=== PATIENT | female | born 1970 | race African-American/Black ===

== ENCOUNTER 2016-10-12 21:03 | Observation (INO) | payer SELFPAY ==
[~2016-10-12] VITALS: Ht 154.9 cm; Wt 118.0 kg
[2016-10-12 21:05] VITALS: BP 144/73; PULSE 96; RESP 16; TEMP 99; O2SAT 100
[2016-10-12 23:00] VITALS: BP 133/63; PULSE 81; RESP 16; TEMP 98.5; O2SAT 99
[2016-10-12] MEDS ORDERED: diphenhydrAMINE HCL 50 MG/ML VIAL IV PUSH ONE (23:15)
[2016-10-12] MEDS ORDERED: PROCHLORPERAZINE INJ 10 MG/2 ML VIAL IV PUSH ONE (23:15)
--- NOTE | 2016-10-12 23:22 | PD ---
HPI Chief Complaint: Headache Time Seen by Provider: 23:02 Travel History International Travel<30 days: No Contact w/Intl Traveler<30days: No Traveled to known affect area: No History of Present Illness HPI 45yo F with PMH of uterine fibroids, iron deficiency anemia, migraine headache presents to the ED with c/o headache for 2-3 days. States it feels like her usual migraine headache. It is bilateral, frontal and radiates to the entire head. Some photophobia. Some nausea. States she has had similar headaches for 2-3 years and was told that her low iron is the cause by her PMD. However, pt has stopped taking iron supplements for 2 weeks because it makes her constipated. Denies any fever, trauma, cough, neck stiffness, chest pain, sob, vomiting, abdominal pain, focal weakness or numbness. +Generalized weakness. Pt has been here multiple times before for symptomatic anemia as well as similar headache. She is on her menstrual period. PFSH Past Medical History Asthma: Yes (SINCE CHILDHOOD) Blood Disorders: No Anxiety: Yes Cancer: No Cardiovascular Problems: No Chemotherapy: No Diabetes: No Diminished Hearing: No Endocrine: No Gastrointestinal Disorders: Yes (GB DSE ) Genitourinary: Yes (UTERINE FIBROIDS) Headaches: Yes Immune Disorder: No Inguinal Hernia: Yes Implanted Vascular Access Dvce: No Musculoskeletal: No Neurologic: No Psychiatric: No Respiratory: Yes (ASTHMA) Immunizations Current: No Migraines: Yes Radiation Therapy: No Thyroid Disease: No Ulcer: Yes ?: Not LMP: 10/10/16 Menopausal: No : 3 Para: 3 Tubal Ligation: Yes Past Surgical History Abdominal Surgery: Yes (HERNIA REPAIR) Section: Yes (X3) Cholecystectomy: Yes Gynecologic Surgery: Yes ( X 3) Other Surgery: Yes (3 c-sections, HERNIA REPAIR, GALLBLADDER REMOVAL) Social History Alcohol Use: Yes (OCC) Tobacco Use: No Substance Use: No Allergies-Medications (Allergen,Severity, Reaction): Coded Allergies: Darvocet-N 100 (Verified Allergy, Mild, VOMITING, 10/12/16) Naproxen (Verified Allergy, Mild, VOMITING, 10/12/16) Tramadol (Verified Allergy, Mild, VOMITING, 10/12/16) Reported Meds & Prescriptions Reported Meds & Active Scripts Active No Active Prescriptions or Reported Medications Review of Systems Except as stated in HPI: all other systems reviewed are Neg Physical Exam Narrative GENERAL: 45yo F in mild distress. SKIN: Focused skin assessment warm/dry. HEAD: Atraumatic. Normocephalic. EYES: Pupils equal and round at 2mm bilaterally. EOMI. No scleral icterus. No injection or drainage. ENT: No nasal bleeding or discharge. Mucous membranes pink and moist. NECK: Trachea midline. No JVD. CARDIOVASCULAR: Regular rate and rhythm. No murmur appreciated. RESPIRATORY: No accessory muscle use. Clear to auscultation. Breath sounds equal bilaterally. GASTROINTESTINAL: Abdomen soft, non-tender, nondistended. No rebound tenderness or guarding. MUSCULOSKELETAL: No obvious deformities. No clubbing. No cyanosis. No edema. NEUROLOGICAL: Awake and alert. No obvious cranial nerve deficits. Motor grossly within normal limits. Sensation intact bilaterally. Normal speech. PSYCHIATRIC: Appropriate mood and affect; insight and judgment normal. Data Data Last Documented VS Vital Signs Date Time Temp Pulse Resp B/P Pulse Ox O2 Delivery O2 Flow Rate FiO2 10/12/16 23:38 16 99 Room Air 10/12/16 21:05 99.0 96 144/73 Orders Complete Blood Count With Diff (10/12/16 23:14) Basic Metabolic Panel (Bmp) (10/12/16 23:14) Prochlorperazine Inj (Compazine Inj) (10/12/16 23:15) Diphenhydramine Inj (Benadryl Inj) (10/12/16 23:15) Type And Screen (10/12/16 23:22) Red Blood Cells (Rbc) (10/12/16 23:54) Blood Product Administration .UPON TRANSFUSION (10/12/16 23:54) Sodium Chlor 0.9% 250 Ml Inj (Ns 250 Ml (10/13/16 00:00) Prochlorperazine Inj (Compazine Inj) (10/13/16 00:15) Diphenhydramine Inj (Benadryl Inj) (10/13/16 00:15) Place In Observation (10/13/16 ) Vital Signs (Adult) Q4H (10/13/16 00:10) Activity Oob Ad Lucrecia (10/13/16 00:10) Diet Regular Basic (10/13/16 Breakfast) Sodium Chloride 0.9% Flush (Ns Flush) (10/13/16 00:15) Sodium Chloride 0.9% Flush (Ns Flush) (10/13/16 09:00) Ondansetron Inj (Zofran Inj) (10/13/16 00:15) Comprehensive Metabolic Panel (10/14/16 06:00) Complete Blood Count With Diff (10/14/16 06:00) Scd Bilateral/Knee High JORGE.BID (10/13/16 00:10) Pedro Bilateral/Knee High JORGE.QSHIFT (10/13/16 00:10) Acetaminophen (Tylenol) (10/13/16 00:15) Acetamin-Hydrocod 325-5 Mg ([place] 5-325 (10/13/16 00:15) Morphine Inj (Morphine Inj) (10/13/16 00:15) Docusate Sodium-Senna (Simin-Colace) (10/13/16 09:00) Magnesium Hydroxide Liq (Milk Of Magnesi (10/13/16 00:15) Sennosides (Senokot) (10/13/16 00:15) Bisacodyl Supp (Dulcolax Supp) (10/13/16 00:15) Lactulose Liq (Lactulose Liq) (10/13/16 00:15) Hgb & Hct (10/13/16 00:10) Admit Order (Ed Use Only) (10/13/16 00:17) Labs Laboratory Tests Test 10/12/16 23:20 White Blood Count 10.1 TH/MM3 Red Blood Count 3.53 MIL/MM3 Hemoglobin 5.2 GM/DL Hematocrit 19.2 % Mean Corpuscular Volume 54.3 FL Mean Corpuscular Hemoglobin 14.6 PG Mean Corpuscular Hemoglobin 27.0 % Concent Red Cell Distribution Width 23.6 % Platelet Count 642 TH/MM3 Mean Platelet Volume 8.3 FL Neutrophils (%) (Auto) 63.4 % Lymphocytes (%) (Auto) 26.7 % Monocytes (%) (Auto) 7.0 % Eosinophils (%) (Auto) 2.1 % Basophils (%) (Auto) 0.8 % Neutrophils # (Auto) 6.4 TH/MM3 Lymphocytes # (Auto) 2.7 TH/MM3 Monocytes # (Auto) 0.7 TH/MM3 Eosinophils # (Auto) 0.2 TH/MM3 Basophils # (Auto) 0.1 TH/MM3 CBC Comment DIFF FINAL Differential Comment Sodium Level 143 MEQ/L Potassium Level 3.9 MEQ/L Chloride Level 108 MEQ/L Carbon Dioxide Level 26.9 MEQ/L Anion Gap 8 MEQ/L Blood Urea Nitrogen 13 MG/DL Creatinine 0.61 MG/DL Estimat Glomerular Filtration 129 ML/MIN Rate Random Glucose 100 MG/DL Calcium Level 8.4 MG/DL [facility] Medical Decision Making Medical Screen Exam Complete: Yes Emergency Medical Condition: Yes Differential Diagnosis Migraine headache vs. Sinus headache vs. Tension headache vs. symptomatic anemia Narrative Course 45yo F with history of migraine headache, iron deficiency anemia here with generalized weakness and migraine like headache. No red flags with the headache , feels like her usual migraine. Will give compazine and benadryl. Pt is on her menstrual period and has heavy menstruation. Labs reviewed, no leukocytosis. H/H is 5.2/19.2 which she has had before. Will transfuse 2 units and admit for symptomatic anemia. BMP unremarkable. Pt reevaluated at bedside and states headache has resolved. Discussed with Dr. Zabala and accepted to her service for symptomatic anemia. Diagnosis Primary Impression: Symptomatic anemia Admitting Information Admitting Physician Requests: Observation Scripts No Active Prescriptions or Reported Meds Yelena Singh DO Oct 12, 2016 23:22
[2016-10-12 23:43] LABS: AUTOMATED NEUTROPHIL # 6.4 TH/MM3 (1.8-7.7); BASOPHIL # 0.1 TH/MM3 (0-0.2); BASOPHIL % 0.8 % (0.0-2.0); EOSINOPHIL # 0.2 TH/MM3 (0-0.4); EOSINOPHIL % 2.1 % (0.0-4.0); LYMPH % 26.7 % (9.0-44.0); LYMPHOCYTE # 2.7 TH/MM3 (1.0-4.8); MEAN CELL VOLUME 54.3 FL (80.0-100.0); MEAN CORPUSCULAR HEMOGLOBIN 14.6 PG (27.0-34.0); NEUT % 63.4 % (16.0-70.0); PLATELET COUNT 642 TH/MM3 (150-450); RED BLOOD COUNT 3.53 MIL/MM3 (4.00-5.30); RED CELL DISTRIBUTION WIDTH 23.6 % (11.6-17.2); WHITE BLOOD COUNT 10.1 TH/MM3 (4.0-11.0)
[2016-10-12 23:52] LABS: HEMO FLAGS DIFF FINAL
[2016-10-12 23:54] LABS: HEMATOCRIT 19.2 % (35.0-46.0)
[2016-10-12 23:57] LABS: BICARBONATE 26.9 MEQ/L (21.0-32.0); POTASSIUM 3.9 MEQ/L (3.5-5.1)
[2016-10-13] VITALS (12 sets, daily range): BP systolic 128–160; BP diastolic 59–74; PULSE 76–103; RESP 15–20; TEMP 97.1–98.7; O2SAT 95–100
[2016-10-13] MEDS ORDERED: ONDANSETRON HCL 4 MG/2 ML VIAL IVP PRN (00:15)
[2016-10-13] MEDS ORDERED: SENNOSIDES 8.6 MG TAB PO PRN (00:15)
[2016-10-13] MEDS ORDERED: SODIUM CHLORIDE 0.9% FLUSH 10 ML FLUSH IV FLUSH PRN (00:15)
[2016-10-13] MEDS ORDERED: diphenhydrAMINE HCL 50 MG/ML VIAL IV PUSH PRN (00:15)
[2016-10-13] MEDS ORDERED: PROCHLORPERAZINE INJ 10 MG/2 ML VIAL IV PUSH PRN (00:15)
[2016-10-13] MEDS ORDERED: MAGNESIUM HYDROXIDE SUSP 30 ML CUP PO PRN (00:15)
[2016-10-13] MEDS ORDERED: ACETAMINOPHEN 325 MG TAB PO PRN (00:15)
[2016-10-13] MEDS ORDERED: BISACODYL 10 MG SUPP RECTAL PRN (00:15)
[2016-10-13] MEDS ORDERED: MORPHINE SULFATE 4 MG/ML INJ IV PRN (00:15)
[2016-10-13] MEDS ORDERED: ACETAMINOPHEN/HYDROcodone 325 MG/5 MG TAB PO PRN (00:15)
[2016-10-13] MEDS ORDERED: LACTULOSE SYRUP 20 GM/30 ML CUP PO PRN (00:15)
--- NOTE | 2016-10-13 02:06 | HHI.HP ---
HPI Service [facility] Primary Care Physician Unknown Admission Diagnosis Symptomatic anemia Diagnoses: (1) Symptomatic anemia Diagnosis: Principal (2) Migraine Diagnosis: Principal (3) Uterine fibroid Diagnosis: Principal Travel History International Travel<30 Days: No Contact w/Intl Traveler <30 Da: No Traveled to Known Affected Are: No History of Present Illness This is a 45-year-old female with a PMH of Anxiety, Anemia, Uterine Fibroids and Migraine Headaches who presented to the ER with complaints of severe migraine x2-3 days. States symptoms typical of her migraine headaches, + photophobia, nausea but no vomiting. Denies fever, chills or sick contacts. On arrival, BP 144/73, HR 96, O2 sat 100% on RA, Afebrile. WBC normal. Hemoglobin 5.2. Chemistry essentially unremarkable. Reports h/o Anemia for which she was given Iron, however not taking them due to constipation. Heavy menstrual flow, currently menstruating at this time. 2u pRBC ordered in ER, pending transfusion. S/p Compazine/Benadryl in ER w/ some relief in migraine. Review of Systems Except as stated in HPI: all other systems reviewed are Neg ROS: 14 point review of systems otherwise negative. Past Family Social History Past Medical History PMH: Anxiety, Anemia, Uterine Fibroids and Migraine Headaches Past Surgical History PAST SURGICAL HISTORY: Hernia Repair, , Cholecystectomy Allergies: Coded Allergies: Darvocet-N 100 (Verified Allergy, Mild, VOMITING, 10/12/16) Naproxen (Verified Allergy, Mild, VOMITING, 10/12/16) Tramadol (Verified Allergy, Mild, VOMITING, 10/12/16) Family History PAST FAMILY HISTORY: Reviewed. No h/o DM or CAD Social History PAST SOCIAL HISTORY: Occasional alcohol. Negative for tobacco or drugs. Physical Exam Vital Signs Vital Signs Date Time Temp Pulse Resp B/P Pulse Ox O2 Delivery O2 Flow Rate FiO2 10/12/16 23:38 16 99 Room Air 10/12/16 23:00 98.5 81 16 133/63 99 Room Air 10/12/16 21:05 99.0 96 16 144/73 100 Physical Exam PE: GENERAL: Middle-aged female in no acute distress. HEENT: PERRLA, EOMI. No scleral icterus or conjunctival pallor. No lid lag or facial droop. CARDIOVASCULAR: Regular rate and rhythm. No obvious murmurs to auscultation. No chest tenderness to palpation. RESPIRATORY: No obvious rhonchi or wheezing. Clear to auscultation. Breath sounds equal bilaterally. GASTROINTESTINAL: Abdomen soft, non-tender, nondistended. BS normal. MUSCULOSKELETAL: Extremities without clubbing, cyanosis, or edema. No obvious deformities. NEUROLOGICAL: Awake, alert and oriented x4. No focal neurologic deficits. Moving both upper and lower extremities spontaneously. Laboratory Laboratory Tests Test 10/12/16 10/12/16 10/12/16 23:20 23:30 23:54 White Blood Count 10.1 Red Blood Count 3.53 Hemoglobin 5.2 Hematocrit 19.2 Mean Corpuscular Volume 54.3 Mean Corpuscular Hemoglobin 14.6 Mean Corpuscular Hemoglobin 27.0 Concent Red Cell Distribution Width 23.6 Platelet Count 642 Mean Platelet Volume 8.3 Neutrophils (%) (Auto) 63.4 Lymphocytes (%) (Auto) 26.7 Monocytes (%) (Auto) 7.0 Eosinophils (%) (Auto) 2.1 Basophils (%) (Auto) 0.8 Neutrophils # (Auto) 6.4 Lymphocytes # (Auto) 2.7 Monocytes # (Auto) 0.7 Eosinophils # (Auto) 0.2 Basophils # (Auto) 0.1 CBC Comment DIFF FINAL Differential Comment Sodium Level 143 Potassium Level 3.9 Chloride Level 108 Carbon Dioxide Level 26.9 Anion Gap 8 Blood Urea Nitrogen 13 Creatinine 0.61 Estimat Glomerular Filtration 129 Rate Random Glucose 100 Calcium Level 8.4 Blood Type A POSITIVE Antibody Screen NEGATIVE Crossmatch Leukocyte-Reduced Red Blood Cells Blood Bank Comment Result Diagram: 10/12/16231910/12/162319 Assessment and Plan Problem List: (1) Migraine ICD Code: G43.909 Status: Acute (2) Symptomatic anemia ICD Code: D64.9 Status: Acute (3) Uterine fibroid ICD Code: D25.9 Status: Chronic Assessment and Plan A/P: 1. Migraine: h/o Migraine w/ Acute Exacerbation, symptoms typical of her migraine headaches, +photophobia. S/p Compazine/Benadryl in ER w/ some improvement. Will continue w/ Compazine/Benadryl, analgesics as needed. 2. Symptomatic Anemia: Hgb 5.2, h/o Anemia, off Iron due to constipation. S/ p 2u pRBC in ER, pending transfusion, check repeat Hgb/Hct following transfusion. 3. Uterine Fibroids: h/o fibroids w/ heavy menstrual bleeding, pt instructed to follow up w/ Sausage Stuffer as outpatient. 4. DVT Prophylaxis: SCD/Teds. 5. Social work for d/c planning as needed. 6. Case discussed w/ ER physician at length. Breanne Zabala MD Oct 13, 2016 02:06
[2016-10-13] MEDS: SODIUM CHLORIDE 0.9% FLUSH 10 ML FLUSH IV FLUSH SCH ×2 (09:00→20:59)
[2016-10-13] MEDS: DOCUSATE SODIUM 50 MG/SENNA 8.6 MG TAB PO SCH ×2 (09:00→20:10)
[2016-10-13 09:31] LABS: MEAN CORPUSCULAR HGB CONC 29.3 % (32.0-36.0)
[2016-10-13 10:43] LABS: AUTOMATED NEUTROPHIL # 5.5 TH/MM3 (1.8-7.7); BASOPHIL # 0.1 TH/MM3 (0-0.2); BASOPHIL % 1.6 % (0.0-2.0); EOSINOPHIL # 0.2 TH/MM3 (0-0.4); EOSINOPHIL % 2.2 % (0.0-4.0); HEMATOCRIT 24.6 % (35.0-46.0); MEAN CELL VOLUME 61.8 FL (80.0-100.0); MEAN CORPUSCULAR HEMOGLOBIN 18.1 PG (27.0-34.0); MONO % 6.1 % (0.0-8.0); NEUT % 66.1 % (16.0-70.0); PLATELET COUNT 564 TH/MM3 (150-450); RED BLOOD COUNT 3.98 MIL/MM3 (4.00-5.30); RED CELL DISTRIBUTION WIDTH 33.4 % (11.6-17.2); WHITE BLOOD COUNT 8.3 TH/MM3 (4.0-11.0)
[2016-10-13 10:49] LABS: HEMO FLAGS AUTO DIFF
--- NOTE | 2016-10-13 10:59 | HHI.PR ---
Subjective Remarks Follow up for migraine, anemia. The patient reports feeling mildly better today. Still has diffuse frontal throbbing 5/10 headache with photophobia; improved from an 8/10 upon arrival. Denies any nausea/vomiting. She is hungry and wants to eat breakfast. She denies any lightheadedness or dizziness. She reports she has had very heavy menstrual flow during this cycle which she believes has started to subside today. She understands she needs to follow up with industrial methods consultant for further evaluation of uterine fibroids. The last time she had to be transfused for anemia was 2 years ago. Also discussed importance of taking iron supplements, and can also take Colace to help prevent constipation. Objective Vitals Vital Signs Date Time Temp Pulse Resp B/P Pulse Ox O2 Delivery O2 Flow Rate FiO2 10/13/16 09:00 97.8 79 15 145/63 100 10/13/16 05:00 97.6 78 18 134/62 99 10/13/16 03:47 97.9 78 17 131/61 98 10/13/16 02:30 97.5 85 20 133/63 98 10/13/16 02:15 97.1 103 19 139/63 100 10/13/16 01:49 81 16 131/62 97 10/12/16 23:38 16 99 Room Air 10/12/16 23:00 98.5 81 16 133/63 99 Room Air 10/12/16 21:05 99.0 96 16 144/73 100 I/O 10/12/16 10/12/16 10/12/16 10/13/16 10/13/16 10/13/16 07:00 15:00 23:00 07:00 15:00 23:00 Intake Total 500 ml Balance 500 ml Intake Packed Cells 500 ml # Voids 2 Result Diagram: 10/12/16 2320 10/12/16 2320 Objective Remarks GENERAL: Well-nourished, well-developed middle aged female patient in [facility]. SKIN: Warm and dry. No rash. HEENT: Normocephalic. Atraumatic. Pupils equal and round. Mucous membranes pink and moist. NECK: Supple. Trachea midline. CARDIOVASCULAR: Regular rate and rhythm. S1, S2 noted. No murmur appreciated. RESPIRATORY: No accessory muscle use. Clear to auscultation. Breath sounds equal bilaterally. GASTROINTESTINAL: Abdomen soft, non-tender, nondistended. Normoactive bowel sounds x4. MUSCULOSKELETAL: No obvious deformities. Extremities without clubbing, cyanosis , or edema. NEUROLOGICAL: Awake and alert. No obvious cranial nerve deficits. Motor grossly within normal limits. Normal speech. PSYCHIATRIC: Appropriate mood and affect; insight and judgment normal. Medications and IVs Current Medications Medications (Trade) Dose Ordered Sig/Marisol Route Start Time Stop Time Status Last Admin (NS 250 ml Inj) 250 ml @ 15 mls/hr ONCE ONCE IV 10/13/16 00:00 10/13/16 16:39 10/13/16 02:21 (Compazine Inj) 10 mg Q6H PRN IV PUSH 10/13/16 00:15 10/13/16 10:12 (Benadryl Inj) 25 mg Q6H PRN IV PUSH 10/13/16 00:15 10/13/16 10:12 (NS Flush) 2 ml UNSCH PRN IV FLUSH 10/13/16 00:15 (NS Flush) 2 ml BID IV FLUSH 10/13/16 09:00 (Zofran Inj) 4 mg Q6H PRN IVP 10/13/16 00:15 (Tylenol) 650 mg Q6H PRN PO 10/13/16 00:15 ([place] 5-325 Mg) 1 tab Q4H PRN PO 10/13/16 00:15 (Morphine Inj) 2 mg Q3H PRN IV 10/13/16 00:15 (Simin-Colace) 1 tab BID PO 10/13/16 09:00 (Milk Of Magnesia Liq) 30 ml Q12H PRN PO 10/13/16 00:15 (Senokot) 17.2 mg Q12H PRN PO 10/13/16 00:15 (Dulcolax Supp) 10 mg DAILY PRN RECTAL 10/13/16 00:15 (Lactulose Liq) 30 ml DAILY PRN PO 10/13/16 00:15 A/P Problem List: (1) Migraine ICD Code: G43.909 Status: Acute (2) Symptomatic anemia ICD Code: D64.9 Status: Acute (3) Uterine fibroid ICD Code: D25.9 Status: Chronic Assessment and Plan 45-year-old female with a PMH of Anxiety, Anemia, Uterine Fibroids and Migraine Headaches who presented to the ER with complaints of severe migraine x2-3 days. Migraine: h/o Migraines w/ Acute Exacerbation, symptoms typical of her migraine headaches, +photophobia. S/p Compazine/Benadryl in ER w/ some improvement. Continue w/ Compazine/Benadryl, analgesics as needed. Symptoms improving. Symptomatic Anemia: Hgb 5.2, h/o Anemia, off Iron due to constipation. S/p 2u pRBC tranfusion however repeat Hgb 7.2, patient still with menstrual bleeding, will give additional 1u pRBC transfusion. Repeat H&H this afternoon. Uterine Fibroids: h/o fibroids w/ heavy menstrual bleeding, pt instructed to follow up w/ [employer] as outpatient. DVT Prophylaxis: SCD/Teds. Discharge Planning 1045hrs: Likely discharge this afternoon if Hgb > 8.0 and migraine continues to improve. 1450hrs: Transfusion completed. Ordered H&H for 4:30pm. Ok to discharge today if repeat Hemoglobin > 8.0. Discharge patient to home Condition on discharge: Improved Regular Diet as tolerated Ad Lucrecia activity Rx written: ferrous sulfate 325mg bid, simin-colace 1 tab po bid Follow-up with primary care physician and gynecology Attending Statement The exam, history, and the medical decision-making described in the above note were completed with the assistance of the mid-level provider. I reviewed and agree with the findings presented. I attest that I had a [id number] encounter with the patient on the same day, and personally performed and documented my assessment and findings in the medical record. Discussed in her bedroom in the presence of relative, she states could not get an Ob-Senior Housekeeper physician to perform her Hysterectomy she has no Insurance. will be discharge if Hemoglobin over 8 gr/dl Lisa Hubbrad PA-C Oct 13, 2016 10:59 Papa Ramos MD Oct 13, 2016 18:02
[2016-10-13] MEDS ORDERED: SODIUM CHLOR 0.9% 250 ML INJ 250 ML IV ONE ×2 (11:00)
[2016-10-13 11:42] LABS: OVALOCYTES 1+ (NORMAL); PLATELET ESTIMATE SMEAR HIGH (NORMAL); PLATELET MORPHOLOGY NORMAL (NORMAL); SCAN/DIFF AUTO DIFF CONFIRMED; TARGET CELLS 1+ (NORMAL)
[2016-10-13] MEDS ORDERED: SENN1TAB PO (12:28)
[2016-10-13] MEDS ORDERED: FERR325T20 PO (12:28)
--- NOTE | 2016-10-13 12:28 | HHI.DCPOC ---
Discharge Care Plan Diagnosis: (1) Symptomatic anemia (2) Migraine (3) Uterine fibroid Goals to Promote Your Health * To prevent worsening of your condition and complications * To maintain your health at the optimal level Directions to Meet Your Goals Take your medications as prescribed Follow your dietary instruction Follow activity as directed Keep your appointments as scheduled Take your immunizations and boosters as scheduled If your symptoms worsen call your PCP, if no PCP go to Urgent Care Center or Emergency Room Smoking is Dangerous to Your Health. Avoid second hand smoke Call the 24-hour hour crisis hotline for domestic abuse at Lisa Hubbard PA-C Oct 13, 2016 12:28
[2016-10-13] MEDS: FERROUS SULFATE 325 MG (65 MG ELEMENTAL IRON) TAB PO SCH ×2 (13:06→18:30)
[2016-10-13 19:13] LABS: REVIEW FLAG FINAL
== END 2016-10-13 21:59 | disposition home or self-care (01) ==
LOC: NEPD 21:03 → NEDA 10-13 00:18 → NEPHCDU 10-13 02:06
PROVIDERS: ADMIT Internal Medicine; ATTEND Internal Medicine
DX: D64.9 Anemia, unspecified (principal); G43.909 Migraine, unspecified, not intractable, without status migrainosus; D25.9 Leiomyoma of uterus, unspecified; J45.909 Unspecified asthma, uncomplicated; F41.9 Anxiety disorder, unspecified
CPT/HCPCS: 36430; 80048; 85014; 85018; 85025; 86850; 86900; 86901; 86920; 86922; 96374; 96375; 99285; G0378; J0780; J1200; J7050; P9016

== ENCOUNTER 2017-03-27 10:52 | Observation (INO) | payer SELFPAY ==
[2017-03-27] VITALS (8 sets, daily range): BP systolic 139–185; BP diastolic 60–109; PULSE 86–106; RESP 17–20; TEMP 99.4–101; O2SAT 95–100
[~2017-03-27] VITALS: Ht 154.9 cm; Wt 122.0 kg
[~2017-03-27 10:52] MED LIST: FERR325T20 PO; SENN1TAB PO
[2017-03-27] MEDS ORDERED: SODIUM CHLOR 0.9% 1000 ML INJ 1,000 ML IV ONE (11:30)
[2017-03-27] MEDS ORDERED: ACETAMINOPHEN 325 MG TAB PO ONE ×2 (11:30→13:00)
--- NOTE | 2017-03-27 11:53 | PD ---
HPI . Cold/flu symptoms Chief Complaint: Cold / Flu Symptoms Time Seen by Provider: 11:08 Travel History International Travel<30 days: No Contact w/Intl Traveler<30days: No Traveled to known affect area: No History of Present Illness HPI 46 yo female presents to ED with complaints of "everything hurts". She reports a dry cough for the last two weeks however over the last two days the cough has become productive and symptoms have worsened. She reports emesis x2 last night. She complains of shortness of breath, band-like headache, fever and chills and chest pain. The chest pain is 8/10 midsternal up to her right shoulder. She denies any diaphoresis, radiation to neck or arm. She has not tried anything for the symptoms. She reports to aggravating or relieving factors. [facility] Past Medical History Narrative Medical History of prior hospitalizations due to anemia Asthma: Yes (SINCE CHILDHOOD) Blood Disorders: No Anxiety: Yes Cancer: No Cardiovascular Problems: No Chemotherapy: No Diabetes: No Diminished Hearing: No Endocrine: No Gastrointestinal Disorders: Yes (GALLBLADDER DISEASE AND REMOVAL) Genitourinary: No Headaches: Yes Immune Disorder: No Inguinal Hernia: Yes Implanted Vascular Access Dvce: Yes Musculoskeletal: No Neurologic: Yes (CHRONIC MIGRAINES) Psychiatric: Yes Reproductive: Yes (HX OF UTERINE FIBROIDS) Respiratory: Yes Immunizations Current: No Migraines: Yes Radiation Therapy: No Thyroid Disease: No Ulcer: Yes Influenza Vaccination: No ?: Not Menopausal: No : 3 Para: 3 Tubal Ligation: Yes Past Surgical History Abdominal Surgery: Yes (HERNIA REPAIR) Body Medical Devices: HERNIA REPAIR, PT THINKS POSSIBLE MESH? Section: Yes (X3) Cholecystectomy: Yes Gynecologic Surgery: Yes ( X 3) Other Surgery: Yes (C SECTIONS, HERNIA REPAIR, GALLBLADDER REMOVAL) Social History Alcohol Use: Yes (OCC) Tobacco Use: No (quit 4 yrs) Substance Use: No Allergies-Medications (Allergen,Severity, Reaction): Coded Allergies: acetaminophen (Unverified Allergy, Mild, VOMITING, 03/27/17) naproxen (Unverified Allergy, Mild, VOMITING, 03/27/17) propoxyphene (Unverified Allergy, Mild, VOMITING, 03/27/17) tramadol (Unverified Allergy, Mild, VOMITING, 03/27/17) Reported Meds & Prescriptions Reported Meds & Active Scripts Active Senna Plus 8.6-50 mg (Sennosides-Docusate Sodium) 1 Tab Tab 1 Tab PO BID Ferosul (Ferrous Sulfate) 325 Mg Tablet 325 Mg PO BID@12,17 Review of Systems Except as stated in HPI: all other systems reviewed are Neg General / Constitutional: Positive: Fever, Chills HENT: Positive: Headaches Cardiovascular: Positive: Chest Pain or Discomfort, No: Diaphoresis Respiratory: Positive: Cough, Shortness of Breath Gastrointestinal: Positive: Vomiting Physical Exam Narrative General: middle aged female laying in bed, complaining of pain, slow in movement HEENT: SADIE, Tympanic membranes intact with no signs of effusion. Nasal passages patent with no discharge noted. Throat non-erythematous. Cardiac: regular rate and rhythm. No rubs, murmurs or gallops Pulmonary: clear to auscultation bilaterally. No wheezes, rales, rhonchi Skin: Non-diaphoretic Abdomen: BS all 4 quadrants. No tenderness to palpation. Musculoskeletal: able to move all extremities Neuro: A & O X 3. CN grossly intact. No obvious focal abnormalities. Psych: Normal mood and affect. Data Data Last Documented VS Vital Signs Date Time Temp Pulse Resp B/P (MAP) Pulse Ox O2 Delivery O2 Flow Rate FiO2 03/27/17 11:11 99 18 139/60 (86) 98 03/27/17 10:53 101.0 Room Air Orders Orders Sepsis Workup Initiated (03/27/17 ) Complete Blood Count With Diff (03/27/17 11:25) Comprehensive Metabolic Panel (03/27/17 11:25) Lactic Acid Sepsis Protocol (03/27/17 11:25) Influenzae A/B Antigen (03/27/17 11:25) Blood Culture (03/27/17 11:25) Chest, Single Ap (03/27/17 11:25) Ecg Monitoring (03/27/17 11:25) Iv Access Insert/Monitor (03/27/17 11:25) Oximetry (03/27/17 11:25) Acetaminophen (Tylenol) (03/27/17 11:30) Sodium Chlor 0.9% 1000 Ml Inj (Ns 1000 M (03/27/17 11:30) Red Blood Cells (Rbc) (03/27/17 12:56) Blood Product Administration (03/27/17 12:56) Sodium Chlor 0.9% 250 Ml Inj (Ns 250 Ml (03/27/17 13:00) Diphenhydramine (Benadryl) (03/27/17 13:00) Acetaminophen (Tylenol) (03/27/17 13:00) Type And Screen (03/27/17 12:56) Promethazine/Codeine Liq (Phenergan-Code (03/27/17 14:30) Admit Order (Ed Use Only) (03/27/17 14:25) Labs Laboratory Tests Test 03/27/17 12:07 White Blood Count 7.4 TH/MM3 Red Blood Count 3.72 MIL/MM3 Hemoglobin 5.7 GM/DL Hematocrit 20.1 % Mean Corpuscular Volume 54.0 FL Mean Corpuscular Hemoglobin 15.2 PG Mean Corpuscular Hemoglobin Concent 28.2 % Red Cell Distribution Width 22.7 % Platelet Count 431 TH/MM3 Mean Platelet Volume 8.3 FL Neutrophils (%) (Auto) 76.0 % Lymphocytes (%) (Auto) 13.1 % Monocytes (%) (Auto) 8.3 % Eosinophils (%) (Auto) 1.3 % Basophils (%) (Auto) 1.3 % Neutrophils # (Auto) 5.6 TH/MM3 Lymphocytes # (Auto) 1.0 TH/MM3 Monocytes # (Auto) 0.6 TH/MM3 Eosinophils # (Auto) 0.1 TH/MM3 Basophils # (Auto) 0.1 TH/MM3 CBC Comment DIFF FINAL Differential Comment Blood Urea Nitrogen 10 MG/DL Creatinine 0.59 MG/DL Random Glucose 80 MG/DL Total Protein 8.0 GM/DL Albumin 3.2 GM/DL Calcium Level 8.7 MG/DL Alkaline Phosphatase 92 U/L Aspartate Amino Transf (AST/SGOT) 48 U/L Alanine Aminotransferase (ALT/SGPT) 13 U/L Total Bilirubin 0.3 MG/DL Sodium Level 136 MEQ/L Potassium Level 4.7 MEQ/L Chloride Level 103 MEQ/L Carbon Dioxide Level 26.7 MEQ/L Anion Gap 6 MEQ/L Estimat Glomerular Filtration Rate 133 ML/MIN Lactic Acid Level 1.2 mmol/L MDM Medical Decision Making Medical Screen Exam Complete: Yes Emergency Medical Condition: Yes Differential Diagnosis sepsis, flu, strep throat, costochondritis, pneumonia Narrative Course Patient presented to ED with cc of "everything hurts" and signs/symptoms of cold /flu in addition to a temperature of 101.0 F. Sepsis workup was initiated. Chest x ray demonstrated mild pulmonary vascular congestion and mild cardiomegaly. Blood cultures are pending. Negative for influenza. She was found to have a hemoglobin of 5.7. Two units of blood were ordered. Last Impressions Chest X-Ray 03/27/17 1125 Signed Impressions: Service Date/Time: Monday, March 27, 2017 11:36 - CONCLUSION: 1. Mild central pulmonary vascular congestion. 2. Mild cardiomegaly. Aubrey Bryan MD CBC & BMP Diagram 03/27/17 12:07 Total Protein 8.0, Albumin 3.2 L, Calcium Level 8.7, Alkaline Phosphatase 92, Aspartate Amino Transf (AST/SGOT) 48 H, Alanine Aminotransferase (ALT/SGPT) 13, Total Bilirubin 0.3 2 units of blood have subsequently been ordered. Please screen was negative. Lactic acid level is normal. Physician Communication Physician Communication Dr. Mohr. The patient will be admitted to the residents' service. Diagnosis Primary Impression: Viral syndrome Additional Impression: Anemia Qualified Codes: D50.0 - Iron deficiency anemia secondary to blood loss ( chronic) Admitting Information Admitting Physician Requests: Observation Referrals: [facility] Patient Instructions: General Instructions Additional Instructions: Condition: Stable Blessing Zimmer MD Mar 27, 2017 11:53
--- NOTE | 2017-03-27 11:57 | RADRPT ---
EXAM DATE/TIME: 03/27/2017 11:36 [facility] COMPARISON: CHEST SINGLE AP, August 29, 2014, 16:44. INDICATIONS : Cough. Upper abdomen pain. MEDICAL HISTORY : None. SURGICAL HISTORY : None. ENCOUNTER: Initial ACUITY: 2 days PAIN SCORE: 4/10 LOCATION: Bilateral upper quadrant abdomen FINDINGS: The heart is enlarged. Mild central pulmonary vascular congestion is noted. The lungs are otherwise c lear. CONCLUSION: 1. Mild central pulmonary vascular congestion. 2. Mild cardiomegaly. Aubrey Bryan MD on March 27, 2017 at 11:54 Board Certified Radiologist. This report was verified electronically.
[2017-03-27 12:27] LABS: AUTOMATED NEUTROPHIL # 5.6 TH/MM3 (1.8-7.7); BASOPHIL # 0.1 TH/MM3 (0-0.2); BASOPHIL % 1.3 % (0.0-2.0); EOSINOPHIL # 0.1 TH/MM3 (0-0.4); EOSINOPHIL % 1.3 % (0.0-4.0); LYMPH % 13.1 % (9.0-44.0); MEAN CORPUSCULAR HEMOGLOBIN 15.2 PG (27.0-34.0); MEAN PLATELET VOLUME 8.3 FL (7.0-11.0); MONO % 8.3 % (0.0-8.0); MONOCYTE # 0.6 TH/MM3 (0-0.9); PLATELET COUNT 431 TH/MM3 (150-450); RED BLOOD COUNT 3.72 MIL/MM3 (4.00-5.30); RED CELL DISTRIBUTION WIDTH 22.7 % (11.6-17.2); WHITE BLOOD COUNT 7.4 TH/MM3 (4.0-11.0)
[2017-03-27 12:30] LABS: MEAN CORPUSCULAR HGB CONC 28.2 % (32.0-36.0)
[2017-03-27 12:36] LABS: HEMATOCRIT 20.1 % (35.0-46.0); HEMOGLOBIN 5.7 GM/DL (11.6-15.3)
[2017-03-27 12:51] LABS: ALKALINE PHOSPHATASE 92 U/L (45-117); TOTAL BILIRUBIN ADULT 0.3 MG/DL (0.2-1.0)
[2017-03-27 12:52] LABS: ALBUMIN 3.2 GM/DL (3.4-5.0); ALT (GPT) 13 U/L (10-53); BICARBONATE 26.7 MEQ/L (21.0-32.0); BLOOD UREA NITROGEN 10 MG/DL (7-18); CALCIUM 8.7 MG/DL (8.5-10.1); CHLORIDE 103 MEQ/L (98-107); CREATININE 0.59 MG/DL (0.50-1.00); GLOMERULAR FILTRATION RATE 133 ML/MIN (>89); GLUCOSE,RANDOM 80 MG/DL (74-106); SODIUM (NA) 136 MEQ/L (136-145)
[2017-03-27 12:53] LABS: AST (GOT) 48 U/L (15-37)
[2017-03-27] MEDS ORDERED: SODIUM CHLOR 0.9% 250 ML INJ 250 ML IV ONE (13:00)
[2017-03-27] MEDS ORDERED: diphenhydrAMINE HCL 25 MG CAP PO ONE (13:00)
[2017-03-27] MEDS: PROMETHAZINE/CODEINE 6.25 MG/10 MG/5 ML CUP PO PRN (14:30)
--- NOTE | 2017-03-27 15:06 | HHI.HP ---
HPI Service Family Medicine Primary Care Physician No Primary Care Physician Admission Diagnosis anemia Diagnoses: International Travel<30 Days: No Contact w/Intl Traveler<30days: No Known Affected Area: No History of Present Illness Mrs. Thao is a 46 yo F with PMH uterine fibroids, anemia, mood disorder, and headaches who presents with cough and headache. Patient reports symptoms of cough and headache which have been present 1.5 weeks. Patient's symptoms were initially improving on cough syrup and Theraflu until they began to again worsen 3-4 days ago. 3-4 days ago, patient began having coughing which was difficult to control; Patient has also had chest burning, abdominal pain, and worsening headache over the past several days. Patient attributes her chest pain and abdominal pain to her cough; no exertional chest pain, edema, or diaphoresis. Patient's cough was initially productive of mucus but it is now dry. Patient has not had confirmed fever but felt feverish last night. Patient has also had sore throat. Patient's headaches have been off/on for ~3 days; Tylenol and Motrin have helped somewhat but headaches have recurred; they can last >24 hrs at a time. Patient also has chronic headaches; these headaches are worse than usual. Patient also reports general weakness. Patient had vomitus x1 episode last night; she has also been experiencing nausea. Urination and bowel movements have been normal. Patient has sick contact of her friend who was recently sick. Patient also has occasional visual blurriness. In addition to the prior symptoms for the past ~1 week, patient has felt shortness of breath for ~1mo. Patient is unable to walk prolonged distances due to her shortness of breath. patient has to stop multiple times.Patient has had some dizziness; she has not had recent syncope. Patient attributes prior syncopal episodes to low iron. Patient has been prescribed iron previously but has only been able to tolerate occasionally taking a multivitamin with iron due to nausea. Patient has been having monthly periods, lasting 4-8 days. Periods have always been heavy. Patient's last period was 03/11. Regarding screening for SURGICAL CONSULTANT malignancies, patient's last PAP smear was 2 yrs ago; her last mammogram was a few years ago. Patient has not had a PCP or other physician for ~ 1 year due to lack of insurance. Patient also has not had a OBGYN despite prior attempts at referral. (Lobo Solares MD, R3) Review of Systems Constitutional: COMPLAINS OF: Fever (subjective), DENIES: Chills Endocrine: COMPLAINS OF: Abnorml menstrual pattern (menorrhagia), DENIES: Polyuria Eyes: DENIES: Blurred vision, Eye pain Ears, nose, mouth, throat: COMPLAINS OF: Throat pain, DENIES: Running Nose Respiratory: COMPLAINS OF: Cough, Shortness of breath Cardiovascular: DENIES: Chest pain, Lower Extremity Edema Gastrointestinal: COMPLAINS OF: Abdominal pain, DENIES: Diarrhea Genitourinary: DENIES: Urgency, Dysuria Musculoskeletal: DENIES: Joint pain, Muscle aches Hematologic/lymphatic: DENIES: Bruising, Lymphadenopathy Neurologic: COMPLAINS OF: Headache, DENIES: Abnormal gait Psychiatric: COMPLAINS OF: Anxiety, Depression (Lobo Solares MD, R3) Past Family Social History Past Medical History Per Patient ?Depression Anemia Fibroids Past Surgical History CS x3 Cholecystectomy hernia repair Reported Medications occasional Tylenol and Motrin occasional vitamin with iron ~3x/week (Lobo Solares MD, R3) Allergies: Coded Allergies: naproxen (Unverified Allergy, Mild, VOMITING, 03/27/17) propoxyphene (Unverified Allergy, Mild, VOMITING, 03/27/17) tramadol (Unverified Allergy, Mild, VOMITING, 03/27/17) Family History Mom- T2DM, renal failure, HTN Sister- HTN, T2DM Social History Alcohol- occasional Tobacco- none Youth- Distant youth- marijuana, cocaine. No IV drugs Applying for disability. Stable finances at home; takes care of grandchildren (Lobo Solares MD, R3) Physical Exam Vital Signs Vital Signs Date Time Temp Pulse Resp B/P (MAP) Pulse Ox O2 Delivery O2 Flow Rate FiO2 03/27/17 11:11 99 18 139/60 (86) 98 03/27/17 10:53 101.0 106 20 181/109 (133) 100 Room Air Physical Exam GENERAL: Patient appears comfortable, in no acute distress. SKIN: Warm and dry, no rashes appreciated EYES: No scleral icterus, injection, or drainage. HENT: Head: Normocephalic. Mouth: No lesions appreciated. Pharynx: Benign exam without erythema or exudate. NECK: No appreciated lymphadenopathy or thyromegaly CARDIOVASCULAR: Regular rate and rhythm without murmurs. Normal peripheral perfusion in lower extremities. RESPIRATORY: Normal respiratory rate. Lungs clear to auscultation bilaterally. GASTROINTESTINAL: Abdomen soft, nondistended, not significantly tender. Abdominal firmness to palpation in areas suspicious for fibroids vs subcutaneous connective tissue hypertrophy secondary to surgery MUSCULOSKELETAL: No lower extremity swelling. No appreciated calf asymmetry. NEURO/PSYCH: Awake, alert, and oriented. Cranial nerves grossly normal. Grossly normal motor and sensory function. Laboratory Laboratory Tests Test 03/27/17 12:07 White Blood Count 7.4 Red Blood Count 3.72 Hemoglobin 5.7 Hematocrit 20.1 Mean Corpuscular Volume 54.0 Mean Corpuscular Hemoglobin 15.2 Mean Corpuscular Hemoglobin Concent 28.2 Red Cell Distribution Width 22.7 Platelet Count 431 Mean Platelet Volume 8.3 Neutrophils (%) (Auto) 76.0 Lymphocytes (%) (Auto) 13.1 Monocytes (%) (Auto) 8.3 Eosinophils (%) (Auto) 1.3 Basophils (%) (Auto) 1.3 Neutrophils # (Auto) 5.6 Lymphocytes # (Auto) 1.0 Monocytes # (Auto) 0.6 Eosinophils # (Auto) 0.1 Basophils # (Auto) 0.1 CBC Comment DIFF FINAL Differential Comment Blood Urea Nitrogen 10 Creatinine 0.59 Random Glucose 80 Total Protein 8.0 Albumin 3.2 Calcium Level 8.7 Alkaline Phosphatase 92 Aspartate Amino Transf (AST/SGOT) 48 Alanine Aminotransferase (ALT/SGPT) 13 Total Bilirubin 0.3 Sodium Level 136 Potassium Level 4.7 Chloride Level 103 Carbon Dioxide Level 26.7 Anion Gap 6 Estimat Glomerular Filtration Rate 133 Lactic Acid Level 1.2 Date/Time Source Procedure Growth Status 03/27/17 12:10 Blood Peripheral Aerobic Blood Culture Pending Received 03/27/17 12:10 Blood Peripheral Anaerobic Blood Culture Pending Received 03/27/17 12:07 Nasal Washing Influenza Types A,B Antigen (ILANA) - Final NEGATIVE FOR FLU A AND B ANTIGEN.... Complete (Lobo Solares MD, R3) Result Diagram: 03/27/17 1207 03/27/17 1207 Imaging Last Impressions Chest X-Ray 03/27/17 1125 Signed Impressions: Service Date/Time: Monday, March 27, 2017 11:36 - CONCLUSION: 1. Mild central pulmonary vascular congestion. 2. Mild cardiomegaly. Aubrey Bryan MD (Lobo Solares MD, R3) Caprini VTE Risk Assessment Caprini VTE Risk Assessment: Mod/High Risk (score >= 2) Caprini Risk Assessment Model Point Value = 1 Point Value = 2 Point Value = 3 Point Value = 5 Age 41-60 Minor surgery BMI > 25 kg/m2 Swollen legs Varicose veins or History of unexplained or recurrent spontaneous Oral contraceptives or hormone replacement Sepsis (< 1 month) Serious lung disease, including pneumonia (< 1 month) Abnormal pulmonary function Acute myocardial infarction Congestive heart failure (< 1 month) History of inflammatory bowel disease Medical patient at bed rest Age 61-74 Arthroscopic surgery Major open surgery (> 45 min) Laparoscopic surgery (> 45 min) Malignancy Confined to bed (> 72 hours) Immobilizing plaster cast Central venous access Age >= 75 History of VTE Family history of VTE Factor V Leiden Prothrombin [id number] Lupus anticoagulant Anticardiolipin antibodies Elevated serum homocysteine Heparin-induced thrombocytopenia Other congenital or acquired thrombophilia Stroke (< 1 month) Elective arthroplasty Hip, pelvis, or leg fracture Acute spinal cord injury (< 1 month) Prophylaxis Regimen Total Risk Factor Score Risk Level Prophylaxis Regimen 0-1 Low Early ambulation 2 Moderate Order ONE of the following: *Sequential Compression Device (SCD) *Heparin 5000 units SQ BID 3-4 Higher Order ONE of the following medications: *Heparin 5000 units SQ TID *Enoxaparin/Lovenox 40 mg SQ daily (WT < 150 kg, CrCl > 30 mL/min) *Enoxaparin/Lovenox 30 mg SQ daily (WT < 150 kg, CrCl > 10-29 mL/min) *Enoxaparin/Lovenox 30 mg SQ BID (WT < 150 kg, CrCl > 30 mL/min) AND/OR *Sequential Compression Device (SCD) 5 or more Highest Order ONE of the following medications: *Heparin 5000 units SQ TID (Preferred with Epidurals) *Enoxaparin/Lovenox 40 mg SQ daily (WT < 150 kg, CrCl > 30 mL/min) *Enoxaparin/Lovenox 30 mg SQ daily (WT < 150 kg, CrCl > 10-29 mL/min) *Enoxaparin/Lovenox 30 mg SQ BID (WT < 150 kg, CrCl > 30 mL/min) AND *Sequential Compression Device (SCD) (Lobo Solares MD, R3) Assessment and Plan Assessment and Plan Mrs. Thao is a 46 yo F with: Code Status Full code (Lobo Solares MD, R3) Problem List: (1) Anemia ICD Codes: D64.9 - Anemia Status: Acute Plan: -Will transfuse 2 U pRBC per ED -Will check iron studies -Will start liquid iron supplementation since patient cannot tolerate tablet supplementation -Will trend CBC Impression: Patient with PMH anemia with history of transfusion. Labs on admission: Hgb 5.7, Hct 20.1, MCV 54. PLT and WBC counts wnl. Suspect severe iron deficiency anemia (2) Uterine fibroid ICD Codes: D25.9 - Uterine fibroid Status: Chronic Plan: Impression: History of uterine fibroids; presumed etiology of menorrhagia -US abdomen and pelvis ordered since abdominal firm nodules seemed high to palpation above presumed area of uterus -SURGICAL CONSULTANT consulted -Will attempt to arrange outpatient SURGICAL CONSULTANT follow-up (3) Cough ICD Codes: R05 - Cough Status: Acute Plan: Impression: Cough x 1.5 weeks, worsening. Cough in association with mild central pulmonary vascular congestion; BNP normal. T 101 on admission. While viral URI high possibility; congestion on CXR in association with fever and cough possibly suggestive of bacterial etiology -Will give empiric antibiotics -Rocephin 1gm daily -Azithromycin 500mg daily -Will check sputum culture -Will check strep pneumonia urinary antigen (4) Headache ICD Codes: R51 - Headache Status: Chronic Plan: Impression: Nonspecific; suspect chronic tension headache. No neurologic deficits -PRN Ibuprofen and Tylenol for headaches (5) Fluids, Electrolytes, and Nutrition Status: Acute Plan: Fluids: None at this time; regular diet Electrolytes on admission: WNL Nutrition: Regular diet (6) DVT PPX Status: Acute Plan: -Bilateral SCD's (7) HTN (hypertension) ICD Codes: I10 - Essential (primary) hypertension Plan: Impression: BP elevated today while in hospital; frequently hypertensive per EMR review. Systolic murmur on exam -Will check Echo -Continue to monitor VS -Will plan to start antihypertensive while hospitalized -Will try Amlodipine 5mg daily (Lobo Solares MD, R3) Problem List: (1) Anemia ICD Codes: D64.9 - Anemia Status: Acute Plan: -Will transfuse 2 U pRBC per ED -Will check iron studies -Will start liquid iron supplementation since patient cannot tolerate tablet supplementation -Will trend CBC Impression: Patient with PMH anemia with history of transfusion. Labs on admission: Hgb 5.7, Hct 20.1, MCV 54. PLT and WBC counts wnl. Suspect severe iron deficiency anemia (2) Uterine fibroid ICD Codes: D25.9 - Uterine fibroid Status: Chronic Plan: Impression: History of uterine fibroids; presumed etiology of menorrhagia -US abdomen and pelvis ordered since abdominal firm nodules seemed high to palpation above presumed area of uterus -SURGICAL CONSULTANT consulted -Will attempt to arrange outpatient SURGICAL CONSULTANT follow-up (3) Cough ICD Codes: R05 - Cough Status: Acute Plan: Impression: Cough x 1.5 weeks, worsening. Cough in association with mild central pulmonary vascular congestion; BNP normal. T 101 on admission. While viral URI high possibility; congestion on CXR in association with fever and cough possibly suggestive of bacterial etiology -Will give empiric antibiotics -Rocephin 1gm daily -Azithromycin 500mg daily -Will check sputum culture -Will check strep pneumonia urinary antigen (4) Headache ICD Codes: R51 - Headache Status: Chronic Plan: Impression: Nonspecific; suspect chronic tension headache. No neurologic deficits -PRN Ibuprofen and Tylenol for headaches (5) Fluids, Electrolytes, and Nutrition Status: Acute Plan: Fluids: None at this time; regular diet Electrolytes on admission: WNL Nutrition: Regular diet (6) DVT PPX Status: Acute Plan: -Bilateral SCD's (7) HTN (hypertension) ICD Codes: I10 - Essential (primary) hypertension Plan: Impression: BP elevated today while in hospital; frequently hypertensive per EMR review. Systolic murmur on exam -Will check Echo -Continue to monitor VS -Will plan to start antihypertensive while hospitalized -Will try Amlodipine 5mg daily See the residents documentation for details. I saw and evaluated the patient regarding the campa portions of this evaluation and agree with the residents findings and plans as written. I have reviewed the patients past medical/surgical and social histories and updated as appropriate. Parts of this note were created using [employer] voice recognition software program. While efforts were made to correct any mistakes made by this software, some mistakes, errors, and omissions may remain in the final note that were not caught when the note was originally created. Plan of care was discussed and agreed upon with the patient as specifically documented in the above note. An opportunity to ask questions with explanation was provided. Patient voiced understanding on all information reviewed and discussed. (Arnold Whitaker MD) Physician Certification 2 Midnight Certification Type: Admission for Inpatient Services Order for Inpatient Services The services are ordered in accordance with Medicare regulations or non- Medicare payer requirements, as applicable. In the case of services not specified as inpatient-only, they are appropriately provided as inpatient services in accordance with the 2-midnight benchmark. Estimated LOS (days): 3 days is the estimated time the patient will need to remain in the hospital, assuming treatment plan goals are met and no additional complications. Post-Hospital Plan: Home (Lobo Solares MD, R3) Problem Qualifiers (1) Anemia: Qualified Codes: D50.0 - Iron deficiency anemia secondary to blood loss ( chronic) (2) Uterine fibroid: Qualified Codes: D25.9 - Leiomyoma of uterus, unspecified (3) HTN (hypertension): Qualified Codes: I10 - Essential (primary) hypertension Lobo Solares MD, R3 Mar 27, 2017 15:06 Arnold Whitaker MD Mar 28, 2017 15:21
[2017-03-27] MEDS ORDERED: SODIUM CHLORIDE 0.9% FLUSH 10 ML FLUSH IV FLUSH PRN (15:15)
[2017-03-27] MEDS ORDERED: NALOXONE HCL 0.4 MG/ML AMP IV PUSH PRN ×2 (15:15→16:00)
[2017-03-27] MEDS ORDERED: ONDANSETRON HCL 4 MG/2 ML VIAL IVP PRN (16:00)
[2017-03-27] MEDS ORDERED: ACETAMINOPHEN 325 MG TAB PO PRN (16:00)
[2017-03-27] MEDS: IBUPROFEN 600 MG TAB PO PRN (17:57)
[2017-03-27] MEDS: SODIUM CHLORIDE 0.9% FLUSH 10 ML FLUSH IV FLUSH SCH (21:00)
[2017-03-27] MEDS: DOCUSATE SODIUM 50 MG/SENNA 8.6 MG TAB PO SCH (21:00)
[2017-03-27 21:23] LABS: FERRITIN 3 NG/ML (8-252)
[2017-03-27 21:28] LABS: % SATURATION IRON PROFILE 5.1 % (20-50); IRON (FE) 21 MCG/DL (50-170); LIPASE 104 U/L (73-393); TOTAL IRON BINDING CAPACITY 414 MCG/DL (250-450)
[2017-03-27 21:47] LABS: TROPONIN I LESS THAN 0.02 NG/ML (0.02-0.05)
[2017-03-28] VITALS (15 sets, daily range): BP systolic 124–174; BP diastolic 55–99; PULSE 72–80; RESP 16–22; TEMP 96.6–99.4; O2SAT 73–100
--- NOTE | 2017-03-28 00:11 | RADRPT ---
EXAM DATE/TIME: 03/27/2017 23:30 [facility] COMPARISON: US PELVIS - COMPLETE (METER SUPERVISOR,NON-PREG), August 29, 2014, 20:11. INDICATIONS : Pelvic pain. MEDICAL HISTORY : Chronic migraines. Asthma. Ulcer. Uterine fibroids. Inguinal hernia. Anxiety. SURGICAL HISTORY : Cholecystectomy. section. Tubal ligation. Hernia repair. ENCOUNTER: Subsequent ACUITY: 1 day PAIN SCORE: 3/10 LOCATION: Bilateral pelvis MEASUREMENTS: UTERUS: 17.1 x 11.3 x 9.9 cm ENDOMETRIAL STRIPE: 5 mm RIGHT OVARY: Non visualized LEFT OVARY: Non visualized FINDINGS: Patient refused transvaginal imaging. UTERUS: The myometrium is diffusely heterogeneous. The uterus is enlarged and lobulated. Multiple mural fibro ids are seen. The majority have increased in size from the prior study. For example a posterior midli ne uterine body mass measures 6.4 x 6.0 x 4.2 cm where previously measured 5.8 x 5.2 x 4.7 cm. RIGHT OVARY: The ovary is not visualized. No adnexal mass or fluid collection is seen. LEFT OVARY: The ovary is not visualized. No adnexal mass or fluid collection is seen. MISCELLANEOUS: No free fluid. CONCLUSION: 1. Multiple uterine fibroids. These have increased slightly in size from the prior exam. 2. Lack of visualization of the ovaries bilaterally. Jonas Swain Jr., MD on March 28, 2017 at 0:04 Board Certified Radiologist. This report was verified electronically.
--- NOTE | 2017-03-28 00:14 | RADRPT ---
EXAM DATE/TIME: 03/27/2017 23:08 This report includes an Addendum and supersedes previous reports for this exam. [facility] COMPARISON: US PELVIS - COMPLETE (PAIRER SUBSTANDARD,NON-PREG), March 27, 2017, 23:30. INDICATIONS : Abdominal pain. MEDICAL HISTORY : Chronic migraines. Asthma. Ulcer. Uterine fibroids. Inguinal hernia. Anxiety. SURGICAL HISTORY : Tubal ligation. Cholecystectomy. section. Hernia repair. ENCOUNTER: Initial ACUITY: 1 day PAIN SCORE: 3/10 LOCATION: Abdomen. MEASUREMENTS: LIVER: 19.3 cm length COMMON DUCT: 6 mm RIGHT KIDNEY: 12.1 x 5.1 x 4.6 cm LEFT KIDNEY: 10.7 x 4.6 x 5.0 cm SPLEEN: 9.4 cm length AORTA: 2.4cm maximal FINDINGS: LIVER: Liver is diffusely echogenic. No mass or ductal dilatation. Hepatopedal flow within the portal vein. COMMON DUCT: No intraluminal mass or stone visualized. GALLBLADDER: Contains no stones, demonstrates no wall thickening or pericholecystic fluid. PANCREAS: The visualized portions are within normal limits. RIGHT KIDNEY: No hydronephrosis, stone or mass. LEFT KIDNEY: No hydronephrosis, stone or mass. SPLEEN: No focal lesion. AORTA: Non aneurysmal. IVC: Within normal limits. A fibroid uterus is observed extending into the lower abdomen. See the ultrasound of the pelvis repor mushtaq separately. CONCLUSION: 1. No acute abnormality. 2. Hepatic steatosis. Jonas Swain Jr., MD on March 28, 2017 at 0:10 Board Certified Radiologist. This report was verified electronically. ADDENDUM: The gallbladder is surgically absent. Jonas Swain Jr., MD on March 28, 2017 at 0:41 Board Certified Radiologist. This report was verified electronically.
[2017-03-28] MEDS: PROMETHAZINE/CODEINE 6.25 MG/10 MG/5 ML CUP PO PRN ×2 (00:18→22:27)
[2017-03-28] MEDS: FERROUS SULFATE 300 MG /5ML UDC PO SCH ×2 (00:18→08:39)
[2017-03-28] MEDS: AZITHROMYCIN INJ 500 MG in SODIUM CHLOR 0.9% 250 ML INJ 250 ML IV SCH ×2 (00:20→22:26)
[2017-03-28] MEDS: cefTRIAXone INJ 1,000 MG in SODIUM CHLORIDE 0.9% INJ 100 ML IV SCH (00:20)
[2017-03-28 02:11] LABS: HEMATOCRIT 24.5 % (35.0-46.0); HEMOGLOBIN 7.4 GM/DL (11.6-15.3)
[2017-03-28 07:20] LABS: BASOPHIL # 0.1 TH/MM3 (0-0.2); BASOPHIL % 1.1 % (0.0-2.0); EOSINOPHIL # 0.1 TH/MM3 (0-0.4); EOSINOPHIL % 2.5 % (0.0-4.0); HEMOGLOBIN 7.6 GM/DL (11.6-15.3); LYMPH % 27.6 % (9.0-44.0); LYMPHOCYTE # 1.4 TH/MM3 (1.0-4.8); MEAN CELL VOLUME 61.7 FL (80.0-100.0); MEAN CORPUSCULAR HEMOGLOBIN 18.7 PG (27.0-34.0); MEAN CORPUSCULAR HGB CONC 30.3 % (32.0-36.0); MEAN PLATELET VOLUME 8.4 FL (7.0-11.0); MONO % 12.1 % (0.0-8.0); MONOCYTE # 0.6 TH/MM3 (0-0.9); NEUT % 56.7 % (16.0-70.0); PLATELET COUNT 338 TH/MM3 (150-450); RED BLOOD COUNT 4.05 MIL/MM3 (4.00-5.30); RED CELL DISTRIBUTION WIDTH 31.3 % (11.6-17.2); WHITE BLOOD COUNT 5.2 TH/MM3 (4.0-11.0)
[2017-03-28 07:55] LABS: ALBUMIN 2.8 GM/DL (3.4-5.0); ALKALINE PHOSPHATASE 81 U/L (45-117); ALT (GPT) 11 U/L (10-53); AST (GOT) 13 U/L (15-37); BLOOD UREA NITROGEN 9 MG/DL (7-18); CALCIUM 8.3 MG/DL (8.5-10.1); CHLORIDE 105 MEQ/L (98-107); CREATININE 0.59 MG/DL (0.50-1.00); GLOMERULAR FILTRATION RATE 133 ML/MIN (>89); GLUCOSE,RANDOM 85 MG/DL (74-106); SODIUM (NA) 142 MEQ/L (136-145); TOTAL BILIRUBIN ADULT 0.3 MG/DL (0.2-1.0); TOTAL PROTEIN 7.4 GM/DL (6.4-8.2)
[2017-03-28] MEDS: amLODIPine BESYLATE 5 MG TAB PO SCH (08:39)
[2017-03-28] MEDS: SODIUM CHLORIDE 0.9% FLUSH 10 ML FLUSH IV FLUSH SCH ×2 (08:42→21:00)
[2017-03-28] MEDS: IBUPROFEN 600 MG TAB PO PRN ×3 (08:42→22:27)
[2017-03-28] MEDS: DOCUSATE SODIUM 50 MG/SENNA 8.6 MG TAB PO SCH ×2 (08:42→21:00)
--- NOTE | 2017-03-28 09:12 | HHI.HP ---
HPI Chief Complaint Cough shortness of breath headache Date Seen: Mar 28, 2017 Time Seen: 09:07 Travel History International Travel<30 Days: No Contact w/Intl Traveler<30Days: No Known Affected Area: No History of Present Illness HPI 46-year-old presents to the emergency room complaining of cough, headache, and generalized malaise. Patient was seen for the above but was also noted to have anemia with a history of uterine fibroids. Patient states that she is known she 's had uterine fibroids for greater than 10 years and that she's had a long history of anemia. She does have some heavy menstrual cycles that last anywhere from 5-8 days at a time associated with some cramping. Patient has had ultrasounds in the past but no endometrial biopsies and no Pap smear for the past 5 years. She states that she's had a pelvic examination but does not think that she's had a Pap smear, this pelvic examination occurred in an emergency room or urgent care center at some point. History Past Medical History Narrative Medical Anemia Uterine fibroids Past Surgical History Narrative Surgical section 3 Cholecystectomy Hernia repair Social History Alcohol Use: No Tobacco Use: No Substance Abuse: No Allergies-Medications (Allergen,Severity, Reaction): Coded Allergies: naproxen (Unverified Allergy, Mild, VOMITING, 03/27/17) propoxyphene (Unverified Allergy, Mild, VOMITING, 03/27/17) tramadol (Unverified Allergy, Mild, VOMITING, 03/27/17) Home Meds Active Scripts Sennosides-Docusate Sodium (Senna Plus 8.6-50 mg) 1 Tab Tab, 1 TAB PO BID for Prevent Constipation, #60 TAB Prov:Lisa Hubbard PA-C 10/13/16 Ferrous Sulfate (Ferosul) 325 Mg Tablet, 325 MG PO BID@,17 for iron deficient anemia, #60 TAB Prov:Lisa Hubbard PA-C 10/13/16 Review of Systems Except as stated in HPI: all other systems reviewed are Neg Physical Exam Vital Signs Date Time Temp Pulse Resp B/P (MAP) Pulse Ox O2 Delivery O2 Flow Rate FiO2 03/28/17 07:56 98 21 03/28/17 07:33 98.2 78 18 132/60 (84) 98 03/28/17 03:48 98.7 79 18 127/55 (79) 96 03/27/17 21:44 99.4 86 18 142/66 96 03/27/17 21:06 99.9 92 17 148/70 99 03/27/17 19:50 92 18 141/65 (90) 95 03/27/17 17:05 100.0 98 18 185/75 95 03/27/17 17:03 100.0 98 18 185/75 (111) 95 03/27/17 16:30 03/27/17 16:10 99.6 100 19 175/72 (106) 100 Room Air 03/27/17 11:11 99 18 139/60 (86) 98 03/27/17 10:53 101.0 106 20 181/109 (133) 100 Room Air Narrative GENERAL: Well-nourished, well-developed patient. SKIN: Warm and dry. HEAD: Normocephalic and atraumatic. EYES: No scleral icterus. No injection or drainage. ENT: No nasal drainage noted. Mucous membranes pink. Airway patent. NECK: Supple, trachea midline. No JVD. CARDIOVASCULAR: Regular rate and rhythm without murmurs, gallops, or rubs. RESPIRATORY: Breath sounds equal bilaterally. No accessory muscle use. ABDOMEN/GI: Abdomen soft, non-tender, bowel sounds present, no rebound, no guarding no palpable uterine fibroids noted on examination at this time. GENITOURINARY: No vaginal bleeding noted presently uterus is enlarged but difficult to palpate adnexa or inadequate examination due to the patient's habitus EXTREMITIES: No cyanosis or edema. BACK: Nontender without obvious deformity. No CVA tenderness. NEUROLOGICAL: Awake and alert. Motor and sensory grossly within normal limits. Five out of 5 muscle strength in all muscle groups. Normal speech. Caprini VTE Risk Assessment Caprini VTE Risk Assessment: Mod/High Risk (score >= 2) Caprini Risk Assessment Model Point Value = 1 Point Value = 2 Point Value = 3 Point Value = 5 Age 41-60 Minor surgery BMI > 25 kg/m2 Swollen legs Varicose veins or History of unexplained or recurrent spontaneous Oral contraceptives or hormone replacement Sepsis (< 1 month) Serious lung disease, including pneumonia (< 1 month) Abnormal pulmonary function Acute myocardial infarction Congestive heart failure (< 1 month) History of inflammatory bowel disease Medical patient at bed rest Age 61-74 Arthroscopic surgery Major open surgery (> 45 min) Laparoscopic surgery (> 45 min) Malignancy Confined to bed (> 72 hours) Immobilizing plaster cast Central venous access Age >= 75 History of VTE Family history of VTE Factor V Leiden Prothrombin [id number] Lupus anticoagulant Anticardiolipin antibodies Elevated serum homocysteine Heparin-induced thrombocytopenia Other congenital or acquired thrombophilia Stroke (< 1 month) Elective arthroplasty Hip, pelvis, or leg fracture Acute spinal cord injury (< 1 month) Prophylaxis Regimen Total Risk Factor Score Risk Level Prophylaxis Regimen 0-1 Low Early ambulation 2 Moderate Order ONE of the following: *Sequential Compression Device (SCD) *Heparin 5000 units SQ BID 3-4 Higher Order ONE of the following medications: *Heparin 5000 units SQ TID *Enoxaparin/Lovenox 40 mg SQ daily (WT < 150 kg, CrCl > 30 mL/min) *Enoxaparin/Lovenox 30 mg SQ daily (WT < 150 kg, CrCl > 10-29 mL/min) *Enoxaparin/Lovenox 30 mg SQ BID (WT < 150 kg, CrCl > 30 mL/min) AND/OR *Sequential Compression Device (SCD) 5 or more Highest Order ONE of the following medications: *Heparin 5000 units SQ TID (Preferred with Epidurals) *Enoxaparin/Lovenox 40 mg SQ daily (WT < 150 kg, CrCl > 30 mL/min) *Enoxaparin/Lovenox 30 mg SQ daily (WT < 150 kg, CrCl > 10-29 mL/min) *Enoxaparin/Lovenox 30 mg SQ BID (WT < 150 kg, CrCl > 30 mL/min) AND *Sequential Compression Device (SCD) Data Data Vital Signs Reviewed: Yes Orders Orders Sepsis Workup Initiated (03/27/17 ) Complete Blood Count With Diff (03/27/17 11:25) Comprehensive Metabolic Panel (03/27/17 11:25) Lactic Acid Sepsis Protocol (03/27/17 11:25) Influenzae A/B Antigen (03/27/17 11:25) Blood Culture (03/27/17 11:25) Chest, Single Ap (03/27/17 11:25) Ecg Monitoring (03/27/17 11:25) Iv Access Insert/Monitor (03/27/17 11:25) Oximetry (03/27/17 11:25) Acetaminophen (Tylenol) (03/27/17 11:30) Sodium Chlor 0.9% 1000 Ml Inj (Ns 1000 M (03/27/17 11:30) Red Blood Cells (Rbc) (03/27/17 12:56) Blood Product Administration (03/27/17 12:56) Sodium Chlor 0.9% 250 Ml Inj (Ns 250 Ml (03/27/17 13:00) Diphenhydramine (Benadryl) (03/27/17 13:00) Acetaminophen (Tylenol) (03/27/17 13:00) Type And Screen (03/27/17 12:56) Promethazine/Codeine Liq (Phenergan-Code (03/27/17 14:30) Admit Order (Ed Use Only) (03/27/17 14:25) Place In Observation (03/27/17 ) Vital Signs (Adult) Q4H (03/27/17 15:07) Activity Oob With Assistance (03/27/17 15:07) Sodium Chloride 0.9% Flush (Ns Flush) (03/27/17 15:15) Sodium Chloride 0.9% Flush (Ns Flush) (03/27/17 21:00) Naloxone Inj (Narcan Inj) (03/27/17 15:15) Code Status (03/27/17 15:50) Intake + Output JORGE.QSHIFT (03/27/17 15:50) Acetaminophen (Tylenol) (03/27/17 16:00) Ondansetron Inj (Zofran Inj) (03/27/17 16:00) Comprehensive Metabolic Panel (03/28/17 06:00) Complete Blood Count With Diff (03/28/17 06:00) Lipase (03/27/17 15:50) Electrocardiogram (03/27/17 15:50) Resp Oxygen Ezekiel C Titrat 1-4 L (03/27/17 ) Pt Request For Service (03/27/17 15:50) Case Management Consult (03/27/17 15:50) Scd Bilateral/Knee High JORGE.BID (03/27/17 15:50) Naloxone Inj (Narcan Inj) (03/27/17 16:00) Docusate Sodium-Senna (Simin-Colace) (03/27/17 21:00) Troponin I (03/27/17 15:50) B-Type Natriuretic Peptide (03/27/17 15:50) Iron/Tibc Profile (03/27/17 15:50) Ferritin (03/27/17 15:50) Ibuprofen (Motrin) (03/27/17 16:00) Ferrous Sulfate Liq (Ferrous Sulfate Liq (03/27/17 21:00) Us Abdomen Complete (03/27/17 16:06) Us Pelvis Comp Metal Forger'S Assistant/Non-Preg (03/27/17 ) Diet Npo Except Meds (03/27/17 Dinner) Consult Gynecology (03/27/17 ) (Hub Use Only)Inp Phy Cons/Ref (03/27/17 ) Specimen To Be Collected PRN (03/27/17 21:28) Ceftriaxone Inj (Rocephin Inj) (03/27/17 23:00) Azithromycin Inj (Zithromax Inj) (03/27/17 22:00) Hgb & Hct (03/28/17 00:35) Amlodipine (Norvasc) (03/28/17 09:00) Sputum Culture And Gram Stain (03/28/17 02:07) Pneumococcal Urinary Antigen (03/28/17 02:07) Legionella Urinary Antigen (03/28/17 02:07) Urinalysis - C+S If Indicated (03/28/17 02:07) Specimen To Be Collected PRN (03/28/17 02:07) Echo 2d Comp With Doppler (03/28/17 ) Labs Last 48 hours Impressions Abdomen Ultrasound 03/27/17 1606 Signed Impressions: Service Date/Time: Monday, March 27, 2017 23:08 - CONCLUSION: 1. No acute abnormality. 2. Hepatic steatosis. Jonas Swain Jr., MD ADDENDUM: The gallbladder is surgically absent. Jonas Sawin Jr., MD Chest X-Ray 03/27/17 1125 Signed Impressions: Service Date/Time: Monday, March 27, 2017 11:36 - CONCLUSION: 1. Mild central pulmonary vascular congestion. 2. Mild cardiomegaly. Aubrey Bryan MD Pelvis Ultrasound 03/27/17 0000 Signed Impressions: Service Date/Time: Monday, March 27, 2017 23:30 - CONCLUSION: 1. Multiple uterine fibroids. These have increased slightly in size from the prior exam. 2. Lack of visualization of the ovaries bilaterally. Jonas Swain Jr., MD Last 24 hours Impressions Abdomen Ultrasound 03/27/17 1606 Signed Impressions: Service Date/Time: Monday, March 27, 2017 23:08 - CONCLUSION: 1. No acute abnormality. 2. Hepatic steatosis. Jonas Swain Jr., MD ADDENDUM: The gallbladder is surgically absent. Jonas Swain Jr., MD Chest X-Ray 03/27/17 1125 Signed Impressions: Service Date/Time: Monday, March 27, 2017 11:36 - CONCLUSION: 1. Mild central pulmonary vascular congestion. 2. Mild cardiomegaly. Aubrey Bryan MD Laboratory Tests Test 03/27/17 12:07 03/28/17 01:40 03/28/17 06:40 White Blood Count 7.4 5.2 Red Blood Count 3.72 4.05 Hemoglobin 5.7 7.4 7.6 Hematocrit 20.1 24.5 25.0 Mean Corpuscular Volume 54.0 61.7 Mean Corpuscular Hemoglobin 15.2 18.7 Mean Corpuscular Hemoglobin Concent 28.2 30.3 Red Cell Distribution Width 22.7 31.3 Platelet Count 431 338 Mean Platelet Volume 8.3 8.4 Neutrophils (%) (Auto) 76.0 56.7 Lymphocytes (%) (Auto) 13.1 27.6 Monocytes (%) (Auto) 8.3 12.1 Eosinophils (%) (Auto) 1.3 2.5 Basophils (%) (Auto) 1.3 1.1 Neutrophils # (Auto) 5.6 3.0 Lymphocytes # (Auto) 1.0 1.4 Monocytes # (Auto) 0.6 0.6 Eosinophils # (Auto) 0.1 0.1 Basophils # (Auto) 0.1 0.1 CBC Comment DIFF FINAL AUTO DIFF Differential Comment AUTO DIFF CONFIRMED Blood Urea Nitrogen 10 9 Creatinine 0.59 0.59 Random Glucose 80 85 Total Protein 8.0 7.4 Albumin 3.2 2.8 Calcium Level 8.7 8.3 Alkaline Phosphatase 92 81 Aspartate Amino Transf (AST/SGOT) 48 13 Alanine Aminotransferase (ALT/SGPT) 13 11 Total Bilirubin 0.3 0.3 Sodium Level 136 142 Potassium Level 4.7 3.9 Chloride Level 103 105 Carbon Dioxide Level 26.7 27.0 Anion Gap 6 10 Estimat Glomerular Filtration Rate 133 133 Lactic Acid Level 1.2 Iron Level 21 Total Iron Binding Capacity 414 Percent Iron Saturation 5.1 Ferritin 3 Troponin I LESS THAN 0.02 B-Type Natriuretic Peptide 35 Lipase 104 Date/Time Source Procedure Growth Status 03/27/17 12:10 Blood Peripheral Aerobic Blood Culture Pending Received 03/27/17 12:10 Blood Peripheral Anaerobic Blood Culture Pending Received 03/27/17 12:07 Nasal Washing Influenza Types A,B Antigen (ILANA) - Final NEGATIVE FOR FLU A AND B ANTIGEN.... Complete Assessment/Plan Assessment and Plan 46-year-old female with known uterine fibroids, she has not bleeding at present time History of anemia and has been put on iron replacement therapy Recommendations for therapy include Mirena IUD, control pills orally, or Lysteda 650 mg 2 pills 3 times a day for up to 5 days per month for bleeding Patient will need full DATABASE PROGRAMMER evaluation, Dr. Ramone Villar is on DATABASE PROGRAMMER called today for outpatient follow-up Hanny Currie MD Mar 28, 2017 09:12
[2017-03-28] MEDS ORDERED: SODIUM CHLOR 0.9% 250 ML INJ 250 ML IV ONE (11:45)
--- NOTE | 2017-03-28 14:29 | HHI.HP ---
[facility] Service Family Medicine Primary Care Physician No Primary Care Physician Admission Diagnosis anemia Diagnoses: (1) Anemia (2) Uterine fibroid (3) Cough (4) Headache (5) Fluids, Electrolytes, and Nutrition (6) DVT PPX (7) HTN (hypertension) International Travel<30 Days: No Contact w/Intl Traveler<30days: No Known Affected Area: No History of Present Illness Patient was seen and examined at bedside today. She was resting comfortably in bed. Denied any subsequent bleeding. Overall states feeling significant better. Patient underwent transfusion. No complaints today. Does state having similar symptoms in the past, but was unable to see gynecology in outpatient setting due to issues with insurance. States attending to see a non licensed nuclear equipment operator at the health department, but no non licensed nuclear equipment operator exists at the health department. Denies any complaints of lightheadedness, chest pain, abdominal discomfort, or subsequent bleeding. Denied any side effects with her current medication. Review of Systems Constitutional: DENIES: Fever, Weight gain, Weight loss, Chills, Dizziness, Change in appetite, Night Sweats Cardiovascular: DENIES: Chest pain, Palpitations Other REVIEW OF SYSTEMS: General: Denies fever or other problems. Skin: Denies rash. HEENT: No diplopia. No epistaxis. No headache. Head: Denies head injury. Respiratory: No cough. Denies shortness of breath. Cardiovascular: No chest pain. No reduced exercise tolerance. Gastrointestinal: No abdominal pain. No constipation or diarrhea. No hematemesis and rectal bleeding. Genitourinary: No abnormal urination. Hematologic: No easy bruisability. Psychiatric: Denies problems. Past Family Social History Past Medical History Per Patient ?Depression Anemia Fibroids Past Surgical History CS x3 Cholecystectomy hernia repair Allergies: Coded Allergies: naproxen (Unverified Allergy, Mild, VOMITING, 03/27/17) propoxyphene (Unverified Allergy, Mild, VOMITING, 03/27/17) tramadol (Unverified Allergy, Mild, VOMITING, 03/27/17) Family History Mom- T2DM, renal failure, HTN Sister- HTN, T2DM Social History Alcohol- occasional Tobacco- none Youth- Distant youth- marijuana, cocaine. No IV drugs Applying for disability. Stable finances at home; takes care of grandchildren Physical Exam Vital Signs Vital Signs Date Time Temp Pulse Resp B/P (MAP) Pulse Ox O2 Delivery O2 Flow Rate FiO2 03/28/17 14:00 98.7 72 16 150/66 98 03/28/17 11:39 98.0 80 22 135/62 (86) 100 03/28/17 07:56 98 21 03/28/17 07:33 98.2 78 18 132/60 (84) 98 03/28/17 03:48 98.7 79 18 127/55 (79) 96 03/27/17 21:44 99.4 86 18 142/66 96 03/27/17 21:06 99.9 92 17 148/70 99 03/27/17 19:50 92 18 141/65 (90) 95 03/27/17 17:05 100.0 98 18 185/75 95 03/27/17 17:03 100.0 98 18 185/75 (111) 95 03/27/17 16:30 03/27/17 16:10 99.6 100 19 175/72 (106) 100 Room Air Physical Exam GENERAL: This is a well-nourished, well-developed patient, in no apparent distress. SKIN: No rashes, ecchymoses or lesions. Cool and dry. HEAD: Atraumatic. Normocephalic. No temporal or scalp tenderness. EYES: Pupils equal round and reactive. Extraocular motions intact. No scleral icterus. No injection or drainage. ENT: Nose without bleeding, purulent drainage or septal hematoma. Throat without erythema, tonsillar hypertrophy or exudate. Uvula midline. Airway patent. NECK: Trachea midline. No JVD or lymphadenopathy. Supple, nontender, no meningeal signs. CARDIOVASCULAR: Regular rate and rhythm without murmurs, gallops, or rubs. RESPIRATORY: Clear to auscultation. Breath sounds equal bilaterally. No wheezes , rales, or rhonchi. GASTROINTESTINAL: Abdomen soft, non-tender, nondistended. Obese. No hepato- splenomegaly, or palpable masses. No guarding. MUSCULOSKELETAL: Extremities without clubbing, cyanosis, or edema. No joint tenderness, effusion, or edema noted. No calf tenderness. Negative Homans sign bilaterally. NEUROLOGICAL: Awake and alert. Cranial nerves II through XII intact. Motor and sensory grossly within normal limits. Five out of 5 muscle strength in all muscle groups. Normal speech. Laboratory Laboratory Tests Test 03/28/17 01:40 03/28/17 06:40 Hemoglobin 7.4 7.6 Hematocrit 24.5 25.0 White Blood Count 5.2 Red Blood Count 4.05 Mean Corpuscular Volume 61.7 Mean Corpuscular Hemoglobin 18.7 Mean Corpuscular Hemoglobin Concent 30.3 Red Cell Distribution Width 31.3 Platelet Count 338 Mean Platelet Volume 8.4 Neutrophils (%) (Auto) 56.7 Lymphocytes (%) (Auto) 27.6 Monocytes (%) (Auto) 12.1 Eosinophils (%) (Auto) 2.5 Basophils (%) (Auto) 1.1 Neutrophils # (Auto) 3.0 Lymphocytes # (Auto) 1.4 Monocytes # (Auto) 0.6 Eosinophils # (Auto) 0.1 Basophils # (Auto) 0.1 CBC Comment AUTO DIFF Differential Comment AUTO DIFF CONFIRMED Blood Urea Nitrogen 9 Creatinine 0.59 Random Glucose 85 Total Protein 7.4 Albumin 2.8 Calcium Level 8.3 Alkaline Phosphatase 81 Aspartate Amino Transf (AST/SGOT) 13 Alanine Aminotransferase (ALT/SGPT) 11 Total Bilirubin 0.3 Sodium Level 142 Potassium Level 3.9 Chloride Level 105 Carbon Dioxide Level 27.0 Anion Gap 10 Estimat Glomerular Filtration Rate 133 Date/Time Source Procedure Growth Status 03/27/17 12:10 Blood Peripheral Aerobic Blood Culture - Preliminary NO GROWTH IN 1 DAY Resulted 03/27/17 12:10 Blood Peripheral Anaerobic Blood Culture - Preliminary NO GROWTH IN 1 DAY Resulted 03/27/17 12:07 Nasal Washing Influenza Types A,B Antigen (ILANA) - Final NEGATIVE FOR FLU A AND B ANTIGEN.... Complete Result Diagram: 03/28/17 0640 03/28/17 0640 Imaging Last Impressions Chest X-Ray 03/27/17 1125 Signed Impressions: Service Date/Time: Monday, March 27, 2017 11:36 - CONCLUSION: 1. Mild central pulmonary vascular congestion. 2. Mild cardiomegaly. MD Vahid Lesliei VTE Risk Assessment Caprini VTE Risk Assessment: Mod/High Risk (score >= 2) Caprini Risk Assessment Model Point Value = 1 Point Value = 2 Point Value = 3 Point Value = 5 Age 41-60 Minor surgery BMI > 25 kg/m2 Swollen legs Varicose veins or History of unexplained or recurrent spontaneous Oral contraceptives or hormone replacement Sepsis (< 1 month) Serious lung disease, including pneumonia (< 1 month) Abnormal pulmonary function Acute myocardial infarction Congestive heart failure (< 1 month) History of inflammatory bowel disease Medical patient at bed rest Age 61-74 Arthroscopic surgery Major open surgery (> 45 min) Laparoscopic surgery (> 45 min) Malignancy Confined to bed (> 72 hours) Immobilizing plaster cast Central venous access Age >= 75 History of VTE Family history of VTE Factor V Leiden Prothrombin [id number] Lupus anticoagulant Anticardiolipin antibodies Elevated serum homocysteine Heparin-induced thrombocytopenia Other congenital or acquired thrombophilia Stroke (< 1 month) Elective arthroplasty Hip, pelvis, or leg fracture Acute spinal cord injury (< 1 month) Prophylaxis Regimen Total Risk Factor Score Risk Level Prophylaxis Regimen 0-1 Low Early ambulation 2 Moderate Order ONE of the following: *Sequential Compression Device (SCD) *Heparin 5000 units SQ BID 3-4 Higher Order ONE of the following medications: *Heparin 5000 units SQ TID *Enoxaparin/Lovenox 40 mg SQ daily (WT < 150 kg, CrCl > 30 mL/min) *Enoxaparin/Lovenox 30 mg SQ daily (WT < 150 kg, CrCl > 10-29 mL/min) *Enoxaparin/Lovenox 30 mg SQ BID (WT < 150 kg, CrCl > 30 mL/min) AND/OR *Sequential Compression Device (SCD) 5 or more Highest Order ONE of the following medications: *Heparin 5000 units SQ TID (Preferred with Epidurals) *Enoxaparin/Lovenox 40 mg SQ daily (WT < 150 kg, CrCl > 30 mL/min) *Enoxaparin/Lovenox 30 mg SQ daily (WT < 150 kg, CrCl > 10-29 mL/min) *Enoxaparin/Lovenox 30 mg SQ BID (WT < 150 kg, CrCl > 30 mL/min) AND *Sequential Compression Device (SCD) Assessment and Plan Assessment and Plan Mrs. Thao is a 46 yo F with: Problem List: (1) Anemia ICD Codes: D64.9 - Anemia Status: Acute Plan: Patient did well with liquid iron yesterday. She had a transfusion. No side effects. Looks that her anemia is improving after transfusion. Had a discussion today about subsequent transfusion, decided to transfuse more units. No symptoms today. Does seem to be a chronic issue with her. Concerning due to lack of medical insurance, and unable to see outpatient physicians. We'll talk with case management today. Overall significantly better. Reviewed patient's iron studies. (2) Uterine fibroid ICD Codes: D25.9 - Uterine fibroid Status: Chronic Plan: Reviewed ultrasound findings with the patient. Consistent with fibroids. Appreciate consultation from gynecology. Reviewed gynecology notes. They recommended she be seen in outpatient setting. Discussed results with the patient. (3) Cough ICD Codes: R05 - Cough Status: Acute Plan: Following up culture at this time. Cough is been improving. Continue on antibiotics. (4) Headache ICD Codes: R51 - Headache Status: Chronic Plan: Headache resolved. Continue Tylenol as needed. (5) Fluids, Electrolytes, and Nutrition Status: Acute Plan: Fluids: None at this time; regular diet Electrolytes on admission: WNL Nutrition: Regular diet Parts of this note were created using [employer] recognition software program. While efforts were made to correct any mistakes made by this software, some mistakes, errors, and omissions may remain in the final note that were not caught when the note was originally created. Plan of care was discussed and agreed upon with the patient as specifically documented in the above note. An opportunity to ask questions with explanation was provided. Patient voiced understanding on all information reviewed and discussed. (6) DVT PPX Status: Acute Plan: -Bilateral SCD's (7) HTN (hypertension) ICD Codes: I10 - Essential (primary) hypertension Plan: Elevated blood pressure during hospital visits. Some elevated readings at this time. Has been placed on medication. We'll follow-up echo results. Physician Certification 2 Midnight Certification Type: Admission for Inpatient Services Order for Inpatient Services The services are ordered in accordance with Medicare regulations or non- Medicare payer requirements, as applicable. In the case of services not specified as inpatient-only, they are appropriately provided as inpatient services in accordance with the 2-midnight benchmark. Estimated LOS (days): 2 days is the estimated time the patient will need to remain in the hospital, assuming treatment plan goals are met and no additional complications. Post-Hospital Plan: Home Problem Qualifiers (1) Anemia: Qualified Codes: D50.0 - Iron deficiency anemia secondary to blood loss ( chronic) (2) Uterine fibroid: Qualified Codes: D25.9 - Leiomyoma of uterus, unspecified (3) HTN (hypertension): Qualified Codes: I10 - Essential (primary) hypertension Arnold Whitaker MD Mar 28, 2017 14:29
--- NOTE | 2017-03-28 18:57 | ECHRPT ---
Indication: MURMUR CONCLUSIONS Normal left ventricular size. Mild or borderline concentric left ventricular hypertrophy. The left atrial size is upper limits of normal. There is mild tricuspid valve regurgitation. The estimated pulmonary arterial pressure is 54.6 mmHg. There is estimated bmbj-kb-lxstwact pulmonar y hypertension present (range 50-60 mmHg). Trivial pulmonary valve regurgitation. BP: 127 / 55 HR: 79 Rhythm: Sinus MEASUREMENTS (Male / Female) Normal Values Technical Quality:Fair 2D ECHO LV Diastolic Diameter PLAX 4.6 cm 4.2 - 5.9 / 3.9 - 5.3 cm LV Systolic Diameter PLAX 3.3 cm IVS Diastolic Thickness 1.0 cm 0.6 - 1.0 / 0.6 - 0.9 cm LVPW Diastolic Thickness 1.0 cm 0.6 - 1.0 / 0.6 - 0.9 cm LV Relative Wall Thickness 0.4 RV Internal Dim ED PLAX 3.6 cm LVOT Diameter 1.9 cm Aortic Root Diameter 2.6 cm LA Systolic Diameter LX 3.9 cm 3.0 - 4.0 / 2.7 - 3.8 cm M-MODE AV Cusp Separation MM 1.8 cm DOPPLER AV Peak Velocity 125.0 cm/s AV Peak Gradient 6.3 mmHg AV Mean Gradient 4.0 mmHg AV Velocity Time Integral 25.8 cm LVOT Peak Velocity 99.3 cm/s LVOT Peak Gradient 3.9 mmHg LVOT Velocity Time Integral 20.2 cm LVOT Cardiac Index 1910.8 cm/minm AV Area Cont Eq vti 2.2 cm AV Area Cont Eq pk 2.3 cm Mitral E Point Velocity 114.0 cm/s Mitral A Point Velocity 62.2 cm/s Mitral E to A Ratio 1.8 LV E' Lateral Velocity 7.5 cm/s Mitral E to LV E' Lateral Ratio 15.2 LV E' Septal Velocity 9.1 cm/s Mitral E to LV E' Septal Ratio 12.6 TR Peak Velocity 334.0 cm/s TR Peak Gradient 44.6 mmHg Right Atrial Pressure 10.0 mmHg Pulmonary Artery Systolic Pressu 54.6 mmHg Right Ventricular Systolic Press 54.6 mmHg PV Peak Velocity 86.5 cm/s PV Peak Gradient 3.0 mmHg FINDINGS LEFT VENTRICLE Normal left ventricular size. Mild or borderline concentric left ventricular hypertrophy. The left ventricular systolic function is normal with an estimated ejection fraction in the range of 60-65%. RIGHT VENTRICLE Normal right ventricular size and systolic function. LEFT ATRIUM The left atrial size is upper limits of normal. RIGHT ATRIUM The right atrial size is normal. ATRIAL SEPTUM Normal atrial septal thickness without atrial level shunting by limited color doppler interrogation. AORTA The aortic root and proximal ascending aorta are normal in size on limited imaging. MITRAL VALVE Structurally normal mitral valve. AORTIC VALVE Trileaflet aortic valve. No aortic valve stenosis or regurgitation. TRICUSPID VALVE There is mild tricuspid valve regurgitation. The estimated pulmonary arterial pressure is 54.6 mmHg. There is estimated hljw-hw-nawscfng pulmonar y hypertension present (range 50-60 mmHg). PULMONARY VALVE Trivial pulmonary valve regurgitation. VESSELS The inferior vena cava is normal in size. PERICARDIUM No pericardial effusion. Ed Subramanian MD (Electronically Signed) Final Date:28 March 2017 18:56
[2017-03-29] MEDS: cefTRIAXone INJ 1,000 MG in SODIUM CHLORIDE 0.9% INJ 100 ML IV SCH (01:03)
[2017-03-29 01:06] VITALS: BP 147/66; PULSE 78; RESP 18; TEMP 98.6; O2SAT 96
[2017-03-29 04:28] VITALS: BP 136/63; PULSE 74; RESP 20; TEMP 98.3; O2SAT 100
[2017-03-29] MEDS: PROMETHAZINE/CODEINE 6.25 MG/10 MG/5 ML CUP PO PRN (05:21)
[2017-03-29 06:57] LABS: HEMATOCRIT 31.1 % (35.0-46.0); HEMOGLOBIN 9.9 GM/DL (11.6-15.3); MEAN CELL VOLUME 66.3 FL (80.0-100.0); MEAN CORPUSCULAR HGB CONC 31.7 % (32.0-36.0); MEAN PLATELET VOLUME 8.5 FL (7.0-11.0); PLATELET COUNT 327 TH/MM3 (150-450); RED CELL DISTRIBUTION WIDTH 32.9 % (11.6-17.2); WHITE BLOOD COUNT 7.2 TH/MM3 (4.0-11.0)
[2017-03-29 07:11] VITALS: BP 187/100; PULSE 71; RESP 18; TEMP 96.1; O2SAT 99
[2017-03-29 07:20] LABS: BICARBONATE 26.8 MEQ/L (21.0-32.0); CALCIUM 8.4 MG/DL (8.5-10.1); CREATININE 0.52 MG/DL (0.50-1.00)
[2017-03-29] MEDS ORDERED: BENZONATATE 100 MG CAP PO PRN (09:00)
[2017-03-29] MEDS ORDERED: RESP: ALBUTEROL 2.5 MG/IPRATROPIUM 0.5 MG NEB (SCH) NEB (09:00)
[2017-03-29] MEDS: DOCUSATE SODIUM 50 MG/SENNA 8.6 MG TAB PO SCH (09:00)
[2017-03-29] MEDS: SODIUM CHLORIDE 0.9% FLUSH 10 ML FLUSH IV FLUSH SCH (09:35)
--- NOTE | 2017-03-29 09:42 | RADRPT ---
EXAM DATE/TIME: 03/29/2017 09:09 [facility] COMPARISON: CHEST SINGLE AP, March 27, 2017, 11:36. INDICATIONS : Cough, anemia, chest and upper abdomen discomfort MEDICAL HISTORY : asthma, anemia SURGICAL HISTORY : None. ENCOUNTER: Subsequent ACUITY: 3 days PAIN SCORE: 4/10 LOCATION: Bilateral chest FINDINGS: The heart is mildly prominent. Mild central pulmonary congestion is noted. No focal alveolar consolid ation is noted. CONCLUSION: Mild cardiomegaly and central pulmonary vascular congestion. Aubrey Bryan MD on March 29, 2017 at 9:39 Board Certified Radiologist. This report was verified electronically.
[2017-03-29] MEDS: amLODIPine BESYLATE 5 MG TAB PO SCH (10:07)
[2017-03-29] MEDS: FERROUS SULFATE 300 MG /5ML UDC PO SCH (10:08)
[2017-03-29 10:33] VITALS: O2SAT 96
[2017-03-29 11:29] VITALS: BP 192/79; PULSE 78; RESP 20; TEMP 96.5; O2SAT 98
--- NOTE | 2017-03-29 12:56 | HHI.DCPOC ---
Discharge Care Plan Diagnosis: (1) Anemia (2) Uterine fibroid (3) HTN (hypertension) (4) Metrorrhagia Goals to Promote Your Health * To prevent worsening of your condition and complications * To maintain your health at the optimal level Directions to Meet Your Goals Take your medications as prescribed Follow your dietary instruction Follow activity as directed Keep your appointments as scheduled Take your immunizations and boosters as scheduled Follow up with outpatient [facility] If your symptoms worsen call your PCP, if no PCP go to Urgent Care Center or Emergency Room Smoking is Dangerous to Your Health. Avoid second hand smoke Call the 24-hour hour crisis hotline for domestic abuse at Terrance Mohr MD, R2 Mar 29, 2017 12:56 Arnold Whitaker MD Mar 30, 2017 10:03
[2017-03-29] MEDS ORDERED: FERR300S PO (12:57)
[2017-03-29] MEDS ORDERED: AMLO5 PO (12:57)
[2017-03-29] MEDS ORDERED: BENZ100 PO (12:57)
[2017-03-29] MEDS ORDERED: ZITHTAB PO (12:57)
[2017-03-29] MEDS ORDERED: SPRI28TA PO (12:59)
--- NOTE | 2017-03-29 13:02 | HHI.FPPN ---
Subjective Remarks Patient seen and examined this morning. She reports chest tightness early this morning. The chain this was present for around one hour, patient is unsure of what made it better or worse, and believes it went away on its own. No nausea, vomiting, pain in jaw or arm, sweating, lightheadedness, dizziness, chest pain, shortness of breath, abdominal pain, change in bowel or bladder habits. No other complaints today. (Godfrey Salas MD R1) Objective Vitals Vital Signs Date Time Temp Pulse Resp B/P (MAP) Pulse Ox O2 Delivery O2 Flow Rate FiO2 03/29/17 11:29 96.5 78 20 192/79 (116) 98 03/29/17 10:33 96 21 03/29/17 07:11 96.1 71 18 187/100 (129) 99 03/29/17 04:28 98.3 74 20 136/63 (87) 100 03/29/17 01:06 98.6 78 18 147/66 (93) 96 03/29/17 00:25 18 03/28/17 21:12 98.1 79 21 146/67 (93) 96 03/28/17 19:42 97.0 79 16 174/71 98 03/28/17 19:20 96.6 80 16 141/79 80 03/28/17 19:08 76 16 136/99 95 03/28/17 18:35 97.8 72 16 138/69 100 03/28/17 17:03 98.8 76 16 138/71 03/28/17 16:39 99.4 73 16 147/69 73 03/28/17 15:42 97.7 72 16 136/68 100 03/28/17 15:05 97.7 74 16 124/65 74 03/28/17 14:25 97.7 77 16 135/69 98 03/28/17 14:00 98.7 72 16 150/66 98 I/O 03/28/17 03/28/17 03/28/17 03/29/17 03/29/17 03/29/17 07:00 15:00 23:00 07:00 15:00 23:00 Intake Total 400 ml 600 ml 450 ml 500 ml Balance 400 ml 600 ml 450 ml 500 ml Intake Oral 500 ml Packed Cells 400 ml 600 ml 400 ml Blood Product IV Normal Saline Flush 50 ml # Voids 4 6 (Godfrey Salas MD R1) Result Diagram: 03/29/17 0618 03/29/17 0618 Imaging Last 24 hours Impressions Chest X-Ray 03/29/17 0000 Signed Impressions: Service Date/Time: Saturday, March 29, 2017 09:09 - CONCLUSION: Mild cardiomegaly and central pulmonary vascular congestion. Aubrey Bryan MD Objective Remarks GENERAL: Patient appears comfortable, in no acute distress. SKIN: Warm and dry, no rashes appreciated EYES: No scleral icterus, injection, or drainage. HENT: Head: Normocephalic. Mouth: No lesions appreciated. Pharynx: Benign exam without erythema or exudate. NECK: No appreciated lymphadenopathy or thyromegaly CARDIOVASCULAR: Regular rate and rhythm without murmurs. Normal peripheral perfusion in lower extremities. RESPIRATORY: Normal respiratory rate. Lungs clear to auscultation bilaterally. GASTROINTESTINAL: Abdomen soft, nondistended, not significantly tender. Abdominal firmness to palpation in areas suspicious for fibroids vs subcutaneous connective tissue hypertrophy secondary to surgery MUSCULOSKELETAL: No lower extremity swelling. No appreciated calf asymmetry. NEURO/PSYCH: Awake, alert, and oriented. Cranial nerves grossly normal. Grossly normal motor and sensory function. (Godfrey Salas MD R1) A/P Assessment and Plan Mrs. Thao is a 46 yo F with: Discharge Planning Likely discharged today following ACS rule out (Godfrey Salas MD R1) Problem List: (1) Chest pain ICD Codes: R07.9 - Chest pain, unspecified Status: Acute Plan: Reported a chest tightness earlier this morning 03/29/17. Last approximately one hour, no other symptoms of ACS at this time. -CXR mild cardiomegaly and central pulmonary vascular congestion -Troponin less than 0.02 -EKG without acute ST elevations (2) Anemia ICD Codes: D64.9 - Anemia Status: Acute Plan: Admitted with hemoglobin of 5.7. S/P 4 units of PRBC at this point. Hemoglobin 9.9 currently -Iron studies with low iron, low ferritin -liquid iron supplementation since patient cannot tolerate tablet supplementation -Will trend CBC -See fibroid plan below Impression: Patient with PMH anemia with history of transfusion. Labs on admission: Hgb 5.7, Hct 20.1, MCV 54. PLT and WBC counts wnl. Suspect severe iron deficiency anemia (3) Uterine fibroid ICD Codes: D25.9 - Uterine fibroid Status: Chronic Plan: Impression: History of uterine fibroids; presumed etiology of menorrhagia -US abdomen and pelvis ordered since abdominal firm nodules seemed high to palpation above presumed area of uterus -[employer] consulted * Recommend Mirena versus control pills versus Lysteda 650 mg 2 pills 3 times a day for up to 5 days per month * Follow-up with [employer] Dr. Ramone Villar outpatient (4) Cough ICD Codes: R05 - Cough Status: Acute Plan: Impression: Cough x 1.5 weeks, worsening. Cough in association with mild central pulmonary vascular congestion; BNP normal. T 101 on admission. While viral URI high possibility; congestion on CXR in association with fever and cough possibly suggestive of bacterial etiology. CXR 03/29/17 mild cardiomegaly and central pulmonary vascular congestion. -Will give empiric antibiotics -Rocephin 1gm daily -Azithromycin 500mg daily -Blood culture no growth to date -Flu negative (5) Headache ICD Codes: R51 - Headache Status: Chronic Plan: Impression: Nonspecific; suspect chronic tension headache. No neurologic deficits -PRN Ibuprofen and Tylenol for headaches (6) HTN (hypertension) ICD Codes: I10 - Essential (primary) hypertension Plan: Impression: BP elevated while in hospital; frequently hypertensive per EMR review. Systolic murmur on exam -Echo EF 60-65%, mild or borderline concentric left ventricular hypertrophy, mild tricuspid regurgitation, fiyq-fz-egrujbkr pulmonary hypertension, pulmonary arterial pressure 54.6, trivial pulmonary valve regurgitation -Continue to monitor VS -Amlodipine 5 mg daily See the residents documentation for details. I saw and evaluated the patient regarding the campa portions of this evaluation and agree with the residents findings and plans as written. I have reviewed the patients past medical/surgical and social histories and updated as appropriate. Parts of this note were created using [employer] voice recognition software program. While efforts were made to correct any mistakes made by this software, some mistakes, errors, and omissions may remain in the final note that were not caught when the note was originally created. Plan of care was discussed and agreed upon with the patient as specifically documented in the above note. An opportunity to ask questions with explanation was provided. Patient voiced understanding on all information reviewed and discussed. (7) Fluids, Electrolytes, and Nutrition Status: Acute Plan: Fluids: None at this time; regular diet Electrolytes on admission: WNL Nutrition: Regular diet (8) DVT PPX Status: Acute Plan: -Bilateral SCD's (Godfrey Salas MD R1) Problem List: (1) Chest pain ICD Codes: R07.9 - Chest pain, unspecified Status: Acute Plan: Reported a chest tightness earlier this morning 03/29/17. Last approximately one hour, no other symptoms of ACS at this time. Chest discomfort was also associated with a cough. Upon further investigation stated having discomfort for about a week, associated with coughing. -CXR mild cardiomegaly and central pulmonary vascular congestion -Troponin less than 0.02 -EKG without acute ST elevations (2) Anemia ICD Codes: D64.9 - Anemia Status: Acute Plan: Admitted with hemoglobin of 5.7. S/P 4 units of PRBC at this point. Hemoglobin 9.9 currently -Iron studies with low iron, low ferritin -liquid iron supplementation since patient cannot tolerate tablet supplementation -Will trend CBC -See fibroid plan below Impression: Patient with PMH anemia with history of transfusion. Labs on admission: Hgb 5.7, Hct 20.1, MCV 54. PLT and WBC counts wnl. Suspect severe iron deficiency anemia (3) Uterine fibroid ICD Codes: D25.9 - Uterine fibroid Status: Chronic Plan: Impression: History of uterine fibroids; presumed etiology of menorrhagia -US abdomen and pelvis ordered since abdominal firm nodules seemed high to palpation above presumed area of uterus -[employer] consulted * Recommend Mirena versus control pills versus Lysteda 650 mg 2 pills 3 times a day for up to 5 days per month * Follow-up with [facility] Dr. Ramone Villar outpatient (4) Cough ICD Codes: R05 - Cough Status: Acute Plan: Impression: Cough x 1.5 weeks, worsening. Cough in association with mild central pulmonary vascular congestion; BNP normal. T 101 on admission. While viral URI high possibility; congestion on CXR in association with fever and cough possibly suggestive of bacterial etiology. CXR 03/29/17 mild cardiomegaly and central pulmonary vascular congestion. -Will give empiric antibiotics -Rocephin 1gm daily -Azithromycin 500mg daily -Blood culture no growth to date -Flu negative (5) Headache ICD Codes: R51 - Headache Status: Chronic Plan: Impression: Nonspecific; suspect chronic tension headache. No neurologic deficits -PRN Ibuprofen and Tylenol for headaches (6) HTN (hypertension) ICD Codes: I10 - Essential (primary) hypertension Plan: Impression: BP elevated while in hospital; frequently hypertensive per EMR review. Systolic murmur on exam -Echo EF 60-65%, mild or borderline concentric left ventricular hypertrophy, mild tricuspid regurgitation, [id number]-vs-sakzruht pulmonary hypertension, pulmonary arterial pressure 54.6, trivial pulmonary valve regurgitation -Continue to monitor VS -Amlodipine 5 mg daily See the residents documentation for details. I saw and evaluated the patient regarding the campa portions of this evaluation and agree with the residents findings and plans as written. I have reviewed the patients past medical/surgical and social histories and updated as appropriate. Parts of this note were created using [employer] voice recognition software program. While efforts were made to correct any mistakes made by this software, some mistakes, errors, and omissions may remain in the final note that were not caught when the note was originally created. Plan of care was discussed and agreed upon with the patient as specifically documented in the above note. An opportunity to ask questions with explanation was provided. Patient voiced understanding on all information reviewed and discussed. (7) Fluids, Electrolytes, and Nutrition Status: Acute Plan: Fluids: None at this time; regular diet Electrolytes on admission: WNL Nutrition: Regular diet (8) DVT PPX Status: Acute Plan: -Bilateral SCD's See the residents documentation for details. I saw and evaluated the patient regarding the campa portions of this evaluation and agree with the residents findings and plans as written. Spoke to the patient at length about her current medical condition, and the importance of outpatient follow-up. Also discussed her condition with her daughter, we can understanding that she'll need to follow-up with primary care, cardiology, and [facility] an outpatient. Parts of this note were created using [employer] voice recognition software program. While efforts were made to correct any mistakes made by this software, some mistakes, errors, and omissions may remain in the final note that were not caught when the note was originally created. Plan of care was discussed and agreed upon with the patient as specifically documented in the above note. An opportunity to ask questions with explanation was provided. Patient voiced understanding on all information reviewed and discussed. (Arnold Whitaker MD) Problem Qualifiers (1) Anemia: Qualified Codes: D50.0 - Iron deficiency anemia secondary to blood loss ( chronic) (2) Uterine fibroid: Qualified Codes: D25.9 - Leiomyoma of uterus, unspecified (3) HTN (hypertension): Qualified Codes: I10 - Essential (primary) hypertension Godfrey Salas MD R1 Mar 29, 2017 13:02 Arnold Whitaker MD Mar 30, 2017 10:05
--- NOTE | 2017-03-29 13:07 | HHI.DS ---
Discharge Summary Admission Date Mar 27, 2017 at 14:26 Discharge Date: Mar 29, 2017 Admitting Diagnosis anemia (1) Chest pain Diagnosis: Secondary Plan: Reported a chest tightness earlier this morning 03/29/17. Last approximately one hour, no other symptoms of ACS at this time. -CXR mild cardiomegaly and central pulmonary vascular congestion -Troponin less than 0.02 -EKG without acute ST elevations ICD Codes: R07.9 - Chest pain, unspecified Status: Acute (2) Anemia Diagnosis: Principal Plan: Admitted with hemoglobin of 5.7. S/P 4 units of PRBC at this point. Hemoglobin 9.9 currently -Iron studies with low iron, low ferritin -liquid iron supplementation since patient cannot tolerate tablet supplementation -Will trend CBC -See fibroid plan below Impression: Patient with PMH anemia with history of transfusion. Labs on admission: Hgb 5.7, Hct 20.1, MCV 54. PLT and WBC counts wnl. Suspect severe iron deficiency anemia ICD Codes: D64.9 - Anemia Status: Acute (3) Uterine fibroid Diagnosis: Principal Plan: Impression: History of uterine fibroids; presumed etiology of menorrhagia -US abdomen and pelvis ordered since abdominal firm nodules seemed high to palpation above presumed area of uterus -[facility] consulted * Recommend Mirena versus control pills versus Lysteda 650 mg 2 pills 3 times a day for up to 5 days per month * Follow-up with [facility] B[facility] Dr. Ramone Villar outpatient ICD Codes: D25.9 - Uterine fibroid Status: Chronic (4) Cough Diagnosis: Secondary Plan: Impression: Cough x 1.5 weeks, worsening. Cough in association with mild central pulmonary vascular congestion; BNP normal. T 101 on admission. While viral URI high possibility; congestion on CXR in association with fever and cough possibly suggestive of bacterial etiology. CXR 03/29/17 mild cardiomegaly and central pulmonary vascular congestion. -Will give empiric antibiotics -Rocephin 1gm daily -Azithromycin 500mg daily -Blood culture no growth to date -Flu negative ICD Codes: R05 - Cough Status: Acute (5) Headache Diagnosis: Secondary Plan: Impression: Nonspecific; suspect chronic tension headache. No neurologic deficits -PRN Ibuprofen and Tylenol for headaches ICD Codes: R51 - Headache Status: Chronic (6) HTN (hypertension) Diagnosis: Secondary Plan: Impression: BP elevated while in hospital; frequently hypertensive per EMR review. Systolic murmur on exam -Echo EF 60-65%, mild or borderline concentric left ventricular hypertrophy, mild tricuspid regurgitation, [id number] pulmonary hypertension, pulmonary arterial pressure 54.6, trivial pulmonary valve regurgitation -Continue to monitor VS -Amlodipine 5 mg daily See the residents documentation for details. I saw and evaluated the patient regarding the campa portions of this evaluation and agree with the residents findings and plans as written. I have reviewed the patients past medical/surgical and social histories and updated as appropriate. Parts of this note were created using [employer] voice recognition software program. While efforts were made to correct any mistakes made by this software, some mistakes, errors, and omissions may remain in the final note that were not caught when the note was originally created. Plan of care was discussed and agreed upon with the patient as specifically documented in the above note. An opportunity to ask questions with explanation was provided. Patient voiced understanding on all information reviewed and discussed. ICD Codes: I10 - Essential (primary) hypertension (7) Fluids, Electrolytes, and Nutrition Diagnosis: Secondary Plan: Fluids: None at this time; regular diet Electrolytes on admission: WNL Nutrition: Regular diet Status: Acute (8) DVT PPX Diagnosis: Secondary Plan: -Bilateral SCD's Status: Acute Consultants [facility] Brief History Patient was seen and examined at bedside today. She was resting comfortably in bed. Denied any subsequent bleeding. Overall states feeling significant better. Patient underwent transfusion. No complaints today. Does state having similar symptoms in the past, but was unable to see gynecology in outpatient setting due to issues with insurance. States attending to see a cupola man at the health department, but no cupola man exists at the health department. Denies any complaints of lightheadedness, chest pain, abdominal discomfort, or subsequent bleeding. Denied any side effects with her current medication. CBC/BMP: 03/29/17 0618 03/29/17 0618 Significant Findings Laboratory Tests Test 03/27/17 12:07 03/28/17 01:40 03/28/17 06:40 03/29/17 06:18 Red Blood Count 3.72 MIL/MM3 (4.00-5.30) Hemoglobin 5.7 GM/DL (11.6-15.3) 7.4 GM/DL (11.6-15.3) 7.6 GM/DL (11.6-15.3) 9.9 GM/DL (11.6-15.3) Hematocrit 20.1 % (35.0-46.0) 24.5 % (35.0-46.0) 25.0 % (35.0-46.0) 31.1 % (35.0-46.0) Mean Corpuscular Volume 54.0 FL (80.0-100.0) 61.7 FL (80.0-100.0) 66.3 FL (80.0-100.0) Mean Corpuscular Hemoglobin 15.2 PG (27.0-34.0) 18.7 PG (27.0-34.0) 21.0 PG (27.0-34.0) Mean Corpuscular Hemoglobin Concent 28.2 % (32.0-36.0) 30.3 % (32.0-36.0) 31.7 % (32.0-36.0) Red Cell Distribution Width 22.7 % (11.6-17.2) 31.3 % (11.6-17.2) 32.9 % (11.6-17.2) Neutrophils (%) (Auto) 76.0 % (16.0-70.0) Monocytes (%) (Auto) 8.3 % (0.0-8.0) 12.1 % (0.0-8.0) Albumin 3.2 GM/DL (3.4-5.0) 2.8 GM/DL (3.4-5.0) Aspartate Amino Transf (AST/SGOT) 48 U/L (15-37) 13 U/L (15-37) Iron Level 21 MCG/DL (50-170) Percent Iron Saturation 5.1 % (20-50) Ferritin 3 NG/ML (8-252) Troponin I LESS THAN 0.02 NG/ML Calcium Level 8.3 MG/DL (8.5-10.1) 8.4 MG/DL (8.5-10.1) Test 03/29/17 11:00 Troponin I LESS THAN 0.02 NG/ML Imaging Last Impressions Chest X-Ray 03/29/17 0000 Signed Impressions: Service Date/Time: Wednesday, March 29, 2017 09:09 - CONCLUSION: Mild cardiomegaly and central pulmonary vascular congestion. Aubrey Bryan MD Abdomen Ultrasound 03/27/17 1606 Signed Impressions: Service Date/Time: Monday, March 27, 2017 23:08 - CONCLUSION: 1. No acute abnormality. 2. Hepatic steatosis. Jonas Swain Jr., MD ADDENDUM: The gallbladder is surgically absent. Jonas Swain Jr., MD Pelvis Ultrasound 03/27/17 0000 Signed Impressions: Service Date/Time: Monday, March 27, 2017 23:30 - CONCLUSION: 1. Multiple uterine fibroids. These have increased slightly in size from the prior exam. 2. Lack of visualization of the ovaries bilaterally. Jonas Swain Jr., MD PE at Discharge GENERAL: Patient appears comfortable, in no acute distress. SKIN: Warm and dry, no rashes appreciated EYES: No scleral icterus, injection, or drainage. HENT: Head: Normocephalic. Mouth: No lesions appreciated. Pharynx: Benign exam without erythema or exudate. NECK: No appreciated lymphadenopathy or thyromegaly CARDIOVASCULAR: Regular rate and rhythm without murmurs. Normal peripheral perfusion in lower extremities. RESPIRATORY: Normal respiratory rate. Lungs clear to auscultation bilaterally. GASTROINTESTINAL: Abdomen soft, nondistended, not significantly tender. Abdominal firmness to palpation in areas suspicious for fibroids vs subcutaneous connective tissue hypertrophy secondary to surgery MUSCULOSKELETAL: No lower extremity swelling. No appreciated calf asymmetry. NEURO/PSYCH: Awake, alert, and oriented. Cranial nerves grossly normal. Grossly normal motor and sensory function. Hospital Course 46-year-old female with history of anemia presented with shortness of breath and malaise. Patient was found to have anemia of 5.7. Patient transfused 2 units of blood. Patient has history of uterine fibroids and [facility] was consulted. Patient has had poor follow-up in the past. Patient was also started on empiric antibiotics Rocephin and azithromycin for cough and congestion on the chest x-ray. Patient remained stable throughout hospitalization, Andrae recommended outpatient treatment, possible hysterectomy and medical management until then. Last admission, patient had some chest pressure. Troponins and EKG were negative for ACS. Chest x-ray remained unchanged. Discharged in stable condition after improvement of hemoglobin after several transfusions. Patient was sent home on a Z-Eliezer, control pills, liquid iron, and amlodipine for blood pressure. Encouraged to follow-up with a PCP and gynecology. Pt Condition on Discharge: Stable Discharge Disposition: Discharge Home Discharge Instructions DIET: Follow Instructions for: As Tolerated, No Restrictions Activities you can perform: Regular-No Restrictions Follow up Referrals: [facility] - 1 Week PCP Follow-up - 1 Week New Medications: Azithromycin (Zithromax Z-Eliezer) 250 Mg Dspk 250 MG PO DIRECTED for Infection, #1 DSPK 0 Refills 500 MG (2 tabs) day 1, then 1 tab days 2-5. Benzonatate (Tessalon Perles) 100 Mg Cap 100 MG PO TID PRN for COUGH, #30 CAP 0 Refills Norgestimate-Ethinyl Estradiol (Sprintec 28) 0.25-35 mg-Mcg Tab 1 TAB PO DAILY for Control, #1 PACK 0 Refills Amlodipine (Norvasc) 5 Mg Tab 5 MG PO DAILY, #30 TAB Ferrous Sulfate Liq (Ferrous Sulfate Liq) 300 Mg/5 Ml Soln 300 MG PO DAILY, #150 ML Continued Medications: Sennosides-Docusate Sodium (Senna Plus 8.6-50 mg) 1 Tab Tab 1 TAB PO BID for Prevent Constipation, #60 TAB Discontinued Medications: Ferrous Sulfate (Ferosul) 325 Mg Tablet 325 MG PO BID@12,17 for iron deficient anemia, #60 TAB Terrance Mohr MD, R2 Mar 29, 2017 13:07
--- NOTE | 2017-03-30 00:07 | EKG ---
Date Performed: 03/27/2017 Time Performed: 11:13:02 PTAGE: 46 years EKG: SINUS TACHYCARDIA NONSPECIFIC ST & T-WAVE ABNORMALITY ABNORMAL RHYTHM ECG PREVIOUS TRACING : 09/16/2015 22.07 DOCTOR: Chanda Wade Interpretating Date/Time 03/30/2017 00:07:03
--- NOTE | 2017-03-30 12:52 | EKG ---
Date Performed: 03/29/2017 Time Performed: 11:59:37 PTAGE: 46 years EKG: Sinus rhythm MODERATE VOLTAGE CRITERIA FOR LVH, CONSIDER NORMAL VARIANT BORDERLINE ECG PREVIOUS TRACING 03/27/17 Since previous tracing, axis is more vertical. QRS voltage no longer present for LVH. DOCTOR: Gareth Butcher Interpretating Date/Time 03/30/2017 12:51:45
== END 2017-03-29 14:16 | disposition home or self-care (01) ==
LOC: NEPD 10:52 → NEDA 14:26 → NEPFCDU 16:34
PROVIDERS: ADMIT Family Medicine; ATTEND Family Medicine
DX: R07.9 Chest pain, unspecified (principal); D50.0 Iron deficiency anemia secondary to blood loss (chronic); D25.9 Leiomyoma of uterus, unspecified; N92.1 Excessive and frequent menstruation with irregular cycle; R05 Cough; R51 Headache; I10 Essential (primary) hypertension; I07.1 Rheumatic tricuspid insufficiency; K76.0 Fatty (change of) liver, not elsewhere classified; F39 Unspecified mood [affective] disorder; J45.909 Unspecified asthma, uncomplicated; Z90.49 Acquired absence of other specified parts of digestive tract
CPT/HCPCS: 36430; 71045; 76700; 76856; 80048; 80053; 82728; 83540; 83550; 83605; 83690; 83880; 84484; 85014; 85018; 85025; 85027; 86850; 86900; 86901; 86920; 86922; 87040; 87804; 93005; 93306; 94664; 96361; 96365; 96366; 96368; 96375; 97161; 99285; G0378; G8987; G8988; G8989; J0456; J0696; J2405; J7030; J7050; P9016

== ENCOUNTER 2017-09-02 20:49 | Inpatient (IN) | payer BC ==
[~2017-09-02] VITALS: Ht 157.5 cm; Wt 127.0 kg
[~2017-09-02 20:49] MED LIST changes: +AMLO5 PO; +BENZ100 PO; +FERR300S PO; -FERR325T20 PO; +SPRI28TA PO; +ZITHTAB PO
[2017-09-02 21:21] VITALS: BP 154/106; PULSE 116; RESP 20; TEMP 98.8; O2SAT 97
[2017-09-03] VITALS (17 sets, daily range): BP systolic 121–165; BP diastolic 58–73; PULSE 69–88; RESP 16–22; TEMP 97.2–99.4; O2SAT 95–100
[2017-09-03] MEDS ORDERED: SODIUM CHLOR 0.9% 1000 ML INJ 1,000 ML IV ONE (01:27)
[2017-09-03] MEDS ORDERED: SODIUM CHLORIDE 0.9% FLUSH 10 ML FLUSH IVF PRN (01:30)
[2017-09-03] MEDS ORDERED: diphenhydrAMINE HCL 50 MG/ML VIAL IVP ONE (01:30)
[2017-09-03] MEDS ORDERED: LABETALOL HCL 100 MG/20 ML VIAL IV PUSH ONE (01:30)
[2017-09-03] MEDS ORDERED: PROCHLORPERAZINE INJ 10 MG/2 ML VIAL IVP ONE (01:30)
[2017-09-03] MEDS ORDERED: METOCLOPRAMIDE HCL 10 MG/2 ML VIAL IVP ONE (01:30)
[2017-09-03 02:15] LABS: AUTOMATED NEUTROPHIL # 9.1 TH/MM3 (1.8-7.7); BASOPHIL # 0.1 TH/MM3 (0-0.2); BASOPHIL % 0.8 % (0.0-2.0); EOSINOPHIL # 0.1 TH/MM3 (0-0.4); EOSINOPHIL % 0.9 % (0.0-4.0); LYMPH % 18.2 % (9.0-44.0); LYMPHOCYTE # 2.3 TH/MM3 (1.0-4.8); MEAN CELL VOLUME 55.6 FL (80.0-100.0); MEAN CORPUSCULAR HEMOGLOBIN 15.8 PG (27.0-34.0); MEAN PLATELET VOLUME 8.6 FL (7.0-11.0); MONO % 7.3 % (0.0-8.0); MONOCYTE # 0.9 TH/MM3 (0-0.9); NEUT % 72.8 % (16.0-70.0); PLATELET COUNT 459 TH/MM3 (150-450); RED CELL DISTRIBUTION WIDTH 22.8 % (11.6-17.2); WHITE BLOOD COUNT 12.5 TH/MM3 (4.0-11.0)
[2017-09-03 02:16] LABS: MEAN CORPUSCULAR HGB CONC 28.4 % (32.0-36.0)
[2017-09-03 02:19] LABS: HEMATOCRIT 20.6 % (35.0-46.0); HEMOGLOBIN 5.8 GM/DL (11.6-15.3); PROTHROMBIN TIME - PATIENT 10.4 SEC (9.8-11.6)
[2017-09-03 02:25] LABS: ALBUMIN 3.1 GM/DL (3.4-5.0); ALT (GPT) 12 U/L (10-53); AST (GOT) 5 U/L (15-37); BICARBONATE 26.5 MEQ/L (21.0-32.0); BLOOD UREA NITROGEN 10 MG/DL (7-18); CALCIUM 8.5 MG/DL (8.5-10.1); CHLORIDE 107 MEQ/L (98-107); CREATININE 0.64 MG/DL (0.50-1.00); GLOMERULAR FILTRATION RATE 121 ML/MIN (>89); GLUCOSE,RANDOM 81 MG/DL (74-106); SODIUM (NA) 141 MEQ/L (136-145)
[2017-09-03 02:28] LABS: ALKALINE PHOSPHATASE 87 U/L (45-117); TOTAL BILIRUBIN ADULT 0.2 MG/DL (0.2-1.0); TOTAL PROTEIN 7.8 GM/DL (6.4-8.2); TROPONIN I LESS THAN 0.02 NG/ML (0.02-0.05)
[2017-09-03] MEDS ORDERED: SODIUM CHLOR 0.9% 250 ML INJ 250 ML IV ONE (02:30)
[2017-09-03 02:49] LABS: OVALOCYTES 1+ (NORMAL)
--- NOTE | 2017-09-03 02:59 | RADRPT ---
EXAM DATE: 09/03/2017 2:44 AM EDT AGE/SEX: 46 years / Female INDICATIONS: Cephalgia. CLINICAL DATA: This is the patient's initial encounter. Patient reports that signs and symptoms have been present for 2 days and indicates a pain score of 8/10. MEDICAL/SURGICAL HISTORY: Asthma. Cholecystectomy. Tubal ligation. RADIATION DOSE: 66.34 CTDI (mGy) COMPARISON: [facility] [place] 05/19/2012. . TECHNIQUE: CT of the head without contrast. Using automated exposure control and adjustment of the mA and/or kV according to patient size, radiation dose was kept as low as reasonably achievable to ob tain optimal diagnostic quality images. FINDINGS: Cerebrum: Mild frontal lobe atrophy. The ventricles are normal for age. No evidence of midline shif t, mass lesion, hemorrhage or acute infarction. No extraaxial fluid collections are seen. Posterior Fossa: The cerebellum and brainstem are intact. The 4th ventricle is midline. The cerebe llopontine angle is unremarkable. Extracranial: The visualized portion of the orbits is intact. Skull: The calvaria is intact. No evidence of skull fracture. CONCLUSION: 1. No acute intracranial findings. 2. Mild bilateral frontal lobe atrophy best seen at the vertex. Electronically signed by: Chet Rdz MD 09/03/2017 2:58 AM EDT
--- NOTE | 2017-09-03 03:06 | PD ---
HPI Chief Complaint: Headache Time Seen by Provider: 01:20 Travel History International Travel<30 days: No Contact w/Intl Traveler<30days: No Traveled to known affect area: No History of Present Illness HPI Patient is a 46-year-old female who presents the emergency room with multiple complaints. Patient reports that for the past 2 days, she has had a migraine headache as well as chest pain. Patient reports that she initially started with a headache, reports that she has pains that go from the back of her head to the front of her head. Patient reports that she does have history of migraines, reports that symptoms feel similar to her migraines in the past. Patient reports that she does have history of hypertension, she has not taking any of her amlodipine 5 mg for 3 weeks as she has run out of blood pressure medications. As per her migraines, patient reports that she has photophobia with nausea with no vomiting with her symptoms. Reports that she intermittently gets blurry vision with her migraine headaches. Patient denies any fever or chills with the symptoms. Patient also reports that the same time , she has been having chest pain for the past 2 days. Patient reports that chest pain is substernal in nature, reports that is nonradiating, reports that she just feels a pressure to her chest. Patient with no history of [place], coronary disease, coronary artery stents in the past. Patient does not have a sales and marketing executive that he follows with [facility] [place] Past Medical History Asthma: Yes (SINCE CHILDHOOD) Blood Disorders: No Anxiety: Yes Cancer: No Cardiovascular Problems: No Chemotherapy: No Diabetes: No Diminished Hearing: No Endocrine: No Gastrointestinal Disorders: Yes (GALLBLADDER DISEASE AND REMOVAL) Genitourinary: No Headaches: Yes Immune Disorder: No Inguinal Hernia: Yes Implanted Vascular Access Dvce: Yes Musculoskeletal: No Neurologic: Yes (CHRONIC MIGRAINES) Psychiatric: Yes Reproductive: Yes (HX OF UTERINE FIBROIDS) Respiratory: Yes Immunizations Current: No Migraines: Yes Radiation Therapy: No Thyroid Disease: No Ulcer: Yes Tetanus Vaccination: Unknown Influenza Vaccination: No ?: Not Menopausal: No : 3 Para: 3 Tubal Ligation: Yes Past Surgical History Abdominal Surgery: Yes (HERNIA REPAIR) Body Medical Devices: HERNIA REPAIR, PT THINKS POSSIBLE MESH? Section: Yes (X3) Cholecystectomy: Yes Gynecologic Surgery: Yes ( X 3) Other Surgery: Yes (C SECTIONS, HERNIA REPAIR, GALLBLADDER REMOVAL) Social History Alcohol Use: No Tobacco Use: No Substance Use: No Allergies-Medications (Allergen,Severity, Reaction): Coded Allergies: naproxen (Unverified Allergy, Mild, VOMITING, 09/02/17) propoxyphene (Unverified Allergy, Mild, VOMITING, 09/02/17) tramadol (Unverified Allergy, Mild, VOMITING, 09/02/17) Reported Meds & Prescriptions Reported Meds & Active Scripts Active Sprintec 28 (Norgestimate-Ethinyl Estradiol) 0.25-35 mg-Mcg Tab 1 Tab PO DAILY Zithromax Z-Eliezer (Azithromycin) 250 Mg Dspk 250 Mg PO DIRECTED 500 MG (2 tabs) day 1, then 1 tab days 2-5. Tessalon Perles (Benzonatate) 100 Mg Cap 100 Mg PO TID PRN Norvasc (Amlodipine Besylate) 5 Mg Tab 5 Mg PO DAILY Ferrous Sulfate Liq (Ferrous Sulfate) 300 Mg/5 Ml Soln 300 Mg PO DAILY Senna Plus 8.6-50 mg (Sennosides-Docusate Sodium) 1 Tab Tab 1 Tab PO BID Review of Systems General / Constitutional: No: Fever Eyes: No: Visual changes HENT: Positive: Headaches Cardiovascular: Positive: Chest Pain or Discomfort, No: Palpitations, Diaphoresis Respiratory: No: Shortness of Breath Gastrointestinal: Positive: Nausea, Vomiting, No: Abdominal Pain Genitourinary: No: Dysuria Musculoskeletal: No: Pain Skin: No Rash Neurologic: No: Weakness Psychiatric: No: Depression Endocrine: No: Polydipsia Hematologic/Lymphatic: No: Easy Bruising Physical Exam Narrative GENERAL: Moderate distress SKIN: Focused skin assessment warm/dry. HEAD: Atraumatic. Normocephalic. EYES: Pupils equal and round. No scleral icterus. No injection or drainage. ENT: No nasal bleeding or discharge. Mucous membranes pink and moist. NECK: Trachea midline. No JVD. CARDIOVASCULAR: Regular rate and rhythm. No murmur appreciated. RESPIRATORY: No accessory muscle use. Clear to auscultation. Breath sounds equal bilaterally. GASTROINTESTINAL: Abdomen soft, non-tender, nondistended. Hepatic and splenic margins not palpable. MUSCULOSKELETAL: No obvious deformities. No clubbing. No cyanosis. No edema. NEUROLOGICAL: Awake and alert. No obvious cranial nerve deficits. Motor grossly within normal limits. Normal speech. CN 2-12 grossly intact with no neurological deficits PSYCHIATRIC: Appropriate mood and affect; insight and judgment normal. Data Data Last Documented VS Vital Signs Date Time Temp Pulse Resp B/P (MAP) Pulse Ox O2 Delivery O2 Flow Rate FiO2 09/03/17 01:59 16 98 Room Air 09/02/17 21:21 98.8 116 154/106 (122) Orders Orders Complete Blood Count With Diff (09/03/17:) Comprehensive Metabolic Panel (09/03/17) Prothrombin Time / Inr (Pt) (09/03/17) Act Partial Throm Time (Ptt) (09/03/17) Ct Brain W/O Iv Contrast(Rout) (09/03/17) Ecg Monitoring (09/03/17:) Iv Access Insert/Monitor (09/03/17:) Oximetry (09/03/17:) Sodium Chloride 0.9% Flush (Ns Flush) (09/03/17:30) Prochlorperazine Inj (Compazine Inj) (09/03/17:30) Diphenhydramine Inj (Benadryl Inj) (09/03/17:30) Metoclopramide Inj (Reglan Inj) (09/03/17:30) Sodium Chlor 0.9% 1000 Ml Inj (Ns 1000 M (09/03/17:27) B-Type Natriuretic Peptide (09/03/17:27) Ckmb (Isoenzyme) Profile (09/03/17:27) Troponin I (09/03/17:27) Ed Urine Pregnancytest Poc (09/03/17:27) Labetalol Inj (Trandate Inj) (09/03/17:30) Type And Screen (09/03/17 02:21) Red Blood Cells (Rbc) (09/03/17 02:21) Blood Product Administration (09/03/17 02:21) Sodium Chlor 0.9% 250 Ml Inj (Ns 250 Ml (09/03/17 02:30) Labs Laboratory Tests Test 09/03/17 01:40 White Blood Count 12.5 TH/MM3 Red Blood Count 3.70 MIL/MM3 Hemoglobin 5.8 GM/DL Hematocrit 20.6 % Mean Corpuscular Volume 55.6 FL Mean Corpuscular Hemoglobin 15.8 PG Mean Corpuscular Hemoglobin Concent 28.4 % Red Cell Distribution Width 22.8 % Platelet Count 459 TH/MM3 Mean Platelet Volume 8.6 FL Neutrophils (%) (Auto) 72.8 % Lymphocytes (%) (Auto) 18.2 % Monocytes (%) (Auto) 7.3 % Eosinophils (%) (Auto) 0.9 % Basophils (%) (Auto) 0.8 % Neutrophils # (Auto) 9.1 TH/MM3 Lymphocytes # (Auto) 2.3 TH/MM3 Monocytes # (Auto) 0.9 TH/MM3 Eosinophils # (Auto) 0.1 TH/MM3 Basophils # (Auto) 0.1 TH/MM3 CBC Comment AUTO DIFF Differential Comment AUTO DIFF CONFIRMED Platelet Estimate HIGH Platelet Morphology Comment NORMAL Basophilic Stippling FAINT Ovalocytes 1+ Prothrombin Time 10.4 SEC Prothromb Time International Ratio 1.0 RATIO Activated Partial Thromboplast Time 23.3 SEC Blood Urea Nitrogen 10 MG/DL Creatinine 0.64 MG/DL Random Glucose 81 MG/DL Total Protein 7.8 GM/DL Albumin 3.1 GM/DL Calcium Level 8.5 MG/DL Alkaline Phosphatase 87 U/L Aspartate Amino Transf (AST/SGOT) 5 U/L Alanine Aminotransferase (ALT/SGPT) 12 U/L Total Bilirubin 0.2 MG/DL Sodium Level 141 MEQ/L Potassium Level 3.8 MEQ/L Chloride Level 107 MEQ/L Carbon Dioxide Level 26.5 MEQ/L Anion Gap 8 MEQ/L Estimat Glomerular Filtration Rate 121 ML/MIN Total Creatine Kinase 20 U/L Troponin I LESS THAN 0.02 NG/ML B-Type Natriuretic Peptide 23 PG/ML MDM Medical Decision Making Medical Screen Exam Complete: Yes Emergency Medical Condition: Yes Medical Record Reviewed: Yes Interpretation(s) EKG at 0055: Normal sinus rhythm at 91 bpm, QT/QTc 329/378, she does have moderate ST segment depressions in leads II, 3, aVF Vital Signs Date Time Temp Pulse Resp B/P (MAP) Pulse Ox O2 Delivery O2 Flow Rate FiO2 09/03/17 01:59 16 98 Room Air 09/02/17 21:21 98.8 116 20 154/106 (122) 97 Differential Diagnosis Cephalgia, migraine headache, ACS, arrhythmia, electrolyte abnormality, PE Narrative Course During the course of the patients emergency department visit, the patients history, examination, and differential diagnosis were reviewed with the patient. The patient was placed on a cutter operator asbestos shingle with oximetry and frequent blood pressure monitoring. The patient had an IV access obtained and blood work sent for analysis. The patient was initially provided migraine cocktail, she was initially hypertensive but after retaking her blood pressure, she was normotensive, labetalol was not given. The patients laboratory studies were reviewed and remarkable for CBC & BMP Diagram 09/03/17 01:40 Total Protein 7.8, Albumin 3.1 L, Calcium Level 8.5, Alkaline Phosphatase 87, Aspartate Amino Transf (AST/SGOT) 5 L, Alanine Aminotransferase (ALT/SGPT) 12, Total Bilirubin 0.2 Patient's hemoglobin is 5.8, patient reports that she has history of iron deficiency anemia, reports that she has required blood transfusions in the past , last blood transfusion was in March. Given her EKG changes and chest pain, symptoms are most likely due to anemia. 2 units of blood was ordered Patient consents to blood transfusion, she will require admission. case reviewed with dr. casey who accepts pt to service Diagnosis Primary Impression: Symptomatic anemia Additional Impressions: Chest pain Qualified Codes: R07.9 - Chest pain, unspecified Migraine Qualified Codes: G43.909 - Migraine, unspecified, not intractable, without status migrainosus Admitting Information Admitting Physician Requests: Yumiko Clifton DO Sep 03, 2017 03:06
[2017-09-03] MEDS ORDERED: ONDANSETRON ODT 4 MG TAB PO PRN (03:30)
[2017-09-03] MEDS ORDERED: SODIUM CHLORIDE 0.9% FLUSH 10 ML FLUSH IV FLUSH PRN (03:30)
[2017-09-03] MEDS ORDERED: MAGNESIUM HYDROXIDE SUSP 30 ML CUP PO PRN (03:30)
[2017-09-03] MEDS ORDERED: ACETAMINOPHEN 325 MG TAB PO PRN (03:30)
[2017-09-03] MEDS ORDERED: BISACODYL 10 MG SUPP RECTAL PRN (03:30)
[2017-09-03] MEDS ORDERED: SENNOSIDES 8.6 MG TAB PO PRN (03:30)
[2017-09-03] MEDS ORDERED: NALOXONE HCL 0.4 MG/ML AMP IV PUSH PRN (03:30)
[2017-09-03] MEDS ORDERED: LACTULOSE SYRUP 20 GM/30 ML CUP PO PRN (03:30)
[2017-09-03 09:00] LABS: TROPONIN I LESS THAN 0.02 NG/ML (0.02-0.05)
[2017-09-03] MEDS: DOCUSATE SODIUM 50 MG/SENNA 8.6 MG TAB PO SCH ×2 (09:00→20:10)
[2017-09-03] MEDS: SODIUM CHLORIDE 0.9% FLUSH 10 ML FLUSH IV FLUSH SCH ×2 (09:10→20:10)
--- NOTE | 2017-09-03 12:19 | RADRPT ---
EXAM DATE: 09/03/2017 11:53 AM EDT AGE/SEX: 46 years / Female INDICATIONS: Fibroids. Heavy bleeding. CLINICAL DATA: This is the patient's subsequent encounter. Patient reports that signs and symptoms h ave been present for 4 - 6 months and indicates a pain score of 6/10. MEDICAL/SURGICAL HISTORY: . Hypertension. Asthma. Ulcer. Fibroids. Inguinal hernia. . Tuba l ligation. Cholecystectomy. section. Hernia repair. COMPARISON: No prior exams available for comparison. MEASUREMENTS: Uterus:__16.2 x 15.6 x 9.3 cm Endometrial Stripe:__14 mm Right Ovary:__ 2.6 x 2.6 x 1.7 cm Left Ovary:__ not seen FINDINGS: Uterus: Multiple large uterine masses are seen the largest measures almost 6.8 cm in size. Right Ovary: Measures Left Ovary: Not visualized Other: No free fluid. CONCLUSION: 1. Enlarged uterus filled with multiple huge fibroids. Electronically signed by: Daniela Davis MD 09/03/2017 12:17 PM EDT
[2017-09-03] MEDS: ACETAMIN 325 MG/BUTALBITAL 50 MG/CAFFEINE 40 MG TAB PO PRN ×3 (12:36→23:34)
--- NOTE | 2017-09-03 14:20 | EKG ---
Date Performed: 09/03/2017 Time Performed: 00:55:10 PTAGE: 46 years EKG: Sinus rhythm Nonspecific ST changes ABNORMAL ECG Compared to prior electrocardiogram, [place] has rotated rightward. PREVIOUS TRACING : 03/29/2017 11.59 DOCTOR: Jung Veloz Interpretating Date/Time 09/03/2017 14:19:53
[2017-09-03 15:39] LABS: HEMATOCRIT 25.4 % (35.0-46.0); HEMOGLOBIN 7.6 GM/DL (11.6-15.3)
--- NOTE | 2017-09-03 16:21 | HHI.HP ---
[facility] Primary Care Physician No Primary Care Physician Admission Diagnosis Symptomatic anemia, chest pain, migraine Diagnoses: (1) Anemia (2) Uterine fibroid (3) Metrorrhagia (4) Migraine Travel History International Travel<30 Days: No Contact w/Intl Traveler <30 Da: No Traveled to Known Affected Are: No History of Present Illness 46-year-old female with history of uterine fibroids, menometrorrhagia, heavy menses presents to the ER with anemia. She also complains of migraine versus tension headache. She states that she was diagnosed with fibroids 2 years ago. Currently her periods last 7 days, 4 of those days she describes as heavy bleeding including passage of clots. Ultrasound of uterus shows multiple fibroids described as "huge". Her hemoglobin was 5.8 and she is being transfused 2 units currently. She has no other complaints at this time. Review of Systems Constitutional: DENIES: Diaphoretic episodes, Fatigue, Fever, Weight gain, Weight loss Endocrine: COMPLAINS OF: Abnorml menstrual pattern, DENIES: Polydipsia, Polyuria, Polyphagia Eyes: DENIES: Blurred vision, Diplopia, Eye inflammation, Eye pain, Vision loss Ears, nose, mouth, throat: DENIES: Tinnitus, Hearing loss, Vertigo, Nasal discharge, Oral lesions, Running Nose, Epistaxis, Sinus Pain Respiratory: DENIES: Apneas, Cough, Snoring, Wheezing, Hemoptysis, Sputum production Cardiovascular: DENIES: Chest pain, Palpitations, Syncope, Dyspnea on Exertion Gastrointestinal: DENIES: Abdominal pain, Black stools, Bloody stools, Constipation, Diarrhea, Nausea, Vomiting Genitourinary: COMPLAINS OF: Abnormal vaginal bleeding, Dysmenorrhea, DENIES: Urinary frequency, Urinary incontinence, Urgency, Hematuria, Dysuria, Nocturia, Vaginal discharge Integumentary: DENIES: Abnormal pigmentation, Pruritus, Rash Hematologic/lymphatic: DENIES: Bruising, Lymphadenopathy Immunologic/allergic: DENIES: Eczema, Urticaria Neurologic: DENIES: Abnormal gait, Headache, Localized weakness, Paresthesias, Seizures Psychiatric: DENIES: Anxiety, Confusion, Mood changes, Depression, Hallucinations Past Family Social History Past Medical History Hypertension, uterine fibroids, A3 Past Surgical History Hernia repair, cholecystectomy Allergies: Coded Allergies: naproxen (Unverified Allergy, Mild, VOMITING, 09/02/17) propoxyphene (Unverified Allergy, Mild, VOMITING, 09/02/17) tramadol (Unverified Allergy, Mild, VOMITING, 09/02/17) Family History Type 2 diabetes, hypertension Social History Denies tobacco or alcohol use Physical Exam Vital Signs Vital Signs Date Time Temp Pulse Resp B/P (MAP) Pulse Ox O2 Delivery O2 Flow Rate FiO2 09/03/17 15:52 99.4 82 16 145/67 (93) 95 09/03/17 12:00 98.3 86 18 145/65 100 09/03/17 11:16 98.9 77 16 125/60 (81) 97 09/03/17 09:24 98.9 80 18 126/58 100 09/03/17 09:00 98.3 88 18 134/64 99 09/03/17 07:21 97.2 82 20 153/68 (96) 98 09/03/17 06:09 98.2 83 17 129/60 (83) 99 09/03/17 05:34 97.6 82 18 138/65 100 09/03/17 05:12 98.3 81 18 132/62 100 09/03/17 04:51 97.2 83 18 126/59 100 09/03/17 04:37 98.4 81 16 121/64 99 09/03/17 01:59 16 98 Room Air 09/02/17 21:21 98.8 116 20 154/106 (122) 97 Physical Exam GENERAL: This is a well-nourished, well-developed patient, morbidly obese SKIN: No rashes, ecchymoses or lesions. Cool and dry. HEAD: Atraumatic. Normocephalic. No temporal or scalp tenderness. EYES: Pupils equal round and reactive. Extraocular motions intact. No scleral icterus. No injection or drainage. ENT: Nose without bleeding, purulent drainage or septal hematoma. Throat without erythema, tonsillar hypertrophy or exudate. Uvula midline. Airway patent. NECK: Trachea midline. No JVD or lymphadenopathy. Supple, nontender, no meningeal signs. CARDIOVASCULAR: Regular rate and rhythm without murmurs, gallops, or rubs. RESPIRATORY: Clear to auscultation. Breath sounds equal bilaterally. No wheezes , rales, or rhonchi. GASTROINTESTINAL: Abdomen soft, non-tender, nondistended. No hepato-splenomegaly , or palpable masses. No guarding. MUSCULOSKELETAL: Extremities without clubbing, cyanosis, or edema. No joint tenderness, effusion, or edema noted. No calf tenderness. Negative Homans sign bilaterally. NEUROLOGICAL: Awake and alert. Cranial nerves II through XII intact. Motor and sensory grossly within normal limits. Five out of 5 muscle strength in all muscle groups. Normal speech. Laboratory Laboratory Tests Test 09/03/17 01:40 09/03/17 08:14 09/03/17 14:05 09/03/17 15:26 White Blood Count 12.5 Red Blood Count 3.70 Hemoglobin 5.8 7.6 Hematocrit 20.6 25.4 Mean Corpuscular Volume 55.6 Mean Corpuscular Hemoglobin 15.8 Mean Corpuscular Hemoglobin Concent 28.4 Red Cell Distribution Width 22.8 Platelet Count 459 Mean Platelet Volume 8.6 Neutrophils (%) (Auto) 72.8 Lymphocytes (%) (Auto) 18.2 Monocytes (%) (Auto) 7.3 Eosinophils (%) (Auto) 0.9 Basophils (%) (Auto) 0.8 Neutrophils # (Auto) 9.1 Lymphocytes # (Auto) 2.3 Monocytes # (Auto) 0.9 Eosinophils # (Auto) 0.1 Basophils # (Auto) 0.1 CBC Comment AUTO DIFF Differential Comment AUTO DIFF CONFIRMED Platelet Estimate HIGH Platelet Morphology Comment NORMAL Basophilic Stippling FAINT Ovalocytes 1+ Prothrombin Time 10.4 Prothromb Time International Ratio 1.0 Activated Partial Thromboplast Time 23.3 Blood Urea Nitrogen 10 Creatinine 0.64 Random Glucose 81 Total Protein 7.8 Albumin 3.1 Calcium Level 8.5 Alkaline Phosphatase 87 Aspartate Amino Transf (AST/SGOT) 5 Alanine Aminotransferase (ALT/SGPT) 12 Total Bilirubin 0.2 Sodium Level 141 Potassium Level 3.8 Chloride Level 107 Carbon Dioxide Level 26.5 Anion Gap 8 Estimat Glomerular Filtration Rate 121 Total Creatine Kinase 20 20 Troponin I LESS THAN 0.02 LESS THAN 0.02 LESS THAN 0.02 B-Type Natriuretic Peptide 23 Result Diagram: 09/03/17 1526 09/03/17 0140 Caprini VTE Risk Assessment Caprini VTE Risk Assessment: Mod/High Risk (score >= 2) Caprini Risk Assessment Model Point Value = 1 Point Value = 2 Point Value = 3 Point Value = 5 Age 41-60 Minor surgery BMI > 25 kg/m2 Swollen legs Varicose veins or History of unexplained or recurrent spontaneous Oral contraceptives or hormone replacement Sepsis (< 1 month) Serious lung disease, including pneumonia (< 1 month) Abnormal pulmonary function Acute myocardial infarction Congestive heart failure (< 1 month) History of inflammatory bowel disease Medical patient at bed rest Age 61-74 Arthroscopic surgery Major open surgery (> 45 min) Laparoscopic surgery (> 45 min) Malignancy Confined to bed (> 72 hours) Immobilizing plaster cast Central venous access Age >= 75 History of VTE Family history of VTE Factor V Leiden Prothrombin [id number] Lupus anticoagulant Anticardiolipin antibodies Elevated serum homocysteine Heparin-induced thrombocytopenia Other congenital or acquired thrombophilia Stroke (< 1 month) Elective arthroplasty Hip, pelvis, or leg fracture Acute spinal cord injury (< 1 month) Prophylaxis Regimen Total Risk Factor Score Risk Level Prophylaxis Regimen 0-1 Low Early ambulation 2 Moderate Order ONE of the following: *Sequential Compression Device (SCD) *Heparin 5000 units SQ BID 3-4 Higher Order ONE of the following medications: *Heparin 5000 units SQ TID *Enoxaparin/Lovenox 40 mg SQ daily (WT < 150 kg, CrCl > 30 mL/min) *Enoxaparin/Lovenox 30 mg SQ daily (WT < 150 kg, CrCl > 10-29 mL/min) *Enoxaparin/Lovenox 30 mg SQ BID (WT < 150 kg, CrCl > 30 mL/min) AND/OR *Sequential Compression Device (SCD) 5 or more Highest Order ONE of the following medications: *Heparin 5000 units SQ TID (Preferred with Epidurals) *Enoxaparin/Lovenox 40 mg SQ daily (WT < 150 kg, CrCl > 30 mL/min) *Enoxaparin/Lovenox 30 mg SQ daily (WT < 150 kg, CrCl > 10-29 mL/min) *Enoxaparin/Lovenox 30 mg SQ BID (WT < 150 kg, CrCl > 30 mL/min) AND *Sequential Compression Device (SCD) Assessment and Plan Problem List: (1) Anemia ICD Code: D64.9 - Anemia Status: Acute (2) Uterine fibroid ICD Code: D25.9 - Uterine fibroid Status: Chronic (3) Metrorrhagia ICD Code: N92.1 - Excessive and frequent menstruation with irregular cycle Status: Acute Assessment and Plan Severe anemia secondary to uterine fibroids Patient has menses lasting 7 days, for those days are heavy flow Ultrasound of uterus shows multiple "huge" fibroid masses Patient will likely need a hysterectomy for resolution of these fibroids Gynecology consulted to assist with outpatient follow-up Finish blood transfusion and recheck H&H in the a.m. Tension headache Headache begins in the neck and move forward onto forehead Fioricet as needed DVT prophylaxis SCDs Patient currently very anemic following blood loss so chemical anticoagulants avoided at this time Physician Certification 2 Midnight Certification Type: Admission for Inpatient Services Order for Inpatient Services The services are ordered in accordance with Medicare regulations or non- Medicare payer requirements, as applicable. In the case of services not specified as inpatient-only, they are appropriately provided as inpatient services in accordance with the 2-midnight benchmark. Estimated LOS (days): 2 days is the estimated time the patient will need to remain in the hospital, assuming treatment plan goals are met and no additional complications. Post-Hospital Plan: Home Problem Qualifiers (1) Migraine: Qualified Codes: G43.909 - Migraine, unspecified, not intractable, without status migrainosus Rakan Durham MD Sep 03, 2017 16:21
--- NOTE | 2017-09-03 20:26 | EKG ---
Date Performed: 09/03/2017 Time Performed: 18:12:09 PTAGE: 46 years EKG: Sinus rhythm NORMAL ECG PREVIOUS TRACING : 09/03/2017 00.55 DOCTOR: Yvon Romeo Interpretating Date/Time 09/03/2017 20:25:47
[2017-09-03] MEDS ORDERED: LORazepam 0.5 MG TAB PO ONE (22:45)
--- NOTE | 2017-09-03 22:48 | PD.CONS ---
HPI Chief Complaint Menorrhagia and anemia known history of fibroids Date Seen: Sep 03, 2017 Time Seen: 21:30 Travel History International Travel<30 Days: No Contact w/Intl Traveler<30Days: No Known Affected Area: No History of Present Illness HPI 46-year-old black female para 3 previous 3 and tubal ligation, who has at least a year known history of uterine fibroids and states that she has been unable to find anybody that would help her take care of this problem. That problem is mainly because of her insurance being of poor quality. Her menses are regular but very heavy lasting 7 days and this is resulted in anemia she presented with a hemoglobin of 5 and she is received 2 units of blood hemoglobin is now gone up to 7 Pelvic ultrasound tonight is shown uterus with multiple leiomyomata largest one being 6-7 cm. Patient states she is not bleeding at this time and has not had any hormonal therapy or surgical therapy for this problem in the past Para: 3 : 3 History Past Medical History Narrative Medical Obesity Obstetric History Obstetric History 3 C-sections Past Surgical History Narrative Surgical 3 C-sections and tubal ligation Abdominal hernia repair Social History Alcohol Use: No Tobacco Use: No Substance Abuse: No Allergies-Medications (Allergen,Severity, Reaction): Coded Allergies: naproxen (Unverified Allergy, Mild, VOMITING, 09/02/17) propoxyphene (Unverified Allergy, Mild, VOMITING, 09/02/17) tramadol (Unverified Allergy, Mild, VOMITING, 09/02/17) Home Meds Active Scripts Amlodipine (Norvasc) 5 Mg Tab, 5 MG PO DAILY, #30 TAB Prov:Terrance Mohr MD R2 03/29/17 Ferrous Sulfate Liq (Ferrous Sulfate Liq) 300 Mg/5 Ml Soln, 300 MG PO DAILY, # 150 ML Prov:Terrance Mohr MD R2 03/29/17 Discontinued Scripts Norgestimate-Ethinyl Estradiol (Sprintec 28) 0.25-35 mg-Mcg Tab, 1 TAB PO DAILY for Control, #1 PACK 0 Refills Prov:Terrance Mohr MD R2 03/29/17 Azithromycin (Zithromax Z-Eliezer) 250 Mg Dspk, 250 MG PO DIRECTED for Infection , #1 DSPK 0 Refills 500 MG (2 tabs) day 1, then 1 tab days 2-5. Prov:Terrance Mohr MD R2 03/29/17 Benzonatate (Tessalon Perles) 100 Mg Cap, 100 MG PO TID Y for COUGH, #30 CAP 0 Refills Prov:Terrance Mohr MD R2 03/29/17 Sennosides-Docusate Sodium (Senna Plus 8.6-50 mg) 1 Tab Tab, 1 TAB PO BID for Prevent Constipation, #60 TAB Prov:Lisa Hubbard PA-C 10/13/16 Review of Systems General / Constitutional: No: Fever, Weight Gain, Chills, Other Eyes: No: Diploplia, Blurred Vision, Visual changes, Pain, Photophobia HENT: Headaches, No: Vertigo, Lightheadedness Cardiovascular: No: Irregular Rhythm, Chest Pain or Discomfort, Palpitations, Tachycardia, Syncope, Varicosities, Edema, Cyanosis Respiratory: No: Cough, Short of Breath, Other Gastrointestinal: No: Nausea, Vomiting, Diarrhea Genitourinary: Vaginal Bleeding, No: Decreased Urinary Output, Oliguria Musculoskeletal: No: Limited ROM, Weakness, Cramping, Edema, Pain Skin: No Rash, No Itching, No Dryness, No Lumps, No Change in Pigmentation, No Change in Nails, No Alopecia, No Lesions Neurologic: No: Weakness, Dizziness, Syncope, Focal Abnormalities, Coordination Problem, Headache, Slurred Speech, Seizures Psychiatric: No: Depression, Suicidal Ideations, Homicidal Ideation Endocrine: No: Heat Intolerance, Cold Intolerance, Polydipsia, Polyuria, Other Physical Exam Vital Signs Date Time Temp Pulse Resp B/P (MAP) Pulse Ox O2 Delivery O2 Flow Rate FiO2 09/03/17 22:30 Nasal Cannula 2.00 09/03/17 22:28 72 22 141/65 (90) 100 09/03/17 22:28 Room Air 09/03/17 20:00 97.5 69 18 134/67 (89) 100 09/03/17 17:00 98.6 82 17 165/73 (103) 100 09/03/17 15:52 99.4 82 16 145/67 (93) 95 09/03/17 12:00 98.3 86 18 145/65 100 09/03/17 11:16 98.9 77 16 125/60 (81) 97 09/03/17 09:24 98.9 80 18 126/58 100 09/03/17 09:00 98.3 88 18 134/64 99 09/03/17 07:21 97.2 82 20 153/68 (96) 98 09/03/17 06:09 98.2 83 17 129/60 (83) 99 09/03/17 05:34 97.6 82 18 138/65 100 09/03/17 05:12 98.3 81 18 132/62 100 09/03/17 04:51 97.2 83 18 126/59 100 09/03/17 04:37 98.4 81 16 121/64 99 09/03/17 01:59 16 98 Room Air Narrative GENERAL: Well-nourished, obese patient. SKIN: Warm and dry. HEAD: Normocephalic and atraumatic. EYES: No scleral icterus. No injection or drainage. ENT: No nasal drainage noted. Mucous membranes pink. Airway patent. NECK: Supple, trachea midline. No JVD. CARDIOVASCULAR: Regular rate and rhythm without murmurs, gallops, or rubs. RESPIRATORY: Breath sounds equal bilaterally. No accessory muscle use. BREASTS: Bilateral exam showed no masses , no retractions, no nipple discharge. ABDOMEN/GI: Abdomen soft, non-tender, large pannus noted , large vertical scar below the umbilicus from umbilical or abdominal hernia repair ,bowel sounds present, no rebound, no guarding Fundal Height uterus is not palpable due to her obesity GENITOURINARY: External Genitalia: intact and normal in appearance BUS glands: [-] Cervix: [Closed-] On bimanual exam the uterus and adnexa cannot be palpated due to her obesity EXTREMITIES: No cyanosis or edema. BACK: Nontender without obvious deformity. No CVA tenderness. NEUROLOGICAL: Awake and alert. Motor and sensory grossly within normal limits. Five out of 5 muscle strength in all muscle groups. Normal speech. Data Data Orders Orders Complete Blood Count With Diff (09/03/17 01:27) Comprehensive Metabolic Panel (09/03/17:27) Prothrombin Time / Inr (Pt) (09/03/17:27) Act Partial Throm Time (Ptt) (09/03/17:27) Ct Brain W/O Iv Contrast(Rout) (6/12/18 01:27) Ecg Monitoring (09/03/17 01:27) Iv Access Insert/Monitor (09/03/17:27) Oximetry (09/03/17:27) Sodium Chloride 0.9% Flush (Ns Flush) (09/03/17 01:30) Prochlorperazine Inj (Compazine Inj) (09/03/17 01:30) Diphenhydramine Inj (Benadryl Inj) (09/03/17 01:30) Metoclopramide Inj (Reglan Inj) (09/03/17 01:30) Sodium Chlor 0.9% 1000 Ml Inj (Ns 1000 M (09/03/17 01:27) B-Type Natriuretic Peptide (09/03/17:27) Ckmb (Isoenzyme) Profile (09/03/17:27) Troponin I (09/03/17:27) Ed Urine Pregnancytest Poc (09/03/17 01:27) Labetalol Inj (Trandate Inj) (09/03/17 01:30) Type And Screen (09/03/17 02:21) Red Blood Cells (Rbc) (09/03/17 02:21) Sodium Chlor 0.9% 250 Ml Inj (Ns 250 Ml (09/03/17 02:30) Admit To Inpatient (09/03/17 ) Vital Signs (Adult) Q4H (09/03/17 03:19) Activity Oob With Assistance (09/03/17 03:19) Diet Clear Liquid (09/03/17 Breakfast) Sodium Chloride 0.9% Flush (Ns Flush) (09/03/17 03:30) Sodium Chloride 0.9% Flush (Ns Flush) (09/03/17 09:00) Acetaminophen (Tylenol) (09/03/17 03:30) Basic Metabolic Panel (Bmp) (09/04/17 06:00) Complete Blood Count With Diff (09/04/17 06:00) Naloxone Inj (Narcan Inj) (09/03/17 03:30) Docusate Sodium-Senna (Simin-Colace) (09/03/17 09:00) Magnesium Hydroxide Liq (Milk Of Magnesi (09/03/17 03:30) Sennosides (Senokot) (09/03/17 03:30) Bisacodyl Supp (Dulcolax Supp) (09/03/17 03:30) Lactulose Liq (Lactulose Liq) (09/03/17 03:30) Inpatient Certification (09/03/17 ) Creatine Kinase (Cpk) (09/03/17 07:40) Troponin I (09/03/17 07:40) Troponin I (09/03/17 13:40) Electrocardiogram (09/03/17 13:40) Admit Order (Ed Use Only) (09/03/17 03:25) Ondansetron Odt (Zofran Odt) (09/03/17 03:30) Patient Transfer (09/03/17 ) Pneumococcal-23 Polyvalent Inj (Pneumova (09/04/17 10:00) Influenza (Quad) Vaccine Inj (Flu (Quadr (09/04/17 10:00) Blood Product Administration (09/03/17 05:32) Physician Name Changes (09/03/17 ) Electrocardiogram (09/03/17 00:55) Diet Regular Basic (09/03/17 Lunch) Mcup-Dcflt-Ynuv 325-50-40 Mg (Fioricet 3 (09/03/17 11:15) Case Management Consult (09/03/17 ) Us Pelvis Comp Career Advisor/Non-Preg (09/03/17 ) Hgb & Hct (09/03/17 14:45) Thyroid Stimulating Hormone (09/04/17 06:00) Consult Gynecology (09/03/17 ) (Hub Use Only)Inp Phy Cons/Ref (09/03/17 ) Labs Laboratory Tests Test 09/03/17 01:40 09/03/17 08:14 09/03/17 14:05 09/03/17 15:26 White Blood Count 12.5 Red Blood Count 3.70 Hemoglobin 5.8 7.6 Hematocrit 20.6 25.4 Mean Corpuscular Volume 55.6 Mean Corpuscular Hemoglobin 15.8 Mean Corpuscular Hemoglobin Concent 28.4 Red Cell Distribution Width 22.8 Platelet Count 459 Mean Platelet Volume 8.6 Neutrophils (%) (Auto) 72.8 Lymphocytes (%) (Auto) 18.2 Monocytes (%) (Auto) 7.3 Eosinophils (%) (Auto) 0.9 Basophils (%) (Auto) 0.8 Neutrophils # (Auto) 9.1 Lymphocytes # (Auto) 2.3 Monocytes # (Auto) 0.9 Eosinophils # (Auto) 0.1 Basophils # (Auto) 0.1 CBC Comment AUTO DIFF Differential Comment AUTO DIFF CONFIRMED Platelet Estimate HIGH Platelet Morphology Comment NORMAL Basophilic Stippling FAINT Ovalocytes 1+ Prothrombin Time 10.4 Prothromb Time International Ratio 1.0 Activated Partial Thromboplast Time 23.3 Blood Urea Nitrogen 10 Creatinine 0.64 Random Glucose 81 Total Protein 7.8 Albumin 3.1 Calcium Level 8.5 Alkaline Phosphatase 87 Aspartate Amino Transf (AST/SGOT) 5 Alanine Aminotransferase (ALT/SGPT) 12 Total Bilirubin 0.2 Sodium Level 141 Potassium Level 3.8 Chloride Level 107 Carbon Dioxide Level 26.5 Anion Gap 8 Estimat Glomerular Filtration Rate 121 Total Creatine Kinase 20 20 Troponin I LESS THAN 0.02 LESS THAN 0.02 LESS THAN 0.02 B-Type Natriuretic Peptide 23 MDM Interpretation(s) 46-year-old white female para 3 with a known history of uterine fibroids, hypermenorrhea menorrhagia resulting in anemia with hemoglobin of 5 now having received 2 units of blood and hemoglobin of 7 now Pelvic ultrasound shows enlarged uterus with multiple leiomyomata with the largest one being 6-7 cm in size Plan Plan a CT of the abdomen and pelvis to get a better delineation of the fibroid anatomy as well as rule out hydroureter or ureteral obstruction which can occur with enlarging fibroids laterally, her creatinine is within normal limits Patient is has a dilemma and that she has poor insurance and cannot get anyone to do a hysterectomy or to treat her conservatively even, at this point. I would recommend referring her to the [facility] clinic she is familiar with because she has taken her daughter's therefore obstetrics and possibly they can either arrange for her to try outpatient Depo-Provera to achieve an amenorrheic state possibly even an IUD that would also promote amenorrhea in a levonorgestrel containing system. Patient could also potentially be a candidate for hydro-ablation of the uterus and endometrium to decrease or stop menstrual flow. With her obesity and history of surgery she is not a great surgical candidate and it would be very difficult to convince someone to take her to the operating from that procedure. Even though that would be curative and definitive for her. Her next period is supposed to start at the end of this week and possibly can receive a shot of Depo-Provera at that time and would recommend a higher dose 300 mg at least shot of Depo,. She does need to enter into treatment outpatient for this with the transition teacher willing to explore different treatment options Admitting diagnosis: Symptomatic anemia, chest pain, migraine Diagnosis: Uterine fibroids, anemia Jose Alcala II, MD Sep 03, 2017 22:48
[2017-09-04] VITALS (13 sets, daily range): BP systolic 130–166; BP diastolic 60–77; PULSE 68–84; RESP 15–20; TEMP 97.8–99; O2SAT 98–100
[2017-09-04 00:19] LABS: HEMATOCRIT 26.4 % (35.0-46.0); HEMOGLOBIN 8.1 GM/DL (11.6-15.3)
[2017-09-04 00:50] LABS: TROPONIN I LESS THAN 0.02 NG/ML (0.02-0.05)
[2017-09-04 06:58] LABS: BICARBONATE 25.2 MEQ/L (21.0-32.0); CALCIUM 8.5 MG/DL (8.5-10.1); CREATININE 0.56 MG/DL (0.50-1.00)
[2017-09-04 07:27] LABS: HEMATOCRIT 25.3 % (35.0-46.0); HEMOGLOBIN 7.5 GM/DL (11.6-15.3); MEAN CELL VOLUME 60.6 FL (80.0-100.0); MEAN PLATELET VOLUME 8.4 FL (7.0-11.0); PLATELET COUNT 415 TH/MM3 (150-450); RED BLOOD COUNT 4.18 MIL/MM3 (4.00-5.30); RED CELL DISTRIBUTION WIDTH 27.3 % (11.6-17.2); WHITE BLOOD COUNT 8.5 TH/MM3 (4.0-11.0)
[2017-09-04 07:30] LABS: MEAN CORPUSCULAR HGB CONC 29.8 % (32.0-36.0)
[2017-09-04] MEDS: DOCUSATE SODIUM 50 MG/SENNA 8.6 MG TAB PO SCH ×2 (08:34→21:00)
[2017-09-04] MEDS: SODIUM CHLORIDE 0.9% FLUSH 10 ML FLUSH IV FLUSH SCH ×2 (08:34→21:00)
[2017-09-04 08:51] LABS: LYMPHOCYTES 22 % (9-44); MONOCYTES 10 % (0-8); NEUTROPHIL # MANUAL DIFF 5.6 TH/MM3 (1.8-7.7); POLYS (SEG NEUTROPHILS) 66 % (16-70)
[2017-09-04 08:52] LABS: OVALOCYTES 1+ (NORMAL)
[2017-09-04] MEDS ORDERED: CALCIUM CARBONATE 500 MG CHEWABLE TAB CHEW ONE (09:00)
--- NOTE | 2017-09-04 09:05 | EKG ---
Date Performed: 09/03/2017 Time Performed: 23:11:30 PTAGE: 46 years EKG: Sinus rhythm with PAC(s) Borderline ECG PREVIOUS TRACING : 09/03/2017 18.12 DOCTOR: Yvon Romeo Interpretating Date/Time 09/04/2017 09:04:32
[2017-09-04] MEDS ORDERED: IOHEXOL 350 MG/ML 10 ML VIAL (for RAD DIAG) IVCONTRAST ONE (09:46)
[2017-09-04] MEDS ORDERED: PNEUMOCOCCAL POLYVALENT INJ 25 MCG/0.5 ML SYR IM ONE (10:00)
[2017-09-04] MEDS ORDERED: INFLUENZA VIRUS VACCINE (QUADRIVALENT) 0.5 ML SYR IM ONE (10:00)
--- NOTE | 2017-09-04 10:02 | RADRPT ---
EXAM DATE: 09/04/2017 9:45 AM EDT AGE/SEX: 46 years / Female INDICATIONS: Generalized abdominal pain. CLINICAL DATA: This is the patient's initial encounter. Patient reports that signs and symptoms have been present for 1 day and indicates a pain score of 4/10. MEDICAL/SURGICAL HISTORY: . Fibroids. None. ORAL CONTRAST: No oral contrast ingested. RADIATION DOSE: 32.61 CTDI (mGy) ; Patient body habitus COMPARISON: No prior exams available for comparison. TECHNIQUE: Multiple contiguous axial images were obtained through the abdomen and pelvis following b olus infusion of 97 ml Omnipaque 350 (iohexol) nonionic water-soluble contrast as a single exam dos e. No oral contrast ingested. Using automated exposure control and adjustment of the mA and/or kV ac cording to patient size, the radiation dose was kept as low as reasonably achievable to obtain optima l diagnostic quality images. FINDINGS: The lower lungs are clear. Large helical hernia The liver is free of focal defects. Surgical clips are seen in the gallbladder fossa. Pancreas and spleen are unremarkable Adrenal glands appear normal Symmetrical renal function Large midline abdominal hernia containing loops of small bowel without obvious incarceration Large fibroid uterus extending up to the umbilicus There are no inflammatory changes evident in the abdomen. Pelvis the large fibroid uterus occupies mo st of the pelvis, measuring 14 to 15 cm in the vertical direction. There is no free fluid There is no adnexal mass Review of bone windows reveals degenerative changes about the lumbar spine and both SI joints. Mild d egenerative changes seen about both hips. There is mild induration of subcutaneous tissues of the abdominal wall, nonspecific. . CONCLUSION: 1. Large midline abdominal hernia containing small bowel without obvious evidence for incarceration 2. A very large fibroid uterus 3. No inflammatory changes evident. 4. I don't see an etiology of patient's generalized abdominal pain Electronically signed by: Jose Casey MD 09/04/2017 10:01 AM EDT
[2017-09-04] MEDS ORDERED: SODIUM CHLOR 0.9% 250 ML INJ 250 ML IV ONE (11:30)
--- NOTE | 2017-09-04 13:43 | HHI.PR ---
Subjective Remarks PORTRAIT CONSULTANT Progress Note Patient is doing okay in general but complains of mild chest pain and 5-6/10 lower abdominal pain. She states that she generally starts having lower abdominal pain close to when her. Begin switch she is expecting in the next 5 days. The pain will increase in intensity as she gets closer to her periods. Patient states that her periods are very heavy, last 7 days, and require overnight pads. She rarely bleeds in between her periods. She also reports having a large central abdominal hernia that was confirmed on her recent CT scan. She has not spoken been evaluated by a general surgeon for repair of a hernia. She did have a lower abdominal hernia that was repaired 18 years ago. Objective - Vital Signs Date Time Temp Pulse Resp B/P (MAP) Pulse Ox O2 Delivery O2 Flow Rate FiO2 09/04/17 12:31 77 09/04/17 12:08 97.8 20 147/67 (93) 98 09/04/17 08:00 Room Air 09/03/17 22:30 2.00 Result Diagram: 09/04/17 0445 09/04/17 0445 Other Results Last Impressions Abdomen/Pelvis CT 09/04/17 0000 Signed Impressions: . CONCLUSION: 1. Large midline abdominal hernia containing small bowel without obvious evide nce for incarceration 2. A very large fibroid uterus 3. No inflammatory changes evident. 4. I don't see an etiology of patient's generalized abdominal pain Head CT 09/03/17 0127 Signed Impressions: CONCLUSION: 1. No acute intracranial findings. 2. Mild bilateral frontal lobe atrophy best seen at the vertex. Pelvis Ultrasound 09/03/17 0000 Signed Impressions: CONCLUSION: 1. Enlarged uterus filled with multiple huge fibroids. Objective Remarks GENERAL: Well-nourished, well-developed obese patient. No acute distress. SKIN: Warm and dry. HEENT: Normocephalic, atraumatic. No obvious meningeal signs. No scleral icterus. Trachea midline. CARDIOVASCULAR: Warm and well perfused. RESPIRATORY: No increased work of breathing. No accessory muscle use. GASTROINTESTINAL: Abdomen soft, non-tender, large pannus noted, large central area above the umbilicus consistent with an abdominal hernia, large vertical scar below the umbilicus from umbilical or abdominal hernia repair, laparoscopic scars present on her abdomen from cholecystectomy, tender to palpation of her mid and lower central abdomen, no rebound, no guarding MUSCULOSKELETAL: No cyanosis or edema of extremities. S NEURO: No obvious focal neurologic deficits. Moves all extremities well. PSYCH: Afocal. Awake, alert, and oriented x3, normal mood and affect. Good eye contact. Normal speech. A/P Assessment and Plan 46-year-old with a known history of uterine fibroids and menorrhagia who presented with anemia with hemoglobin of 5 s/p 2 units of PRBCs. Hemoglobin improved to 7.6 and she is scheduled to receive another two units of PRBCs today. CT abdomen/Pelvis with IV contrast shows a large fibroid uterus measuring 14-15 cm in the vertical direction that occupies most of the uterus as well as a large abdominal hernia containing loops of small bowel without obvious incarceration. Plan -General surgery consult to evaluate patient for abdominal hernia repair -Recommend hysterectomy as definitive management for uterine fibroids * We will discuss with electrical technology instructor on-call physician about abdominal hysterectomy and the possibility of coordinating surgery, if possible, with general surgery -In the meantime, patient needs to have an endometrial biopsy to rule out uterine cancer and medical management of fibroids pending surgery * Recommend the family medicine gynecology clinic for EMB and electrical technology instructor management - information provided to patient * Patient also given information for the [facility] in [place] -Further recommendations for possible outpatient surgery pending general surgery evaluation SDW Dr. Madrid (PGY-1) and Dr. Chand (OBGYN Attending) Discharge Planning Per primary hospital team Prudence Barba MD R2 Sep 04, 2017 13:43
--- NOTE | 2017-09-04 16:15 | MB ---
cc: Abundio Flores MD DATE: 09/04/2017 REASON FOR CONSULTATION: Chest pain. HISTORY OF PRESENT ILLNESS: The patient is a 46-year-old female with a history of migraine headaches, peptic ulcer disease, chronic iron deficiency anemia, hypertension, who presented to the emergency room with mainly complaints of chest pain and headache. The patient states she has a history of migraine headaches and over the last 2-3 weeks, she has had a moderate headache for which she takes Tylenol or Aleve. She did run out of her amlodipine 3 weeks ago. In the last 48 hours, she has had a constant, waxing and waning, substernal chest pressure without associated shortness of breath, nausea or diaphoresis. Lying down seems to exacerbate the chest discomfort. The patient denies pleurisy, hemoptysis, change in chronic intermittent dependent edema, paroxysmal nocturnal dyspnea, palpitations, syncope and near syncope. Infrequently she has lightheadedness upon standing, never lasting more than a few seconds. PAST MEDICAL HISTORY: 1. Migraine headaches. 2. Peptic ulcer disease. 3. Childhood asthma. 4. Chronic iron deficiency anemia with history of heavy menstrual periods. 5. Uterine fibroids. 6. Hypertension. PAST SURGICAL HISTORY: 1. Laparoscopic cholecystectomy. 2. Three sections. 3. Hernia repair. CARDIAC MEDICATIONS AT HOME: Norvasc 5 mg daily. ALLERGIES: DARVOCET. NAPROXEN. TRAMADOL. FAMILY HISTORY: The patient's mother may have sustained a myocardial infarction in her 50s. SOCIAL HISTORY: The patient denies any history of alcohol or tobacco abuse. REVIEW OF SYSTEMS: As in the History Of Present Illness, otherwise negative or noncontributory. She also denies abdominal pain, melena, dyspepsia, bright red blood per rectum, flu symptoms. PHYSICAL EXAMINATION: VITAL SIGNS: Her blood pressure 147/67 with a pulse of 77, respirations 20. GENERAL: She is a well-developed, well-nourished female in no acute distress. HEENT/NECK: Jugular venous pressure is hard to assess. Carotid pulses are 2+ bilaterally and without bruits. CHEST: Reveals clear lungs sams. CARDIAC: She has a regular rhythm and rate with a grade 2/6 systolic ejection murmur heard at the base of the heart. The S2 heart sound is normal. No gallop is audible. ABDOMEN: She has a soft, obese, nontender abdomen. Bowel sounds are present. There is no definite hepatosplenomegaly. EXTREMITIES: Reveals no clubbing or cyanosis. There is trace to 1+ pretibial edema bilaterally. LABORATORY DATA: EKG shows normal sinus rhythm, normal EKG. LABORATORY DATA: Includes WBC 12.5, hemoglobin 5.8, platelets 459. Potassium 4.1, BUN 9, creatinine 0.56. Negative cardiac enzymes. IMPRESSION: Noncardiac chest pain in this 46-year-old female with a history of migraine headaches, chronic iron deficiency anemia, hypertension, childhood asthma. Despite constant chest discomfort for at least the last 48 hours, cardiac enzymes are negative for myocardial infarction. EKG is normal. Echocardiogram about 4 months ago did show normal left ventricular function. Clinical suspicion for pulmonary embolism or aortic dissection is extremely low. RECOMMENDATIONS: 1. No additional cardiac workup at this time. 2. She is cleared for any surgical procedures necessary from a cardiac standpoint. MD CRISTIAN Andrade/SABINA , 02:38 PM , 02:59 PM ANTHONY
--- NOTE | 2017-09-04 17:18 | HHI.PR ---
Subjective Remarks Patient complained of chest pain this morning. Her blood work shows persisting anemia, further transfusions ordered. Objective Vitals Vital Signs Date Time Temp Pulse Resp B/P (MAP) Pulse Ox O2 Delivery O2 Flow Rate FiO2 09/04/17 16:58 98.2 77 16 160/67 99 09/04/17 16:34 98.4 72 15 156/67 99 09/04/17 16:32 98.4 73 15 156/67 (96) 99 09/04/17 14:50 98.1 70 18 136/64 99 09/04/17 14:27 99.0 81 18 166/77 100 09/04/17 12:31 77 09/04/17 12:08 97.8 76 20 147/67 (93) 98 09/04/17 08:08 98.0 75 20 150/64 (92) 100 09/04/17 08:00 Room Air 09/04/17 04:01 68 09/04/17 04:00 Room Air 09/04/17 04:00 98.0 84 18 130/60 (83) 100 09/04/17 00:00 98.5 72 18 156/67 (96) 100 09/04/17 00:00 Room Air 09/03/17 23:40 75 09/03/17 22:30 Nasal Cannula 2.00 09/03/17 22:28 72 22 141/65 (90) 100 09/03/17 22:28 Room Air 09/03/17 20:00 Room Air 09/03/17 20:00 97.5 69 18 134/67 (89) 100 09/03/17 19:45 79 I/O 09/03/17 09/03/17 09/03/17 09/04/17 09/04/17 09/04/17 07:00 15:00 23:00 07:00 15:00 23:00 Intake Total 830 ml 1190 ml 10 ml 420 ml Balance 830 ml 1190 ml 10 ml 420 ml Intake Oral 1190 ml Packed Cells 800 ml 400 ml Blood Product IV Normal Saline Flush 30 ml 10 ml 20 ml # Voids 4 # Bowel Movements 2 Result Diagram: 09/04/17 0445 09/04/17 0445 Objective Remarks GENERAL: Morbidly obese SKIN: Warm and dry. HEAD: Normocephalic. EYES: No scleral icterus. No injection or drainage. NECK: Supple, trachea midline. No JVD or lymphadenopathy. CARDIOVASCULAR: Regular rate and rhythm without murmurs, gallops, or rubs. RESPIRATORY: Breath sounds equal bilaterally. No accessory muscle use. GASTROINTESTINAL: Abdomen soft, non-tender, nondistended. EXTREMITIES: No cyanosis, or edema. NEUROLOGICAL: Awake, alert, and oriented x 3. Non-focal. A/P Problem List: (1) Anemia ICD Code: D64.9 - Anemia Status: Acute (2) Uterine fibroid ICD Code: D25.9 - Uterine fibroid Status: Chronic (3) Metrorrhagia ICD Code: N92.1 - Excessive and frequent menstruation with irregular cycle Status: Acute Assessment and Plan Uterine fibroids Patient has menses lasting 7 days, 4 of those days are heavy flow Ultrasound of uterus shows multiple "huge" fibroid masses Gynecology recommends nonsurgical approach due to patient's morbidly obese habitus and surgical risk Family medicine residency team was consulted for follow-up at their care center Treatment plan will consist of initially Depo-Provera shots to achieve an amenorrheic state, and possibly ablation versus interventional radiology Appreciate gynecology consult Appreciate family medicine residency consult Anemia Patient had hemoglobin of 5.8 on admission, following 2 units of blood she went to 7.5 She will receive an additional 2 units of packed red blood cells today On blood counts appear satisfactory she may be discharged home to follow-up as outpatient She will need to seek treatment for her fibroids to reduce risk of recurrence Chest pain Dr. Farias reviewed past echocardiogram which was within normal limits Troponin levels are within normal limits, EKGs were reviewed Cardiology determined that this was noncardiac chest pain She has been cleared for procedures and surgeries from a cardiac standpoint Appreciate cardiology consult Tension headache Headache begins in the neck and move forward onto forehead Fioricet as needed DVT prophylaxis SCDs Patient currently very anemic following blood loss so chemical anticoagulants avoided at this time Rakan Durham MD Sep 04, 2017 17:18
--- NOTE | 2017-09-04 17:32 | PD.CONS ---
HPI Service General surgery Consult Requested By IT PROJECT MANAGER Reason for Consult Abdominal hernia Primary Care Physician No Primary Care Physician History of Present Illness This patient is a very pleasant 46-year-old -[place] woman who presented to the emergency department due to migraine headaches and chest pain. He was incidentally discovered to be anemic and to have a history of significant heavy menses and on CT scan to have an enlarged uterus. Pelvic ultrasound demonstrated multiple large uterine fibroids. She is presently receiving packed red blood cells for her anemia. She has had previous C- section 3, laparoscopic cholecystectomy, repair of the lower midline hernia, and now has a supraumbilical midline ventral incisional hernia. She denies any problems eating or drinking, has no nausea or vomiting, and has normal bowel and bladder function. She occasionally gets discomfort associated with the hernia but when she lays down it reduces the hernia that discomfort goes away. The patient indicates the IT PROJECT MANAGER doctor that saw her today discuss with her the possibility of doing hysterectomy at the time of her hernia repair. Review of Systems Endocrine: COMPLAINS OF: Abnorml menstrual pattern Cardiovascular: COMPLAINS OF: Chest pain Gastrointestinal: COMPLAINS OF: Abdominal pain Genitourinary: COMPLAINS OF: Abnormal vaginal bleeding Other Migraine headaches Past Family Social History Past Medical History Patient has a history of hypertension. She indicates she ran out of her antihypertensive medication 3 weeks ago. She denies diabetes, strokes, seizures , heart attacks, asthma, bronchitis, pneumonia, no history of liver or kidney disease, no history of use of blood thinning medications. Past Surgical History Patient has had 3 C-sections, lower midline incisional hernia repair, and laparoscopic cholecystectomy. Reported Medications Her antihypertensive medication which she discontinued 3 weeks ago due to running out of the medication. Allergies: Coded Allergies: naproxen (Unverified Allergy, Mild, VOMITING, 09/02/17) propoxyphene (Unverified Allergy, Mild, VOMITING, 09/02/17) tramadol (Unverified Allergy, Mild, VOMITING, 09/02/17) Active Ordered Medications Current Medications Medications (Trade) Dose Ordered Sig/Marisol Route Start Time Stop Time Status Last Admin (NS Flush) 2 ml UNSCH PRN IV FLUSH 09/03/17 03:30 (NS Flush) 2 ml BID IV FLUSH 09/03/17 09:00 09/04/17 08:34 (Tylenol) 650 mg Q4H PRN PO 09/03/17 03:30 (Zofran Odt) 4 mg Q6H PRN PO 09/03/17 03:30 (Narcan Inj) 0.4 mg UNSCH PRN IV PUSH 09/03/17 03:30 (Simin-Colace) 1 tab BID PO 09/03/17 09:00 (Milk Of Magnesia Liq) 30 ml Q12H PRN PO 09/03/17 03:30 (Senokot) 17.2 mg Q12H PRN PO 09/03/17 03:30 (Dulcolax Supp) 10 mg DAILY PRN RECTAL 09/03/17 03:30 (Lactulose Liq) 30 ml DAILY PRN PO 09/03/17 03:30 (Fioricet 325-50-40) 1 tab Q6H PRN PO 09/03/17 11:15 09/03/17 23:34 Sodium Chloride 250 ml @ 15 mls/hr ONCE ONCE IV 09/04/17 11:30 09/05/17 04:09 09/04/17 11:30 Family History Her mother and sister had end-stage renal disease, dialysis dependent and her mother was a diabetic. Social History She denies tobacco or alcohol abuse. She denies HIV or hepatitis risk factors. She is looking for a job in [employer]. She lives at home with her 24-year- old daughter. She has 2 other children ages 22 and 19. Physical Exam Vital Signs Vital Signs Date Time Temp Pulse Resp B/P (MAP) Pulse Ox O2 Delivery O2 Flow Rate FiO2 09/04/17 16:58 98.2 77 16 160/67 99 09/04/17 16:34 98.4 72 15 156/67 99 09/04/17 16:32 98.4 73 15 156/67 (96) 99 09/04/17 14:50 98.1 70 18 136/64 99 09/04/17 14:27 99.0 81 18 166/77 100 09/04/17 12:31 77 09/04/17 12:08 97.8 76 20 147/67 (93) 98 09/04/17 08:08 98.0 75 20 150/64 (92) 100 09/04/17 08:00 Room Air 09/04/17 04:01 68 09/04/17 04:00 Room Air 09/04/17 04:00 98.0 84 18 130/60 (83) 100 09/04/17 00:00 98.5 72 18 156/67 (96) 100 09/04/17 00:00 Room Air 09/03/17 23:40 75 09/03/17 22:30 Nasal Cannula 2.00 09/03/17 22:28 72 22 141/65 (90) 100 09/03/17 22:28 Room Air 09/03/17 20:00 Room Air 09/03/17 20:00 97.5 69 18 134/67 (89) 100 09/03/17 19:45 79 Physical Exam HEENT she is normocephalic atraumatic. Her pupils are 1-2 round and sluggishly reactive to light. Her sclera are anicteric. Her oropharynx is clear. She has multiple missing teeth and poor dentition. Her mucosal membranes are moist. Her neck is supple without adenopathy. She has a midline trachea. She has no jugular venous distention. Her lung sounds are clear and equal anteriorly bilaterally. Her heart sounds are regular without murmur rub or gallop. Breasts genital and rectal exams were not repeated. Her abdomen is morbidly obese and is soft. She is a palpable mass in the supraumbilical/ midepigastric position. It is partially reducible. She is a little discomfort at attempts at reduction. There is no obvious overlying incision. She has a healed indented midline infraumbilical incision and a large panniculus. There is not an obvious hernia in the infraumbilical midline. Her extremities are obese. She has no obvious cyanosis clubbing or edema. She is equal radial and dorsalis pedis pulses. Neurologically she is awake and alert and oriented. She is equal bilateral manufacturer representative strength and no gross motor or sensory deficits. He exhibits no signs of depression or anxiety. Laboratory Laboratory Tests Test 09/03/17 23:41 09/04/17 04:45 Hemoglobin 8.1 7.5 Hematocrit 26.4 25.3 Total Creatine Kinase 74 Troponin I LESS THAN 0.02 White Blood Count 8.5 Red Blood Count 4.18 Mean Corpuscular Volume 60.6 Mean Corpuscular Hemoglobin 18.0 Mean Corpuscular Hemoglobin Concent 29.8 Red Cell Distribution Width 27.3 Platelet Count 415 Mean Platelet Volume 8.4 CBC Comment AUTO DIFF Differential Total Cells Counted 100 Neutrophils % (Manual) 66 Lymphocytes % 22 Monocytes % 10 Eosinophils % 2 Neutrophils # (Manual) 5.6 Differential Comment FINAL DIFF MANUAL Platelet Estimate HIGH Platelet Morphology Comment NORMAL Ovalocytes 1+ Blood Urea Nitrogen 9 Creatinine 0.56 Random Glucose 78 Calcium Level 8.5 Sodium Level 139 Potassium Level 4.1 Chloride Level 105 Carbon Dioxide Level 25.2 Anion Gap 9 Estimat Glomerular Filtration Rate 142 Thyroid Stimulating Hormone 3rd Gen 0.813 Result Diagram: 09/04/1744409/04/17[address] Imaging CT of the abdomen and pelvis reviewed. Pelvic ultrasound noted. From a general surgical standpoint she has a supraumbilical midline hernia which is nonobstructing. Course Patient was prepped presently receiving packed red blood cell transfusion. Assessment and Plan Assessment and Plan This is a 46-year-old morbidly obese -[place] woman with mission for workup of chest pain and migraine headache who was found to be anemic and admits to significant bleeding associated with her menstrual cycles. Workup on pelvic ultrasound and CT scan demonstrates large uterus with multiple uterine fibroids. She has been evaluated by the IT PROJECT MANAGER team and I have talked with Dr. Chand who agrees she needs further workup including an endometrial biopsy. She then would be a candidate to consider hysterectomy and ideally could do this in conjunction with hernia repair. I discussed with the patient the option for an open hernia repair with component separation retrorectus mesh and reviewed the procedure in detail and expectations for recovery including risks of bleeding infection injury to intra-abdominal contents recurrence of the hernia dictation's for hospitalization, DVT pulmonary embolus. Patient has been evaluated by cardiology who indicates she is cleared for any surgical intervention as indicated without significant cardiac risk. I recommended the patient either follow-up with me or Dr. Kelley in 2-3 weeks and we can follow-up on the IT PROJECT MANAGER clinic endometrial biopsy coordinate care with the mri supervisor who is willing to perform her hysterectomy. Thank you for the opportunity to participate in this pleasant young lady's care. Discussed Condition With Dr. Chand. Sabino Reeves MD Sep 04, 2017 17:32
[2017-09-04] MEDS: ACETAMIN 325 MG/BUTALBITAL 50 MG/CAFFEINE 40 MG TAB PO PRN (18:30)
[2017-09-05] VITALS (7 sets, daily range): BP systolic 122–166; BP diastolic 58–76; PULSE 64–75; RESP 17–20; TEMP 97.5–98.5; O2SAT 98–100
[2017-09-05] MEDS: ACETAMIN 325 MG/BUTALBITAL 50 MG/CAFFEINE 40 MG TAB PO PRN (05:21)
[2017-09-05 05:54] LABS: CALCIUM 8.6 MG/DL (8.5-10.1); CREATININE 0.56 MG/DL (0.50-1.00)
[2017-09-05] MEDS: DOCUSATE SODIUM 50 MG/SENNA 8.6 MG TAB PO SCH (08:48)
[2017-09-05] MEDS: SODIUM CHLORIDE 0.9% FLUSH 10 ML FLUSH IV FLUSH SCH (08:49)
--- NOTE | 2017-09-05 09:46 | PD.CONS ---
History & Physical H&P RISK CONTROL REPRESENTATIVE consult note 46-year-old with significant vaginal bleeding on admission. CT abdomen showed large fibroids as well as a midline abdominal hernia. General surgery was consulted and recommending possible surgical intervention for the hernia in 2-3 weeks after a endometrial biopsy is performed. -RISK CONTROL REPRESENTATIVE will sign off at this point -Patient should be scheduled to have endometrial biopsy done in the family medicine clinic. Will need to coordinate with SHAVING MACHINE OPERATOR specialist to arrange for hysterectomy to be done at the same time as the hernia repair. Brayan Madrid MD R1 Sep 05, 2017 09:46
[2017-09-05 11:35] LABS: AUTOMATED NEUTROPHIL # 6.8 TH/MM3 (1.8-7.7); BASOPHIL # 0.1 TH/MM3 (0-0.2); BASOPHIL % 1.3 % (0.0-2.0); EOSINOPHIL # 0.2 TH/MM3 (0-0.4); EOSINOPHIL % 1.9 % (0.0-4.0); HEMOGLOBIN 10.4 GM/DL (11.6-15.3); LYMPH % 17.6 % (9.0-44.0); LYMPHOCYTE # 1.6 TH/MM3 (1.0-4.8); MEAN CORPUSCULAR HEMOGLOBIN 19.6 PG (27.0-34.0); MEAN PLATELET VOLUME 8.6 FL (7.0-11.0); MONO % 4.8 % (0.0-8.0); MONOCYTE # 0.4 TH/MM3 (0-0.9); NEUT % 74.4 % (16.0-70.0); PLATELET COUNT 424 TH/MM3 (150-450); RED CELL DISTRIBUTION WIDTH 30.6 % (11.6-17.2); WHITE BLOOD COUNT 9.1 TH/MM3 (4.0-11.0)
[2017-09-05 11:38] LABS: MEAN CORPUSCULAR HGB CONC 29.7 % (32.0-36.0)
[2017-09-05 12:14] LABS: OVALOCYTES 1+ (NORMAL)
--- NOTE | 2017-09-05 14:28 | HHI.PR ---
Subjective Remarks headche- improved- no vaginal active bleeeidng now per patient heavy cycles no melena ofhematochezia Objective Vitals Vital Signs Date Time Temp Pulse Resp B/P (MAP) Pulse Ox O2 Delivery O2 Flow Rate FiO2 09/05/17 12:28 98.0 64 17 122/58 (79) 100 09/05/17 08:09 97.9 68 17 163/67 (99) 99 09/05/17 08:00 Room Air 09/05/17 08:00 71 09/05/17 05:23 97.5 68 18 166/76 (106) 99 09/05/17 03:54 69 09/05/17 00:09 98.5 75 20 146/64 (91) 98 09/04/17 20:18 98.2 74 20 130/60 (83) 100 09/04/17 20:00 Room Air 09/04/17 16:58 98.2 77 16 160/67 99 09/04/17 16:34 98.4 72 15 156/67 99 09/04/17 16:32 98.4 73 15 156/67 (96) 99 09/04/17 16:00 78 09/04/17 14:50 98.1 70 18 136/64 99 09/04/17 14:27 99.0 81 18 166/77 100 I/O 09/04/17 09/04/17 09/04/17 09/05/17 09/05/17 09/05/17 07:00 15:00 23:00 07:00 15:00 23:00 Intake Total 1190 ml 10 ml 1210 ml 480 ml Output Total 2600 ml Balance 1190 ml 10 ml -1390 ml 480 ml Intake Oral 1190 ml 380 ml 480 ml Packed Cells 800 ml Blood Product IV Normal Saline Flush 10 ml 30 ml Output Urine Total 2600 ml # Voids 4 7 5 # Bowel Movements 2 2 2 Result Diagram: 09/05/17 1056 09/05/17 0504 Imaging Last Impressions Abdomen/Pelvis CT 09/04/17 0000 Signed Impressions: . CONCLUSION: 1. Large midline abdominal hernia containing small bowel without obvious evide nce for incarceration 2. A very large fibroid uterus 3. No inflammatory changes evident. 4. I don't see an etiology of patient's generalized abdominal pain Head CT 09/03/17 0127 Signed Impressions: CONCLUSION: 1. No acute intracranial findings. 2. Mild bilateral frontal lobe atrophy best seen at the vertex. Pelvis Ultrasound 09/03/17 0000 Signed Impressions: CONCLUSION: 1. Enlarged uterus filled with multiple huge fibroids. Objective Remarks awake and alet, anicteric lungs- no rales regular rhythm abdomen- flabby soft, snall ventral hernia, goodb weol sounds exrmities no edema neuro exam- non focal A/P Problem List: (1) Anemia ICD Code: D64.9 - Anemia Status: Acute (2) Uterine fibroid ICD Code: D25.9 - Uterine fibroid Status: Chronic (3) Metrorrhagia ICD Code: N92.1 - Excessive and frequent menstruation with irregular cycle Status: Acute Assessment and Plan 46 years old Uterine fibroids Patient has menses lasting 7 days, 4 of those days are heavy flow Ultrasound of uterus shows multiple "huge" fibroid masses Gynecology recommends nonsurgical approach due to patient's morbidly obese habitus and surgical risk Family medicine residency team was consulted for follow-up at their care center Treatment plan will consist of initially Depo-Provera shots to achieve an amenorrheic state, and possibly ablation versus interventional radiology Appreciate gynecology consult- Appreciate family medicine residency consult- OP ff up Iron deficiency Anemia secondary to Menorrhagia Patient had hemoglobin of 5.8 on admission, following 2 units of blood she went to 7.5 She will receive an additional 2 units of packed red blood cells today On blood counts appear satisfactory she may be discharged home to follow-up as outpatient She will need to seek treatment for her fibroids to reduce risk of recurrence start gerrous sulfate 325 mg po bid Chest pain- resolved Dr. Farias reviewed past echocardiogram which was within normal limits Troponin levels are within normal limits, EKGs were reviewed Cardiology determined that this was noncardiac chest pain She has been cleared for procedures and surgeries from a cardiac standpoint Appreciate cardiology consult Tension headache -i porved. d/w her normal head VT, anemia can be contributing factor Fioricet as needed DC home today OP ff up with a PCP and gyne clinic Bhakti Snow MD Sep 05, 2017 14:28
[2017-09-05] MEDS ORDERED: FERR325T20 PO (14:31)
[2017-09-05] MEDS ORDERED: Acet-Butal-Caff 325-50-40 Mg PO (14:35)
[2017-09-05] MEDS ORDERED: FERROUS SULFATE 325 MG (65 MG ELEMENTAL IRON) TAB PO SCH (17:00)
== END 2017-09-05 15:56 | disposition home or self-care (01) | DRG 760 ==
LOC: NEPC 20:49 → NEDA 09-03 03:24 → UNDOADMOB 09-03 03:26 → NEDA 09-03 03:26 → NEPGCP 09-03 04:21 → N04B 09-03 16:57
PROVIDERS: ADMIT Internal Medicine; ATTEND Internal Medicine
PROC: 30233N1 Transfusion of Nonautologous Red Blood Cells into Peripheral Vein, Percutaneous Approach (ICD-10-PCS; principal; 2017-09-03)
DX: D25.9 Leiomyoma of uterus, unspecified (principal); Z68.43 Body mass index [BMI] 50.0-59.9, adult; K27.9 Peptic ulcer, site unspecified, unspecified as acute or chronic, without hemorrhage or perforation; E66.01 Morbid (severe) obesity due to excess calories; I10 Essential (primary) hypertension; D50.0 Iron deficiency anemia secondary to blood loss (chronic); N92.1 Excessive and frequent menstruation with irregular cycle; G43.909 Migraine, unspecified, not intractable, without status migrainosus; G44.209 Tension-type headache, unspecified, not intractable
CPT/HCPCS: 36430; 70450; 74177; 76856; 80048; 80053; 82550; 83880; 84443; 84484; 84703; 85007; 85014; 85018; 85025; 85027; 85610; 85730; 86850; 86900; 86901; 86920; 86922; 93005; 96361; 96374; 96375; J0780; J1200; J2765; J7030; J7050; P9016; Q9967

== ENCOUNTER 2017-09-15 03:52 | Emergency (ER) | payer BC ==
[~2017-09-15] VITALS: Ht 157.5 cm; Wt 130.0 kg
[~2017-09-15 03:52] MED LIST changes: +Acet-Butal-Caff 325-50-40 Mg PO; -BENZ100 PO; +FERR325T20 PO; -SENN1TAB PO; -SPRI28TA PO; -ZITHTAB PO
[2017-09-15 03:55] VITALS: BP 226/102; PULSE 73; RESP 16; TEMP 97.7; O2SAT 100
[2017-09-15 04:19] VITALS: BP 146/79; PULSE 71
[2017-09-15 04:43] LABS: AUTOMATED NEUTROPHIL # 6.8 TH/MM3 (1.8-7.7); BASOPHIL # 0.1 TH/MM3 (0-0.2); BASOPHIL % 1.2 % (0.0-2.0); EOSINOPHIL # 0.2 TH/MM3 (0-0.4); EOSINOPHIL % 2.4 % (0.0-4.0); HEMATOCRIT 29.5 % (35.0-46.0); HEMOGLOBIN 8.9 GM/DL (11.6-15.3); LYMPHOCYTE # 2.1 TH/MM3 (1.0-4.8); MEAN CELL VOLUME 67.4 FL (80.0-100.0); MEAN CORPUSCULAR HEMOGLOBIN 20.4 PG (27.0-34.0); MEAN CORPUSCULAR HGB CONC 30.3 % (32.0-36.0); MEAN PLATELET VOLUME 8.6 FL (7.0-11.0); MONO % 6.3 % (0.0-8.0); MONOCYTE # 0.6 TH/MM3 (0-0.9); NEUT % 69.1 % (16.0-70.0); PLATELET COUNT 449 TH/MM3 (150-450); RED BLOOD COUNT 4.38 MIL/MM3 (4.00-5.30); RED CELL DISTRIBUTION WIDTH 31.9 % (11.6-17.2); WHITE BLOOD COUNT 9.9 TH/MM3 (4.0-11.0)
[2017-09-15 05:11] LABS: AST (GOT) 10 U/L (15-37); BICARBONATE 24.8 MEQ/L (21.0-32.0); BLOOD UREA NITROGEN 9 MG/DL (7-18); CALCIUM 8.6 MG/DL (8.5-10.1); CHLORIDE 107 MEQ/L (98-107); CREATININE 0.66 MG/DL (0.50-1.00); GLOMERULAR FILTRATION RATE 117 ML/MIN (>89); GLUCOSE,RANDOM 90 MG/DL (74-106); SODIUM (NA) 142 MEQ/L (136-145)
--- NOTE | 2017-09-15 05:13 | PD ---
HPI Chief Complaint: Headache Time Seen by Provider: 04:11 Travel History International Travel<30 days: No Contact w/Intl Traveler<30days: No Traveled to known affect area: No History of Present Illness HPI This is a 46-year-old female who has a history of fibroids who presents to the emergency department with a "migraine headache" that has been going on ever since she was discharged from the hospital 1 week ago, constant, worse in the left side of her head associated with some nausea. She also reports chest discomfort in the center of her chest that feels like a pulling sensation, nonradiating associated with some shortness of breath. The patient struggles with symptomatic anemia and was admitted a little over a week ago and received a blood transfusion. PFSH Past Medical History Asthma: Yes (SINCE CHILDHOOD) Blood Disorders: No Anxiety: Yes Depression: No Heart Rhythm Problems: No Cancer: No Cardiovascular Problems: Yes High Cholesterol: No Chemotherapy: No Chest Pain: Yes Congestive Heart Failure: No Diabetes: No Diminished Hearing: No Endocrine: No Gastrointestinal Disorders: Yes (GALLBLADDER DISEASE AND REMOVAL) Genitourinary: No Headaches: Yes Hypertension: Yes Immune Disorder: No Inguinal Hernia: Yes Implanted Vascular Access Dvce: Yes Musculoskeletal: No Neurologic: Yes (CHRONIC MIGRAINES) Psychiatric: Yes Reproductive: Yes (HX OF UTERINE FIBROIDS) Respiratory: Yes Immunizations Current: No Migraines: Yes Radiation Therapy: No Thyroid Disease: No Ulcer: No ?: Not Menopausal: No : 3 Para: 3 Tubal Ligation: Yes Past Surgical History Abdominal Surgery: Yes (HERNIA REPAIR) Body Medical Devices: HERNIA REPAIR, PT THINKS POSSIBLE MESH? Section: Yes (X3) Cholecystectomy: Yes Gynecologic Surgery: Yes ( X 3) Other Surgery: Yes (C SECTIONS, HERNIA REPAIR, GALLBLADDER REMOVAL) Social History Alcohol Use: No Tobacco Use: No Substance Use: No Allergies-Medications (Allergen,Severity, Reaction): Coded Allergies: naproxen (Unverified Allergy, Mild, VOMITING, 09/02/17) propoxyphene (Unverified Allergy, Mild, VOMITING, 09/02/17) tramadol (Unverified Allergy, Mild, VOMITING, 09/02/17) Reported Meds & Prescriptions Reported Meds & Active Scripts Active [Aubg-Makjf-Mnvq 325-50-40 Mg] 1 TAB Tab 1 Tab PO Q8HR PRN Ferosul (Ferrous Sulfate) 325 Mg (65 Mg Iron) Tablet 325 Mg PO BID@12,17 30 Days Norvasc (Amlodipine Besylate) 5 Mg Tab 5 Mg PO DAILY Ferrous Sulfate Liq (Ferrous Sulfate) 300 Mg/5 Ml Soln 300 Mg PO DAILY Review of Systems Except as stated in HPI: all other systems reviewed are Neg Physical Exam Narrative GENERAL:Well appearing, no acute distress SKIN: Focused skin assessment warm and dry. HEAD: Atraumatic. Normocephalic. EYES: Pupils equal and round. No injection or drainage. ENT: Moist mucous membranes NECK: Trachea midline. CARDIOVASCULAR: Regular rate and rhythm. No murmur appreciated. RESPIRATORY: Clear to auscultation. Breath sounds equal bilaterally. GASTROINTESTINAL: Abdomen soft, non-tender, nondistended. MUSCULOSKELETAL: No obvious deformities. NEUROLOGICAL: Awake and alert. No obvious cranial nerve deficits. Moving all extremities. PSYCHIATRIC: Appropriate mood and affect; insight and judgment normal. Data Data Last Documented VS Vital Signs Date Time Temp Pulse Resp B/P (MAP) Pulse Ox O2 Delivery O2 Flow Rate FiO2 09/15/17 04:19 71 146/79 (101) 09/15/17 03:55 97.7 16 100 Orders Orders Complete Blood Count With Diff (09/15/17 04:17) Comprehensive Metabolic Panel (09/15/17 04:17) Troponin I (09/15/17 04:17) Electrocardiogram (09/15/17 ) ^ Insert Iv (09/15/17 04:17) Sodium Chlor 0.9% 1000 Ml Inj (Ns 1000 M (09/15/17 05:45) Labs Laboratory Tests Test 09/15/17 04:30 White Blood Count 9.9 TH/MM3 Red Blood Count 4.38 MIL/MM3 Hemoglobin 8.9 GM/DL Hematocrit 29.5 % Mean Corpuscular Volume 67.4 FL Mean Corpuscular Hemoglobin 20.4 PG Mean Corpuscular Hemoglobin Concent 30.3 % Red Cell Distribution Width 31.9 % Platelet Count 449 TH/MM3 Mean Platelet Volume 8.6 FL Neutrophils (%) (Auto) 69.1 % Lymphocytes (%) (Auto) 21.0 % Monocytes (%) (Auto) 6.3 % Eosinophils (%) (Auto) 2.4 % Basophils (%) (Auto) 1.2 % Neutrophils # (Auto) 6.8 TH/MM3 Lymphocytes # (Auto) 2.1 TH/MM3 Monocytes # (Auto) 0.6 TH/MM3 Eosinophils # (Auto) 0.2 TH/MM3 Basophils # (Auto) 0.1 TH/MM3 CBC Comment AUTO DIFF Differential Total Cells Counted 100 Neutrophils % (Manual) 76 % Band Neutrophils % 1 % Lymphocytes % 19 % Monocytes % 1 % Eosinophils % 3 % Neutrophils # (Manual) 7.6 TH/MM3 Differential Comment FINAL DIFF MANUAL Platelet Estimate HIGH Platelet Morphology Comment NORMAL Spherocytes Ovalocytes 1+ Blood Urea Nitrogen 9 MG/DL Creatinine 0.66 MG/DL Random Glucose 90 MG/DL Total Protein 7.4 GM/DL Albumin 3.0 GM/DL Calcium Level 8.6 MG/DL Alkaline Phosphatase 99 U/L Aspartate Amino Transf (AST/SGOT) 10 U/L Alanine Aminotransferase (ALT/SGPT) 15 U/L Total Bilirubin 0.2 MG/DL Sodium Level 142 MEQ/L Potassium Level 3.5 MEQ/L Chloride Level 107 MEQ/L Carbon Dioxide Level 24.8 MEQ/L Anion Gap 10 MEQ/L Estimat Glomerular Filtration Rate 117 ML/MIN Troponin I LESS THAN 0.02 NG/ML MDM Medical Decision Making Medical Screen Exam Complete: Yes Emergency Medical Condition: Yes Interpretation(s) Microcytic anemia Electrolytes are reassuring Troponin is normal EKG is unchanged from prior Differential Diagnosis Anemia, hypertensive urgency, hypertensive emergency Narrative Course This is a 46-year-old female with a history uterine fibroids and iron deficiency anemia who presents to the emergency department with chest pain and migraine headaches that have persisted ever since she was discharged from the hospital. She says her symptoms are the same and unchanged. She was placed on a monitor and an IV was established. Initial triage blood pressure was quite high but dropped significantly after observation in the emergency department. Labs demonstrate a microcytic anemia with a hemoglobin which is lower than discharge but not low enough for blood transfusion. I think her chest pain and her headaches are related to iron deficiency anemia. Ultimately she needs an outpatient workup for likely hysterectomy. I do not think this is cardiac as her EKG is reassuring and her troponin is normal. She was seen by cardiology during her last hospital stay who thought her chest pain was atypical and did not think she merited any additional risk stratification. I think the patient can safely be discharged home. Diagnosis Primary Impression: Symptomatic anemia Patient Instructions: General Instructions Additional Instructions: If you develop severe chest pain, shortness of breath, sweating, lightheadedness , dizziness or difficulty breathing return to the emergency department immediately. Followup with your primary care physician in 2-3 days if your symptoms are not resolved. Med/Other Pt SpecificInfo: No Change to Meds Disposition: 01 DISCHARGE HOME Condition: Stable Nereida Olivas MD Sep 15, 2017 05:13
[2017-09-15 05:16] LABS: ALKALINE PHOSPHATASE 99 U/L (45-117); ALT (GPT) 15 U/L (10-53); TOTAL BILIRUBIN ADULT 0.2 MG/DL (0.2-1.0); TOTAL PROTEIN 7.4 GM/DL (6.4-8.2); TROPONIN I LESS THAN 0.02 NG/ML (0.02-0.05)
[2017-09-15 05:27] LABS: BANDS 1 % (0-6); LYMPHOCYTES 19 % (9-44); MONOCYTES 1 % (0-8); NEUTROPHIL # MANUAL DIFF 7.6 TH/MM3 (1.8-7.7); POLYS (SEG NEUTROPHILS) 76 % (16-70)
[2017-09-15 05:29] LABS: OVALOCYTES 1+ (NORMAL)
[2017-09-15] MEDS ORDERED: SODIUM CHLOR 0.9% 1000 ML INJ 1,000 ML IV SCH (05:45)
--- NOTE | 2017-09-15 13:43 | EKG ---
Date Performed: 09/15/2017 Time Performed: 04:09:10 PTAGE: 46 years EKG: Sinus rhythm NORMAL ECG Since PREVIOUS TRACING , no significant change noted PREVIOUS TRACIN09/03/2017 23.11 DOCTOR: Ed Subramanian Interpretating Date/Time 09/15/2017 13:42:00
== END 2017-09-15 06:33 | disposition home or self-care (01) ==
LOC: NEPE 03:52
DX: D64.9 Anemia, unspecified (principal); R11.0 Nausea; R06.02 Shortness of breath; R07.89 Other chest pain; J45.909 Unspecified asthma, uncomplicated; F41.9 Anxiety disorder, unspecified; I10 Essential (primary) hypertension
CPT/HCPCS: 80053; 84484; 85007; 85027; 93005; 99284; J7030

== ENCOUNTER 2017-12-13 05:22 | Inpatient (IN) ==
[2017-12-13] MEDS ORDERED: Sodium Chlor 0.9% Inj 500 ML IV.CONT ONE (05:45)
[2017-12-13] MEDS ORDERED: Metoprolol Tartrate 25 MG Tablet PO ONE (05:45)
[2017-12-13] MEDS ORDERED: Chlorhexidine Gluconate 2% 1 Pack (2 Cloths) TOPICAL ONE (05:45)
[2017-12-13] MEDS ORDERED: Gabapentin 300 MG Capsule PO SCH (06:00)
[2017-12-13] MEDS ORDERED: ceFAZolin Inj 3,000 MG in Sodium Chlor 0.9% Inj 100 ML IV.SIG SCH (06:00)
[2017-12-13] MEDS ORDERED: Bupivacaine Liposomal PF 1.3% Inj 20 ML Vial ONE ×2 (07:00→07:08)
[2017-12-13] MEDS ORDERED: Bupivacaine PF 0.25% Inj 30 ML Vial ONE (07:02)
[2017-12-13] MEDS ORDERED: Lidocaine 1%/Epinephrine 1:100,000 Inj 20 ML Vial ONE (07:07)
[2017-12-13] MEDS ORDERED: Bupivacaine/Epinephrine Inj 0.25% 50 ML Vial ONE (07:07)
[2017-12-13] MEDS ORDERED: Labetalol HCl Inj 100 MG/20 ML Vial IV.CONT ONE (07:40)
[2017-12-13] MEDS ORDERED: Lidocaine PF 1% Inj 5 ML Syringe OTHER ONE (07:40)
--- NOTE | 2017-12-13 07:57 | P.OP ---
Date of procedure: 12/13/17 Surgeon: Hamilton Aragon MD Operation and Findings: My portion of the case took 2 hours, the below measurements were what was noted at the end of my portion. Preoperative diagnosis: 1. Heavy menstrual bleeding 2. Fibroid uterus 3. Anemia 4. Ventral hernia Postop diagnosis 1. same as above s/p hysterectomy and abdominal wall reconstruction Procedure 1. Abdominal supracervical hysterectomy and bilateral salpingo-oophorectomy. 2. Diagnostic cystoscopy Surgeon Dr. Hamilton Aragon Commissions Manager: Dr. Snow was present and scrubbed throughout the case. Findings: 1. Enlarged fibroid uterus normal-appearing left ovary and fallopian tube, right fallopian tube normal-appearing, 2-3 cm simple cyst on the right ovary. 2. Pelvis relatively free of adhesions 3. Normal cystoscopy, bilateral ureteral reflux and noted Anesthesia: GETA, TAP block at the beginning of the case Specimen: Uterus, portion of cervix, bilateral ovaries and fallopian tubes to pathology together, routine Estimated blood loss: 1000 cc Fluid replacement: 1400 cc lactated Ringer's during my portion Blood products: One unit during my portion of the case, started on her second unit Urine output: 150 cc clear but pink tinged urine DVT prophylaxis: SCDs throughout the case Antibiotics: 3g Ancef pre op Pre operative medications: 600mg PO gabapentin and 1g IV tylenol Counts: correct x2 Time out done: yes Disposition: stable to PACU Indications: Patient is a 46-year-old seen in outpatient setting for the above diagnoses, we discussed options and she desired and I agreed that what was felt would be best would be to proceed with a hysterectomy, the case was coordinated with general surgeon Dr. Kelley for repair of her hernia, please see H&P for further details and consent. Description of procedure: Prior to my portion of the case the patient was taken to the OR and positioned in lithotomy in rosanne stirrups, abdominal access via vertical midline was achieved by Dr. Kelley, see his documentation for relevant details after this I presented and began the hysterectomy with the assistance of Dr. Snow. An Bebeto retractor was placed, uterus was elevated out of the pelvis, the utero-ovarian ligaments were clamped transected and ligated with 0 Vicryl bilaterally the same was done for the round ligaments. The bladder flap was developed with ease and the uterine arteries were skeletonized bilaterally. The uterine arteries were clamped transected and ligated with 0 Vicryl. The uterus was amputated from the cervix and removed from the field. Both IP ligaments were clamped transected and doubly ligated with a free tie and then a transfixion suture of 0 Vicryl. The cervix was elevated with Cocher clamps. The lower portions of the cardinal ligaments were clamped transected and tied with 0 Vicryl down to the lower third of the cervix. Due to poor visualization due to patient's body habitus, concerns for prolonged exposure to anesthesia and potential increased risk of infection with new abdominal mesh being placed the plan was made to proceed with a supracervical hysterectomy. The lower third of the cervix remained and the upper cervix was amputated with Alicia's. Thecervical stump was imbricated at the peritoneum with 0 Vicryl. The pelvis is irrigated and found to be hemostatic. Due to poor visualization and inability to identify the ureters bilaterally through the peritoneum and cystoscopy was performed. A 70 cystoscope was inserted the bladder was filled with approximately 200 cc of normal saline and bilateral reflux was appreciated. There is some petechiae at the dome of the bladder but no injury or suture present after 360 survey was done. At this time Dr. Kelley took over for the remainder of the case, please see his operative report for details..
[2017-12-13 08:20] LABS: Baso % (Auto) 0.4 % (0.0-2.0); Eos # (Auto) 0.2 th/mm3 (0.0-0.4); Eos % (Auto) 1.8 % (0.0-4.0); Hematocrit 25.9 % (35.0-46.0); Lymph # (Auto) 1.6 th/mm3 (1.0-4.8); Lymph % (Auto) 18.1 % (9.0-44.0); Mean Corpuscular Hemoglobin 20.9 pg (27.0-34.0); Mean Corpuscular Volume 67.9 fL (80.0-100.0); Mean Platelet Volume 6.9 fL (7.0-11.0); Mono # (Auto) 0.6 th/mm3 (0.0-0.9); Mono % (Auto) 7.1 % (0.0-8.0); Neut # (Auto) 6.5 th/mm3 (1.8-7.7); Neut % (Auto) 72.6 % (16.0-70.0); Platelet Count 450 th/mm3 (150-450); Red Blood Count 3.82 mil/mm3 (4.00-5.30); Red Cell Distribution Width 29.1 % (11.6-17.2); White Blood Count 8.9 th/mm3 (4.0-11.0)
[2017-12-13 08:21] LABS: Mean Corpuscular HGB Conc 30.7 % (32.0-36.0)
[2017-12-13 08:57] LABS: Ovalocytes 1+
[2017-12-13] MEDS ORDERED: Docusate Sodium 100 MG Capsule PO PRN (10:28)
[2017-12-13] MEDS ORDERED: Naloxone Inj 0.4 MG/ML Vial IV.PUSH PRN (10:28)
[2017-12-13] MEDS ORDERED: Morphine Inj 4 MG/ML Vial IV.SIG ONE (10:28)
[2017-12-13] MEDS ORDERED: Ketorolac Inj 30 MG/ML (IVP) Vial IV.PUSH ONE (11:00)
[2017-12-13] MEDS ORDERED: Sugammadex Inj 200 MG/2 ML Vial IV.PUSH ONE (11:28)
[2017-12-13] MEDS ORDERED: Estradiol 0.05 MG/24 HR Patch T-DERMAL SCH (12:00)
[2017-12-13] MEDS ORDERED: fentaNYL Citrate Inj 100 MCG/2 ML Ampul ONE (13:00)
[2017-12-13] MEDS ORDERED: *Labetalol HCl Inj 100 MG/20 ML Vial PERIprocedural Use ONLY IV.PUSH ONE (13:01)
[2017-12-13] MEDS ORDERED: *morphine SULFATE 4 MG/ML PERIprocedure ONLY ONE (13:31)
[2017-12-13] MEDS: KCL 20 mEq/D5W/NaCl 0.45% Inj 1,000 ML IV.CONT SCH ×2 (13:35→20:10)
[2017-12-13] MEDS: Morphine Inj 30 MG/30 ML PCA.VIAL PCA PRN (13:37)
[2017-12-13] MEDS: Gabapentin 100 MG Capsule PO SCH ×2 (14:29→18:01)
--- NOTE | 2017-12-13 14:45 | P.OP ---
- Preoperative Diagnosis (1) Incisional hernia (2) Ventral hernia (3) Fibroid uterus - Postoperative Diagnosis (1) Fibroid uterus (2) Incisional hernia (3) Ventral hernia (4) Intra-abdominal adhesions Date of procedure: 12/17/17 Procedure: Exploratory laparotomy Lysis of adhesion exposure of the uterus in preparation for hysterectomy Retrorectus incisional hernia repair with mesh 13 x 30 cm defect Modified abdominoplasty with removal of 13 x 34" of redundant skin subcutaneous tissue adipose tissue for closure Implants: Farrell mesh 13 x 30 cm Anesthesia: LISA Surgeon: Handy Kelley MD Angle Bender: Sabino Reeves Angle Bender: Dr. Sabino Reeves was present from beginning to the end of the case assisting in all portions of the procedure. It was necessary to have this individual in the room to assist in the above surgical procedure. The surgical procedure was assisted by Dr. Sabino Reeves. The Dr. Sabino Reeves presence was necessary throughout the case for appropriate retraction, dissection, visualization, and resection of the important anatomical structures during the surgical procedure and was assisting throughout the entirety of the operation. Dr. Reeves skill set is medically and surgically necessary to safely complete the surgical procedure. During the surgical case the operating room surgical dental assistant was working instrument table and passing instruments to the attending surgeon and Dr. Reeves. Dr. Reeves was directly assisting the operating surgeon and involved in the technical aspects of the surgical case. Pathology: other (Hernia sac and excise redundant tissue) Operation and Findings: Patient has been taken to the operating room Placed and the operating room table in stirrups and placed under general anesthesia. The window glazier helper placed a Leon catheter Abdomen is prepped with Betadine and draped. Timeout is done Preoperative antibiotics were given We make an incision from just above the umbilicus down to the pubis to expose a significant size ventral hernia and a recurrent incisional hernia down low in the midline with previous Dinosaur-Luhco mesh. With this I am able to lyse fair amount of adhesions along the anterior abdominal wall removing small bowel from adhesive bands. Once all the small bowel was freed up we dissected more adhesions along the anterior abdominal wall. This provides adequate exposure for the window glazier helper to proceed with a planned hysterectomy of a rather significant sized uterus. At the end of this portion of the procedure Dr. Gwendolyn Carson proceeded with a hysterectomy see their operative note for blood loss at operative technique and doing the hysterectomy I returned to the operating room once they were completed the gynecologic surgery I then began preparation for abdominal reconstruction of the significant sized hernia on this morbidly obese patient. Elected to proceed with a rectal rectus repair freeing up the fascia peritoneum underneath the rectus to the right into the left. This was all done with sharp dissection and electrocautery dissection preserving the blood supply to the rectus muscle and the fascia. After we had freed up the rectal rectus fascia this is able to be reapproximated in the midline with a 0 Vicryl suture. Once the midline rectal rectus fascia was reapproximated in the midline with able to free up the fascia along the anterior abdominal wall circumferentially. We dissected the subcutaneous tissue off the anterior abdominal fascia circumferentially preserving the blood supply. Once we mobilized this tissue we are able to bring the fascia in the midline to accommodate closure. After the fascia was dissected free we able to place a piece of Farrell mesh securing it to the pubic tubercle with the tacking device and get good purchase on the fascia and the pubic tubercle. The mesh measures 13 x 30 cm this completely covers the retrorectus repair with about 7 cm overlap from the midline. The mesh is secured to the rectal rectus fascia using #1 PDS this is done in interrupted fashion. Once the mesh is secured to the rectal rectus fascia circumferentially were able to pull together the anterior abdominal fascia using a running #1 PDS suture. After reapproximating the anterior abdominal fascia there was a fair amount of redundant skin subcutaneous tissue adipose tissue on either side for this reason we elected to proceed with a abdominoplasty removing skin and subcutaneous tissue measuring 13 x 34 cm to properly close the midline abdominal wound this is done in a vertical fashion. Were able to tie down the subcutaneous tissue to the anterior abdominal wall using interrupted 3-0 Vicryl sutures to plicate the subcutaneous tissue to the anterior abdominal fascia to prevent a space and seroma formation. We then reapproximated the subcutaneous tissue in the midline with a 3-0 Vicryl and the skin is reapproximated the skin stapling device. We then placed a cori dressing on the abdominal wound. Abdominal binders applied. The patient is extubated return to the recovery room with no immediate postop complications
[2017-12-13 19:17] LABS: Hematocrit 33.3 % (35.0-46.0); Hemoglobin 10.5 gm/dL (11.6-15.3); Mean Corpuscular HGB Conc 31.6 % (32.0-36.0); Mean Corpuscular Hemoglobin 22.8 pg (27.0-34.0); Mean Corpuscular Volume 72.2 fL (80.0-100.0); Mean Platelet Volume 7.5 fL (7.0-11.0); Platelet Count 345 th/mm3 (150-450); Red Blood Count 4.61 mil/mm3 (4.00-5.30); White Blood Count 20.1 th/mm3 (4.0-11.0)
[2017-12-13 19:28] LABS: Anion Gap 8 meq/L (5-15); Blood Urea Nitrogen 5 mg/dL (7-18); Calcium 7.6 mg/dL (8.5-10.1); Carbon Dioxide 23.6 meq/L (21.0-32.0); Chloride 107 meq/L (98-107); Glomerular Filtration Rate Greater Than 89 mL/min (>89); Glucose,Random 133 mg/dL (74-106); Potassium 4.3 meq/L (3.5-5.1); Sodium 139 meq/L (136-145)
[2017-12-13] MEDS: Ketorolac Inj 30 MG/ML (IVP) Vial IV.PUSH SCH (20:09)
[2017-12-14] MEDS: Ketorolac Inj 30 MG/ML (IVP) Vial IV.PUSH SCH ×2 (01:53→09:20)
[2017-12-14 04:17] LABS: Hematocrit 29.8 % (35.0-46.0); Hemoglobin 10.1 gm/dL (11.6-15.3); Mean Corpuscular HGB Conc 33.9 % (32.0-36.0); Mean Corpuscular Hemoglobin 24.4 pg (27.0-34.0); Mean Platelet Volume 8.6 fL (7.0-11.0); Platelet Count 325 th/mm3 (150-450); Red Blood Count 4.15 mil/mm3 (4.00-5.30); White Blood Count 14.7 th/mm3 (4.0-11.0)
[2017-12-14] MEDS: KCL 20 mEq/D5W/NaCl 0.45% Inj 1,000 ML IV.CONT SCH ×3 (04:27→20:16)
[2017-12-14] MEDS: Morphine Inj 30 MG/30 ML PCA.VIAL PCA PRN ×2 (06:43→06:46)
[2017-12-14] MEDS: Gabapentin 100 MG Capsule PO SCH ×3 (09:21→17:30)
--- NOTE | 2017-12-14 12:33 | P.PNOB ---
Assessment and Plan (1) S/P abdominal supracervical subtotal hysterectomy Status: Acute - Postoperative Procedures Operation Date: 12/13/17 07:30 Actual Procedures Side Surgeon p OPEN INCISIONAL-VENTRAL HERNIA REPAIR, MESH, MODIFIED COMPONENT SEPARATION, ABDOMINAL WALL RECONSTRUCTION Not Applicable Handy Kelley MD s SUPRACERVICAL HYSTERECTOMY BILATERAL SALPINGO-OOPHORECTOMY Not Applicable Hamilton Aragon MD Postoperative day: 1 Postoperative status: doing well Postoperative plan: routine post-op care, other (see general surgery recommendations as they are primary team) - Time Spent With Patient Total time spent is greater than 50% in coordination of care (as documented) at patient's floor/unit and/or counseling patient: 25 - 35 minutes Subjective Interval history: POD#1 s/p ex-lap, supracervical abdominal hysterectomy, bilateral salpingo- oophorectomy with Dr. Araogn, assisted by Dr. Snow for menorrhagia, enlarged uterus, anemia. Pain currently well controlled on INTERNATIONAL EDITORIAL PRODUCER, using about twice an hour. General Surgery team is primary as they performed additional procedures prior to and after hysterectomy portion of the procedure. Dr. Kelley assisted by Dr. Reeves. Pt denies nausea, fever, shortness of breath. Leon in place with good output. Subjective: patient reports feeling better, pain is well controlled (on INTERNATIONAL EDITORIAL PRODUCER) Physical Exam Vital signs: Temp Pulse Resp BP Pulse Ox 98.7 F 88 16 132/58 L 97 12/14/17 08:00 12/14/17 08:00 12/14/17 08:00 12/14/17 08:00 12/14/17 08:00 - Constitutional no acute distress Comments: super morbid obese - Routine Chest/Breast/Axilla Exam Chest wall: Absent: tenderness, mass - Routine Respiratory Exam Present: CTA bilaterally. 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; decision to remove to be based on primary team/General Surgeon) Insertion date: 12/13/17 Insertion time: 08:23 Results - Labs CBC & Chem 7: 12/14/17 03:50 12/13/17 18:48 Labs: Laboratory Results - last 24 hr 12/13/17 12/13/17 12/14/17 18:48 18:48 03:50 WBC 20.1 H D 14.7 H RBC 4.61 4.15 Hgb 10.5 L D 10.1 L Hct 33.3 L 29.8 L MCV 72.2 L D 72.0 L MCH 22.8 L 24.4 L MCHC 31.6 L 33.9 RDW 28.0 H 29.0 H Plt Count 345 325 MPV 7.5 8.6 Sodium 139 Potassium 4.3 Chloride 107 Carbon Dioxide 23.6 Anion Gap 8 BUN 5 L Creatinine 0.63 Estimated GFR Greater than 89 Random Glucose 133 H Calcium 7.6 L Magnesium 2.0
[2017-12-14] MEDS: Iron Sucrose Inj 200 MG in Sodium Chlor 0.9% Inj 100 ML IV.SIG ONE ×2 (13:32→13:39)
--- NOTE | 2017-12-14 15:06 | P.PNGS ---
Subjective Patient reports: feels better Physical Exam Vital signs: Vital Signs 12/13/17 16:00 12/13/17 17:53 12/13/17 20:14 Temperature 98.3 F 98.3 F Pulse Rate 70 72 Respiratory Rate 18 16 16 Blood Pressure 188/86 H 161/70 H Pulse Oximetry 96 97 12/13/17 22:10 12/14/17 00:05 12/14/17 04:42 Temperature 98.2 F 99.1 F Pulse Rate 87 95 H Respiratory Rate 18 18 18 Blood Pressure 143/65 H 101/58 L Pulse Oximetry 96 96 12/14/17 08:00 12/14/17 12:00 Temperature 98.7 F 100.2 F H Pulse Rate 88 85 Respiratory Rate 16 17 Blood Pressure 132/58 L 160/70 H Pulse Oximetry 97 97 Intake & Output 12/13/17 12/14/17 12/14/17 18:59 06:59 18:59 Intake Total 4130 / 4130 2380 / 2380 1000 / 1000 Output Total 4200 / 4200 1000 / 1000 Balance -70 / -70 1380 / 1380 1000 / 1000 Weight 120.7 kg 120.7 kg Intake: IV 1230 / 1230 1999 / 1999 1000 / 1000 D5W/1/2NS + KCL 20 mEq Inj , 1999 / 1999 1000 / 1000 000 ML @ 125 mls/hr IV.CONT . Q8H FELIPE Rx#:[id number] LR 1000 mL Inj 1,000 ML @ 30 1000 / 1000 mls/hr IV.CONT .Q24H ONE Rx#: [id number] Ofirmev Inj 1,000 mg In 100 ml 100 / 100 @ 400 mls/hr IV.SIG ONCE FELIPE Rx #:[id number] Ancef Inj 3,000 MG In NS Inj 130 / 130 100 ML @ 260 mls/hr IV.SIG ONCE FELIPE Rx#:[id number] Oral 380 / 380 Anesthesia Amount 2900 / 2900 Intake (Blood Product) Amt 0 / 0 Rbc As-3 Leukoreduced Unit 0 / 0 [id number] Rbc As-3 Leukoreduced Unit 0 / 0 [id number] Output: Estimated Blood Loss 2099 Urine Amount (Catheter) 2099 1000 / 1000 Indwelling Urethral Catheter 2099 1000 / 1000 Other: Date of Last Bowel Movement 12/13/17 - Constitutional no acute distress - Routine Respiratory Exam Present: accessory muscle use, CTA bilaterally - Routine Cardiovascular Exam Present: RRR - Routine Abdominal Exam Present: soft Comments: binder on, dressing c/d/i - Routine Psychiatric Exam Present: normal affect - Urinary Catheter Management Indwelling Urethral Catheter Cath placed during this visit: yes Urethral indwelling: Yes Reason for continuing: Other continuation reason (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; decision to remove to be based on primary team/General Surgeon) Insertion date: 12/13/17 Insertion time: 08:23 Results - Labs 12/14/17 03:50 12/13/17 18:48 Laboratory Results - last 24 hr 12/13/17 12/13/17 12/14/17 18:48 18:48 03:50 WBC 20.1 H D 14.7 H RBC 4.61 4.15 Hgb 10.5 L D 10.1 L Hct 33.3 L 29.8 L MCV 72.2 L D 72.0 L MCH 22.8 L 24.4 L MCHC 31.6 L 33.9 RDW 28.0 H 29.0 H Plt Count 345 325 MPV 7.5 8.6 Sodium 139 Potassium 4.3 Chloride 107 Carbon Dioxide 23.6 Anion Gap 8 BUN 5 L Creatinine 0.63 Estimated GFR Greater than 89 Random Glucose 133 H Calcium 7.6 L Magnesium 2.0 Assessment and Plan - Assessment (1) Incisional hernia Code(s): K43.2 - Incisional hernia without obstruction or gangrene Status: Chronic (2) Ventral hernia Code(s): K43.9 - Ventral hernia without obstruction or gangrene Status: Chronic - Plan 46yo female s/p VHR, hysterectomy, stable POD#1. pain controlled OOB tolerating some PO
[2017-12-15] MEDS: Morphine Sulfate Inj 8 MG/ML Vial IV.PUSH PRN ×2 (03:31→20:29)
[2017-12-15] MEDS: KCL 20 mEq/D5W/NaCl 0.45% Inj 1,000 ML IV.CONT SCH ×3 (04:42→18:45)
[2017-12-15] MEDS: Gabapentin 100 MG Capsule PO SCH ×3 (08:11→18:46)
--- NOTE | 2017-12-15 10:54 | P.PNGS ---
Subjective Patient reports: feels better Interval history: DAILY PROGRESS NOTE FOR SURGICAL ATTENDING, DR. JW QUINTANA Doing well sitting up in chair Physical Exam Vital signs: Vital Signs 12/14/17 12:00 12/14/17 16:00 12/14/17 20:00 Temperature 100.2 F H 97.5 F L 101.2 F H Pulse Rate 85 79 102 H Respiratory Rate 17 16 19 Blood Pressure 160/70 H 135/62 140/63 Pulse Oximetry 97 96 93 L 12/15/17 00:00 12/15/17 04:00 12/15/17 04:42 Temperature 102.8 F H 100.5 F H Pulse Rate 117 H 101 H Respiratory Rate 20 20 19 Blood Pressure 148/58 H 132/59 L Pulse Oximetry 96 99 12/15/17 08:00 Temperature 100.9 F H Pulse Rate 160 H Respiratory Rate 17 Blood Pressure 148/69 H Pulse Oximetry 94 L Intake & Output 12/14/17 12/15/17 12/15/17 18:59 06:59 18:59 Intake Total 1110 / 1110 1999 / 1999 Output Total 1300 / 1300 Balance 1110 / 1110 700 / 700 Weight 124.6 kg Intake: IV 1110 / 1110 1999 / 1999 D5W/1/2NS + KCL 20 mEq Inj 1, 1000 / 1000 1999 / 1999 000 ML @ 125 mls/hr IV.CONT . Q8H [facility] Rx#:[id number] Venofer Inj 200 MG In NS Inj 110 / 110 100 ML @ 110 mls/hr IV.SIG ONCE ONE Rx#:[id number] Output: Urine 1300 / 1300 Narrative: Sitting up in chair comfortable Tolerating full liquids positive flatus Brea dressing intact Leon in place - Urinary Catheter Management Indwelling Urethral Catheter Cath placed during this visit: yes Urethral indwelling: Yes Reason for continuing: Hourly intake/output Insertion date: 12/13/17 Insertion time: 08:23 Results - Labs 12/14/17 03:50 12/13/17 18:48 Laboratory Last Values WBC 14.7 th/mm3 (4.0-11.0) H 12/14/17 03:50 RBC 4.15 mil/mm3 (4.00-5.30) 12/14/17 03:50 Hgb 10.1 gm/dL (11.6-15.3) L 12/14/17 03:50 Hct 29.8 % (35.0-46.0) L 12/14/17 03:50 MCV 72.0 fL (80.0-100.0) L 12/14/17 03:50 MCH 24.4 pg (27.0-34.0) L 12/14/17 03:50 MCHC 33.9 % (32.0-36.0) 12/14/17 03:50 RDW 29.0 % (11.6-17.2) H 12/14/17 03:50 Plt Count 325 th/mm3 (150-450) 12/14/17 03:50 MPV 8.6 fL (7.0-11.0) 12/14/17 03:50 Prelim Diff (Auto) Slide review pending 12/13/17 08:07 Neut % (Auto) 72.6 % (16.0-70.0) H 12/13/17 08:07 Lymph % (Auto) 18.1 % (9.0-44.0) 12/13/17 08:07 [place] % (Auto) 7.1 % (0.0-8.0) 12/13/17 08:07 Eos % (Auto) 1.8 % (0.0-4.0) 12/13/17 08:07 Baso % (Auto) 0.4 % (0.0-2.0) 12/13/17 08:07 Neut # (Auto) 6.5 th/mm3 (1.8-7.7) 12/13/17 08:07 Lymph # (Auto) 1.6 th/mm3 (1.0-4.8) 12/13/17 08:07 [place] # (Auto) 0.6 th/mm3 (0.0-0.9) 12/13/17 08:07 Eos # (Auto) 0.2 th/mm3 (0.0-0.4) 12/13/17 08:07 Baso # (Auto) 0.0 th/mm3 (0.0-0.2) 12/13/17 08:07 WBC Differential . 12/13/17 08:07 Diff Scan Auto diff confirmed 12/13/17 08:07 Differential Comment . 12/13/17 08:07 Ovalocytes 1+ (None) H 12/13/17 08:07 Sodium 139 meq/L (136-145) 12/13/17 18:48 Potassium 4.3 meq/L (3.5-5.1) 12/13/17 18:48 Chloride 107 meq/L (98-107) 12/13/17 18:48 Carbon Dioxide 23.6 meq/L (21.0-32.0) 12/13/17 18:48 Anion Gap 8 meq/L (5-15) 12/13/17 18:48 BUN 5 mg/dL (7-18) L 12/13/17 18:48 Creatinine 0.63 mg/dL (0.50-1.00) 12/13/17 18:48 Estimated GFR Greater than 89 mL/min (>89) 12/13/17 18:48 Random Glucose 133 mg/dL (74-106) H 12/13/17 18:48 Calcium 7.6 mg/dL (8.5-10.1) L 12/13/17 18:48 Magnesium 2.0 mg/dL (1.5-2.5) 12/13/17 18:48 Blood Type A Positive 09/21/18 06:37 Antibody Screen Negative 12/13/17 06:37 MTS Gel Crossmatch See Detail 12/13/17 06:37 Assessment and Plan - Assessment (1) Incisional hernia Code(s): K43.2 - Incisional hernia without obstruction or gangrene Status: Chronic (2) Ventral hernia Code(s): K43.9 - Ventral hernia without obstruction or gangrene Status: Chronic - Plan Postop repair of large incisional ventral hernia Doing well Advance diet Incentive spirometer Ambulate WAYNE Leon 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 JW QUINTANA I attest that I had a [id number] encounter with the patient on the same day, and personally performed and documented my assessment and findings in the medical record. The following services were provided during this hospital visit: Chart data review, vital sign assessments/reviewing monitor data Review of consultations notes if present. Medication orders/review and/or management Ordering and/or reviewing lab tests Ordering and/or interpreting/reviewing x-rays and/or diagnostic studies Care of the patient and discussion of the patient with the care team Documentation time To help prompt me to consider important information that might be impacting today's encounter and assessment, Information from prior notes written by myself or my colleagues may have been "brought forward/copy and pasted" into today's note.
--- NOTE | 2017-12-15 11:45 | P.PNOB ---
Assessment and Plan (1) S/P abdominal supracervical subtotal hysterectomy Status: Acute - Postoperative Procedures Operation Date: 12/13/17 07:30 Actual Procedures Side Surgeon p OPEN INCISIONAL-VENTRAL HERNIA REPAIR, MESH, MODIFIED COMPONENT SEPARATION, ABDOMINAL WALL RECONSTRUCTION Not Applicable Handy Kelley MD s SUPRACERVICAL HYSTERECTOMY BILATERAL SALPINGO-OOPHORECTOMY Not Applicable Hamilton Aragon MD Postoperative status: doing well Postoperative plan: routine post-op care, see orders, ambulate, advance diet - Time Spent With Patient Total time spent is greater than 50% in coordination of care (as documented) at patient's floor/unit and/or counseling patient: 25 - 35 minutes Subjective Interval history: POD#2 s/p ex-lap, supracervical abdominal hysterectomy, bilateral salpingo- oophorectomy with Dr. Aragon, assisted by Dr. Snow for menorrhagia, enlarged uterus, anemia. Pain currently well controlled on DIRECT MAIL MANAGER. General Surgery team is primary as they performed additional procedures prior to and after hysterectomy portion of the procedure. Dr. Kelley assisted by Dr. Reeves. Pt denies nausea, shortness of breath. Leon in place with good output. Desires to advance diet, states hungry. Subjective: patient reports feeling better, patient is tolerating oral intake Physical Exam Vital signs: Temp Pulse Resp BP Pulse Ox 100.9 F H 160 H 17 148/69 H 94 L 12/15/17 08:00 12/15/17 08:00 12/15/17 08:00 12/15/17 08:00 12/15/17 08:00 - Constitutional no acute distress - Routine Chest/Breast/Axilla Exam Chest wall: Absent: tenderness, mass - Routine Respiratory Exam Absent: respiratory distress, crackles - Routine Abdominal Exam Present: soft Comments: LEAH dressing intact, no drainage - Detailed Neurological Exam: Coma Scale Eye Opening: Spontaneous Verbal Response: Oriented Motor Response: Obey commands [place] Coma Scale Total: 15 - Urinary Catheter Management Indwelling Urethral Catheter Cath placed during this visit: yes Urethral indwelling: Yes Reason for Continuing: Decision to DC catheter Insertion date: 12/13/17 Insertion time: 08:23 Results - Labs CBC & Chem 7: 12/14/17 03:50 12/13/17 18:48
[2017-12-15] MEDS: Morphine Inj 30 MG/30 ML PCA.VIAL PCA PRN (12:19)
[2017-12-15 12:20] LABS: Baso # (Auto) 0.1 th/mm3 (0.0-0.2); Baso % (Auto) 0.2 % (0.0-2.0); Eos # (Auto) 0.1 th/mm3 (0.0-0.4); Eos % (Auto) 0.6 % (0.0-4.0); Hemoglobin 9.3 gm/dL (11.6-15.3); Lymph # (Auto) 1.3 th/mm3 (1.0-4.8); Lymph % (Auto) 6.2 % (9.0-44.0); Mean Corpuscular Hemoglobin 22.6 pg (27.0-34.0); Mean Corpuscular Volume 73.3 fL (80.0-100.0); Mean Platelet Volume 7.9 fL (7.0-11.0); Mono # (Auto) 1.5 th/mm3 (0.0-0.9); Neut # (Auto) 18.6 th/mm3 (1.8-7.7); Platelet Count 310 th/mm3 (150-450); Red Blood Count 4.09 mil/mm3 (4.00-5.30); Red Cell Distribution Width 29.2 % (11.6-17.2); White Blood Count 21.7 th/mm3 (4.0-11.0)
[2017-12-15 12:22] LABS: Mean Corpuscular HGB Conc 30.9 % (32.0-36.0)
[2017-12-15 12:48] LABS: Albumin 2.6 g/dL (3.4-5.0); Anion Gap 8 meq/L (5-15); Aspartate Aminotransferase 10 U/L (15-37); Blood Urea Nitrogen 5 mg/dL (7-18); Calcium 8.2 mg/dL (8.5-10.1); Carbon Dioxide 26.4 meq/L (21.0-32.0); Chloride 105 meq/L (98-107); Glomerular Filtration Rate Greater Than 89 mL/min (>89); Glucose,Random 75 mg/dL (74-106); Magnesium 2.1 mg/dL (1.5-2.5); Potassium 3.9 meq/L (3.5-5.1); Sodium 139 meq/L (136-145)
[2017-12-15 12:50] LABS: Alanine Aminotransferase 13 U/L (10-53)
[2017-12-15 12:52] LABS: Alkaline Phosphatase 102 U/L (45-117)
[2017-12-15 13:00] LABS: Dimorphic RBC Present
[2017-12-15 13:01] LABS: Platelet Estimate Normal (Normal); Platelet Morphology Normal (Normal)
[2017-12-15] MEDS: Enoxaparin Inj 40 MG/0.4 ML Syringe SQ SCH (21:19)
[2017-12-15 21:50] LABS: Bilirubin,Urine Negative (Negative); Clarity,Urine Cloudy (Clear); Color,Urine Yellow (Yellw/Straw); Glucose,Urine (UA) Negative (Negative); Leukocyte Esterase,Urine Moderate (Negative); Nitrite,Urine Negative (Negative); Specific Gravity,Urine 1.013 (1.002-1.035); Urobilinogen,Urine 4 or Greater mg/dL (Less than 2)
[2017-12-15] MEDS: Acetaminophen 325 MG Tablet PO PRN (22:32)
[2017-12-16] MEDS: KCL 20 mEq/D5W/NaCl 0.45% Inj 1,000 ML IV.CONT SCH ×3 (04:46→18:12)
[2017-12-16] MEDS: Morphine Inj 30 MG/30 ML PCA.VIAL PCA PRN (04:46)
--- NOTE | 2017-12-16 08:31 | P.PN ---
Subjective Interval history: doing well, pain controlled, ambulating around halls, no nausea or vomiting, tolerating diet, voiding, + flatus no BM, no vaginal bleeding, denies dyspnea or cough, + slight headache, no changes in vision or neck pain Physical Exam Vital signs: Vital Signs 12/15/17 11:56 12/15/17 15:20 12/15/17 16:00 Temperature 98.1 F 99.4 F Pulse Rate 90 95 H Respiratory Rate 17 18 18 Blood Pressure 122/68 142/81 H Pulse Oximetry 96 97 12/15/17 20:00 12/16/17 00:00 12/16/17 04:00 Temperature 102.0 F H 101.0 F H 99.0 F Pulse Rate 108 H 102 H Respiratory Rate 20 20 Blood Pressure 158/67 H 157/65 H Pulse Oximetry 97 97 Intake & Output 12/15/17 12/16/17 12/16/17 18:59 06:59 18:59 Intake Total 1000 / 1000 Output Total 200 / 200 930 / 930 Balance -200 / -200 70 / 70 Weight 119.1 kg Intake: IV 1000 / 1000 D5W/1/2NS + KCL 20 mEq Inj 1, 1000 / 1000 000 ML @ 125 mls/hr IV.CONT . Q8H [facility] Rx#:[id number] Output: Urine 200 / 200 930 / 930 Other: # Voids 1 - Constitutional no acute distress - Routine HEENT Exam Head: Present: normocephalic Eye: Present: EOMI - Routine Neck Exam Present: supple - Routine Respiratory Exam Present: CTA bilaterally - Routine Cardiovascular Exam Present: RRR - Routine Abdominal Exam Present: soft Comments: BS hypoactive, dressing C/D/I. no rebound or guarding - Routine Exam Comments: deferred - Routine Extremities Exam Present: pulses intact, normal capillary refill Comments: no swelling or pain - Routine Skin Exam Present: intact - Detailed Neurological Exam: Coma Scale Eye Opening: To sound Verbal Response: Oriented - Routine Psychiatric Exam Present: normal affect, normal thought process - Urinary Catheter Management Indwelling Urethral Catheter Cath placed during this visit: yes, but has since been removed by the nurse Urethral indwelling: No Insertion date: 12/13/17 Insertion time: 08:23 Removal date: 12/15/17 Removal time: 11:45 Results - Labs CBC & Chem 7: 12/15/17 11:02 12/15/17 10:55 Laboratory Results - last 24 hr 12/13/17 12/15/17 12/15/17 06:37 10:55 11:02 WBC 21.7 H RBC 4.09 Hgb 9.3 L Hct 30.0 L MCV 73.3 L MCH 22.6 L MCHC 30.9 L RDW 29.2 H Plt Count 310 MPV 7.9 Prelim Diff (Auto) Slide review pending Neut % (Auto) 86.0 H Lymph % (Auto) 6.2 L [place] % (Auto) 7.0 Eos % (Auto) 0.6 Baso % (Auto) 0.2 Neut # (Auto) 18.6 H Lymph # (Auto) 1.3 [place] # (Auto) 1.5 H Eos # (Auto) 0.1 Baso # (Auto) 0.1 WBC Differential . Diff Scan Auto diff confirmed Differential Comment . Platelet Estimate Normal Platelet Morphology Normal Dimorphic RBCs Present H Sodium 139 Potassium 3.9 Chloride 105 Carbon Dioxide 26.4 Anion Gap 8 BUN 5 L Creatinine 0.56 Estimated GFR Greater than 89 Random Glucose 75 Calcium 8.2 L Magnesium 2.1 Total Bilirubin 0.5 AST 10 L ALT 13 Alkaline Phosphatase 102 Total Protein 7.0 Albumin 2.6 L Urine Color Urine Clarity Urine pH Ur Specific [place] Urine Protein Urine Glucose (UA) Urine Ketones Urine Occult Blood Urine Nitrate Urine Bilirubin Urine Urobilinogen Ur Leukocyte Esterase MTS Gel Crossmatch See Detail 12/15/17 21:25 WBC RBC Hgb Hct MCV MCH MCHC RDW Plt Count MPV Prelim Diff (Auto) Neut % (Auto) Lymph % (Auto) [place] % (Auto) Eos % (Auto) Baso % (Auto) Neut # (Auto) Lymph # (Auto) [place] # (Auto) Eos # (Auto) Baso # (Auto) WBC Differential Diff Scan Differential Comment Platelet Estimate Platelet Morphology Dimorphic RBCs Sodium Potassium Chloride Carbon Dioxide Anion Gap BUN Creatinine Estimated GFR Random Glucose Calcium Magnesium Total Bilirubin AST ALT Alkaline Phosphatase Total Protein Albumin Urine Color Yellow Urine Clarity Cloudy H Urine pH 6.0 Ur Specific [place] 1.013 Urine Protein Negative Urine Glucose (UA) Negative Urine Ketones Negative Urine Occult Blood Moderate H Urine Nitrate Negative Urine Bilirubin Negative Urine Urobilinogen 4 or greater Ur Leukocyte Esterase Moderate H MTS Gel Crossmatch Assessment and Plan - Assessment (1) S/P abdominal supracervical subtotal hysterectomy Code(s): Z90.711 - Acquired absence of uterus with remaining cervical stump Status: Acute Plan: PRECIPITATE WASHER NOTE 46 yo AAF s/p abdominal supracervical abdominal hysterectomy, BSO and cysto for AUB / HMB / Anemia, also abdominal wall reconstruction for ventral hernia 1. POD #3: discussed surgery with patient, doing fairly well, continue routine post op care, no plans for d/c home until fever addressed and resolved. Rec motrin / tylenol for her headache. Per pt request i will call her sister to update her on pts status. - aware that may benefit from Estrogen replacement for menopausal sx. Queried PDMP and reviewed report. -VTE ppx: continue to ambulate, rec SCDs while in bed, ppx lovenox qd 2. Fever: based on early onset do no believe original source to be infectious, could be GI injury however pt asymptomatic, from my portion of case there was no concern for incidental injury due to no required bowel lysis only packing. May benefit from CT scan, will await gen surg input
[2017-12-16] MEDS: Gabapentin 100 MG Capsule PO SCH ×3 (08:32→17:04)
[2017-12-16] MEDS: Enoxaparin Inj 40 MG/0.4 ML Syringe SQ SCH ×2 (08:32→21:02)
[2017-12-16] MEDS: Acetaminophen 325 MG Tablet PO PRN (08:48)
[2017-12-16 09:48] LABS: Baso % (Auto) 0.3 % (0.0-2.0); Eos # (Auto) 0.5 th/mm3 (0.0-0.4); Eos % (Auto) 2.8 % (0.0-4.0); Hematocrit 28.1 % (35.0-46.0); Hemoglobin 8.7 gm/dL (11.6-15.3); Lymph # (Auto) 1.3 th/mm3 (1.0-4.8); Lymph % (Auto) 7.7 % (9.0-44.0); Mean Corpuscular Hemoglobin 22.9 pg (27.0-34.0); Mean Corpuscular Volume 74.2 fL (80.0-100.0); Mean Platelet Volume 7.5 fL (7.0-11.0); Mono # (Auto) 0.9 th/mm3 (0.0-0.9); Mono % (Auto) 5.6 % (0.0-8.0); Neut # (Auto) 13.9 th/mm3 (1.8-7.7); Neut % (Auto) 83.6 % (16.0-70.0); Platelet Count 325 th/mm3 (150-450); Red Blood Count 3.79 mil/mm3 (4.00-5.30); Red Cell Distribution Width 29.2 % (11.6-17.2); White Blood Count 16.7 th/mm3 (4.0-11.0)
[2017-12-16 09:52] LABS: Mean Corpuscular HGB Conc 30.9 % (32.0-36.0)
[2017-12-16 10:23] LABS: Ovalocytes 1+
[2017-12-16 10:24] LABS: Acanthocytes Occ; Dimorphic RBC Present; Platelet Estimate Normal (Normal); Platelet Morphology Normal (Normal)
--- NOTE | 2017-12-16 12:11 | P.PNGS ---
Subjective Patient reports: feels better, still having pain, flatus, no bowel movement Interval history: DAILY PROGRESS NOTE FOR SURGICAL ATTENDING, DR. JW QUINTANA Resting in bed Needs to use to the restroom Ate dinner last night without any issues Physical Exam Vital signs: Vital Signs 12/15/17 15:20 12/15/17 16:00 12/15/17 20:00 Temperature 99.4 F 102.0 F H Pulse Rate 95 H 108 H Respiratory Rate 18 18 20 Blood Pressure 142/81 H 158/67 H Pulse Oximetry 97 97 12/16/17 00:00 12/16/17 04:00 12/16/17 08:00 Temperature 101.0 F H 99.0 F 99.2 F Pulse Rate 102 H 100 H Respiratory Rate 20 18 Blood Pressure 157/65 H 141/63 H Pulse Oximetry 97 95 Intake & Output 12/15/17 12/16/17 12/16/17 18:59 06:59 18:59 Intake Total 1000 / 1000 1000 / 1000 Output Total 200 / 200 930 / 930 Balance -200 / -200 70 / 70 1000 / 1000 Weight 119.1 kg Intake: IV 1000 / 1000 1000 / 1000 D5W/1/2NS + KCL 20 mEq Inj 1, 1000 / 1000 1000 / 1000 000 ML @ 125 mls/hr IV.CONT . Q8H [facility] Rx#:[id number] Output: Urine 200 / 200 930 / 930 Other: # Voids 1 Date of Last Bowel Movement 12/16/17 Narrative: Alert and awake Abd: LEAH in place with good seal Mild BLE edema - Urinary Catheter Management Indwelling Urethral Catheter Cath placed during this visit: yes, but has since been removed by the nurse Urethral indwelling: No Reason for continuing: Decision to DC catheter Insertion date: 12/13/17 Insertion time: 08:23 Removal date: 12/15/17 Removal time: 11:45 Results - Labs 12/16/17 09:14 12/15/17 10:55 Laboratory Results - last 24 hr 12/13/17 12/15/17 12/15/17 06:37 10:55 11:02 WBC 21.7 H RBC 4.09 Hgb 9.3 L Hct 30.0 L MCV 73.3 L MCH 22.6 L MCHC 30.9 L RDW 29.2 H Plt Count 310 MPV 7.9 Prelim Diff (Auto) Slide review pending Neut % (Auto) 86.0 H Lymph % (Auto) 6.2 L [place] % (Auto) 7.0 Eos % (Auto) 0.6 Baso % (Auto) 0.2 Neut # (Auto) 18.6 H Lymph # (Auto) 1.3 [place] # (Auto) 1.5 H Eos # (Auto) 0.1 Baso # (Auto) 0.1 WBC Differential . Diff Scan Auto diff confirmed Differential Comment . Platelet Estimate Normal Platelet Morphology Normal Dimorphic RBCs Present H Ovalocytes Acanthocytes (Spur) Sodium 139 Potassium 3.9 Chloride 105 Carbon Dioxide 26.4 Anion Gap 8 BUN 5 L Creatinine 0.56 Estimated GFR Greater than 89 Random Glucose 75 Lactic Acid Calcium 8.2 L Magnesium 2.1 Total Bilirubin 0.5 AST 10 L ALT 13 Alkaline Phosphatase 102 Total Protein 7.0 Albumin 2.6 L Urine Color Urine Clarity Urine pH Ur Specific [place] Urine Protein Urine Glucose (UA) Urine Ketones Urine Occult Blood Urine Nitrate Urine Bilirubin Urine Urobilinogen Ur Leukocyte Esterase MTS Gel Crossmatch See Detail 12/15/17 12/16/17 12/16/17 21:25 09:14 10:51 WBC 16.7 H RBC 3.79 L Hgb 8.7 L Hct 28.1 L MCV 74.2 L MCH 22.9 L MCHC 30.9 L RDW 29.2 H Plt Count 325 MPV 7.5 Prelim Diff (Auto) Slide review pending Neut % (Auto) 83.6 H Lymph % (Auto) 7.7 L [place] % (Auto) 5.6 Eos % (Auto) 2.8 Baso % (Auto) 0.3 Neut # (Auto) 13.9 H Lymph # (Auto) 1.3 [place] # (Auto) 0.9 Eos # (Auto) 0.5 H Baso # (Auto) 0.0 WBC Differential . Diff Scan Auto diff confirmed Differential Comment . Platelet Estimate Normal Platelet Morphology Normal Dimorphic RBCs Present H Ovalocytes 1+ H Acanthocytes (Spur) Occ H Sodium Potassium Chloride Carbon Dioxide Anion Gap BUN Creatinine Estimated GFR Random Glucose Lactic Acid 1.3 Calcium Magnesium Total Bilirubin AST ALT Alkaline Phosphatase Total Protein Albumin Urine Color Yellow Urine Clarity Cloudy H Urine pH 6.0 Ur Specific [place] 1.013 Urine Protein Negative Urine Glucose (UA) Negative Urine Ketones Negative Urine Occult Blood Moderate H Urine Nitrate Negative Urine Bilirubin Negative Urine Urobilinogen 4 or greater Ur Leukocyte Esterase Moderate H MTS Gel Crossmatch Assessment and Plan - Assessment (1) Incisional hernia Code(s): K43.2 - Incisional hernia without obstruction or gangrene Status: Chronic Plan: (2) Ventral hernia Code(s): K43.9 - Ventral hernia without obstruction or gangrene Status: Chronic - Plan 46 year female old Postop repair of large incisional ventral hernia -Pain controlled -WBC 16.7 today; H/H 8.7/28.1 -Tolerating regular diet -Incentive spirometer -Ambulate -Anticipate discharge in the next 24 to 48 hours - Attending Attestation NOTE FOR SURGICAL ATTENDING, DR. JW QUINTANA Patient more comfortable Passing flatus Abdomen softer White count trending downward I suspect elevation in temperature problem from atelectasis Progressive ambulation slowly increase diet as tolerated May need laxative I agree with above assessment and plan. The exam, history, and the medical decision-making described in the above note were completed with the assistance of the mid-level provider. I reviewed and agree with the findings presented. I attest that I had a [id number] encounter with the patient on the same day, and personally performed and documented my assessment and findings in the medical record. The following services were provided during this hospital visit: Chart data review, vital sign assessments/reviewing monitor data Review of consultations notes if present. Medication orders/review and/or management Ordering and/or reviewing lab tests Ordering and/or interpreting/reviewing x-rays and/or diagnostic studies Care of the patient and discussion of the patient with the care team Documentation time To help prompt me to consider important information that might be impacting today's encounter and assessment, Information from prior notes written by myself or my colleagues may have been "brought forward/copy and pasted" into today's note.
[2017-12-16] MEDS ORDERED: Bisacodyl 10 MG Supp RECTAL ONE (14:30)
[2017-12-17] MEDS: KCL 20 mEq/D5W/NaCl 0.45% Inj 1,000 ML IV.CONT SCH (04:06)
[2017-12-17 07:28] LABS: Baso # (Auto) 0.2 th/mm3 (0.0-0.2); Baso % (Auto) 1.4 % (0.0-2.0); Eos # (Auto) 0.7 th/mm3 (0.0-0.4); Eos % (Auto) 6.1 % (0.0-4.0); Hematocrit 24.8 % (35.0-46.0); Lymph # (Auto) 1.2 th/mm3 (1.0-4.8); Lymph % (Auto) 10.5 % (9.0-44.0); Mean Corpuscular HGB Conc 32.1 % (32.0-36.0); Mean Corpuscular Hemoglobin 23.4 pg (27.0-34.0); Mean Corpuscular Volume 72.9 fL (80.0-100.0); Mean Platelet Volume 7.3 fL (7.0-11.0); Mono # (Auto) 0.9 th/mm3 (0.0-0.9); Mono % (Auto) 7.8 % (0.0-8.0); Neut # (Auto) 8.5 th/mm3 (1.8-7.7); Neut % (Auto) 74.2 % (16.0-70.0); Platelet Count 303 th/mm3 (150-450); Red Cell Distribution Width 29.1 % (11.6-17.2); White Blood Count 11.5 th/mm3 (4.0-11.0)
--- NOTE | 2017-12-17 08:13 | P.PN ---
Subjective Interval history: Patient doing well, ambulating, tolerating diet without nausea or vomiting, positive flatus, no bowel movements, voiding spontaneously without difficulty. No vaginal bleeding. Denies fever or chills, pain controlled. Physical Exam Vital signs: Vital Signs 12/16/17 12:00 12/16/17 16:00 12/16/17 20:00 Temperature 98.2 F 99.2 F 98.8 F Pulse Rate 89 100 H 95 H Respiratory Rate 16 18 19 Blood Pressure 136/64 163/68 H 144/63 H Pulse Oximetry 98 98 94 L 12/16/17 21:40 12/17/17 00:31 12/17/17 04:00 Temperature 97.7 F 97.2 F L Pulse Rate 76 82 Respiratory Rate 15 17 16 Blood Pressure 153/65 H 126/66 Pulse Oximetry 100 97 Intake & Output 12/16/17 12/17/17 12/17/17 18:59 06:59 18:59 Intake Total 3800 / 3800 1480 / 1480 Output Total 1600 / 1600 400 / 400 Balance 2200 / 2200 1080 / 1080 Weight 120 kg Intake: IV 1999 / 1999 1000 / 1000 D5W/1/2NS + KCL 20 mEq Inj 1, 1999 / 1999 1000 / 1000 000 ML @ 125 mls/hr IV.CONT . Q8H [facility] Rx#:[id number] Oral 1800 / 1800 480 / 480 Output: Urine 1600 / 1600 400 / 400 Other: # Voids 2 Date of Last Bowel Movement 12/16/17 - Constitutional no acute distress - Routine HEENT Exam Head: Present: normocephalic Eye: Present: PERRL - Routine Respiratory Exam Present: CTA bilaterally - Routine Cardiovascular Exam Present: RRR - Routine Abdominal Exam Present: soft Comments: Bandage clean dry and intact, bowel sounds present, no rebound appropriately tender. - Routine Neurological Exam Present: alert, oriented X3 - Urinary Catheter Management Indwelling Urethral Catheter Cath placed during this visit: yes, but has since been removed by the nurse Urethral indwelling: No Reason for continuing: Decision to DC catheter Insertion date: 12/13/17 Insertion time: 08:23 Removal date: 12/15/17 Removal time: 11:45 Results - Labs CBC & Chem 7: 12/17/17 07:11 12/15/17 10:55 Laboratory Results - last 24 hr 0912/16/17 12/17/17 09:14 10:51 07:11 WBC 16.7 H 11.5 H RBC 3.79 L 3.40 L Hgb 8.7 L 8.0 L Hct 28.1 L 24.8 L MCV 74.2 L 72.9 L MCH 22.9 L 23.4 L MCHC 30.9 L 32.1 RDW 29.2 H 29.1 H Plt Count 325 303 MPV 7.5 7.3 Prelim Diff (Auto) Slide review pending Slide review pending Neut % (Auto) 83.6 H 74.2 H Lymph % (Auto) 7.7 L 10.5 [place] % (Auto) 5.6 7.8 Eos % (Auto) 2.8 6.1 H Baso % (Auto) 0.3 1.4 Neut # (Auto) 13.9 H 8.5 H Lymph # (Auto) 1.3 1.2 [place] # (Auto) 0.9 0.9 Eos # (Auto) 0.5 H 0.7 H Baso # (Auto) 0.0 0.2 WBC Differential . Diff Scan Auto diff confirmed Differential Comment . . Platelet Estimate Normal Platelet Morphology Normal Dimorphic RBCs Present H Ovalocytes 1+ H Acanthocytes (Spur) Occ H Lactic Acid 1.3 Microbiology 12/15/17 21:25 Random Urine Urine Culture - Final 50-100,000 cfu/mL mixed ayanna (probable contaminants ) 12/15/17 11:02 Blood - Peripheral Aerobic Blood Culture - Preliminary No growth in 1 day 12/15/17 11:02 Blood - Peripheral Anaerobic Blood Culture - Preliminary No growth in 1 day 12/15/17 10:55 Blood - Peripheral Aerobic Blood Culture - Preliminary No growth in 1 day 12/15/17 10:55 Blood - Peripheral Anaerobic Blood Culture - Preliminary No growth in 1 day Assessment and Plan - Assessment (1) S/P abdominal supracervical subtotal hysterectomy Code(s): Z90.711 - Acquired absence of uterus with remaining cervical stump Status: Acute Plan: [employer]ERSON[employer] B[employer]ER NOTE 46 yo AAF s/p abdominal supracervical abdominal hysterectomy, BSO and cysto for AUB / HMB / Anemia, also abdominal wall reconstruction for ventral hernia 1. 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 - Path pending -VTE ppx: continue to ambulate, ppx lovenox qd 2. Fever: Afebrile times 24 hours, a.m. CBC shows downward trending white count , patient continues to be asymptomatic, if continues to be afebrile likely related to atelectasis. 3. Anemia: Continue outpatient iron, hemoglobin is trended down since surgery, likely settling out after transfusion, if still inpatient tomorrow repeat CBC then.
[2017-12-17 08:50] LABS: Acanthocytes Occ; Dimorphic RBC Present; Ovalocytes 1+
[2017-12-17 08:53] LABS: Platelet Estimate Normal (Normal); Platelet Morphology Normal (Normal)
--- NOTE | 2017-12-17 09:05 | P.PNGS ---
Subjective Interval history: DAILY PROGRESS NOTE FOR SURGICAL ATTENDING, DR. JW QUINTANA Up to the side of the bed Feeling really good today No BM Today [birth year] birthday ! Physical Exam Vital signs: Vital Signs 12/16/17 12:00 12/16/17 16:00 12/16/17 20:00 Temperature 98.2 F 99.2 F 98.8 F Pulse Rate 89 100 H 95 H Respiratory Rate 16 18 19 Blood Pressure 136/64 163/68 H 144/63 H Pulse Oximetry 98 98 94 L 12/16/17 21:40 12/17/17 00:31 12/17/17 04:00 Temperature 97.7 F 97.2 F L Pulse Rate 76 82 Respiratory Rate 15 17 16 Blood Pressure 153/65 H 126/66 Pulse Oximetry 100 97 Intake & Output 12/16/17 12/17/17 12/17/17 18:59 06:59 18:59 Intake Total 3800 / 3800 1480 / 1480 Output Total 1600 / 1600 400 / 400 Balance 2200 / 2200 1080 / 1080 Weight 120 kg Intake: IV 1999 / 1000 D5W/1/2NS + KCL 20 mEq Inj 1, 2000 / 2000 1000 / 1000 000 ML @ 125 mls/hr IV.CONT . Q8H [facility] Rx#:[id number] Oral 1800 / 1800 480 / 480 Output: Urine 1600 / 1600 400 / 400 Other: # Voids 2 Date of Last Bowel Movement 12/16/17 Narrative: Alert and awake Abd: soft; LEAH in place with good seal; minimal tender - Urinary Catheter Management Indwelling Urethral Catheter Cath placed during this visit: yes, but has since been removed by the nurse Urethral indwelling: No Reason for continuing: Decision to DC catheter Insertion date: 12/13/17 Insertion time: 08: Removal date: 12/15/17 Removal time: 11:45 Results - Labs 12/17/17 07:11 12/15/17 10:55 Laboratory Results - last 24 hr 12/16/17 12/16/17 12/17/17 09:14 10:51 07:11 WBC 16.7 H 11.5 H RBC 3.79 L 3.40 L Hgb 8.7 L 8.0 L Hct 28.1 L 24.8 L MCV 74.2 L 72.9 L MCH 22.9 L 23.4 L MCHC 30.9 L 32.1 RDW 29.2 H 29.1 H Plt Count 325 303 MPV 7.5 7.3 Prelim Diff (Auto) Slide review pending Slide review pending Neut % (Auto) 83.6 H 74.2 H Lymph % (Auto) 7.7 L 10.5 [place] % (Auto) 5.6 7.8 Eos % (Auto) 2.8 6.1 H Baso % (Auto) 0.3 1.4 Neut # (Auto) 13.9 H 8.5 H Lymph # (Auto) 1.3 1.2 [place] # (Auto) 0.9 0.9 Eos # (Auto) 0.5 H 0.7 H Baso # (Auto) 0.0 0.2 WBC Differential . . Diff Scan Auto diff confirmed Auto diff confirmed Differential Comment . . Platelet Estimate Normal Normal Platelet Morphology Normal Normal Dimorphic RBCs Present H Present H Ovalocytes 1+ H 1+ H Acanthocytes (Spur) Occ H Occ H Lactic Acid 1.3 Assessment and Plan - Assessment (1) Incisional hernia Code(s): K43.2 - Incisional hernia without obstruction or gangrene Status: Chronic Plan: 47 year female old Postop repair of large incisional ventral hernia -Pain controlled -WBC 11.5 today; H/H 8.0/24.8 -Tolerating regular diet -DC IVF and PARAKEET RAISER -Await BM-- added MOM and Miralax -Incentive spirometer -Ambulate -Anticipate discharge tomorrow as long as Hmg stable (2) Ventral hernia Code(s): K43.9 - Ventral hernia without obstruction or gangrene Status: Chronic - Attending Attestation NOTE FOR SURGICAL ATTENDING, DR. JW QUINTANA I agree with above assessment and plan. The exam, history, and the medical decision-making described in the above note were completed with the assistance of the mid-level provider. I reviewed and agree with the findings presented. I attest that I had a [id number] encounter with the patient on the same day, and personally performed and documented my assessment and findings in the medical record. The following services were provided during this hospital visit: Chart data review, vital sign assessments/reviewing monitor data Review of consultations notes if present. Medication orders/review and/or management Ordering and/or reviewing lab tests Ordering and/or interpreting/reviewing x-rays and/or diagnostic studies Care of the patient and discussion of the patient with the care team Documentation time To help prompt me to consider important information that might be impacting today's encounter and assessment, Information from prior notes written by myself or my colleagues may have been "brought forward/copy and pasted" into today's note.
[2017-12-17] MEDS: Docusate Sodium 100 MG Capsule PO SCH ×2 (09:27→20:46)
[2017-12-17] MEDS: Gabapentin 100 MG Capsule PO SCH ×3 (09:28→17:51)
[2017-12-17] MEDS: Enoxaparin Inj 40 MG/0.4 ML Syringe SQ SCH ×2 (09:29→20:46)
[2017-12-17] MEDS ORDERED: Polyethylene Glycol 3350 17 GM Packet PO ONE (09:30)
[2017-12-17 20:54] VITALS: O2SAT 99
--- NOTE | 2017-12-18 07:13 | P.PN ---
Subjective Interval history: Patient doing well, no changes from yesterday other than had a bowel movement, ready for discharge home. Physical Exam Vital signs: Vital Signs 12/17/17 08:00 12/17/17 09:48 12/17/17 12:00 Temperature 97.6 F 98.3 F Pulse Rate 78 81 Respiratory Rate 18 18 17 Blood Pressure 159/62 H 129/57 L Pulse Oximetry 94 L 97 12/17/17 15:57 12/17/17 16:00 12/17/17 20:00 Temperature 98.5 F 98.7 F Pulse Rate 81 91 H Respiratory Rate 17 19 19 Blood Pressure 150/65 H 159/58 H Pulse Oximetry 98 99 12/18/17 00:00 Temperature 98.5 F Pulse Rate 86 Respiratory Rate 18 Blood Pressure 147/62 H Pulse Oximetry 99 Intake & Output 12/17/17 12/18/17 12/18/17 18:59 06:59 18:59 Intake Total 940 / 940 480 / 480 Output Total 550 / 550 Balance 390 / 390 480 / 480 Weight 118.6 kg Intake: IV 500 / 500 D5W/1/2NS + KCL 20 mEq Inj 1, 500 / 500 000 ML @ 125 mls/hr IV.CONT . Q8H [facility] Rx#:[id number] Oral 440 / 440 480 / 480 Output: Urine 550 / 550 Other: # Voids 3 3 Date of Last Bowel Movement 12/13/17 12/13/17 # Bowel Movements 1 - Constitutional no acute distress - Routine Respiratory Exam Present: CTA bilaterally - Routine Cardiovascular Exam Present: RRR - Routine Abdominal Exam Comments: Soft, nontender, incision clean dry and intact with nataly - Routine Exam Patient deferred: external exam - Routine Extremities Exam Present: full ROM, pulses intact - Routine Neurological Exam Present: alert, oriented X3 - Routine Psychiatric Exam Present: normal affect, normal thought process - Urinary Catheter Management Indwelling Urethral Catheter Cath placed during this visit: yes, but has since been removed by the nurse Urethral indwelling: No Reason for continuing: Decision to DC catheter Insertion date: 12/13/17 Insertion time: 08:23 Removal date: 12/15/17 Removal time: 11:45 Results - Labs CBC & Chem 7: 12/18/17 06:20 12/15/17 10:55 Laboratory Results - last 24 hr 12/17/17 07:11 WBC 11.5 H RBC 3.40 L Hgb 8.0 L Hct 24.8 L MCV 72.9 L MCH 23.4 L MCHC 32.1 RDW 29.1 H Plt Count 303 MPV 7.3 Prelim Diff (Auto) Slide review pending Neut % (Auto) 74.2 H Lymph % (Auto) 10.5 [place] % (Auto) 7.8 Eos % (Auto) 6.1 H Baso % (Auto) 1.4 Neut # (Auto) 8.5 H Lymph # (Auto) 1.2 [place] # (Auto) 0.9 Eos # (Auto) 0.7 H Baso # (Auto) 0.2 WBC Differential . Diff Scan Auto diff confirmed Differential Comment . Platelet Estimate Normal Platelet Morphology Normal Dimorphic RBCs Present H Ovalocytes 1+ H Acanthocytes (Spur) Occ H Microbiology 12/15/17 11:02 Blood - Peripheral Aerobic Blood Culture - Preliminary No growth in 2 days 12/15/17 11:02 Blood - Peripheral Anaerobic Blood Culture - Preliminary No growth in 2 days 12/15/17 10:55 Blood - Peripheral Aerobic Blood Culture - Preliminary No growth in 2 days 12/15/17 10:55 Blood - Peripheral Anaerobic Blood Culture - Preliminary No growth in 2 days Assessment and Plan - Assessment (1) S/P abdominal supracervical subtotal hysterectomy Code(s): Z90.711 - Acquired absence of uterus with remaining cervical stump Status: Acute Plan: [employer] MACHINE [employer] AUTOMATIC NOTE 46 yo AAF s/p abdominal supracervical abdominal hysterectomy, BSO and cysto for AUB / HMB / Anemia, also abdominal wall reconstruction for ventral hernia 1. POD #5: Doing well, meeting most milestones, d/c home today unless hg sig drop, pt asymptomatic. FU next week in our office. - Path normal, will review with pt in office next week. -VTE ppx: continue to ambulate, ppx lovenox qd while inpatient 2. Fever: Afebrile x 48 hours, likely atelectasis
[2017-12-18 07:59] LABS: Baso # (Auto) 0.2 th/mm3 (0.0-0.2); Baso % (Auto) 1.8 % (0.0-2.0); Eos # (Auto) 0.8 th/mm3 (0.0-0.4); Eos % (Auto) 7.4 % (0.0-4.0); Hemoglobin 9.2 gm/dL (11.6-15.3); Lymph # (Auto) 2.2 th/mm3 (1.0-4.8); Mean Corpuscular HGB Conc 31.7 % (32.0-36.0); Mean Corpuscular Hemoglobin 22.9 pg (27.0-34.0); Mean Corpuscular Volume 72.3 fL (80.0-100.0); Mean Platelet Volume 8.9 fL (7.0-11.0); Mono # (Auto) 0.7 th/mm3 (0.0-0.9); Mono % (Auto) 6.4 % (0.0-8.0); Neut # (Auto) 7.2 th/mm3 (1.8-7.7); Neut % (Auto) 64.4 % (16.0-70.0); Platelet Count 278 th/mm3 (150-450); Red Blood Count 4.01 mil/mm3 (4.00-5.30); Red Cell Distribution Width 28.8 % (11.6-17.2); White Blood Count 11.2 th/mm3 (4.0-11.0)
[2017-12-18] MEDS: Docusate Sodium 100 MG Capsule PO SCH (08:20)
[2017-12-18 08:21] VITALS: BP 169/72; PULSE 78; RESP 19; TEMP 97.8
[2017-12-18] MEDS: Enoxaparin Inj 40 MG/0.4 ML Syringe SQ SCH (08:21)
[2017-12-18] MEDS: Gabapentin 100 MG Capsule PO SCH (08:21)
[2017-12-18 08:38] LABS: Acanthocytes Occ; Dimorphic RBC Present; Ovalocytes 1+; Platelet Estimate Normal (Normal); Platelet Morphology Clumped (Normal)
--- NOTE | 2017-12-18 09:37 | P.DS ---
<ReaganDaphne - Last Filed: 12/18/17 14:02> Date of admission: 12/13/17 12:45 Primary care physician: No Primary Care Physician Attending physician on discharge: Handy Kelley Anticipated date of discharge: 12/18/17 Brief History from admission: 47 year female old Postop repair of large incisional ventral hernia and hysterectomy DS: Diagnosis - Discharge Diagnosis (1) Incisional hernia Status: Chronic (2) Ventral hernia Status: Chronic DS: Medications - Discharge Medications Prescriptions: estradiol [Climara] 1 patch TRANSDERMAL QWEEK #7 ea oxycodone-acetaminophen 1 tab PO Q4H PRN #18 tab PRN Reason: acute post op pain exception DS: Summary Hospital Course: This is a 47 year female old Postop repair of large incisional ventral hernia and hysterectomy. Her diet was advanced as tolerated. Her pain was controlled using oral pain medications. She was able to have a bowel movement. Her Hmg/ Hct stabilized today. Her WBC continues to trend down. Her LEAH dressing was removed. She will follow up in the office. - Time Spent with Patient Total time spent providing and/or coordinating discharge services: Less than 30 minutes Exam Vital signs: Vital Signs 12/17/17 09:48 12/17/17 12:00 12/17/17 15:57 Temperature 98.3 F Pulse Rate 81 Respiratory Rate 18 17 17 Blood Pressure 129/57 L Pulse Oximetry 97 12/17/17 16:00 12/17/17 20:00 12/18/17 00:00 Temperature 98.5 F 98.7 F 98.5 F Pulse Rate 81 91 H 86 Respiratory Rate 19 19 18 Blood Pressure 150/65 H 159/58 H 147/62 H Pulse Oximetry 98 99 99 12/18/17 08:00 Temperature 97.8 F Pulse Rate 78 Respiratory Rate 19 Blood Pressure 169/72 H Pulse Oximetry 99 Intake & Output 12/17/17 12/18/17 12/18/17 18:59 06:59 18:59 Intake Total 940 / 940 480 / 480 Output Total 550 / 550 Balance 390 / 390 480 / 480 Weight 118.6 kg Intake: IV 500 / 500 D5W/1/2NS + KCL 20 mEq Inj 1, 500 / 500 000 ML @ 125 mls/hr IV.CONT . Q8H [facility] Rx#:[id number] Oral 440 / 440 480 / 480 Output: Urine 550 / 550 Other: # Voids 3 3 Date of Last Bowel Movement 12/13/17 12/13/17 12/17/17 # Bowel Movements 1 Narrative: Alert and awake Abd: LEAH removed; midline incision with nataly; dry dressing placed No edema Results Procedures completed during hospitalization: 47 year female old Postop repair of large incisional ventral hernia Completed studies during hospitalization: Pending at discharge 12/13/17 14:46 Surgical [PTH] Routine Labs on day of discharge: Labs from last 24 hours 12/18/17 06:20 WBC 11.2 H RBC 4.01 Hgb 9.2 L Hct 29.0 L MCV 72.3 L MCH 22.9 L MCHC 31.7 L RDW 28.8 H Plt Count 278 MPV 8.9 Prelim Diff (Auto) Slide review pending Neut % (Auto) 64.4 Lymph % (Auto) 20.0 [place] % (Auto) 6.4 Eos % (Auto) 7.4 H Baso % (Auto) 1.8 Neut # (Auto) 7.2 Lymph # (Auto) 2.2 [place] # (Auto) 0.7 Eos # (Auto) 0.8 H Baso # (Auto) 0.2 WBC Differential . Diff Scan Auto diff confirmed Differential Comment . Platelet Estimate Normal Platelet Morphology Clumped H Dimorphic RBCs Present H Ovalocytes 1+ H Acanthocytes (Spur) Occ H Hematology Comments Preliminary micro results at discharge 12/15/17 11:02 Aerobic Blood Culture - Preliminary Blood - Peripheral No growth in 2 days Anaerobic Blood Culture - Preliminary No growth in 2 days 12/15/17 10:55 Aerobic Blood Culture - Preliminary Blood - Peripheral No growth in 2 days Anaerobic Blood Culture - Preliminary No growth in 2 days <Handy Kelley - Last Filed: 12/18/17 14:16> Date of admission: 12/13/17 12:45 Primary care physician: No Primary Care Physician DS: Diagnosis - Discharge Diagnosis (1) Incisional hernia Status: Chronic (2) Ventral hernia Status: Chronic DS: Summary - Time Spent with Patient Total time spent providing and/or coordinating discharge services: Exam Vital signs: Vital Signs 12/17/17 15:57 12/17/17 16:00 12/17/17 20:00 Temperature 98.5 F 98.7 F Pulse Rate 81 91 H Respiratory Rate 17 19 19 Blood Pressure 150/65 H 159/58 H Pulse Oximetry 98 99 12/18/17 00:00 12/18/17 08:00 Temperature 98.5 F 97.8 F Pulse Rate 86 78 Respiratory Rate 18 19 Blood Pressure 147/62 H 169/72 H Pulse Oximetry 99 99 Intake & Output 12/17/17 12/18/17 12/18/17 18:59 06:59 18:59 Intake Total 940 / 940 480 / 480 Output Total 550 / 550 Balance 390 / 390 480 / 480 Weight 118.6 kg Intake: IV 500 / 500 D5W/1/2NS + KCL 20 mEq Inj 1, 500 / 500 000 ML @ 125 mls/hr IV.CONT . Q8H [facility] Rx#:[id number] Oral 440 / 440 480 / 480 Output: Urine 550 / 550 Other: # Voids 3 3 Date of Last Bowel Movement 12/13/17 12/13/17 12/17/17 # Bowel Movements 1 Results Completed studies during hospitalization: Pending at discharge 12/13/17 14:46 Surgical [PTH] Routine Final Diagnosis #1- SOFT TISSUE, HERNIA SAC, HERNIORRHAPHY: - HERNIA SAC. #2- SKIN AND SUBCUTANEOUS TISSUE, EXCISION: - NO PATHOLOGIC CHANGE. #3- UTERUS WITH PARTIAL CERVIX, BILATERAL FALLOPIAN TUBES AND OVARIES, HYSTERECTOMY AND BILATERAL SALPINGO-OOPHORECTOMY: CERVIX: - ENDOCERVIX WITHOUT PATHOLOGIC CHANGE. ENDOMETRIUM: - ENDOMETRIUM WITH AUTOLYTIC FEATURES. MYOMETRIUM: - LEIOMYOMATA WITH DEGENERATIVE CHANGE (SEE COMMENT). FALLOPIAN TUBES: - FEATURES CONSISTENT WITH PREVIOUS TUBAL LIGATION. - PARATUBAL CYST. OVARIES: - FOLLICULAR CYSTS AND CYSTIC FOLLICLES. [facility] Comment The leiomyomata demonstrate areas of hyalinizing necrosis consistent with degenerative change. No cytologic atypia or significant mitotic activity is appreciated. [facility] Labs on day of discharge: Labs from last 24 hours 12/18/17 06:20 WBC 11.2 H RBC 4.01 Hgb 9.2 L Hct 29.0 L MCV 72.3 L MCH 22.9 L MCHC 31.7 L RDW 28.8 H Plt Count 278 MPV 8.9 Prelim Diff (Auto) Slide review pending Neut % (Auto) 64.4 Lymph % (Auto) 20.0 [place] % (Auto) 6.4 Eos % (Auto) 7.4 H Baso % (Auto) 1.8 Neut # (Auto) 7.2 Lymph # (Auto) 2.2 [place] # (Auto) 0.7 Eos # (Auto) 0.8 H Baso # (Auto) 0.2 WBC Differential . Diff Scan Auto diff confirmed Differential Comment . Platelet Estimate Normal Platelet Morphology Clumped H Dimorphic RBCs Present H Ovalocytes 1+ H Acanthocytes (Spur) Occ H Hematology Comments Preliminary micro results at discharge 12/15/17 11:02 Aerobic Blood Culture - Preliminary Blood - Peripheral No growth in 3 days Anaerobic Blood Culture - Preliminary No growth in 3 days 12/15/17 10:55 Aerobic Blood Culture - Preliminary Blood - Peripheral No growth in 3 days Anaerobic Blood Culture - Preliminary No growth in 3 days Discharge Plan - Discharge Order Discharge Orders: Discharge Order (Routine); Ordered 12/18/17 Ordered By: Daphne Kirk - Discharge Details Anticipated Discharge Date: 12/18/17 Discharge Comment: rx on chart - Physicians Team Primary Care Provider: [facility] Attending Provider: Handy Kelley Other Providers: Sabino Reeves MD ; Hamilton Aragon MD ; Sur[facility] - Rxs /Orders / Referrals /Forms Prescriptions: New estradiol [Climara] 0.05 mg/24 hr Patch Weekly 1 patch TRANSDERMAL QWEEK Qty: 7 RF: 1 oxycodone-acetaminophen 5-325 mg Tablet 1 tab PO Q4H PRN (Reason: acute post op pain exception ) Qty: 18 RF: 0 Continue ferrous sulfate 325 mg (65 mg iron) Tablet 325 mg PO DAILY Discontinued medroxyprogesterone 10 mg Tablet 10 mg PO BID tramadol 50 mg Tablet 50 mg PO Q4-6H PRN (Reason: Pain) Referrals: Handy Kelley MD [Physician] - See Instructions (Follow up appt set for SaturdayDec 23 at 1PM) [facility] [Primary Care Provider] - See Instructions ([address] [phone] -Office opens at 8:00am, Call the morning of you would like to be seen. [facility] offers same day appts. ) - Discharge Instructions Patient Printed Instructions: Oxycodone/Acetaminophen (By mouth), Estradiol ( Absorbed through the skin), Lysis of Abdominal Adhesions (DC), Ventral Hernia Repair (DC), Hysterectomy (DC) - Post Discharge Care Plan Care Plan Goals: Please call the physician's office to book the appointment to be seen within 1 week. Your Health Problems: Goals to Promote Your Health: * To prevent worsening of your condition * To maintain your health at the optimal level Directions to Meet Your Goals: * Take your medications as prescribed * Follow your dietary instruction * Follow activity as directed * Keep your appointments as scheduled * Take your immunizations and boosters as scheduled * If your symptoms worsen call your PCP * If no PCP go to Urgent Care or Emergency Room Smoking is dangerous to your health. Avoid second hand smoke. You may reach the 24-hour crisis hotline for domestic abuse at . We want you to have a wonderful recovery! Please Report the Following Symptoms to Your Doctor: -Temperature above 100.5 degrees -Redness of incision or excessive or foul smelling drainage -Unusual pain or calf pain -Increased vaginal bleeding -Painful or difficulty urinating Goals to Promote Your Health * To prevent worsening of your condition and complications * To maintain your health at the optimal level Directions to Meet Your Goals Take your medications as prescribed Follow your dietary instruction Follow activity as directed Ensure plenty of rest for recovery Drink fluids for hydration Keep your appointments as scheduled Take your immunizations and boosters as scheduled If your symptoms worsen call your [facility] Physician, or go to an Urgent Care Center or Emergency Room Smoking is Dangerous to your health. Avoid second hand smoke Call the 24-hour crisis hotline for domestic abuse at
== END 2017-12-18 11:45 | disposition home or self-care (01) ==
LOC: HSDC 05:22 → EDSTATUS 07:30 → HSDI 12:45 → N07 14:47
PROVIDERS: ADMIT Surgery; ATTEND Surgery

== ENCOUNTER 2018-01-06 17:37 | Inpatient (IN) ==
[2018-01-06] MEDS ORDERED: Morphine Inj 4 MG/ML Vial IV.PUSH ONE (19:55)
[2018-01-06] MEDS ORDERED: Ketorolac Inj 30 MG/ML (IVP) Vial IV.PUSH ONE (19:55)
[2018-01-06] MEDS ORDERED: Sod Chloride 0.9% Inj 1,000 ML IV.SIG ONE (19:55)
--- NOTE | 2018-01-06 20:09 | ED ---
HPI General Chief Complaint: Abdominal Pain Stated Complaint: Patient states sent by for admission Time Seen by Provider: 01/06/18 19:47 Source: patient and family Mode of arrival: wheelchair Limitations: no limitations History of Present Illness HPI narrative: 47-year-old female with a history of recent surgery to presents to the ED to per patient get admitted. Patient reports that she had surgery on December 13 for a hernia repair. This was done at this facility. She was seen by Dr. Kelley who was her main surgeon. Apparently she had dehiscence of her wound and has been drainage from the wound. Dr. Kelley himself saw her today and the office and apparently has a wound that that he is about 8 cm with drainage. Patient reports as well as per nurse report we got the report from Dr. Kelley that she was sent here for admission to medicine and consult to him. Patient does have a history of diabetes, hypertension and obesity per Dr. Kelley his report. He wants labs and CT scan of the abdomen and pelvis with contrast. Per report he is to do surgery on her tomorrow. Patient states that she does have pain on the lower abdomen. Per patient the pain in the area is 8 out of 10. Per patient she is taking Lortab with minimal relief of the pain. Patient denies any injuries. Patient denies any other medical issues at this time. Related Data Home Medications Medication Instructions Recorded Confirmed ferrous sulfate 325 mg PO DAILY 09/27/17 01/06/18 Previous Rx's Medication Instructions Recorded estradiol [Climara] 1 patch TRANSDERMAL QWEEK #7 ea 12/17/17 oxycodone-acetaminophen 1 tab PO Q4H PRN #18 tab 12/17/17 Allergies Allergy/AdvReac Type Severity Reaction Status Date / Time naproxen Allergy Mild VOMITING Verified 12/13/17 06:37 propoxyphene Allergy Mild VOMITING Verified 12/13/17 06:37 Review of Systems ROS: all other systems reviewed are negative [facility] Medical History Medical History Abdominal hernia (Acute) Hx of hysterectomy (Acute) Uterine fibroid (Acute) Surgical History Surgical History H/O hernia repair (Acute) H/O: (Acute) Hx of cholecystectomy (Acute) Social History Social History Substance History: No History of Abuse Second Hand Smoke Exposure: No Smoking Status: Former smoker How Often Do You Have a Drink Containing Alcohol: Never Recent Travel in [facility] within the Last 8 Weeks: No Recent Out of Country Travel within the Last 8 Weeks: No Immunization History Tetanus Immunization: <5 Years Exam Narrative Exam Narrative: GENERAL: well appearing, obese patient SKIN: Focused skin assessment warm/dry. HEAD: Atraumatic. Normocephalic. EYES: Pupils equal and round. No scleral icterus. No injection or drainage. ENT: No nasal bleeding or discharge. Mucous membranes pink and moist. Tongue is midline. No uvula deviation. NECK: Trachea midline. No JVD. CARDIOVASCULAR: Regular rate and rhythm. No murmur appreciated. RESPIRATORY: No accessory muscle use. Clear to auscultation. Breath sounds equal bilaterally. GASTROINTESTINAL: Abdomen soft, tender on the area of the dehiscence. Patient does have a substantial dehiscence about 8 cm on her surgical wound. Patient has packing and drainage coming from the wound. Appears to be serosanguineous but some foul-smelling discharge noted as well., nondistended. Hepatic and splenic margins not palpable. MUSCULOSKELETAL: No obvious deformities. No clubbing. No cyanosis. No edema. Full range of motion of the upper and lower extremities bilaterally. 2+ pulses bilaterally. NEUROLOGICAL: Awake and alert. No obvious cranial nerve deficits. Motor grossly within normal limits. Normal speech. PSYCHIATRIC: Appropriate mood and affect; insight and judgment normal. Course Initial Documented Vital Signs Temperature 99.5 F 01/06/18 17:49 Pulse Rate 114 H 01/06/18 17:49 Respiratory Rate 18 01/06/18 17:49 Blood Pressure 172/87 H 01/06/18 17:49 Pulse Oximetry 97 01/06/18 17:49 Last Documented Vital Signs Temperature 99.7 F H 01/06/18 19:42 Pulse Rate 89 01/06/18 19:42 Respiratory Rate 18 01/06/18 21:46 Blood Pressure 118/55 L 01/06/18 19:42 Pulse Oximetry 99 01/06/18 19:42 Medical Decision Making MDM Narrative Medical decision making narrative: 47-year-old female that presents to the ED for evaluation of admission. Patient was properly examined and was found to have signs and symptoms consistent with appears to be a wound dehiscence which appears to be infected. I was able to get the report that was given to charge nurse. Per Dr. Kelley patient is to be admitted to [facility], CT contrast, labs and patient is to have surgery tomorrow morning. Labs and imaging were ordered by me. Case discussed with my attending Dr. Subramanian who agrees with plan and admission to medicine with consult to Allie. I was able to review the patient 's medical records and she did had surgery here on December [address] Kelley and Dr. Cueva for hernia repair. Labs and imaging were essentially unremarkable. Case discussed with Dr. Faustin who agrees admission to her service. Medical Screen Exam Complete: Yes Emergency Medical Condition: Yes Differential Diagnosis Differential Diagnosis: acute abdomen versus abdominal infection versus Abdominal pain versus infected wound versus wound dehiscence Medical Records Medical records reviewed: Yes I reviewed the patient's medical records. Lab Data Lab results reviewed: Yes I reviewed the patient's lab results. Result diagrams: 01/06/18 19:55 01/06/18 19:55 Lab Results 01/06/18 01/06/18 01/06/18 Range/Units 19:55 19:55 19:55 WBC 14.9 H (4.0-11.0) th/mm3 RBC 4.24 (4.00-5.30) mil/mm3 Hgb 9.5 L (11.6-15.3) gm/dL Hct 30.0 L (35.0-46.0) % MCV 70.8 L (80.0-100.0) fL MCH 22.5 L (27.0-34.0) pg MCHC 31.7 L (32.0-36.0) % RDW 27.9 H (11.6-17.2) % Plt Count 456 H D (150-450) th/mm3 MPV 8.8 (7.0-11.0) fL Prelim Diff (Auto) Slide review pending Neut % (Auto) 82.1 H (16.0-70.0) % Lymph % (Auto) 9.9 (9.0-44.0) % [place] % (Auto) 5.7 (0.0-8.0) % Eos % (Auto) 1.1 (0.0-4.0) % Baso % (Auto) 1.2 (0.0-2.0) % Neut # (Auto) 12.2 H (1.8-7.7) th/mm3 Lymph # (Auto) 1.5 (1.0-4.8) th/mm3 [place] # (Auto) 0.8 (0.0-0.9) th/mm3 Eos # (Auto) 0.2 (0.0-0.4) th/mm3 Baso # (Auto) 0.2 (0.0-0.2) th/mm3 WBC Differential . Diff Scan Auto diff confirmed Differential Comment . Dimorphic RBCs Present H (None) Acanthocytes (Spur) Occ H (None) PT 11.5 (9.8-11.6) sec INR 1.1 Ratio APTT 28.5 (24.3-30.1) sec Sodium 137 (136-145) meq/L Potassium 4.4 (3.5-5.1) meq/L Chloride 102 (98-107) meq/L Carbon Dioxide 26.9 (21.0-32.0) meq/L Anion Gap 8 (5-15) meq/L BUN 10 (7-18) mg/dL Creatinine 0.69 (0.50-1.00) mg/dL Estimated GFR Greater than 89 (>89) mL/min POC Glucose (68-110) mg/dl Random Glucose 82 (74-106) mg/dL Lactic Acid (0.4-2.0) mmol/L Calcium 9.4 (8.5-10.1) mg/dL Total Bilirubin 0.3 (0.2-1.0) mg/dL AST 25 (15-37) U/L ALT 15 (10-53) U/L Alkaline Phosphatase 108 (45-117) U/L Total Protein 8.7 H (6.4-8.2) g/dL Albumin 2.8 L (3.4-5.0) g/dL 01/06/18 01/06/18 Range/Units 20:12 20:21 WBC (4.0-11.0) th/mm3 RBC (4.00-5.30) mil/mm3 Hgb (11.6-15.3) gm/dL Hct (35.0-46.0) % MCV (80.0-100.0) fL MCH (27.0-34.0) pg MCHC (32.0-36.0) % RDW (11.6-17.2) % Plt Count (150-450) th/mm3 MPV (7.0-11.0) fL Prelim Diff (Auto) Neut % (Auto) (16.0-70.0) % Lymph % (Auto) (9.0-44.0) % [place] % (Auto) (0.0-8.0) % Eos % (Auto) (0.0-4.0) % Baso % (Auto) (0.0-2.0) % Neut # (Auto) (1.8-7.7) th/mm3 Lymph # (Auto) (1.0-4.8) th/mm3 [place] # (Auto) (0.0-0.9) th/mm3 Eos # (Auto) (0.0-0.4) th/mm3 Baso # (Auto) (0.0-0.2) th/mm3 WBC Differential Diff Scan Differential Comment Dimorphic RBCs (None) Acanthocytes (Spur) (None) PT (9.8-11.6) sec INR Ratio APTT (24.3-30.1) sec Sodium (136-145) meq/L Potassium (3.5-5.1) meq/L Chloride (98-107) meq/L Carbon Dioxide (21.0-32.0) meq/L Anion Gap (5-15) meq/L BUN (7-18) mg/dL Creatinine (0.50-1.00) mg/dL Estimated GFR (>89) mL/min POC Glucose 96 (68-110) mg/dl Random Glucose (74-106) mg/dL Lactic Acid 1.1 (0.4-2.0) mmol/L Calcium (8.5-10.1) mg/dL Total Bilirubin (0.2-1.0) mg/dL AST (15-37) U/L ALT (10-53) U/L Alkaline Phosphatase (45-117) U/L Total Protein (6.4-8.2) g/dL Albumin (3.4-5.0) g/dL Imaging Data Attestation: I personally reviewed and interpreted this imaging study as follows : Radiologist's impression: Abdomen/Pelvis CT 01/06/18 19:55 CONCLUSION: 1. Status post ventral hernia repair with some residual seroma in the anterior abdominal wall. Open wound anteriorly. No recurrent herniation of bowel. 2. Linear atelectasis at the lung bases. Mild constipation. Previous cholecystectomy. Small hiatal hernia. Discharge Plan Discharge Disposition Patient Disposition: 30 Still Patient Discharge Details Diagnosis: Post surgical complication, Postoperative wound infection, Abdominal wound dehiscence Physicians Team ED Provider: Joanie Subramanian ED Midlevel Provider: Parag Willis Primary Care Provider: UNKNOWN, Attending Provider: Yumiko Faustin Status ED Status: Admitted Patient
[2018-01-06 20:28] LABS: Baso # (Auto) 0.2 th/mm3 (0.0-0.2); Baso % (Auto) 1.2 % (0.0-2.0); Eos # (Auto) 0.2 th/mm3 (0.0-0.4); Eos % (Auto) 1.1 % (0.0-4.0); Hemoglobin 9.5 gm/dL (11.6-15.3); Lymph # (Auto) 1.5 th/mm3 (1.0-4.8); Lymph % (Auto) 9.9 % (9.0-44.0); Mean Corpuscular HGB Conc 31.7 % (32.0-36.0); Mean Corpuscular Hemoglobin 22.5 pg (27.0-34.0); Mean Corpuscular Volume 70.8 fL (80.0-100.0); Mean Platelet Volume 8.8 fL (7.0-11.0); Mono # (Auto) 0.8 th/mm3 (0.0-0.9); Mono % (Auto) 5.7 % (0.0-8.0); Neut # (Auto) 12.2 th/mm3 (1.8-7.7); Neut % (Auto) 82.1 % (16.0-70.0); Platelet Count 456 th/mm3 (150-450); Red Blood Count 4.24 mil/mm3 (4.00-5.30); Red Cell Distribution Width 27.9 % (11.6-17.2); White Blood Count 14.9 th/mm3 (4.0-11.0)
[2018-01-06 20:50] LABS: Activated Partial Thrombo Time 28.5 sec (24.3-30.1); INR 1.1 Ratio; Prothrombin Time 11.5 sec (9.8-11.6)
[2018-01-06 20:52] LABS: Alanine Aminotransferase 15 U/L (10-53)
[2018-01-06 20:53] LABS: Albumin 2.8 g/dL (3.4-5.0); Anion Gap 8 meq/L (5-15); Aspartate Aminotransferase 25 U/L (15-37); Blood Urea Nitrogen 10 mg/dL (7-18); Calcium 9.4 mg/dL (8.5-10.1); Carbon Dioxide 26.9 meq/L (21.0-32.0); Chloride 102 meq/L (98-107); Glomerular Filtration Rate Greater Than 89 mL/min (>89); Glucose,Random 82 mg/dL (74-106); Sodium 137 meq/L (136-145)
[2018-01-06 20:54] LABS: Alkaline Phosphatase 108 U/L (45-117); Total Protein 8.7 g/dL (6.4-8.2)
[2018-01-06 20:57] LABS: Potassium 4.4 meq/L (3.5-5.1)
[2018-01-06 20:58] LABS: Dimorphic RBC Present
[2018-01-06 20:59] LABS: Acanthocytes Occ
--- NOTE | 2018-01-06 22:29 | CT ---
EXAM DATE: 01/06/2018 8:55 PM EDT AGE/SEX: 47 years / Female INDICATIONS: Abdominal pain. CLINICAL DATA: This is the patient's initial encounter. Patient reports that signs and symptoms have been present for 1 day and indicates a pain score of 5/10. MEDICAL/SURGICAL HISTORY: . Abdominal hernia. Uterine fibroid. . section. Hernia repa ir. ORAL CONTRAST: No oral contrast ingested. RADIATION DOSE: 16.89 CTDI (mGy) COMPARISON: [facility] [place], CT ABDOMEN & PELVIS W CONTRAST, 09/04/2017. . TECHNIQUE: Multiple contiguous axial images were obtained through the abdomen and pelvis following b olus infusion of 97 ml Omnipaque 350 (iohexol) nonionic water-soluble contrast as a single exam dos e. No oral contrast ingested. Using automated exposure control and adjustment of the mA and/or kV ac cording to patient size, radiation dose was kept as low as reasonably achievable to obtain optimal di agnostic quality images. DICOM format image data is available electronically for review and comparis on. FINDINGS: Comparison is August 2017. Previous ventral hernia containing small bowel has been surgically reduced. There is an open anterior abdominal wall wound with a presumed seroma measuring about 7.5 x 3.6 cm in the anterior abdominal wall. There is surrounding edematous changes subcutaneous fat. There is linear atelectasis at both lung bases. No effusions. No acute findings in the liver, spleen, adrenals, kidneys or pancreas. Previous cholecystectomy. No bowel obstruction. Mild constipation. No free air. No significant free fluid. No acute bony abnorm alities. CONCLUSION: 1. Status post ventral hernia repair with some residual seroma in the anterior abdominal wall. Open wound anteriorly. No recurrent herniation of bowel. 2. Linear atelectasis at the lung bases. Mild constipation. Previous cholecystectomy. Small hiatal h ernia. Electronically signed by: Handy Lynch MD 01/06/2018 10:28 PM EDT
[2018-01-06] MEDS ORDERED: Acetaminophen 325 MG Tablet PO PRN (22:51)
[2018-01-06] MEDS ORDERED: Dextrose 50% in Water 50 ML Vial IV.PUSH PRN (22:52)
--- NOTE | 2018-01-06 22:59 | P.HP ---
History of Present Illness Service: [facility] Primary Care Physician: UNKNOWN History of Present Illness: 47-year-old female with past medical history significant for diabetes mellitus and hypertension presents to the emergency department from her surgeon's office for the evaluation of wound dehiscence. On 12/13/17 the patient had a hernia repair with Dr. Kelley. She reports her wound started leaking approximately 1 week ago and the drainage has steadily increased. She was seen in clinic today and sent to the emergency department for further evaluation. She denies any fever/chills. Endorses abdominal pain that is a 7/10. Associated nausea. No emesis. No chest pain or shortness of breath. No lateralizing signs/symptoms. Inpatient Certification: I certify that the inpatient services were ordered in accordance with Medicare regulations governing the order. This includes certification that hospital inpatient services are reasonable and necessary and in the case of services not specified as inpatient-only under 42 CFR 419.22(n), that they are appropriately provided as inpatient services in accordance to with the 2-midnight benchmark under 43 CFR 412.3(e) Estimated Total Length of Stay (Days): 2 Plans for Post Hospital Care: Not yet determined Review of Systems All other systems reviewed negative except as stated in HPI PMFSH - History History Provided By: Patient - Medical History Medical History: Medical History (Last Updated 01/06/18 @ 22:56 by Yumiko Faustin MD) Diabetes mellitus Hx of hysterectomy Hypertension Abdominal hernia Uterine fibroid - Surgical History Surgical History: Surgical History (Last Reviewed 01/06/18 @ 22:56 by Yumiko Faustin MD) H/O hernia repair H/O: Hx of cholecystectomy - Family History Family History: Family History (Last Updated 01/06/18 @ 22:56 by Yumiko Faustin MD) Other Diabetes mellitus - Tobacco History Second Hand Smoke Exposure: No Smoking Status: Former smoker - Alcohol History How Often Do You Have a Drink Containing Alcohol: Never - Substance Use History Substance History: No History of Abuse - Travel History Recent Travel in the [place] Within the Last 8 Weeks: No Recent Travel Out of the Country Within the Last 8 Weeks: No - Immunization History Tetanus Immunization: <5 Years Medications and Allergies Allergies Allergy/AdvReac Type Severity Reaction Status Date / Time naproxen Allergy Mild VOMITING Verified 12/13/17 06:37 propoxyphene Allergy Mild VOMITING Verified 12/13/17 06:37 Home Medications Medication Instructions Recorded Confirmed Type ferrous sulfate 325 mg PO DAILY 09/27/17 01/06/18 History Exam Vital signs: Vital Signs 01/06/18 17:49 01/06/18 19:42 01/06/18 21:46 Temperature 99.5 F 99.7 F H Pulse Rate 114 H 89 Respiratory Rate 18 22 18 Blood Pressure 172/87 H 118/55 L Pulse Oximetry 97 99 Intake & Output 01/06/18 01/06/18 01/07/18 06:59 18:59 06:59 Intake Total 1000 / 1000 Balance 1000 / 1000 Weight 111.584 kg Intake: IV 1000 / 1000 NS Inj 1,000 ML @ Wide Open IV. 1000 / 1000 SIG BOLUS ONE Rx#:[id number] Narrative: Gen.: No acute distress Head: Normocephalic. Atraumatic. EENT: Pupils equal round and reactive to light. Nose without drainage. Airway intact. Throat without injection. Cardiovascular: Regular rate and rhythm. No murmurs, rubs or gallops. Respiratory: Lungs clear to auscultation bilaterally. No wheezes or rhonchi. Abdomen: Soft, nondistended. 8 cm surgical wound dehiscence with packing and serosanguineous drainage coming from the wound. Musculoskeletal: No gross deformities. No edema. Skin: No obvious rashes or erythema. Neuro: Sensory and motor grossly intact. Cranial nerves II through XII grossly intact. Results - Labs CBC & Chem 7: 01/06/18 19:55 01/06/18 19:55 Labs: Laboratory Results - last 24 hr 01/06/18 01/06/18 01/06/18 19:55 19:55 19:55 WBC 14.9 H RBC 4.24 Hgb 9.5 L Hct 30.0 L MCV 70.8 L MCH 22.5 L MCHC 31.7 L RDW 27.9 H Plt Count 456 H D MPV 8.8 Prelim Diff (Auto) Slide review pending Neut % (Auto) 82.1 H Lymph % (Auto) 9.9 [place] % (Auto) 5.7 Eos % (Auto) 1.1 Baso % (Auto) 1.2 Neut # (Auto) 12.2 H Lymph # (Auto) 1.5 [place] # (Auto) 0.8 Eos # (Auto) 0.2 Baso # (Auto) 0.2 WBC Differential . Diff Scan Auto diff confirmed Differential Comment . Dimorphic RBCs Present H Acanthocytes (Spur) Occ H PT 11.5 INR 1.1 APTT 28.5 Sodium 137 Potassium 4.4 Chloride 102 Carbon Dioxide 26.9 Anion Gap 8 BUN 10 Creatinine 0.69 Estimated GFR Greater than 89 POC Glucose Random Glucose 82 Lactic Acid Calcium 9.4 Total Bilirubin 0.3 AST 25 ALT 15 Alkaline Phosphatase 108 Total Protein 8.7 H Albumin 2.8 L 01/06/18 01/06/18 20:12 20:21 WBC RBC Hgb Hct MCV MCH MCHC RDW Plt Count MPV Prelim Diff (Auto) Neut % (Auto) Lymph % (Auto) [place] % (Auto) Eos % (Auto) Baso % (Auto) Neut # (Auto) Lymph # (Auto) [place] # (Auto) Eos # (Auto) Baso # (Auto) WBC Differential Diff Scan Differential Comment Dimorphic RBCs Acanthocytes (Spur) PT INR APTT Sodium Potassium Chloride Carbon Dioxide Anion Gap BUN Creatinine Estimated GFR POC Glucose 96 Random Glucose Lactic Acid 1.1 Calcium Total Bilirubin AST ALT Alkaline Phosphatase Total Protein Albumin - Imaging Impressions Abdomen/Pelvis CT 01/06/18 19:55 CONCLUSION: 1. Status post ventral hernia repair with some residual seroma in the anterior abdominal wall. Open wound anteriorly. No recurrent herniation of bowel. 2. Linear atelectasis at the lung bases. Mild constipation. Previous cholecystectomy. Small hiatal hernia. Caprini VTE Risk Assessment Caprini VTE Risk Assessment: No/Low Risk (score <= 1) Caprini Risk Assessment Model: Point Value = 1 Point Value = 2 Point Value = 3 Point Value = 5 Age 41-60 Minor surgery BMI > 25 kg/m2 Swollen legs Varicose veins or History of unexplained or recurrent spontaneous Oral contraceptives or hormone replacement Sepsis (< 1 month) Serious lung disease, including pneumonia (< 1 month) Abnormal pulmonary function Acute myocardial infarction Congestive heart failure (< 1 month) History of inflammatory bowel disease Medical patient at bed rest Age 61-74 Arthroscopic surgery Major open surgery (> 45 min) Laparoscopic surgery (> 45 min) Malignancy Confined to bed (> 72 hours) Immobilizing plaster cast Central venous access Age >= 75 History of VTE Family history of VTE Factor V Leiden Prothrombin [id number] Lupus anticoagulant Anticardiolipin antibodies Elevated serum homocysteine Heparin-induced thrombocytopenia Other congenital or acquired thrombophilia Stroke (< 1 month) Elective arthroplasty Hip, pelvis, or leg fracture Acute spinal cord injury (< 1 month) Prophylaxis Regimen: Total Risk Factor Score Risk Level Prophylaxis Regimen 0-1 Low Early ambulation 2 Moderate Order ONE of the following: *Sequential Compression Device (SCD) *Heparin 5000 units SQ BID 3-4 Higher Order ONE of the following medications: *Heparin 5000 units SQ TID *Enoxaparin/Lovenox 40 mg SQ daily (WT < 150 kg, CrCl > 30 mL/min) *Enoxaparin/Lovenox 30 mg SQ daily (WT < 150 kg, CrCl > 10-29 mL/min) *Enoxaparin/Lovenox 30 mg SQ BID (WT < 150 kg, CrCl > 30 mL/min) AND/OR *Sequential Compression Device (SCD) 5 or more Highest Order ONE of the following medications: *Heparin 5000 units SQ TID (Preferred with Epidurals) *Enoxaparin/Lovenox 40 mg SQ daily (WT < 150 kg, CrCl > 30 mL/min) *Enoxaparin/Lovenox 30 mg SQ daily (WT < 150 kg, CrCl > 10-29 mL/min) *Enoxaparin/Lovenox 30 mg SQ BID (WT < 150 kg, CrCl > 30 mL/min) AND *Sequential Compression Device (SCD) Assessment and Plan - Plan Assessment/plan: 1. Wound dehiscence Status post hernia repair on 12/13/17 Dr. Kelley consulted, appreciate assistance 2. Diabetes mellitus Patient denies any home medications Sliding-scale insulin Monitor blood glucose 3. Hypertension Patient denies any home antihypertensives Vasotec as needed FEN N.p.o. Electrolytes: Monitor and replete as needed NS at 100 cc/hour
[2018-01-07] MEDS: Sod Chloride 0.9% Inj 1,000 ML IV.CONT SCH ×3 (01:15→21:12)
[2018-01-07] MEDS: Morphine Inj 4 MG/ML Vial IV.PUSH PRN ×5 (01:15→18:48)
[2018-01-07] MEDS: Insulin NovoLOG Aspart Correctional Sugar Inj SQ SCH ×5 (02:03→21:17)
[2018-01-07] MEDS ORDERED: Metoprolol Tartrate 25 MG Tablet PO ONE (07:12)
[2018-01-07] MEDS ORDERED: Chlorhexidine Gluconate 2% 1 Pack (2 Cloths) TOPICAL ONE (07:12)
[2018-01-07 07:55] LABS: Baso % (Auto) 0.4 % (0.0-2.0); Eos # (Auto) 0.3 th/mm3 (0.0-0.4); Eos % (Auto) 3.2 % (0.0-4.0); Hematocrit 27.2 % (35.0-46.0); Hemoglobin 8.4 gm/dL (11.6-15.3); Lymph # (Auto) 1.4 th/mm3 (1.0-4.8); Lymph % (Auto) 16.4 % (9.0-44.0); Mean Corpuscular Hemoglobin 22.3 pg (27.0-34.0); Mean Corpuscular Volume 72.2 fL (80.0-100.0); Mean Platelet Volume 8.6 fL (7.0-11.0); Mono # (Auto) 0.7 th/mm3 (0.0-0.9); Mono % (Auto) 8.3 % (0.0-8.0); Neut # (Auto) 5.9 th/mm3 (1.8-7.7); Neut % (Auto) 71.7 % (16.0-70.0); Platelet Count 386 th/mm3 (150-450); Red Blood Count 3.77 mil/mm3 (4.00-5.30); Red Cell Distribution Width 27.6 % (11.6-17.2); White Blood Count 8.3 th/mm3 (4.0-11.0)
[2018-01-07] MEDS ORDERED: Sodium Chlor 0.9% Inj 500 ML IV.SIG SCH (08:00)
[2018-01-07 08:34] LABS: Anion Gap 8 meq/L (5-15); Blood Urea Nitrogen 8 mg/dL (7-18); Calcium 8.8 mg/dL (8.5-10.1); Carbon Dioxide 26.6 meq/L (21.0-32.0); Chloride 106 meq/L (98-107); Glomerular Filtration Rate Greater Than 89 mL/min (>89); Glucose,Random 81 mg/dL (74-106); Potassium 3.6 meq/L (3.5-5.1); Sodium 141 meq/L (136-145)
[2018-01-07] MEDS ORDERED: Bupivacaine/Epinephrine Inj 0.25% 50 ML Vial ONE ×2 (09:23→11:49)
[2018-01-07] MEDS ORDERED: Ketamine Inj 50 MG/5 ML Syringe IV.PUSH ONE (09:33)
[2018-01-07] MEDS ORDERED: fentaNYL Citrate Inj 250 MCG/5 ML Ampul ONE (09:34)
[2018-01-07] MEDS ORDERED: fentaNYL Citrate Inj 100 MCG/2 ML Ampul ONE (09:34)
[2018-01-07] MEDS ORDERED: Famotidine PF Inj 20 MG/2 ML Vial ONE (09:34)
[2018-01-07] MEDS ORDERED: Albumin Human 5% Inj 250 ML IV.SIG ONE (09:34)
[2018-01-07] MEDS ORDERED: Glycopyrrolate Inj 1 MG/5 ML Syringe IV.PUSH ONE (10:17)
[2018-01-07] MEDS ORDERED: Lidocaine PF 1% Inj 5 ML Syringe OTHER ONE (10:17)
[2018-01-07] MEDS ORDERED: Neostigmine Inj 5 MG/5 ML Syringe IV.PUSH ONE (10:17)
[2018-01-07] MEDS ORDERED: Ketorolac Inj 30 MG/ML (IVP) Vial IV.PUSH ONE (10:17)
[2018-01-07] MEDS: Piperacil/Tazo 3.375 GM Premix 50 ML IV.SIG SCH ×2 (10:21→17:02)
[2018-01-07 10:33] LABS: Bacteria,Urine Few /hpf; Bilirubin,Urine Negative (Negative); Clarity,Urine Hazy (Clear); Color,Urine Yellow (Yellw/Straw); Glucose,Urine (UA) Negative (Negative); Leukocyte Esterase,Urine Large (Negative); Mucus,Urine Few /lpf (Occasional); Nitrite,Urine Negative (Negative); Specific Gravity,Urine 1.039 (1.002-1.035); Squamous Epithelial Cell,Urine 2 /hpf (0-5)
--- NOTE | 2018-01-07 11:10 | P.CONGS ---
[facility] Gen Surgery Consult Note Consult date: 01/06/18 Reason for consult: other (Wound dehiscence) Requesting physician: Yumiko Faustin Narrative: CONSULTATION NOTE FOR SURGICAL ATTENDING, DR. HANDY KELLEY This is a 47 year old female with a recent surgical history of total abdominal hysterectomy (Dr. Aragon) and repair of a large retrorectus incisional hernia by Dr. Kelley on December 13, 2017. She returned to the office yesterday for a follow up visit and was found to have wound dehiscence. She was sent to the [place] ED. A CT abdomen/pelvis was obtained which shows that the wound is open anteriorly. On admission, she did have a mildly elevated WBC. She reports she has been weak since surgery and feeling nauseous at times. A General Surgery consultation has been requested. Review of Systems All other systems reviewed negative except as stated in [facility] - History History Provided By: Patient - Medical History Medical History: Medical History (Last Reviewed 01/07/18 @ 11:26 by Handy Kelley MD) Hx of hysterectomy Abdominal hernia Uterine fibroid - Surgical History Surgical History: Surgical History (Last Reviewed 01/07/18 @ 11:26 by Handy Kelley MD) H/O hernia repair H/O: Hx of cholecystectomy - Family History Family History: Family History (Last Reviewed 01/07/18 @ 11:26 by Handy Kelley MD) Other Diabetes mellitus - Tobacco History Second Hand Smoke Exposure: No Smoking Status: Never smoker - Alcohol History How Often Do You Have a Drink Containing Alcohol: Monthly or less - Substance Use History Substance History: No History of Abuse - Travel History Recent Travel in the [place] Within the Last 8 Weeks: No Recent Travel Out of the Country Within the Last 8 Weeks: No - Immunization History Tetanus Immunization: <5 Years Medications and Allergies Allergies Allergy/AdvReac Type Severity Reaction Status Date / Time naproxen Allergy Mild VOMITING Verified 12/13/17 06:37 propoxyphene Allergy Mild VOMITING Verified 12/13/17 06:37 Active Medications: Active Medications Acetaminophen (Tylenol) 650 mg PO Q4H PRN PRN Reason: Temp > 100.4 Dextrose (D50w Vial) 50 ml IV.PUSH UNSCH PRN PRN Reason: PER HYPOGLYCEMIA PROTOCOL Enalaprilat (Vasotec Inj) 1.25 mg IV.PUSH Q6H PRN PRN Reason: sbp>160, dbp>90 Glucagon (Glucagon Inj) 1 mg OTHER PRN PRN PRN Reason: for Hypoglycemia Protocol Sodium Chloride (Ns Inj) 1,000 mls @ 100 mls/hr IV.CONT .Q10H FELIPE Last Admin: 01/07/18 09:03 Dose: 100 mls/hr Lactated Ringer's (Lr 1000 Ml Inj) 1,000 mls @ 30 mls/hr IV.SIG .Q24H FELIPE Stop: 01/08/18 07:14 Last Admin: 01/07/18 10:01 Dose: 30 mls/hr Sodium Chloride (Ns Inj) 500 mls @ 30 mls/hr IV.SIG .Q10H FELIPE Last Admin: 01/07/18 10:01 Dose: Not Given Piperacillin/Tazobactam/Dextrose (Zosyn 3.375 Gm Premix) 50 mls @ 100 mls/hr IV.SIG Q8H FELIPE Insulin Aspart (Novolog Insulin Correctional Sugar Inj) 0 unit SQ ACHS AND 3AM FELIPE; Protocol Last Admin: 01/07/18 08:15 Dose: Not Given Morphine Sulfate (Morphine Inj) 4 mg IV.PUSH Q4H PRN PRN Reason: pain 6-10 Last Admin: 01/07/18 09:04 Dose: 4 mg Ondansetron HCl (Zofran Inj) 4 mg IV.PUSH Q6H PRN PRN Reason: NAUSEA OR VOMITING Exam Vital signs: Vital Signs 01/06/18 17:49 01/06/18 19:42 01/06/18 21:46 Temperature 99.5 F 99.7 F H Pulse Rate 114 H 89 Respiratory Rate 18 Blood Pressure 172/87 H 118/55 L Pulse Oximetry 97 99 01/06/18 23:00 01/07/18 00:00 01/07/18 08:00 Temperature 98.1 F 98 F 98.2 F Pulse Rate 70 74 70 Respiratory Rate 18 18 Blood Pressure 102/48 L 130/61 120/56 L Pulse Oximetry 94 L 98 Intake & Output 01/06/18 01/07/18 01/07/18 18:59 06:59 18:59 Intake Total 1000 / 1000 775 / 775 Balance 1000 / 1000 775 / 775 Weight 111.584 kg 113.2 kg Intake: IV 1000 / 1000 775 / 775 NS Inj 1,000 ML @ 100 mls/hr IV 775 / 775 .CONT .Q10H FELIPE Rx#:[id number] NS Inj 1,000 ML @ Wide Open IV. 1000 / 1000 SIG BOLUS ONE Rx#:[id number] Other: Date of Last Bowel Movement 01/05/18 Weight On Admission 113.2 kg Narrative: GENERAL: 47 year old female resting in bed in no acute distress. SKIN: Warm and dry. See abdominal exam below. HEAD: Atraumatic. Normocephalic. EYES: Pupils equal and round. No scleral icterus. No injection or drainage. ENT: No nasal bleeding or discharge. Mucous membranes pink and moist. NECK: Trachea midline. CARDIOVASCULAR: Regular rate and rhythm. RESPIRATORY: No accessory muscle use. Clear to auscultation. Breath sounds equal bilaterally. GASTROINTESTINAL: Abdomen with healing midline incision-----lower 1/3 of incision is open---adipose tissue exposed; malodorous drainage; yellow exudate in wound bed. MUSCULOSKELETAL: Extremities without clubbing, cyanosis, or edema. No obvious deformities. NEUROLOGICAL: Awake and alert. No obvious cranial nerve deficits. Motor grossly within normal limits. Five out of 5 muscle strength in the arms and legs. Normal speech. PSYCHIATRIC: Appropriate mood and affect; insight and judgment normal. Results - Labs 01/07/18 06:40 01/07/18 06:40 Laboratory Results - last 24 hr 01/06/18 01/06/18 01/06/18 19:55 19:55 19:55 WBC 14.9 H RBC 4.24 Hgb 9.5 L Hct 30.0 L MCV 70.8 L MCH 22.5 L MCHC 31.7 L RDW 27.9 H Plt Count 456 H D MPV 8.8 Prelim Diff (Auto) Slide review pending Neut % (Auto) 82.1 H Lymph % (Auto) 9.9 [place] % (Auto) 5.7 Eos % (Auto) 1.1 Baso % (Auto) 1.2 Neut # (Auto) 12.2 H Lymph # (Auto) 1.5 [place] # (Auto) 0.8 Eos # (Auto) 0.2 Baso # (Auto) 0.2 WBC Differential . Diff Scan Auto diff confirmed Differential Comment . Dimorphic RBCs Present H Acanthocytes (Spur) Occ H PT 11.5 INR 1.1 APTT 28.5 Sodium 137 Potassium 4.4 Chloride 102 Carbon Dioxide 26.9 Anion Gap 8 BUN 10 Creatinine 0.69 Estimated GFR Greater than 89 POC Glucose Random Glucose 82 Lactic Acid Calcium 9.4 Total Bilirubin 0.3 AST 25 ALT 15 Alkaline Phosphatase 108 Total Protein 8.7 H Albumin 2.8 L Urine Color Urine Clarity Urine pH Ur Specific [place] Urine Protein Urine Glucose (UA) Urine Ketones Urine Occult Blood Urine Nitrate Urine Bilirubin Urine Urobilinogen Ur Leukocyte Esterase Urine RBC Urine WBC Ur Squamous Epith Cells Urine Bacteria Urine Mucus Micro UA Comment Ur Microscopic Review Urine Culture Comments 01/06/18 01/06/18 01/07/18 20:12 20:21 01:48 WBC RBC Hgb Hct MCV MCH MCHC RDW Plt Count MPV Prelim Diff (Auto) Neut % (Auto) Lymph % (Auto) [place] % (Auto) Eos % (Auto) Baso % (Auto) Neut # (Auto) Lymph # (Auto) [place] # (Auto) Eos # (Auto) Baso # (Auto) WBC Differential Diff Scan Differential Comment Dimorphic RBCs Acanthocytes (Spur) PT INR APTT Sodium Potassium Chloride Carbon Dioxide Anion Gap BUN Creatinine Estimated GFR POC Glucose 96 96 Random Glucose Lactic Acid 1.1 Calcium Total Bilirubin AST ALT Alkaline Phosphatase Total Protein Albumin Urine Color Urine Clarity Urine pH Ur Specific [place] Urine Protein Urine Glucose (UA) Urine Ketones Urine Occult Blood Urine Nitrate Urine Bilirubin Urine Urobilinogen Ur Leukocyte Esterase Urine RBC Urine WBC Ur Squamous Epith Cells Urine Bacteria Urine Mucus Micro UA Comment Ur Microscopic Review Urine Culture Comments 01/07/18 01/07/18 01/07/18 06:40 06:40 08:11 WBC 8.3 RBC 3.77 L Hgb 8.4 L Hct 27.2 L MCV 72.2 L MCH 22.3 L MCHC 31.0 L RDW 27.6 H Plt Count 386 MPV 8.6 Prelim Diff (Auto) Slide review pending Neut % (Auto) 71.7 H Lymph % (Auto) 16.4 [place] % (Auto) 8.3 H Eos % (Auto) 3.2 Baso % (Auto) 0.4 Neut # (Auto) 5.9 Lymph # (Auto) 1.4 [place] # (Auto) 0.7 Eos # (Auto) 0.3 Baso # (Auto) 0.0 WBC Differential . Diff Scan Auto diff confirmed Differential Comment . Dimorphic RBCs Acanthocytes (Spur) PT INR APTT Sodium 141 Potassium 3.6 D Chloride 106 Carbon Dioxide 26.6 Anion Gap 8 BUN 8 Creatinine 0.61 Estimated GFR Greater than 89 POC Glucose 85 Random Glucose 81 Lactic Acid Calcium 8.8 Total Bilirubin AST ALT Alkaline Phosphatase Total Protein Albumin Urine Color Urine Clarity Urine pH Ur Specific [place] Urine Protein Urine Glucose (UA) Urine Ketones Urine Occult Blood Urine Nitrate Urine Bilirubin Urine Urobilinogen Ur Leukocyte Esterase Urine RBC Urine WBC Ur Squamous Epith Cells Urine Bacteria Urine Mucus Micro UA Comment Ur Microscopic Review Urine Culture Comments 01/07/18 10:00 WBC RBC Hgb Hct MCV MCH MCHC RDW Plt Count MPV Prelim Diff (Auto) Neut % (Auto) Lymph % (Auto) [place] % (Auto) Eos % (Auto) Baso % (Auto) Neut # (Auto) Lymph # (Auto) [place] # (Auto) Eos # (Auto) Baso # (Auto) WBC Differential Diff Scan Differential Comment Dimorphic RBCs Acanthocytes (Spur) PT INR APTT Sodium Potassium Chloride Carbon Dioxide Anion Gap BUN Creatinine Estimated GFR POC Glucose Random Glucose Lactic Acid Calcium Total Bilirubin AST ALT Alkaline Phosphatase Total Protein Albumin Urine Color Yellow Urine Clarity Hazy H Urine pH 6.0 Ur Specific [place] 1.039 H Urine Protein Negative Urine Glucose (UA) Negative Urine Ketones Negative Urine Occult Blood Small H Urine Nitrate Negative Urine Bilirubin Negative Urine Urobilinogen 2.0 H Ur Leukocyte Esterase Large H Urine RBC 1 Urine WBC 2 Ur Squamous Epith Cells 2 Urine Bacteria Few H Urine Mucus Few H Micro UA Comment Culture not ind Ur Microscopic Review Not Reportable Urine Culture Comments Culture not ind - Imaging Imaging: ITS Impressions Abdomen/Pelvis CT 01/06/18 19:55 CONCLUSION: 1. Status post ventral hernia repair with some residual seroma in the anterior abdominal wall. Open wound anteriorly. No recurrent herniation of bowel. 2. Linear atelectasis at the lung bases. Mild constipation. Previous cholecystectomy. Small hiatal hernia. CT scan - abdomen: image reviewed Assessment and Plan - Assessment (1) Wound dehiscence Code(s): T81.30XA - Disruption of wound, unspecified, initial encounter Status : Acute Plan: 47 year old female TAJ; repair of large open incisional hernia -Plan for OR today for wound exploration and Wound Vac placement -NPO -Added Zosyn -Await wound swab results -All questions answered -We will continue to follow - Plan Discussed Condition With: Dr. Allie Thao - Attending Attestation CONSULTATION NOTE FOR SURGICAL ATTENDING, DR. HANDY KELLEY Patient has developed a breakdown of the midline wound in the middle half of the wound. She has malodorous drainage and necrotic subcutaneous tissue and skin. This is failed outpatient therapy and is progressing well plan VAC application and sharp debridement I agree with above assessment and plan. The exam, history, and the medical decision-making described in the above note were completed with the assistance of the mid-level provider. I reviewed and agree with the findings presented. I attest that I had a [id number] encounter with the patient on the same day, and personally performed and documented my assessment and findings in the medical record. The following services were provided during this hospital visit: Chart data review, vital sign assessments/reviewing monitor data Review of consultations notes if present. Medication orders/review and/or management Ordering and/or reviewing lab tests Ordering and/or interpreting/reviewing x-rays and/or diagnostic studies Care of the patient and discussion of the patient with the care team Documentation time To help prompt me to consider important information that might be impacting today's encounter and assessment, Information from prior notes written by myself or my colleagues may have been "brought forward/copy and pasted" into today's note.
[2018-01-07] MEDS ORDERED: *morphine SULFATE 4 MG/ML PERIprocedure ONLY ONE ×2 (11:23→11:34)
--- NOTE | 2018-01-07 11:38 | MP ---
cc: Handy Kelley MD DATE OF OPERATION: 01/07/2018 PREOPERATIVE DIAGNOSIS: Wound dehiscence of the subcutaneous tissue, status post a large ventral hernia repair. POSTOPERATIVE DIAGNOSIS: Wound dehiscence of the subcutaneous tissue, status post a large ventral hernia repair. PROCEDURE PERFORMED: 1. Exploration of midline wound. 2. Sharp excisional debridement of skin, subcutaneous tissue, adipose tissue with necrosis. 3. Irrigation and debridement of midline abdominal wound with application of a medium VAC device and drain. ANESTHESIA: General. SURGEON: Handy Kelley MD. INDICATIONS FOR PROCEDURE: This is a 47-year-old female who underwent a complex incisional hernia repair with a hysterectomy for intermittent hemorrhage from her fibroid uterus. She underwent a complex hernia repair. Unfortunately, she has developed some skin necrosis, subcutaneous tissue necrosis, and wound dehiscence in the middle of her wound. Plans were made for further sharp debridement because of failure of outpatient therapy. DETAILS OF PROCEDURE: The patient was taken to the operating room and placed in supine position. After anesthesia, her abdomen was prepped with Betadine. The previous wet-to-dry dressings all removed. Prepped with Betadine. We then just sharply debrided and excised the necrotic skin and adipose tissue and subcutaneous tissue to viable adipose tissue. This sharply debrided using sharp knives and scissors. Bleeding stopped with the electrocautery device. She has an extension of the wound into a small serous cavity at the superior aspect of the wound. This was irrigated copiously. There does not appear to be any necrosis up there. The major portion of it is in the middle of the wound. The inferior portion of the wound near the crease in her panniculus is healing well. This area that is opened measures 10 x 20 cm. We sharply excised the necrotic tissues, all done with sharp knives and scissors via excisional removal of the necrotic tissue Once adequate hemostasis was accomplished, I elected to place a flat fluted Brayan-Diop drain in the serous cavity at the superior aspect of the wound and this was brought out through the VAC sponge. The medium size VAC sponge was then used to fill the defect, which is 20 x 10 cm, approximately 8 cm deep. The device was then applied to the VAC device at 125 mmHg pressure with a good seal. She will be brought back to the operating room later this week for reapplication and reevaluation of her wound. MD NEEL Bal/jasmina , 11:23 AM , 11:30 AM MTDD
--- NOTE | 2018-01-07 16:57 | P.PN ---
Subjective Interval history: Follow-up for form currently resting in bed. She is complaining of some abdominal pain. She is a scheduled for for wound exploration as well as wound VAC placement. No fever or chills. Physical Exam Vital signs: Vital Signs 01/06/18 17:49 01/06/18 19:42 01/06/18 21:46 Temperature 99.5 F 99.7 F H Pulse Rate 114 H 89 Respiratory Rate 18 22 18 Blood Pressure 172/87 H 118/55 L Pulse Oximetry 97 99 01/06/18 23:00 01/07/18 00:00 01/07/18 08:00 Temperature 98.1 F 98 F 98.2 F Pulse Rate 70 74 70 Respiratory Rate 18 18 18 Blood Pressure 102/48 L 130/61 120/56 L Pulse Oximetry 94 L 98 01/07/18 11:10 01/07/18 11:25 01/07/18 11:40 Temperature 97.8 F Pulse Rate 103 H 93 H 91 H Respiratory Rate 20 18 18 Blood Pressure 139/60 124/59 L Pulse Oximetry 100 100 100 01/07/18 12:00 01/07/18 16:00 Temperature 98.0 F 98.9 F Pulse Rate 108 H 101 H Respiratory Rate 20 17 Blood Pressure 151/58 H 142/57 H Pulse Oximetry 98 96 Intake & Output 01/06/18 01/07/18 01/07/18 18:59 06:59 18:59 Intake Total 1000 / 1000 2024 Output Total 385 / 385 Balance 1000 / 1000 1640 / 1640 Weight 111.584 kg 113.2 kg Intake: IV 1000 / 1000 825 / 825 NS Inj 1,000 ML @ 100 mls/hr IV 775 / 775 .CONT .Q10H FELIPE Rx#:[id number] Zosyn 3.375 GM Premix 50 ML @ 50 / 50 100 mls/hr IV.SIG Q8H FELIPE Rx#: [id number] NS Inj 1,000 ML @ Wide Open IV. 1000 / 1000 SIG BOLUS ONE Rx#:[id number] Anesthesia Amount 1200 / 1200 Output: Urine 375 / 375 Estimated Blood Loss Other: Mode Setting Anterior Abdomen Continuous # Voids 1 Date of Last Bowel Movement 01/05/18 01/05/18 Weight On Admission 113.2 kg Narrative: GENERAL: 47 year old female resting in bed in no acute distress. SKIN: Warm and dry. See abdominal exam below. HEAD: Atraumatic. Normocephalic. EYES: Pupils equal and round. No scleral icterus. No injection or drainage. ENT: No nasal bleeding or discharge. Mucous membranes pink and moist. NECK: Trachea midline. CARDIOVASCULAR: Regular rate and rhythm. RESPIRATORY: No accessory muscle use. Clear to auscultation. Breath sounds equal bilaterally. GASTROINTESTINAL: Abdomen with healing midline incision-----lower 1/3 of incision is open---adipose tissue exposed; malodorous drainage; yellow exudate in wound bed. MUSCULOSKELETAL: Extremities without clubbing, cyanosis, or edema. No obvious deformities. NEUROLOGICAL: Awake and alert. No obvious cranial nerve deficits. Motor grossly within normal limits. Five out of 5 muscle strength in the arms and legs. Normal speech. PSYCHIATRIC: Appropriate mood and affect; insight and judgment normal. Results - Labs CBC & Chem 7: 01/07/18 06:40 01/07/18 06:40 Laboratory Results - last 24 hr 01/06/18 01/06/18 01/06/18 19:55 19:55 19:55 WBC 14.9 H RBC 4.24 Hgb 9.5 L Hct 30.0 L MCV 70.8 L MCH 22.5 L MCHC 31.7 L RDW 27.9 H Plt Count 456 H D MPV 8.8 Prelim Diff (Auto) Slide review pending Neut % (Auto) 82.1 H Lymph % (Auto) 9.9 [place] % (Auto) 5.7 Eos % (Auto) 1.1 Baso % (Auto) 1.2 Neut # (Auto) 12.2 H Lymph # (Auto) 1.5 [place] # (Auto) 0.8 Eos # (Auto) 0.2 Baso # (Auto) 0.2 WBC Differential . Diff Scan Auto diff confirmed Differential Comment . Dimorphic RBCs Present H Acanthocytes (Spur) Occ H PT 11.5 INR 1.1 APTT 28.5 Sodium 137 Potassium 4.4 Chloride 102 Carbon Dioxide 26.9 Anion Gap 8 BUN 10 Creatinine 0.69 Estimated GFR Greater than 89 POC Glucose Random Glucose 82 Lactic Acid Calcium 9.4 Total Bilirubin 0.3 AST 25 ALT 15 Alkaline Phosphatase 108 Total Protein 8.7 H Albumin 2.8 L Urine Color Urine Clarity Urine pH Ur Specific [place] Urine Protein Urine Glucose (UA) Urine Ketones Urine Occult Blood Urine Nitrate Urine Bilirubin Urine Urobilinogen Ur Leukocyte Esterase Urine RBC Urine WBC Ur Squamous Epith Cells Urine Bacteria Urine Mucus Micro UA Comment Ur Microscopic Review Urine Culture Comments 01/06/18 01/06/18 01/07/18 20:12 20:21 01:48 WBC RBC Hgb Hct MCV MCH MCHC RDW Plt Count MPV Prelim Diff (Auto) Neut % (Auto) Lymph % (Auto) [place] % (Auto) Eos % (Auto) Baso % (Auto) Neut # (Auto) Lymph # (Auto) [place] # (Auto) Eos # (Auto) Baso # (Auto) WBC Differential Diff Scan Differential Comment Dimorphic RBCs Acanthocytes (Spur) PT INR APTT Sodium Potassium Chloride Carbon Dioxide Anion Gap BUN Creatinine Estimated GFR POC Glucose 96 96 Random Glucose Lactic Acid 1.1 Calcium Total Bilirubin AST ALT Alkaline Phosphatase Total Protein Albumin Urine Color Urine Clarity Urine pH Ur Specific [place] Urine Protein Urine Glucose (UA) Urine Ketones Urine Occult Blood Urine Nitrate Urine Bilirubin Urine Urobilinogen Ur Leukocyte Esterase Urine RBC Urine WBC Ur Squamous Epith Cells Urine Bacteria Urine Mucus Micro UA Comment Ur Microscopic Review Urine Culture Comments 01/07/18 01/07/18 01/07/18 06:40 06:40 08:11 WBC 8.3 RBC 3.77 L Hgb 8.4 L Hct 27.2 L MCV 72.2 L MCH 22.3 L MCHC 31.0 L RDW 27.6 H Plt Count 386 MPV 8.6 Prelim Diff (Auto) Slide review pending Neut % (Auto) 71.7 H Lymph % (Auto) 16.4 [place] % (Auto) 8.3 H Eos % (Auto) 3.2 Baso % (Auto) 0.4 Neut # (Auto) 5.9 Lymph # (Auto) 1.4 [place] # (Auto) 0.7 Eos # (Auto) 0.3 Baso # (Auto) 0.0 WBC Differential . Diff Scan Auto diff confirmed Differential Comment . Dimorphic RBCs Acanthocytes (Spur) PT INR APTT Sodium 141 Potassium 3.6 D Chloride 106 Carbon Dioxide 26.6 Anion Gap 8 BUN 8 Creatinine 0.61 Estimated GFR Greater than 89 POC Glucose 85 Random Glucose 81 Lactic Acid Calcium 8.8 Total Bilirubin AST ALT Alkaline Phosphatase Total Protein Albumin Urine Color Urine Clarity Urine pH Ur Specific [place] Urine Protein Urine Glucose (UA) Urine Ketones Urine Occult Blood Urine Nitrate Urine Bilirubin Urine Urobilinogen Ur Leukocyte Esterase Urine RBC Urine WBC Ur Squamous Epith Cells Urine Bacteria Urine Mucus Micro UA Comment Ur Microscopic Review Urine Culture Comments 01/07/18 10:00 WBC RBC Hgb Hct MCV MCH MCHC RDW Plt Count MPV Prelim Diff (Auto) Neut % (Auto) Lymph % (Auto) [place] % (Auto) Eos % (Auto) Baso % (Auto) Neut # (Auto) Lymph # (Auto) [place] # (Auto) Eos # (Auto) Baso # (Auto) WBC Differential Diff Scan Differential Comment Dimorphic RBCs Acanthocytes (Spur) PT INR APTT Sodium Potassium Chloride Carbon Dioxide Anion Gap BUN Creatinine Estimated GFR POC Glucose Random Glucose Lactic Acid Calcium Total Bilirubin AST ALT Alkaline Phosphatase Total Protein Albumin Urine Color Yellow Urine Clarity Hazy H Urine pH 6.0 Ur Specific [place] 1.039 H Urine Protein Negative Urine Glucose (UA) Negative Urine Ketones Negative Urine Occult Blood Small H Urine Nitrate Negative Urine Bilirubin Negative Urine Urobilinogen 2.0 H Ur Leukocyte Esterase Large H Urine RBC 1 Urine WBC 2 Ur Squamous Epith Cells 2 Urine Bacteria Few H Urine Mucus Few H Micro UA Comment Culture not ind Ur Microscopic Review Not Reportable Urine Culture Comments Culture not ind Microbiology 01/06/18 19:55 Abscess - Abdominal Gram Stain - Final 01/06/18 19:55 Abscess - Abdominal Wound Culture - Preliminary 01/06/18 20:15 Blood - Peripheral Aerobic Blood Culture - Preliminary No growth in 1 day 01/06/18 20:15 Blood - Peripheral Anaerobic Blood Culture - Preliminary No growth in 1 day 01/06/18 20:10 Blood - Peripheral Aerobic Blood Culture - Preliminary No growth in 1 day 01/06/18 20:10 Blood - Peripheral Anaerobic Blood Culture - Preliminary No growth in 1 day - Imaging Impressions Abdomen/Pelvis CT 01/06/18 19:55 CONCLUSION: 1. Status post ventral hernia repair with some residual seroma in the anterior abdominal wall. Open wound anteriorly. No recurrent herniation of bowel. 2. Linear atelectasis at the lung bases. Mild constipation. Previous cholecystectomy. Small hiatal hernia. Assessment and Plan - Plan 47-year-old female with past medical history significant for diabetes mellitus and hypertension presents to the emergency department from her surgeon's office for the evaluation of wound dehiscence. On 12/13/17 the patient had a hernia repair with Dr. Kelley. She reports her wound started leaking approximately 1 week ago and the drainage has steadily increased. Wound dehiscence - General surgery is following. OR today for exploration and possibly wound vac placement. - Continue Zosyn. Diabetes mellitus -Blood glucose well controlled. Continue clubbing [place]. Hypertension -blood pressure is reasonably controlled. Vasotec IV for as needed blood pressure medications. Full code. Pharmacological DVT prophylaxis when okay with surgery.
[2018-01-07] MEDS ORDERED: Naloxone Inj 0.4 MG/ML Vial IV.PUSH PRN (20:46)
[2018-01-07] MEDS: HYDROmorphone PCA Inj 6 MG/30 ML PCA.VIAL PCA PRN (21:06)
[2018-01-08] MEDS: Piperacil/Tazo 3.375 GM Premix 50 ML IV.SIG SCH ×4 (02:50→23:29)
[2018-01-08] MEDS: Insulin NovoLOG Aspart Correctional Sugar Inj SQ SCH ×5 (02:51→22:20)
[2018-01-08] MEDS: Sod Chloride 0.9% Inj 1,000 ML IV.CONT SCH ×3 (05:21→15:49)
[2018-01-08] MEDS: HYDROmorphone PCA Inj 6 MG/30 ML PCA.VIAL PCA PRN ×2 (09:27→19:42)
[2018-01-08] MEDS ORDERED: Sodium Chloride 0.9% 2 ML Flush PRN IV.FLUSH (10:48)
--- NOTE | 2018-01-08 15:49 | P.PNGS ---
Subjective Interval history: NOTE FOR SURGICAL ATTENDING, DR. JW QUINTANA Alert and awake Irritated because Wound Vac was beeping all night Physical Exam Vital signs: Vital Signs 01/07/18 16:00 01/07/18 20:00 01/07/18 21:36 Temperature 98.9 F 98.7 F Pulse Rate 101 H 71 Respiratory Rate 17 18 21 Blood Pressure 142/57 H 149/65 H Pulse Oximetry 96 96 01/08/18 00:00 01/08/18 04:00 01/08/18 08:00 Temperature 98 F 97.9 F 98.7 F Pulse Rate 77 85 78 Respiratory Rate 18 18 16 Blood Pressure 130/60 115/65 124/38 L Pulse Oximetry 97 97 97 01/08/18 12:00 01/08/18 15:03 Temperature 98.5 F Pulse Rate 82 Respiratory Rate 18 5 L Blood Pressure 117/59 L Pulse Oximetry 97 Intake & Output 01/07/18 01/08/18 01/08/18 18:59 06:59 18:59 Intake Total 2955 / 2955 1530 / 1530 1050 / 1050 Output Total 1135 / 1135 1275 / 1275 Balance 1820 / 1820 255 / 255 1050 / 1050 Weight 113.2 kg Intake: IV 875 / 875 1050 / 1050 1050 / 1050 NS Inj 1,000 ML @ 100 mls/hr IV 775 / 775 1000 / 1000 1000 / 1000 .CONT .Q10H [facility] Rx#:[id number] Zosyn 3.375 GM Premix 50 ML @ 100 / 100 50 / 50 50 / 50 100 mls/hr IV.SIG Q8H [facility] Rx#: [id number] Oral 880 / 880 480 / 480 Anesthesia Amount 1200 / 1200 Output: Urine 1125 / 1125 1200 / 1200 Estimated Blood Loss Wound Vac Amount 75 / 75 Anterior Abdomen 75 / 75 Other: Mode Setting Anterior Abdomen Continuous Continuous Continuous # Voids 1 Date of Last Bowel Movement 01/05/18 01/05/18 Narrative: Alert and awake Abd: Wound Vac in place with good seal; no evidence of leaks; leak check completed and low risk of leak on machine Results - Labs 01/07/18 06:40 01/07/18 06:40 - Imaging Imaging: [facility] Impressions Abdomen/Pelvis CT 01/06/18 19:55 CONCLUSION: 1. Status post ventral hernia repair with some residual seroma in the anterior abdominal wall. Open wound anteriorly. No recurrent herniation of bowel. 2. Linear atelectasis at the lung bases. Mild constipation. Previous cholecystectomy. Small hiatal hernia. Assessment and Plan - Assessment (1) Wound dehiscence Code(s): T81.30XA - Disruption of wound, unspecified, initial encounter Status : Acute Plan: 47 year old female TAJ; repair of large open incisional hernia -Plan for OR again Saturday for further debridement and Wound Vac change -Regular diet -Await culture results -Continue Zosyn -Patient will need Wound Vac for home---will fill out paperwork---CM aware - Attending Attestation NOTE FOR SURGICAL ATTENDING, DR. JW QUINTANA I agree with above assessment and plan. The exam, history, and the medical decision-making described in the above note were completed with the assistance of the mid-level provider. I reviewed and agree with the findings presented. I attest that I had a [id number] encounter with the patient on the same day, and personally performed and documented my assessment and findings in the medical record. The following services were provided during this hospital visit: Chart data review, vital sign assessments/reviewing monitor data Review of consultations notes if present. Medication orders/review and/or management Ordering and/or reviewing lab tests Ordering and/or interpreting/reviewing x-rays and/or diagnostic studies Care of the patient and discussion of the patient with the care team Documentation time To help prompt me to consider important information that might be impacting today's encounter and assessment, Information from prior notes written by myself or my colleagues may have been "brought forward/copy and pasted" into today's note.
--- NOTE | 2018-01-08 16:13 | P.OBGPN ---
Check on pt socially pt admitted under Dr. Kelley. s/p TAJ, BSO, abdominal wall reconstruction for ventral hernia, had subcutaneous adipose and skin necrosis / wound breakdown, wound vac placed and plan for replacement tomorrow. Pt doing well clinically, frustrated with lack of sleep and overwhelmed with post op complication, she is tearful, no hx of depression or anxiety. 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
--- NOTE | 2018-01-08 18:05 | P.PN ---
Subjective Interval history: Follow up for wound dehiscence. Patient underwent surgical intervention yesterday. She is likely to go for another surgical intervention on 01/09/2018. No fever, chills. Physical Exam Vital signs: Vital Signs 01/07/18 20:00 01/07/18 21:36 01/08/18 00:00 Temperature 98.7 F 98 F Pulse Rate 71 77 Respiratory Rate 18 21 18 Blood Pressure 149/65 H 130/60 Pulse Oximetry 96 97 01/08/18 04:00 01/08/18 08:00 01/08/18 12:00 Temperature 97.9 F 98.7 F 98.5 F Pulse Rate 85 78 82 Respiratory Rate 18 16 18 Blood Pressure 115/65 124/38 L 117/59 L Pulse Oximetry 97 97 97 01/08/18 15:03 01/08/18 16:00 Temperature 98.3 F Pulse Rate 79 Respiratory Rate 5 L 16 Blood Pressure 144/63 H Pulse Oximetry 98 Intake & Output 01/07/18 01/08/18 01/08/18 18:59 06:59 18:59 Intake Total 3675 / 3675 1530 / 1530 1846 / 1846 Output Total 1135 / 1135 1275 / 1275 Balance 2540 / 2540 255 / 255 1846 / 1846 Weight 113.2 kg Intake: IV 1595 / 1595 1050 / 1050 1846 / 1846 NS Inj 1,000 ML @ 100 mls/hr IV 775 / 775 1000 / 1000 1746 / 1746 .CONT .Q10H [facility] Rx#:[id number] LR 1000 mL Inj 1,000 ML @ 30 720 / 720 mls/hr IV.SIG .Q24H [facility] Rx#: [id number] Zosyn 3.375 GM Premix 50 ML @ 100 / 100 50 / 50 100 / 100 100 mls/hr IV.SIG Q6H [facility] Rx#: [id number] Oral 880 / 880 480 / 480 Anesthesia Amount 1200 / 1200 Output: Urine 1125 / 1125 1200 / 1200 Estimated Blood Loss Wound Vac Amount 75 / 75 Anterior Abdomen 75 / 75 Other: Mode Setting Anterior Abdomen Continuous Continuous Continuous # Voids 1 Date of Last Bowel Movement 01/05/18 01/05/18 Narrative: GENERAL: Alert, NAD. SKIN: Warm and dry. HEAD: Normocephalic. EYES: No scleral icterus. No injection or drainage. NECK: Supple, trachea midline. No JVD or lymphadenopathy. CARDIOVASCULAR: Regular rate and rhythm without murmurs, gallops, or rubs. RESPIRATORY: Breath sounds equal bilaterally. No accessory muscle use. GASTROINTESTINAL: Exquisitely teder on palpation. MUSCULOSKELETAL: No cyanosis, or edema. BACK: Nontender without obvious deformity. No CVA tenderness. Results - Labs CBC & Chem 7: 01/07/18 06:40 01/07/18 06:40 Microbiology 01/06/18 19:55 Abscess - Abdominal Gram Stain - Final 01/06/18 19:55 Abscess - Abdominal Wound Culture - Preliminary gram negative rods 01/06/18 20:15 Blood - Peripheral Aerobic Blood Culture - Preliminary No growth in 2 days 01/06/18 20:15 Blood - Peripheral Anaerobic Blood Culture - Preliminary No growth in 2 days 01/06/18 20:10 Blood - Peripheral Aerobic Blood Culture - Preliminary No growth in 2 days 01/06/18 20:10 Blood - Peripheral Anaerobic Blood Culture - Preliminary No growth in 2 days Assessment and Plan - Plan 47-year-old female with past medical history significant for diabetes mellitus and hypertension presents to the emergency department from her surgeon's office for the evaluation of wound dehiscence. On 12/13/17 the patient had a hernia repair with Dr. Kelley. She reports her wound started leaking approximately 1 week ago and the drainage has steadily increased. Wound dehiscence - General surgery is following. OR tomorrow for I&D again. - Continue Zosyn. Diabetes mellitus -Blood glucose well controlled. sliding scale insulin. Hypertension -blood pressure is reasonably controlled. Vasotec IV for as needed blood pressure medications. Full code. Pharmacological DVT prophylaxis when okay with surgery.
[2018-01-08] MEDS: Sodium Chloride 0.9% 2 ML Flush BID IV.FLUSH SCH (22:20)
[2018-01-09] MEDS: Sod Chloride 0.9% Inj 1,000 ML IV.CONT SCH ×3 (01:09→21:34)
[2018-01-09] MEDS: HYDROmorphone PCA Inj 6 MG/30 ML PCA.VIAL PCA PRN ×3 (04:22→22:37)
[2018-01-09] MEDS: Piperacil/Tazo 3.375 GM Premix 50 ML IV.SIG SCH ×4 (04:26→21:33)
[2018-01-09] MEDS: Insulin NovoLOG Aspart Correctional Sugar Inj SQ SCH ×3 (05:15→11:52)
[2018-01-09] MEDS: Sodium Chloride 0.9% 2 ML Flush BID IV.FLUSH SCH ×2 (09:27→21:34)
--- NOTE | 2018-01-09 12:53 | P.PN ---
Subjective Interval history: Follow up for wound dehiscence. Patient is doing well. Pain is better. Tolerating diet well. OR again tomorrow for further I&D. Physical Exam Vital signs: Vital Signs 01/08/18 15:03 01/08/18 16:00 01/08/18 20:00 Temperature 98.3 F 98.9 F Pulse Rate 79 84 Respiratory Rate 5 L 16 20 Blood Pressure 144/63 H 125/69 Pulse Oximetry 98 96 01/09/18 00:00 01/09/18 08:00 01/09/18 09:27 Temperature 99.1 F 97.6 F Pulse Rate 88 73 Respiratory Rate 18 18 16 Blood Pressure 137/63 104/66 Pulse Oximetry 94 L 97 01/09/18 11:26 Temperature 97.7 F Pulse Rate 88 Respiratory Rate 17 Blood Pressure 122/70 Pulse Oximetry 99 Intake & Output 01/08/18 01/09/18 01/09/18 18:59 06:59 18:59 Intake Total 1846 / 1846 1100 / 1100 1050 / 1050 Output Total 50 / 50 Balance 1796 / 1796 1100 / 1100 1050 / 1050 Weight 121 kg Intake: IV 1846 / 1846 1100 / 1100 1050 / 1050 NS Inj 1,000 ML @ 100 mls/hr IV 1746 / 1746 1000 / 1000 1000 / 1000 .CONT .Q10H [facility] Rx#:[id number] Zosyn 3.375 GM Premix 50 ML @ 100 / 100 100 / 100 50 / 50 100 mls/hr IV.SIG Q6H [facility] Rx#: [id number] Output: Wound Vac Amount 50 / 50 Anterior Abdomen 50 / 50 Other: Mode Setting Anterior Abdomen Continuous Continuous Continuous # Voids 1 Date of Last Bowel Movement 01/05/18 Narrative: GENERAL: Alert, NAD. SKIN: Warm and dry. HEAD: Normocephalic. EYES: No scleral icterus. No injection or drainage. NECK: Supple, trachea midline. No JVD or lymphadenopathy. CARDIOVASCULAR: Regular rate and rhythm without murmurs, gallops, or rubs. RESPIRATORY: Breath sounds equal bilaterally. No accessory muscle use. GASTROINTESTINAL: Abdomen tender to palpation. Wound vac in place. MUSCULOSKELETAL: No cyanosis, or edema. BACK: Nontender without obvious deformity. No CVA tenderness. Results - Labs CBC & Chem 7: 01/07/18 06:40 01/07/18 06:40 Microbiology 01/06/18 20:15 Blood - Peripheral Aerobic Blood Culture - Preliminary No growth in 3 days 01/06/18 20:15 Blood - Peripheral Anaerobic Blood Culture - Preliminary No growth in 3 days 01/06/18 20:10 Blood - Peripheral Aerobic Blood Culture - Preliminary No growth in 3 days 01/06/18 20:10 Blood - Peripheral Anaerobic Blood Culture - Preliminary No growth in 3 days 01/06/18 19:55 Abscess - Abdominal Gram Stain - Final 01/06/18 19:55 Abscess - Abdominal Wound Culture - Preliminary gram negative rods Assessment and Plan - Plan 47-year-old female with past medical history significant for diabetes mellitus and hypertension presents to the emergency department from her surgeon's office for the evaluation of wound dehiscence. On 12/13/17 the patient had a hernia repair with Dr. Kelley. She reports her wound started leaking approximately 1 week ago and the drainage has steadily increased. Wound dehiscence - General surgery is following. Second I&D tomorrow. - Continue Zosyn. Diabetes mellitus -Blood glucose well controlled. sliding scale insulin. Hypertension -blood pressure is reasonably controlled. Today, BP was 161/66, possibly due to pain. Full code. Pharmacological DVT prophylaxis when okay with surgery.
[2018-01-09] MEDS ORDERED: Bisacodyl 10 MG Supp RECTAL PRN (13:08)
--- NOTE | 2018-01-09 17:49 | P.PNGS ---
Subjective Patient reports: no new complaints, feels better Interval history: DAILY PROGRESS NOTE FOR SURGICAL ATTENDING, DR. JW QUINTANA Patient appears more comfortable Physical Exam Vital signs: Vital Signs 01/08/18 20:00 01/09/18 00:00 01/09/18 08:00 Temperature 98.9 F 99.1 F 97.6 F Pulse Rate 84 88 73 Respiratory Rate 20 18 18 Blood Pressure 125/69 137/63 104/66 Pulse Oximetry 96 94 L 97 01/09/18 09:27 01/09/18 11:26 01/09/18 16:00 Temperature 97.7 F 97.9 F Pulse Rate 88 75 Respiratory Rate 16 17 18 Blood Pressure 122/70 161/66 H Pulse Oximetry 99 96 01/09/18 16:13 Temperature Pulse Rate Respiratory Rate 17 Blood Pressure Pulse Oximetry Intake & Output 01/08/18 01/09/18 01/09/18 18:59 06:59 18:59 Intake Total 184 184 1100 / 1100 1100 / 1100 Output Total 50 / 50 200 / 200 Balance 1796 / 1796 1100 / 1100 900 / 900 Weight 121 kg Intake: IV 184 / 1846 1100 / 1100 1100 / 1100 NS Inj 1,000 ML @ 100 mls/hr IV 1746 / 1746 1000 / 1000 1000 / 1000 .CONT .Q10H [facility] Rx#:[id number] Zosyn 3.375 GM Premix 50 ML @ 100 / 100 100 / 100 100 / 100 100 mls/hr IV.SIG Q6H [facility] Rx#: [id number] Output: Urine 200 / 200 Wound Vac Amount 50 / 50 Anterior Abdomen 50 / 50 Other: Mode Setting Anterior Abdomen Continuous Continuous Continuous # Voids 1 Date of Last Bowel Movement 01/05/18 Narrative: Patient awake and alert VAC in place without any leakage Moderate amount of drainage in bag Results - Labs 01/07/18 06:40 01/07/18 06:40 Microbiology 01/06/18 19:55 Gram Stain - Final Abscess - Abdominal Wound Culture - Preliminary gram negative rods 01/06/18 20:15 Aerobic Blood Culture - Preliminary Blood - Peripheral No growth in 3 days Anaerobic Blood Culture - Preliminary No growth in 3 days 01/06/18 20:10 Aerobic Blood Culture - Preliminary Blood - Peripheral No growth in 3 days Anaerobic Blood Culture - Preliminary No growth in 3 days - Imaging Imaging: ITS Impressions Abdomen/Pelvis CT 01/06/18 19:55 CONCLUSION: 1. Status post ventral hernia repair with some residual seroma in the anterior abdominal wall. Open wound anteriorly. No recurrent herniation of bowel. 2. Linear atelectasis at the lung bases. Mild constipation. Previous cholecystectomy. Small hiatal hernia. Assessment and Plan - Assessment (1) Wound dehiscence Code(s): T81.30XA - Disruption of wound, unspecified, initial encounter Status : Acute Plan: 47 year old female TAJ; repair of large open incisional hernia -Plan for OR again Saturday for further debridement and Wound Vac change -Regular diet -Await culture results -Continue Zosyn -Patient will need Wound Vac for home---will fill out paperwork---CM aware
[2018-01-10] MEDS: Piperacil/Tazo 3.375 GM Premix 50 ML IV.SIG SCH ×4 (03:40→21:28)
[2018-01-10] MEDS ORDERED: Bupivacaine/Epinephrine PF Inj 0.5% 30 ML Vial ONE (06:58)
[2018-01-10] MEDS ORDERED: Lidocaine 1%/Epinephrine 1:100,000 Inj 30 ML Vial ONE (06:58)
[2018-01-10] MEDS ORDERED: Sugammadex Inj 200 MG/2 ML Vial IV.PUSH ONE (07:48)
[2018-01-10] MEDS ORDERED: Lidocaine PF 1% Inj 5 ML Syringe OTHER ONE (08:04)
[2018-01-10] MEDS ORDERED: Metoprolol Tartrate 25 MG Tablet PO ONE (08:30)
[2018-01-10] MEDS ORDERED: Sodium Chlor 0.9% Inj 500 ML IV.CONT ONE (08:30)
[2018-01-10] MEDS ORDERED: Chlorhexidine Gluconate 2% 1 Pack (2 Cloths) TOPICAL ONE (08:30)
[2018-01-10] MEDS ORDERED: fentaNYL Citrate Inj 100 MCG/2 ML Ampul ONE (09:02)
[2018-01-10] MEDS ORDERED: *morphine SULFATE 10 MG/ML PERIprocedure ONLY ONE (09:03)
[2018-01-10] MEDS: Sodium Chloride 0.9% 2 ML Flush BID IV.FLUSH SCH ×2 (10:05→21:28)
[2018-01-10] MEDS: Sod Chloride 0.9% Inj 1,000 ML IV.CONT SCH ×2 (10:07→21:27)
--- NOTE | 2018-01-10 10:53 | MP ---
cc: Handy Kelley MD DATE OF OPERATION: 01/10/2018 PREOPERATIVE DIAGNOSIS: Wound dehiscence of midline abdominal wound. POSTOPERATIVE DIAGNOSIS: Wound dehiscence of midline abdominal wound. PROCEDURE PERFORMED: 1. Sharp excisional removal of necrotic nonviable tissue with a defect in the abdominal wall measuring 16 x 10 x 8 cm. 2. Removal and reapplication of VAC closure device. ANESTHESIA: General. SURGEON: Handy Kelley MD. INDICATIONS: This is a pleasant 47-year-old female who underwent a complex abdominal reconstruction. She was doing well and then developed necrosis of the skin in the midline. This is a second procedure to debride the area. DETAILS OF PROCEDURE: The patient in the operating room, the VAC device was removed. We prepped with Betadine. She is already on antibiotics. Necrotic tissue was then sharply excised using sharp knife and scissors to excise the necrotic nonviable tissue. Some of the tissue was sent down for culture. The tissue has no blood supply and the adipose tissue was otoole and necrotic appearing. We debrided this using sharp knives and scissors to excise to normal-appearing fatty tissue. The cavity that was superior serous cavity was much smaller with the suction device that was placed a few days ago. After widely debriding using mostly sharp debridement and excisional excising the tissue, we rinsed this out and bluntly debrided to some other nonviable tissue. We then placed the VAC device covering the defect measuring 16 x 10 x 8 [address] deep. We did place a fluted drain in the superior aspect of the wound where the small serous cavity was collapsing. The device was then connected to the VAC device with 125 mmHg of suction. It sealed and abdominal binder was placed. The patient tolerated the procedure well, had no immediate postop complications. Handy Kelley MD JDB/rs , 09:01 AM , 09:09 AM
[2018-01-10] MEDS: HYDROmorphone PCA Inj 6 MG/30 ML PCA.VIAL PCA PRN ×3 (11:01→19:17)
--- NOTE | 2018-01-10 17:24 | ECG ---
Date Performed: 01/10/2018 Time Performed: 02:09:58 PTAGE: 47 years EKG: Sinus rhythm Since the previous tracing, no significant change noted Normal ECG PREVIOUS TRACING : 09/15/2017 04.09 DOCTOR: Gareth Butcher Interpretating Date/Time 01/10/2018 17:23:29
--- NOTE | 2018-01-10 18:45 | P.PN ---
Subjective Interval history: Follow up for wound dehiscence. Patient is sitting at the side of her bed and eating lunch. No acute concerns. She continues to have abdominal pain. No fever , chills. Physical Exam Vital signs: Vital Signs 01/09/18 20:00 01/09/18 22:43 01/10/18 00:00 Temperature 98.8 F 98.8 F Pulse Rate 75 80 Respiratory Rate 18 18 18 Blood Pressure 150/65 H 121/61 Pulse Oximetry 97 96 01/10/18 00:07 01/10/18 03:39 01/10/18 04:45 Temperature 98.1 F Pulse Rate 78 Respiratory Rate 18 18 16 Blood Pressure 131/62 Pulse Oximetry 96 01/10/18 07:53 01/10/18 08:00 01/10/18 08:52 Temperature 98.1 F 98.5 F Pulse Rate 79 77 84 Respiratory Rate 18 16 16 Blood Pressure 150/68 H 129/60 142/86 H Pulse Oximetry 100 99 100 01/10/18 09:00 01/10/18 09:15 01/10/18 09:30 Temperature Pulse Rate 86 78 84 Respiratory Rate 16 16 16 Blood Pressure 155/86 H 143/60 H 138/67 Pulse Oximetry 97 95 97 01/10/18 10:33 01/10/18 11:35 01/10/18 12:00 Temperature 98.3 F 98.1 F Pulse Rate 81 67 Respiratory Rate 16 17 17 Blood Pressure 141/66 H 143/65 H Pulse Oximetry 96 98 01/10/18 16:00 01/10/18 16:21 01/10/18 17:28 Temperature 97.5 F L Pulse Rate 74 Respiratory Rate 16 17 17 Blood Pressure 164/71 H Pulse Oximetry 96 Intake & Output 01/09/18 01/10/18 01/10/18 18:59 06:59 18:59 Intake Total 2416 / 2416 1100 / 1100 3950 / 3950 Output Total 1060 / 1060 2655 / 2655 Balance 1356 / 1356 1100 / 1100 1295 / 1295 Weight 122 kg Intake: IV 1100 / 1100 1100 / 1100 1050 / 1050 NS Inj 1,000 ML @ 100 mls/hr IV 1000 / 1000 1000 / 1000 1000 / 1000 .CONT .Q10H [facility] Rx#:[id number] Zosyn 3.375 GM Premix 50 ML @ 100 / 100 100 / 100 50 / 50 100 mls/hr IV.SIG Q6H [facility] Rx#: [id number] Oral 1316 / 1316 2400 / 2400 Anesthesia Amount 500 / 500 Output: Urine 1050 / 1050 2200 / 2200 Estimated Blood Loss 5 / 5 Urine Amount (Catheter) 400 / 400 Indwelling Urethral Catheter 400 / 400 Wound Drainage 50 / 50 # 1 Medial Abdomen Manas 50 / 50 Wound Vac Amount Anterior Abdomen Other: Mode Setting Anterior Abdomen Intermittent Intermittent Continuous # Voids 6 2 Date of Last Bowel Movement 01/05/18 # Bowel Movements 1 Narrative: GENERAL: Alert, NAD. SKIN: Warm and dry. HEAD: Normocephalic. EYES: No scleral icterus. No injection or drainage. NECK: Supple, trachea midline. No JVD or lymphadenopathy. CARDIOVASCULAR: Regular rate and rhythm without murmurs, gallops, or rubs. RESPIRATORY: Breath sounds equal bilaterally. No accessory muscle use. GASTROINTESTINAL: Abdomen tender to palpation. Wound vac in place. MUSCULOSKELETAL: No cyanosis, or edema. BACK: Nontender without obvious deformity. No CVA tenderness. - Urinary Catheter Management Indwelling Urethral Catheter Cath placed during this visit: no Results - Labs CBC & Chem 7: 01/07/18 06:40 01/07/18 06:40 Microbiology 01/10/18 08:32 Wound - Abdominal Acid Fast Bacilli Smear - Final No acid fast bacilli seen 01/10/18 08:32 Wound - Abdominal Fungal Smear - Final No fungal elements seen 01/10/18 08:32 Wound - Abdominal Gram Stain - Final 01/06/18 20:15 Blood - Peripheral Aerobic Blood Culture - Preliminary No growth in 4 days 01/06/18 20:15 Blood - Peripheral Anaerobic Blood Culture - Preliminary No growth in 4 days 01/06/18 20:10 Blood - Peripheral Aerobic Blood Culture - Preliminary No growth in 4 days 01/06/18 20:10 Blood - Peripheral Anaerobic Blood Culture - Preliminary No growth in 4 days 01/06/18 19:55 Abscess - Abdominal Gram Stain - Final 01/06/18 19:55 Abscess - Abdominal Wound Culture - Preliminary gram negative rods Assessment and Plan - Plan 47-year-old female with past medical history significant for diabetes mellitus and hypertension presents to the emergency department from her surgeon's office for the evaluation of wound dehiscence. On 12/13/17 the patient had a hernia repair with Dr. Kelley. She reports her wound started leaking approximately 1 week ago and the drainage has steadily increased. Wound dehiscence - General surgery is following. Second I&D done today 01/10/2018. - Continue Zosyn. Diabetes mellitus -Blood glucose well controlled. sliding scale insulin. Hypertension - blood pressure is reasonably controlled. Today, BP was 164/71. Full code. Pharmacological DVT prophylaxis when okay with surgery.
[2018-01-11] MEDS: Piperacil/Tazo 3.375 GM Premix 50 ML IV.SIG SCH ×4 (04:55→21:09)
[2018-01-11] MEDS: Sod Chloride 0.9% Inj 1,000 ML IV.CONT SCH ×3 (06:51→22:07)
[2018-01-11] MEDS: HYDROmorphone PCA Inj 6 MG/30 ML PCA.VIAL PCA PRN ×2 (06:52→15:52)
--- NOTE | 2018-01-11 14:00 | P.PN ---
Subjective Interval history: Follow-up abdominal wound Dehiscence January 11, 2018-patient seen and examined, states she is tired, pain currently controlled. Afebrile. Physical Exam Vital signs: Vital Signs 01/10/18 16:00 01/10/18 16:21 01/10/18 17:28 Temperature 97.5 F L Pulse Rate 74 Respiratory Rate 16 17 17 Blood Pressure 164/71 H Pulse Oximetry 96 01/10/18 20:00 01/11/18 00:00 01/11/18 04:11 Temperature 98.2 F 98.5 F 98.8 F Pulse Rate 70 79 79 Respiratory Rate 17 16 17 Blood Pressure 155/70 H 158/85 H 141/61 H Pulse Oximetry 97 96 95 01/11/18 08:00 01/11/18 12:00 Temperature 98.2 F 97.9 F Pulse Rate 69 90 Respiratory Rate 16 16 Blood Pressure 131/76 158/68 H Pulse Oximetry 99 95 Intake & Output 01/10/18 01/11/18 01/11/18 18:59 06:59 18:59 Intake Total 4000 / 4000 2680 / 2680 500 / 500 Output Total 2655 / 2655 1000 / 1000 Balance 1345 / 1345 1680 / 1680 500 / 500 Weight 122 kg Intake: IV 1100 / 1100 2100 / 2100 500 / 500 NS Inj 1,000 ML @ 100 mls/hr IV 1000 / 1000 2000 / 2000 .CONT .Q10H [facility] Rx#:[id number] NS Inj 500 ML @ 30 mls/hr IV. 500 / 500 CONT .[id number] [facility] Rx#:[id number] Zosyn 3.375 GM Premix 50 ML @ 100 / 100 100 / 100 100 mls/hr IV.SIG Q6H [facility] Rx#: [id number] Oral 2400 / 2400 580 / 580 Anesthesia Amount 500 / 500 Output: Urine 2200 / 2200 1000 / 1000 Estimated Blood Loss 5 / 5 Urine Amount (Catheter) 400 / 400 Indwelling Urethral Catheter 400 / 400 Wound Drainage 50 / 50 # 1 Medial Abdomen Manas 50 / 50 Other: Mode Setting Anterior Abdomen Continuous Continuous Continuous Date of Last Bowel Movement 01/10/18 01/10/18 Narrative: GENERAL: Alert, NAD. SKIN: Warm and dry. HEAD: Normocephalic. EYES: No scleral icterus. No injection or drainage. NECK: Supple, trachea midline. No JVD or lymphadenopathy. CARDIOVASCULAR: Regular rate and rhythm without murmurs, gallops, or rubs. RESPIRATORY: Breath sounds equal bilaterally. No accessory muscle use. GASTROINTESTINAL: Abdomen tender to palpation. Wound vac in place. MUSCULOSKELETAL: No cyanosis, or edema. BACK: Nontender without obvious deformity. No CVA tenderness. - Urinary Catheter Management Indwelling Urethral Catheter Cath placed during this visit: no Results - Labs CBC & Chem 7: 01/07/18 06:40 01/07/18 06:40 Microbiology 01/06/18 19:55 Abscess - Abdominal Gram Stain - Final 01/06/18 19:55 Abscess - Abdominal Wound Culture - Final gram negative rods 01/06/18 20:15 Blood - Peripheral Aerobic Blood Culture - Final No growth in 5 days 01/06/18 20:15 Blood - Peripheral Anaerobic Blood Culture - Final No growth in 5 days 01/06/18 20:10 Blood - Peripheral Aerobic Blood Culture - Final No growth in 5 days 01/06/18 20:10 Blood - Peripheral Anaerobic Blood Culture - Final No growth in 5 days 01/10/18 08:32 Wound - Abdominal Acid Fast Bacilli Smear - Final No acid fast bacilli seen 01/10/18 08:32 Wound - Abdominal Fungal Smear - Final No fungal elements seen 01/10/18 08:32 Wound - Abdominal Gram Stain - Final Assessment and Plan - Plan 47-year-old female with: Wound dehiscence - General surgery is following. Second I&D 01/10/2018. Wound VAC management per general surgery - Continue Zosyn. Diabetes mellitus -Blood glucose well controlled. sliding scale insulin. Hypertension Labile blood pressure Start hydralazine 25 mg twice daily today
[2018-01-11] MEDS: Sodium Chloride 0.9% 2 ML Flush BID IV.FLUSH SCH ×2 (15:57→21:09)
--- NOTE | 2018-01-11 19:08 | P.PN ---
Subjective Interval history: Appetite is intermittent; she reports that she has some nausea but that this was present before the wound issues and surgery Physical Exam Vital signs: Vital Signs 01/10/18 20:00 01/11/18 00:00 01/11/18 04:11 Temperature 98.2 F 98.5 F 98.8 F Pulse Rate 70 79 79 Respiratory Rate 17 16 17 Blood Pressure 155/70 H 158/85 H 141/61 H Pulse Oximetry 97 96 95 01/11/18 08:00 01/11/18 08:20 01/11/18 11:30 Temperature 98.2 F Pulse Rate 69 Respiratory Rate 16 5 L 17 Blood Pressure 131/76 Pulse Oximetry 99 01/11/18 12:00 01/11/18 16:00 01/11/18 16:35 Temperature 97.9 F 98.2 F Pulse Rate 90 75 Respiratory Rate 16 16 17 Blood Pressure 158/68 H 137/60 Pulse Oximetry 95 100 Intake & Output 01/10/18 01/11/18 01/11/18 18:59 06:59 18:59 Intake Total 4000 / 4000 2680 / 2680 1600 / 1600 Output Total 2655 / 2655 1000 / 1000 Balance 1345 / 1345 1680 / 1680 1600 / 1600 Weight 122 kg Intake: IV 1100 / 1100 2100 / 2100 1600 / 1600 NS Inj 1,000 ML @ 100 mls/hr IV 1000 / 1000 2000 / 2000 1000 / 1000 .CONT .Q10H [facility] Rx#:[id number] NS Inj 500 ML @ 30 mls/hr IV. 500 / 500 CONT .[id number] [facility] Rx#:[id number] Zosyn 3.375 GM Premix 50 ML @ 100 / 100 100 / 100 100 / 100 100 mls/hr IV.SIG Q6H [facility] Rx#: [id number] Oral 2400 / 2400 580 / 580 Anesthesia Amount 500 / 500 Output: Urine 2200 / 2200 1000 / 1000 Estimated Blood Loss 5 / 5 Urine Amount (Catheter) 400 / 400 Indwelling Urethral Catheter 400 / 400 Wound Drainage 50 / 50 # 1 Medial Abdomen Manas 50 / 50 Other: Mode Setting Anterior Abdomen Continuous Continuous Continuous Date of Last Bowel Movement 01/10/18 01/10/18 - Constitutional no acute distress - Routine Respiratory Exam Present: CTA bilaterally - Routine Abdominal Exam Present: wound (VAC dressing intact with good suction. No leakage and minimal liquid) - Urinary Catheter Management Indwelling Urethral Catheter Cath placed during this visit: no Results - Labs CBC & Chem 7: 01/07/18 06:40 01/07/18 06:40 Microbiology 01/10/18 08:32 Wound - Abdominal Gram Stain - Final 01/10/18 08:32 Wound - Abdominal Wound Culture - Preliminary Heavy growth normal skin ayanna at 24 hours 01/06/18 19:55 Abscess - Abdominal Gram Stain - Final 01/06/18 19:55 Abscess - Abdominal Wound Culture - Final gram negative rods 01/06/18 20:15 Blood - Peripheral Aerobic Blood Culture - Final No growth in 5 days 01/06/18 20:15 Blood - Peripheral Anaerobic Blood Culture - Final No growth in 5 days 01/06/18 20:10 Blood - Peripheral Aerobic Blood Culture - Final No growth in 5 days 01/06/18 20:10 Blood - Peripheral Anaerobic Blood Culture - Final No growth in 5 days 01/10/18 08:32 Wound - Abdominal Acid Fast Bacilli Smear - Final No acid fast bacilli seen Assessment and Plan - Assessment (1) Wound dehiscence Code(s): T81.30XA - Disruption of wound, unspecified, initial encounter Status : Acute Plan: Doing well currently VAC change at bedside on Saturday. - Plan Discussed Condition With: Patient - Attending Attestation I attest that I had a [id number] encounter with the patient on the same day, and personally performed and documented my assessment and findings in the medical record. The following services were provided during this hospital visit: Chart data review, vital sign assessments/reviewing monitor data Review of consultation notes if present Medication orders/review and/or management Ordering and/or reviewing lab tests Ordering and/or interpreting/reviewing x-rays and/or diagnostic studies Care of the patient and discussion of the patient with the care team Documentation time To help prompt me to consider important information that might be impacting today's encounter and assessment, Information from prior notes written by myself or my colleagues may have been "brought forward/copy and pasted" into today's note.
[2018-01-11] MEDS: hydrALAZINE 25 MG Tablet PO SCH (21:10)
[2018-01-12] MEDS: HYDROmorphone PCA Inj 6 MG/30 ML PCA.VIAL PCA PRN ×2 (00:25→10:47)
[2018-01-12] MEDS: Melatonin 5 MG Tablet PO PRN ×2 (00:54→22:14)
[2018-01-12] MEDS: Piperacil/Tazo 3.375 GM Premix 50 ML IV.SIG SCH ×4 (05:09→21:07)
[2018-01-12] MEDS: hydrALAZINE 25 MG Tablet PO SCH ×2 (09:23→21:07)
[2018-01-12] MEDS: Sodium Chloride 0.9% 2 ML Flush BID IV.FLUSH SCH ×2 (09:24→21:07)
--- NOTE | 2018-01-12 10:12 | P.PN ---
Subjective Interval history: Follow-up abdominal wound Dehiscence 01/12: Seen in her bedroom in the presence of nurse vacuum in place with malfunction, no nausea, vomit or diarrhea. Physical Exam Vital signs: Vital Signs 01/11/18 11:30 01/11/18 12:00 01/11/18 16:00 Temperature 97.9 F 98.2 F Pulse Rate 90 75 Respiratory Rate 17 16 16 Blood Pressure 158/68 H 137/60 Pulse Oximetry 95 100 01/11/18 16:35 01/11/18 20:00 01/12/18 00:00 Temperature 97.7 F 98.0 F Pulse Rate 77 73 Respiratory Rate 17 18 18 Blood Pressure 185/81 H 143/61 H Pulse Oximetry 97 99 01/12/18 02:19 01/12/18 08:00 Temperature 97.9 F Pulse Rate 76 Respiratory Rate 18 20 Blood Pressure 136/77 Pulse Oximetry 94 L Intake & Output 01/11/18 01/12/18 01/12/18 18:59 06:59 18:59 Intake Total 1650 / 1650 1000 / 1000 Output Total 50 / 50 Balance 1650 / 1650 950 / 950 Weight 117.8 kg Intake: IV 1650 / 1650 1000 / 1000 NS Inj 1,000 ML @ 100 mls/hr IV 1000 / 1000 900 / 900 .CONT .Q10H [facility] Rx#:[id number] NS Inj 500 ML @ 30 mls/hr IV. 500 / 500 CONT .[id number] [facility] Rx#:[id number] Zosyn 3.375 GM Premix 50 ML @ 100 / 100 100 / 100 100 mls/hr IV.SIG Q6H [facility] Rx#: [id number] Output: Wound Drainage 50 / 50 # 1 Medial Abdomen Manas 50 / 50 Other: Mode Setting Anterior Abdomen Continuous Continuous # Voids 3 Date of Last Bowel Movement 01/10/18 Narrative: GENERAL: Alert, NAD. SKIN: Warm and dry. HEAD: Normocephalic. EYES: No scleral icterus. No injection or drainage. NECK: Supple, trachea midline. No JVD or lymphadenopathy. CARDIOVASCULAR: Regular rate and rhythm without murmurs, gallops, or rubs. RESPIRATORY: Breath sounds equal bilaterally. No accessory muscle use. GASTROINTESTINAL: Abdomen tender to palpation. Wound vac in place. MUSCULOSKELETAL: No cyanosis, or edema. BACK: Nontender without obvious deformity. No CVA tenderness. - Urinary Catheter Management Indwelling Urethral Catheter Cath placed during this visit: no Results - Labs CBC & Chem 7: 01/14/18 07:35 01/14/18 07:35 Microbiology 01/10/18 08:32 Wound - Abdominal Gram Stain - Final 01/10/18 08:32 Wound - Abdominal Wound Culture - Final Heavy growth normal skin ayanna No anaerobes isolated 01/06/18 19:55 Abscess - Abdominal Gram Stain - Final 01/06/18 19:55 Abscess - Abdominal Wound Culture - Final gram negative rods 01/06/18 20:15 Blood - Peripheral Aerobic Blood Culture - Final No growth in 5 days 01/06/18 20:15 Blood - Peripheral Anaerobic Blood Culture - Final No growth in 5 days 01/06/18 20:10 Blood - Peripheral Aerobic Blood Culture - Final No growth in 5 days 01/06/18 20:10 Blood - Peripheral Anaerobic Blood Culture - Final No growth in 5 days Assessment and Plan - Plan 47-year-old female with: Wound dehiscence - General surgery is following. Second I&D 01/10/2018. Wound VAC management per general surgery - Continue Zosyn. Diabetes mellitus -Blood glucose well controlled. sliding scale insulin. Hypertension Labile blood pressure Start hydralazine 25 mg twice daily today Code Status: Full code. Discussed Condition With: patient and nurse. Discharge Planning: once cleared by General Surgery.
--- NOTE | 2018-01-12 12:11 | P.PNGS ---
Subjective Patient reports: feels better (vac leak, no fevers) Physical Exam Vital signs: Vital Signs 01/11/18 16:00 01/11/18 16:35 01/11/18 20:00 Temperature 98.2 F 97.7 F Pulse Rate 75 77 Respiratory Rate 16 17 18 Blood Pressure 137/60 185/81 H Pulse Oximetry 100 97 01/12/18 00:00 01/12/18 02:19 01/12/18 08:00 Temperature 98.0 F 97.9 F Pulse Rate 73 76 Respiratory Rate 18 18 20 Blood Pressure 143/61 H 136/77 Pulse Oximetry 99 94 L Intake & Output 01/11/18 01/12/18 01/12/18 18:59 06:59 18:59 Intake Total 1650 / 1650 1000 / 1000 Output Total 50 / 50 Balance 1650 / 1650 950 / 950 Weight 117.8 kg Intake: IV 1650 / 1650 1000 / 1000 NS Inj 1,000 ML @ 100 mls/hr IV 1000 / 1000 900 / 900 .CONT .Q10H [facility] Rx#:[id number] NS Inj 500 ML @ 30 mls/hr IV. 500 / 500 CONT .[id number] [facility] Rx#:[id number] Zosyn 3.375 GM Premix 50 ML @ 100 / 100 100 / 100 100 mls/hr IV.SIG Q6H [facility] Rx#: [id number] Output: Wound Drainage 50 / 50 # 1 Medial Abdomen Manas 50 / 50 Other: Mode Setting Anterior Abdomen Continuous Continuous # Voids 3 Date of Last Bowel Movement 01/10/18 - Routine Respiratory Exam Present: CTA bilaterally - Routine Cardiovascular Exam Present: RRR - Routine Abdominal Exam Present: soft (incisional tenderness, vac with leak machine beeping) - Urinary Catheter Management Indwelling Urethral Catheter Cath placed during this visit: no Results - Labs 01/07/18 06:40 01/07/18 06:40 - Imaging Imaging: ITS Impressions Abdomen/Pelvis CT 01/06/18 19:55 CONCLUSION: 1. Status post ventral hernia repair with some residual seroma in the anterior abdominal wall. Open wound anteriorly. No recurrent herniation of bowel. 2. Linear atelectasis at the lung bases. Mild constipation. Previous cholecystectomy. Small hiatal hernia. Assessment and Plan - Assessment (1) Wound dehiscence Code(s): T81.30XA - Disruption of wound, unspecified, initial encounter Status : Acute Plan: 47 year old female TAJ; repair of large open incisional hernia s/p vac- connected to low wall sxn -Plan for Wound Vac change at bedside saturday - pain meds adjusted -Regular diet -Continue Z[facility]
[2018-01-12] MEDS: Sod Chloride 0.9% Inj 1,000 ML IV.CONT SCH ×2 (17:30→21:07)
[2018-01-13] MEDS: Piperacil/Tazo 3.375 GM Premix 50 ML IV.SIG SCH ×4 (05:01→21:18)
[2018-01-13] MEDS: Sod Chloride 0.9% Inj 1,000 ML IV.CONT SCH ×2 (05:02→15:24)
[2018-01-13] MEDS: hydrALAZINE 25 MG Tablet PO SCH ×2 (09:20→21:18)
[2018-01-13] MEDS: Sodium Chloride 0.9% 2 ML Flush BID IV.FLUSH SCH ×2 (09:21→21:21)
--- NOTE | 2018-01-13 10:44 | P.PNGS ---
Subjective Interval history: DAILY PROGRESS NOTE FOR SURGICAL ATTENDING, DR. JW QUINTANA Frustrated with wound healing and hospitalization Tolerating diet VAC was leaking last night placed up to wall suction Physical Exam Vital signs: Vital Signs 01/12/18 12:00 01/12/18 15:24 01/12/18 16:00 Temperature 98.3 F 98.5 F Pulse Rate 74 72 Respiratory Rate 16 18 16 Blood Pressure 130/58 L 157/67 H Pulse Oximetry 99 98 01/12/18 17:23 01/12/18 20:00 01/13/18 00:00 Temperature 98.4 F 98.4 F Pulse Rate 72 76 Respiratory Rate 17 18 18 Blood Pressure 158/67 H 139/59 L Pulse Oximetry 98 98 01/13/18 08:00 Temperature 97.4 F L Pulse Rate 70 Respiratory Rate 20 Blood Pressure 175/93 H Pulse Oximetry 99 Intake & Output 01/12/18 01/13/18 01/13/18 18:59 06:59 18:59 Intake Total 3000 / 3000 2150 / 2150 50 / 50 Output Total 1999 / 1999 900 / 900 Balance 1000 / 1000 1250 / 1250 50 / 50 Weight 114.1 kg Intake: IV 200 / 200 2150 / 2150 50 / 50 NS Inj 1,000 ML @ 100 mls/hr IV 100 / 100 1999 / 1999 .CONT .Q10H [facility] Rx#:[id number] Zosyn 3.375 GM Premix 50 ML @ 100 / 100 100 / 100 50 / 50 100 mls/hr IV.SIG Q6H [facility] Rx#: [id number] Oral 2800 / 2800 Output: Urine 1999 900 / 900 Other: Mode Setting Anterior Abdomen Continuous Continuous Date of Last Bowel Movement 01/12/18 01/12/18 # Bowel Movements 3 Narrative: Awake alert oriented VAC in place good seal on wall suction - Urinary Catheter Management Indwelling Urethral Catheter Cath placed during this visit: no Results - Labs 01/07/18 06:40 01/07/18 06:40 - Imaging Imaging: ITS Impressions Abdomen/Pelvis CT 01/06/18 19:55 CONCLUSION: 1. Status post ventral hernia repair with some residual seroma in the anterior abdominal wall. Open wound anteriorly. No recurrent herniation of bowel. 2. Linear atelectasis at the lung bases. Mild constipation. Previous cholecystectomy. Small hiatal hernia. Assessment and Plan - Assessment (1) Wound dehiscence Code(s): T81.30XA - Disruption of wound, unspecified, initial encounter Status : Acute Plan: 47 year old female TAJ; repair of large open incisional hernia s/p vac- connected to low wall sxn -Plan for Wound Vac change at bedside today - -Regular diet -Continue Zosyn - [facility] for vac planning d/c soon -Discussed with family by bedside and on phone Anticipate going home either today or tomorrow depending on home health and VAC change Follow-up in my office 7-10 days - Attending Attestation NOTE FOR SURGICAL ATTENDING, DR. JW QUINTANA I agree with above assessment and plan. The exam, history, and the medical decision-making described in the above note were completed with the assistance of the mid-level provider. I reviewed and agree with the findings presented. I attest that I had a [id number] encounter with the patient on the same day, and personally performed and documented my assessment and findings in the medical record. The following services were provided during this hospital visit: Chart data review, vital sign assessments/reviewing monitor data Review of consultations notes if present. Medication orders/review and/or management Ordering and/or reviewing lab tests Ordering and/or interpreting/reviewing x-rays and/or diagnostic studies Care of the patient and discussion of the patient with the care team Documentation time To help prompt me to consider important information that might be impacting today's encounter and assessment, Information from prior notes written by myself or my colleagues may have been "brought forward/copy and pasted" into today's note.
--- NOTE | 2018-01-13 11:17 | P.PN ---
Subjective Interval history: Follow-up for wound dehiscence, wound VAC.-Patient tearful, crying. She could not make it to the bathroom and urinated on the floor. Very frustrated about being in the hospital. Pain well controlled. No nausea, no vomiting. Appetite is fair. No fever. Family at bedside, multiple questions. Physical Exam Vital signs: Vital Signs 01/12/18 12:00 01/12/18 15:24 01/12/18 16:00 Temperature 98.3 F 98.5 F Pulse Rate 74 72 Respiratory Rate 16 18 16 Blood Pressure 130/58 L 157/67 H Pulse Oximetry 99 98 01/12/18 17:23 01/12/18 20:00 01/13/18 00:00 Temperature 98.4 F 98.4 F Pulse Rate 72 76 Respiratory Rate 17 18 18 Blood Pressure 158/67 H 139/59 L Pulse Oximetry 98 98 01/13/18 08:00 Temperature 97.4 F L Pulse Rate 70 Respiratory Rate 20 Blood Pressure 175/93 H Pulse Oximetry 99 Intake & Output 01/12/18 01/13/18 01/13/18 18:59 06:59 18:59 Intake Total 3000 / 3000 2150 / 2150 50 / 50 Output Total 1999 / 1999 900 / 900 Balance 1000 / 1000 1250 / 1250 50 / 50 Weight 114.1 kg Intake: IV 200 / 200 2150 / 2150 50 / 50 NS Inj 1,000 ML @ 100 mls/hr IV 100 / 100 2000 / 2000 .CONT .Q10H [facility] Rx#:[id number] Zosyn 3.375 GM Premix 50 ML @ 100 / 100 100 / 100 50 / 50 100 mls/hr IV.SIG Q6H [facility] Rx#: [id number] Oral 2800 / 2800 Output: Urine 1999 / 1999 900 / 900 Other: Mode Setting Anterior Abdomen Continuous Continuous Date of Last Bowel Movement 01/12/18 01/12/18 # Bowel Movements 3 Narrative: GENERAL: Obese female, tearful. SKIN: Warm and dry. HEAD: Atraumatic. Normocephalic. EYES: Pupils equal and round. No scleral icterus. No injection or drainage. ENT: No nasal bleeding or discharge. Mucous membranes pink and moist. NECK: Trachea midline. No JVD. CARDIOVASCULAR: Regular rate and rhythm. RESPIRATORY: No accessory muscle use. Clear to auscultation. Breath sounds equal bilaterally. GASTROINTESTINAL: Abdomen soft, non-tender, nondistended. Wound VAC in place. Intact. MUSCULOSKELETAL: Extremities without clubbing, cyanosis, or edema. No obvious deformities. NEUROLOGICAL: Awake, alert oriented x3. No focal deficits PSYCHIATRIC: Tearful. - Urinary Catheter Management Indwelling Urethral Catheter Cath placed during this visit: no Results - Labs CBC & Chem 7: 01/07/18 06:40 01/07/18 06:40 Microbiology 01/10/18 08:32 Wound - Abdominal Gram Stain - Final 01/10/18 08:32 Wound - Abdominal Wound Culture - Final Heavy growth normal skin ayanna No anaerobes isolated Assessment and Plan - Assessment (1) Abdominal wound dehiscence Code(s): T81.30XA - Disruption of wound, unspecified, initial encounter Status : Acute - Plan 47-year-old female with past medical history significant for diabetes mellitus and hypertension presents to the emergency department from her surgeon's office for the evaluation of wound dehiscence. On 12/13/17 the patient had a hernia repair with Dr. Kelley. She reports her wound started leaking approximately 1 week ago and the drainage has steadily increased. Wound dehiscence - General surgery is following. Second I&D done 01/10/2018. - Continue Zosyn. GNR in wound culture -Continue with wound VAC-will be changed today Surgery has clear for discharge, can go home with wound VAC. Diabetes mellitus-diet controlled Blood sugars have been in the 90s -Continue to monitor blood sugars -no need for sliding scale. Hypertension -Blood pressure was elevated, was started on hydralazine 25 mg p.o. twice daily Blood pressure better controlled Anemia, appears chronic. Monitor CBC H&H stable Obesity -needs to lose weight Will check labs in am DVT prophylaxis, patient ambulatory CM for dc planning Plan to dc tomorrow with HHC and wound vac Code Status: Full code Discussed Condition With: RN, pt, CM Dr. Kelley Discharge Planning: DC tomorrow with HHC and wound vac (1) Abdominal wound dehiscence Qualifiers: Encounter type: initial encounter Qualified Code(s): T81.30XA - Disruption of wound, unspecified, initial encounter
--- NOTE | 2018-01-13 11:17 | P.DCO ---
- Home Health Nursing Order: Medical education, Wound care and dressing changes (wound vac) - Case Management Consult Yes - Certification I have seen patient Nancy Thao on 01/13/18. My clinical findings support the need for the requested home health care services because: complex wound, needs wound vac Limited ability to care for self, Need for psychosocial assistance I certify that my clinical findings support that this patient is homebound because: Need for psychosocial assistance
[2018-01-13] MEDS: HYDROmorphone PF Inj 1 MG/ML Ampul IV.PUSH PRN (15:23)
[2018-01-13] MEDS: Melatonin 5 MG Tablet PO PRN (22:43)
[2018-01-14] MEDS: HYDROmorphone PF Inj 1 MG/ML Ampul IV.PUSH PRN (00:57)
[2018-01-14] MEDS: Sod Chloride 0.9% Inj 1,000 ML IV.CONT SCH ×2 (01:16→10:40)
[2018-01-14] MEDS: Piperacil/Tazo 3.375 GM Premix 50 ML IV.SIG SCH ×2 (06:05→09:37)
[2018-01-14 07:54] LABS: Hematocrit 29.9 % (35.0-46.0); Hemoglobin 9.8 gm/dL (11.6-15.3); Mean Corpuscular HGB Conc 32.7 % (32.0-36.0); Mean Corpuscular Hemoglobin 23.2 pg (27.0-34.0); Mean Platelet Volume 7.1 fL (7.0-11.0); Platelet Count 455 th/mm3 (150-450); Red Blood Count 4.22 mil/mm3 (4.00-5.30); Red Cell Distribution Width 27.4 % (11.6-17.2); White Blood Count 9.8 th/mm3 (4.0-11.0)
[2018-01-14] MEDS: hydrALAZINE 25 MG Tablet PO SCH (08:13)
[2018-01-14 08:32] LABS: Anion Gap 7 meq/L (5-15); Blood Urea Nitrogen 5 mg/dL (7-18); Calcium 9.1 mg/dL (8.5-10.1); Carbon Dioxide 29.3 meq/L (21.0-32.0); Chloride 103 meq/L (98-107); Glomerular Filtration Rate Greater Than 89 mL/min (>89); Glucose,Random 89 mg/dL (74-106); Sodium 139 meq/L (136-145)
[2018-01-14 08:35] LABS: Potassium 5.8 meq/L (3.5-5.1)
[2018-01-14] MEDS: Sodium Chloride 0.9% 2 ML Flush BID IV.FLUSH SCH (09:39)
--- NOTE | 2018-01-14 12:23 | P.DS ---
Date of admission: 01/06/18 22:18 Primary care physician: UNKNOWN Brief History from admission: 47-year-old female with past medical history significant for diabetes mellitus and hypertension presents to the emergency department from her surgeon's office for the evaluation of wound dehiscence. On 12/13/17 the patient had a hernia repair with Dr. Kelley. She reports her wound started leaking approximately 1 week ago and the drainage has steadily increased. She was seen in clinic today and sent to the emergency department for further evaluation. She denies any fever/chills. Endorses abdominal pain that is a 7/10. Associated nausea. No emesis. No chest pain or shortness of breath. No lateralizing signs/symptoms. Patient update on day of discharge: Patient reports pain is controlled well and would like to go home soon. No fevers or chills. DS: Diagnosis - Discharge Diagnosis (1) Abdominal wound dehiscence Status: Acute Diagnosis: Principal DS: Medications - Discharge Medications Prescriptions: levofloxacin 500 mg PO DAILY #6 tab oxycodone-acetaminophen 1 tab PO Q4H PRN #25 tab PRN Reason: Acute Pain DS: Summary Hospital Course: These are the medical issues addressed during this hospitalization: 47-year-old female with past medical history significant for diabetes mellitus and hypertension presents to the emergency department from her surgeon's office for the evaluation of wound dehiscence. On 12/13/17 the patient had a hernia repair with Dr. Kelley. She reports her wound started leaking approximately 1 week ago and the drainage has steadily increased. Wound dehiscence - General surgery is following. Second I&D done 01/10/2018. - Continue Zosyn. GNR in wound culture and will transition to p.o. Levaquin upon discharge, follow-up with final wound culture with general surgery and primary care physician -Continue with wound VAC- arrangements will be made for wound VAC and home health care to follow-up with Dr. Kelley Diabetes mellitus-diet controlled Blood sugars have been in the 90s -Continue to monitor blood sugars -no need for sliding scale. Elevated blood pressure -Blood pressure was elevated, was started on hydralazine 25 mg p.o. twice daily Blood pressure better controlled This may be due to pain, will have patient follow-up with primary care physician. Anemia, appears chronic. Monitor CBC H&H stable Obesity with BMI greater than 45 -needs to lose weight, weight loss counseling [facility] Prescription Drug Monitoring Database has been queried and verified prior to prescribing the controlled subsection. Patient is having significant pain caused by wound dehiscence which will last more than 3 days. Trial of alternative treatment options other than prescribed opioids has not helped. I believe that it is medically necessary to treat the patients pain because it is affecting patients ability to ambulate and perform activities of daily living. Patient has now gained maximum benefit from hospitalization is ready to be transitioned home with home health care and wound VAC with outpatient follow-up with Dr. Kelley. - Time Spent with Patient Total time spent providing and/or coordinating discharge services: Less than 30 minutes - Quality: VTE Deep Vein Thrombosis/Pulmonary Embolism Present on Admission: No Exam Vital signs: Vital Signs 01/13/18 16:00 01/13/18 20:00 01/13/18 23:49 Temperature 98.5 F 98.6 F 99.6 F Pulse Rate 67 73 79 Respiratory Rate 18 20 18 Blood Pressure 187/83 H 149/68 H 113/73 Pulse Oximetry 99 96 96 01/14/18 07:37 Temperature 97.9 F Pulse Rate 75 Respiratory Rate 19 Blood Pressure 176/81 H Pulse Oximetry 97 Intake & Output 01/13/18 01/14/18 01/14/18 18:59 06:59 18:59 Intake Total 1025 / 1025 630 / 630 50 / 50 Output Total 800 / 800 1100 / 1100 300 / 300 Balance 225 / 225 -470 / -470 -250 / -250 Weight 114 kg Intake: IV 1025 / 1025 50 / 50 50 / 50 NS Inj 1,000 ML @ 100 mls/hr IV 925 / 925 .CONT .Q10H [facility] Rx#:[id number] Zosyn 3.375 GM Premix 50 ML @ 100 / 100 50 / 50 50 / 50 100 mls/hr IV.SIG Q6H [facility] Rx#: [id number] Oral 580 / 580 Output: Urine 800 / 800 1100 / 1100 300 / 300 Other: Mode Setting Anterior Abdomen Continuous Continuous Continuous Date of Last Bowel Movement 01/12/18 01/12/18 01/12/18 Narrative: GENERAL: This is a well-nourished, well-developed patient, in no apparent distress. CARDIOVASCULAR: Regular rate and rhythm without murmurs, gallops, or rubs. RESPIRATORY: Clear to auscultation. Breath sounds equal bilaterally. No wheezes , rales, or rhonchi. GASTROINTESTINAL: Abdomen soft, , nondistended. Normal active bowel sounds, wound VAC in place MUSCULOSKELETAL: Extremities without clubbing, cyanosis, or edema. NEURO: Alert & Oriented x4 to person, place, time, situation. Moves all ext x4 Results Procedures completed during hospitalization: None Completed studies during hospitalization: Pending at discharge 01/10/18 11:18 Surgical [PTH] Routine Labs on day of discharge: Labs from last 24 hours 01/14/18 01/14/18 07:35 07:35 WBC 9.8 RBC 4.22 Hgb 9.8 L Hct 29.9 L MCV 71.0 L MCH 23.2 L MCHC 32.7 RDW 27.4 H Plt Count 455 H MPV 7.1 Sodium 139 Potassium 5.8 H Chloride 103 Carbon Dioxide 29.3 Anion Gap 7 BUN 5 L Creatinine 0.70 Estimated GFR Greater than 89 Random Glucose 89 Calcium 9.1 - Impressions ITS Impressions Abdomen/Pelvis CT 01/06/18 19:55 CONCLUSION: 1. Status post ventral hernia repair with some residual seroma in the anterior abdominal wall. Open wound anteriorly. No recurrent herniation of bowel. 2. Linear atelectasis at the lung bases. Mild constipation. Previous cholecystectomy. Small hiatal hernia. Discharge Plan - Discharge Disposition Patient Disposition: W/Home Health Service - Discharge Condition Condition: Good - Discharge Order Discharge Orders: Discharge Order (Routine); Ordered 01/14/18 Ordered By: Cristin Andrade - Discharge Details Anticipated Discharge Date: 01/14/18 - Physicians Team Primary Care Provider: UNKNOWN, Attending Provider: Cristin Andrade Other Providers: Handy Kelley MD ; [facility]
[2018-01-14 12:25] VITALS: BP 138/63; PULSE 68; RESP 15; TEMP 98.3; O2SAT 100
[2018-01-14] MEDS ORDERED: levoFLOXacin 500 MG Tablet PO SCH (13:00)
== END 2018-01-14 15:52 | disposition home health service (06) ==
LOC: NEPC 17:37 → NEDA 22:18 → N07 01-07 01:15
PROVIDERS: ADMIT Family Medicine; ATTEND Family Medicine